=== PATIENT | male | born 1970 | race African-American/Black ===

== ENCOUNTER 2017-01-14 14:29 | Inpatient (IN) | payer SELFPAY ==
[2017-01-14] VITALS (9 sets, daily range): BP systolic 105–140; BP diastolic 63–98
[~2017-01-14] VITALS: Ht 172.7 cm; Wt 81.2 kg
[~2017-01-14 14:29] MED LIST: INSU100I17 SQ; INSU100I27 SQ
[2017-01-14] MEDS ORDERED: IV NORMAL SALINE 1000ML BAG 1,000 ML IV SCH ×2 (14:58→17:46)
[2017-01-14] MEDS ORDERED: 0.9 % SODIUM CHLORIDE 10 ML DISP.SYRIN. IV PRN (15:00)
--- NOTE | 2017-01-14 15:10 | PHYS DOC ---
Past Medical History Past Medical History: Diabetes-Type II Past Surgical History: Other Additional Past Surgical Histo: R KNEE ORTHOPEDIC, L ROTATOR CUFF, R ELBOW ORTHO,R FINGER Alcohol Use: Occasionally Drug Use: None Adult General Chief Complaint Chief Complaint: HYPERGLYCEMIA HPI HPI This is a 46-year-old male past medical history diabetes type 2. He treats that with Humalog 13-16 in the morning, 8 at lunch, 8-10 at night, and Lantus 18 units at bedtime. His complaint today he's been having vomiting off and on and his sugars are running very high for the last 2-3 days. He has been taking his insulin. He has not had any diarrhea. He's not had any chest pain shortness of breath or abdominal pain. He did injure his elbow a couple weeks ago and had some pain there. He did see his doctor and had a negative evaluation for that. He has not been having any fevers. Currently he is not vomiting. He does feel like he may be coming down with the flu. Symptoms are off and on. He cannot think of anything which exacerbates it. Symptoms are nonradiating. And have been going on for 2-3 days. Review of Systems Review of Systems Constitutional: Denies fever or chills Eyes: Denies change in visual acuity, redness, or eye pain HENT: Denies nasal congestion or sore throat Respiratory: Denies cough or shortness of breath Cardiovascular: No additional information not addressed in HPI GI: Denies abdominal pain, bloody stools or diarrhea : Denies dysuria or hematuria Musculoskeletal: Denies back pain or joint pain. Integument: Denies rash or skin lesions Neurologic: Denies headache, focal weakness or sensory changes Endocrine: Denies polyuria or polydipsia Family History Family History non contributory Current Medications Current Medications Current Medications Medications (Trade) Dose Ordered Sig/Lilliana Start Time Stop Time Status Last Admin Dose Admin Acetaminophen/ Hydrocodone Bitart (Lortab 5/325) 1 tab PRN Q4HRS PRN 01/14/17 16:00 Diphenhydramine HCl (Benadryl) 25 mg PRN QHS PRN 01/14/17 16:00 Famotidine (Pepcid) 20 mg QHS 01/14/17 21:00 Insulin Human Regular 150 ml @ 0 mls/hr 1X ONCE 01/14/17 16:00 01/14/17 16:02 DC Insulin Human Regular 150 unit/ Sodium Chloride 151.5 ml @ 0 mls/hr CONT PRN PRN 01/14/17 15:45 Ondansetron HCl (Zofran) 4 mg PRN Q6HRS PRN 01/14/17 16:00 Potassium Chloride 100 ml @ 100 mls/hr PRN Q1HR PRN 01/14/17 15:45 Sodium Chloride 1,000 ml @ 150 mls/hr Q6H40M 01/14/17 16:00 Sodium Chloride (Normal Saline Flush) 3 ml QSHIFT PRN 01/14/17 15:00 Allergies Allergies Allergies Coded Allergies Type Severity Reaction Last Updated Verified No Known Drug Allergies 01/22/14 No No known drug allergies Physical Exam Physical Exam Constitutional: Well developed, well nourished, no acute distress, non-toxic appearance. HENT: Normocephalic, atraumatic, bilateral external ears normal, oropharynx moist, no oral exudates, nose normal. Eyes: PERRLA, EOMI, conjunctiva normal, no discharge. Neck: Normal range of motion, no tenderness, supple, no stridor. Cardiovascular:Heart rate regular rhythm, no murmur Lungs & Thorax: Bilateral breath sounds clear to auscultation Abdomen: Bowel sounds normal, soft, no tenderness, no masses, no pulsatile masses. Skin: Warm, dry, no erythema, no rash. Back: No tenderness, no CVA tenderness. Extremities: No tenderness, no cyanosis, no clubbing, ROM intact, no edema. No redness of warmth to the left elbow. Neurologic: Alert and oriented X 3, normal motor function, normal sensory function, no focal deficits noted. Psychologic: Affect normal, judgement normal, mood normal. Current Patient Data Vital Signs Vital Signs Date Time Temp Pulse Resp B/P (MAP) Pulse Ox O2 Delivery O2 Flow Rate FiO2 01/14/17 14:42 98.0 108 16 135/85 (102) 98 Room Air 98.0 Lab Values Laboratory Tests Test 01/14/17 14:35 01/14/17 14:51 01/14/17 15:20 Glucose (Fingerstick) 595 mg/dL (70-99) *H White Blood Count 9.1 x10^3/uL (4.0-11.0) Red Blood Count 4.66 x10^6/uL (4.30-5.70) Hemoglobin 15.7 g/dL (13.0-17.5) Hematocrit 46.9 % (39.0-53.0) Mean Corpuscular Volume 101 fL (79-100) H Mean Corpuscular Hemoglobin 34 pg (25-35) Mean Corpuscular Hemoglobin Concent 34 g/dL (31-37) Red Cell Distribution Width 12.4 % (11.5-14.5) Platelet Count 378 x10^3/uL (140-400) Neutrophils (%) (Auto) 70 % (31-73) Lymphocytes (%) (Auto) 20 % (24-48) L Monocytes (%) (Auto) 9 % (0-9) Eosinophils (%) (Auto) 1 % (0-3) Basophils (%) (Auto) 0 % (0-3) Neutrophils # (Auto) 6.4 x10^3uL (1.8-7.7) Lymphocytes # (Auto) 1.8 x10^3/uL (1.0-4.8) Monocytes # (Auto) 0.8 x10^3/uL (0.0-1.1) Eosinophils # (Auto) 0.0 x10^3/uL (0.0-0.7) Basophils # (Auto) 0.0 x10^3/uL (0.0-0.2) Sodium Level 130 mmol/L (136-145) L Potassium Level 5.0 mmol/L (3.5-5.1) Chloride Level 93 mmol/L (98-107) L Carbon Dioxide Level 10 mmol/L (21-32) *L Anion Gap 27 (6-14) H Blood Urea Nitrogen 20 mg/dL (8-26) Creatinine 1.5 mg/dL (0.7-1.3) H Estimated GFR (Cockcroft-Gault) 61.5 BUN/Creatinine Ratio 13 (6-20) Glucose Level 560 mg/dL (70-99) *H Calcium Level 8.9 mg/dL (8.5-10.1) Magnesium Level 2.0 mg/dL (1.8-2.4) Total Bilirubin 1.3 mg/dL (0.2-1.0) H Aspartate Amino Transferase (AST) 12 U/L (15-37) L Alanine Aminotransferase (ALT) 19 U/L (16-63) Alkaline Phosphatase 102 U/L (46-116) Total Protein 7.9 g/dL (6.4-8.2) Albumin 4.4 g/dL (3.4-5.0) Albumin/Globulin Ratio 1.3 (1.0-1.7) Lipase 140 U/L (73-393) Urine Collection Type Unknown Urine Color Yellow Urine Clarity Clear Urine pH 5.5 Urine Specific [place] >=1.030 Urine Protein Negative mg/dL (NEG-TRACE) Urine Glucose (UA) >=1000 mg/dL (NEG) Urine Ketones (Stick) >=80 mg/dL (NEG) Urine Blood Trace (NEG) Urine Nitrite Negative (NEG) Urine Bilirubin Negative (NEG) Urine Urobilinogen Dipstick 0.2 mg/dL (0.2 mg/dL) Urine Leukocyte Esterase Negative (NEG) Urine RBC 0 /HPF (0-2) Urine WBC 0 /HPF (0-4) Urine Bacteria 0 /HPF (0-FEW) Laboratory Tests 01/14/17 14:51 Laboratory Tests 01/14/17 14:51 EKG EKG EKG is a sinus tachycardia with a rate of 104 bpm. There is no STEMI. Interpretation Time: 1516 Radiology/Procedures Radiology/Procedures Chest x-ray is without acute abnormality interpreted by me pending radiology over read. Impressions: DKA Course & Med Decision Making Course & Med Decision Making Pertinent Labs and Imaging studies reviewed. (See chart for details) Patient is in DKA. Insulin drip is initiated. IV fluids given. Discussed with Dr. MUSTAFA will admit to the ICU for DKA. Patient remains in stable condition in the emergency department. Dragon Disclaimer Dragon Disclaimer This electronic medical record was generated, in whole or in part, using a voice recognition dictation system. Departure Departure Disposition: 09 ADMITTED INPATIENT Admitting Physician: Savanna Mustafa Condition: CRITICAL Referrals: GINI MONTANA (PCP) CIERRA NGUYEN MD Jan 14, 2017 15:10
[2017-01-14 15:12] LABS: BASO % 0 % (0-3); EOS % 1 % (0-3); HEMATOCRIT 46.9 % (39.0-53.0); HEMOGLOBIN 15.7 g/dL (13.0-17.5); LYMPH # 1.8 x10^3/uL (1.0-4.8); LYMPH % 20 % (24-48); MEAN CORPUSCULAR HEMOGLOBIN 34 pg (25-35); MEAN CORPUSCULAR HGB CONC 34 g/dL (31-37); MEAN CORPUSCULAR VOLUME 101 fL (79-100); MONO % 9 % (0-9); NEUT % 70 % (31-73); PLATELET COUNT 378 x10^3/uL (140-400); RED BLOOD COUNT 4.66 x10^6/uL (4.30-5.70); RED CELL DISTRIBUTION WIDTH 12.4 % (11.5-14.5); WHITE BLOOD COUNT 9.1 x10^3/uL (4.0-11.0)
[2017-01-14 15:28] LABS: BILIRUBIN,URINE NEGATIVE (NEG); GLUCOSE,URINE >=1000 mg/dL (NEG); NITRITE,URINE NEGATIVE (NEG); PH,URINE 5.5; PROTEIN,URINE NEGATIVE (NEG-TRACE); UROBILINOGEN,URINE 0.2 mg/dL (0.2 mg/dL)
[2017-01-14 15:28] LABS: ALBUMIN 4.4 g/dL (3.4-5.0); ALBUMIN/GLOBULIN RATIO 1.3 (1.0-1.7); CALCIUM 8.9 mg/dL (8.5-10.1); CREATININE 1.5 mg/dL (0.7-1.3); GFR 61.5; TOTAL BILIRUBIN 1.3 mg/dL (0.2-1.0); TOTAL PROTEIN 7.9 g/dL (6.4-8.2)
[2017-01-14 15:44] LABS: BACTERIA,URINE 0 /HPF (0-FEW); RBC,URINE 0 /HPF (0-2); WBC,URINE 0 /HPF (0-4)
[2017-01-14] MEDS ORDERED: INSULIN REGULAR VIAL 150 UNIT in 0.9 % SODIUM CHLORIDE 150ML 150 ML IV PRN ×2 (15:45→17:45)
[2017-01-14] MEDS ORDERED: POTASSIUM CHLORIDE 10MEQ 100 ML IV PRN ×6 (15:45→17:45)
[2017-01-14] MEDS ORDERED: diphenhydrAMINE HCL 25 MG CAPSULE PO PRN (16:00)
[2017-01-14] MEDS ORDERED: INSULIN,REGULAR 150 UNIT DRIP 150 ML IV ONE (16:00)
[2017-01-14] MEDS ORDERED: ONDANSETRON PF 4 MG/2 ML VIAL. IV PRN (16:00)
[2017-01-14] MEDS: IV NORMAL SALINE 1000ML BAG 1,000 ML IV SCH ×2 (16:00→22:40)
--- NOTE | 2017-01-14 16:24 | PDOC1 ---
History and Physical Date of Admission Date of Admission DATE: 01/14/17 TIME: 16:19 Identification/Chief Complaint Chief Complaint nausea, emesis Problems: Source Source: Caregiver, Chart review, Patient History of Present Illness History of Present Illness 46 y.o AA male, Dm x 5-7 yrs now on levemir 15 qhs and novolog 16 TID unknown [id number], claims compliance, no respi or urinary sxs admitted for DKA with bicarb 10, gap > 20, BS >500. 5th admission for DKA, PCP unassigned, no OHA. NO neuropathy or nephropathy, no ABG yet, Sinus tachy low 100s, nausea and emesis no fevers, no diarrhea Admit to ICU Past Medical History Endocrine: Diabetes Past Surgical History Past Surgical History: Other (shoulder, knee sx) Family History Family History: Hypertension Social History Smoke: No ALCOHOL: occassional Drugs: None Current Problem List Problem List Problems Medical Problems: (1) DKA (diabetic ketoacidoses) Status: Acute Problems: Current Medications Current Medications Current Medications Sodium Chloride (Normal Saline Flush) 3 ml QSHIFT PRN IV AFTER MEDS AND BLOOD DRAWS; Start 01/14/17 at 15:00 Sodium Chloride 1,000 ml @ 1,000 mls/hr Q1H IV Last administered on t 15:13; Start 01/14/17 at 14:58; Stop 01/14/17 at 15:57; Status DC Insulin Human Regular 150 unit/ Sodium Chloride 151.5 ml @ 0 mls/hr CONT PRN PRN IV PER PROTOCOL; Start 01/14/17 at 15:45 Potassium Chloride 100 ml @ 100 mls/hr PRN Q1HR PRN IV SEE COMMENTS; Start at 15:45 Potassium Chloride 100 ml @ 100 mls/hr PRN Q1HR PRN IV SEE COMMENTS; Start at 15:45 Potassium Chloride 100 ml @ 100 mls/hr PRN Q1HR PRN IV SEE COMMENTS; Start at 15:45 Insulin Human Regular 150 ml @ 0 mls/hr 1X ONCE IV ; Start 01/14/17 at 16:00; Stop 01/14/17 at 16:02; Status DC Famotidine (Pepcid) 20 mg QHS IVP ; Start 01/14/17 at 21:00 Ondansetron HCl (Zofran) 4 mg PRN Q6HRS PRN IV NAUSEA/VOMITING; Start at 16:00 Sodium Chloride 1,000 ml @ 150 mls/hr Q6H40M IV ; Start 01/14/17 at 16:00 Acetaminophen/ Hydrocodone Bitart (Lortab 5/325) 1 tab PRN Q4HRS PRN PO PAIN; Start 01/14/17 at 16:00 Diphenhydramine HCl (Benadryl) 25 mg PRN QHS PRN PO INSOMNIA; Start 01/14/17 at 16:00 Active Scripts Active Levemir Flextouch (Insulin Detemir) 100 Unit/1 Ml Insuln.pen 15 Units SQ QHS 30 Days Novolog Flexpen (Insulin Aspart) 100 Unit/1 Ml Insuln.pen 16 Units SQ TIDBFRMEAL 30 Days Allergies Allergies: Coded Allergies: No Known Drug Allergies (Unverified , 01/22/14) ROS General: YES: Fatigue, Malaise PSYCHOLOGICAL ROS: No: Anxiety, Behavioral Disorder, Concentration difficultie , Decreased libido, Depression, Disorientation, Hallucinations, Hostility, Irritablity, Memory difficulties, Mood Swings, Obsessive thoughts, Physical abuse, Sexual abuse, Sleep disturbances, Suicidal ideation, Other Eyes: No Blurry vision, No Decreased vision, No Double vision, No Dry eyes, No Excessive tearing, No Eye Pain, No Itchy Eyes, No Loss of vision, No Photophobia , No Scotomata, No Uses contacts, No Uses glasses, No Other HEENT: No: Heacaches, Visual Changes, Hearing change, Nasal congestion, Nasal discharge, Oral lesions, Sinus pain, Sore Throat, Epistaxis, Sneezing, Snoring, Tinnitus, Vertigo, Vocal changes, Other ALLERGY AND IMMUNOLOGY: No: Hives, Insect Bite Sensitivity, Itchy/Watery Eyes, Nasal Congestion, Post Nasal Drip, Seasonal Allergies, Other Hematological and Lymphatic: No: Bleeding Problems, Blood Clots, Blood Transfusions, Brusing, Night Sweats, Pallor, Swollen Lymph Nodes, Other ENDOCRINE: YES: Polydipsia/polyuria Breast: No New/Changing Breast Lumps, No Nipple changes, No Nipple discharge, No Other Respiratory: No: Cough, Hemoptysis, Orthopnea, Pleuritic Pain, Shortness of breath, SOB with excertion, Sputum Changes, Stridor, Tachypnea, Wheezing, Other Cardiovascular: No Chest Pain, No Palpitations, No Orthopnea, No Paroxysmal Noc. Dyspnea, No Edema, No Lt Headedness, No Other Gastrointestinal: No Nausea, No Vomiting, No Abdominal Pain, No Diarrhea, No Constipation, No Melena, No Hematochezia, No Other Genitourinary: No Dysuria, No Frequency, No Incontinence, No Hematuria, No Retention, No Discharge, No Urgency, No Pain, No Flank Pain, No Other, No , No , No , No , No , No , No Musculoskeletal: No Gait Disturbance, No Joint Pain, No Joint Stiffness, No Joint Swelling, No Muscle Pain, No Muscular Weakness, No Pain In:, No Swelling In:, No Other Neurological: No Behavorial Changes, No Bowel/Bladder ControlChng, No Confusion , No Dizziness, No Gait Disturbance, No Headaches, No Impaired Coord/balance, No Memory Loss, No Numbness/Tingling, No Seizures, No Speech Problems, No Tremors, No Visual Changes, No Weakness, No Other Skin: No Dry Skin, No Eczema, No Hair Changes, No Lumps, No Mole Changes, No Mottling, No Nail Changes, No Pruritus, No Rash, No Skin Lesion Changes, No Other, No Acne Physical Exam General: Alert, Oriented X3, Cooperative, No acute distress HEENT: PERRLA, EOMI, Other (dry mucous membranes) Lungs: Clear to auscultation Heart: S1S2, RRR, no thrills, no rubs, no gallops, no murmurs, other (sinus tachy) Cardiovascular: S1, S2 Breasts: Normal, Rt breast nml w/o mass, Lt breast nml w/o mass, Nipples normal Abdomen: Normal bowel sounds, Soft, No tenderness, No hepatosplenomegaly, No masses Male Genitals Exam: normal genitalia, normal prostate PELVIC: Nml ext genitalia Extremities: No clubbing, No cyanosis, No edema, Normal pulses, No tenderness/ swelling, Other (toe nails angel big toe and second toe have thickened texture, curling forward) Skin: No rashes, No breakdown, No significant lesion Neuro: Normal gait, Normal speech, Strength at 5/5 X4 ext, Normal tone, Sensation intact, Cranial nerves 3-12 NL, Reflexes 2+ Psych/Mental Status: Mental status NL, Mood NL Vitals Vitals Vital Signs Date Time Temp Pulse Resp B/P (MAP) Pulse Ox O2 Delivery O2 Flow Rate FiO2 01/14/17 14:42 98.0 108 16 135/85 (102) 98 Room Air 98.0 Labs Labs Laboratory Tests Test 01/14/17 14:35 01/14/17 14:51 01/14/17 15:20 Glucose (Fingerstick) 595 mg/dL (70-99) White Blood Count 9.1 x10^3/uL (4.0-11.0) Red Blood Count 4.66 x10^6/uL (4.30-5.70) Hemoglobin 15.7 g/dL (13.0-17.5) Hematocrit 46.9 % (39.0-53.0) Mean Corpuscular Volume 101 fL (79-100) Mean Corpuscular Hemoglobin 34 pg (25-35) Mean Corpuscular Hemoglobin Concent 34 g/dL (31-37) Red Cell Distribution Width 12.4 % (11.5-14.5) Platelet Count 378 x10^3/uL (140-400) Neutrophils (%) (Auto) 70 % (31-73) Lymphocytes (%) (Auto) 20 % (24-48) Monocytes (%) (Auto) 9 % (0-9) Eosinophils (%) (Auto) 1 % (0-3) Basophils (%) (Auto) 0 % (0-3) Neutrophils # (Auto) 6.4 x10^3uL (1.8-7.7) Lymphocytes # (Auto) 1.8 x10^3/uL (1.0-4.8) Monocytes # (Auto) 0.8 x10^3/uL (0.0-1.1) Eosinophils # (Auto) 0.0 x10^3/uL (0.0-0.7) Basophils # (Auto) 0.0 x10^3/uL (0.0-0.2) Sodium Level 130 mmol/L (136-145) Potassium Level 5.0 mmol/L (3.5-5.1) Chloride Level 93 mmol/L (98-107) Carbon Dioxide Level 10 mmol/L (21-32) Anion Gap 27 (6-14) Blood Urea Nitrogen 20 mg/dL (8-26) Creatinine 1.5 mg/dL (0.7-1.3) Estimated GFR (Cockcroft-Gault) 61.5 BUN/Creatinine Ratio 13 (6-20) Glucose Level 560 mg/dL (70-99) Calcium Level 8.9 mg/dL (8.5-10.1) Magnesium Level 2.0 mg/dL (1.8-2.4) Total Bilirubin 1.3 mg/dL (0.2-1.0) Aspartate Amino Transf (AST/SGOT) 12 U/L (15-37) Alanine Aminotransferase (ALT/SGPT) 19 U/L (16-63) Alkaline Phosphatase 102 U/L (46-116) Total Protein 7.9 g/dL (6.4-8.2) Albumin 4.4 g/dL (3.4-5.0) Albumin/Globulin Ratio 1.3 (1.0-1.7) Lipase 140 U/L (73-393) Urine Collection Type Unknown Urine Color Yellow Urine Clarity Clear Urine pH 5.5 Urine Specific [place] >=1.030 Urine Protein Negative mg/dL (NEG-TRACE) Urine Glucose (UA) >=1000 mg/dL (NEG) Urine Ketones (Stick) >=80 mg/dL (NEG) Urine Blood Trace (NEG) Urine Nitrite Negative (NEG) Urine Bilirubin Negative (NEG) Urine Urobilinogen Dipstick 0.2 mg/dL (0.2 mg/dL) Urine Leukocyte Esterase Negative (NEG) Urine RBC 0 /HPF (0-2) Urine WBC 0 /HPF (0-4) Urine Bacteria 0 /HPF (0-FEW) Laboratory Tests Test 01/14/17 14:35 01/14/17 14:51 01/14/17 15:20 Glucose (Fingerstick) 595 mg/dL (70-99) White Blood Count 9.1 x10^3/uL (4.0-11.0) Red Blood Count 4.66 x10^6/uL (4.30-5.70) Hemoglobin 15.7 g/dL (13.0-17.5) Hematocrit 46.9 % (39.0-53.0) Mean Corpuscular Volume 101 fL (79-100) Mean Corpuscular Hemoglobin 34 pg (25-35) Mean Corpuscular Hemoglobin Concent 34 g/dL (31-37) Red Cell Distribution Width 12.4 % (11.5-14.5) Platelet Count 378 x10^3/uL (140-400) Neutrophils (%) (Auto) 70 % (31-73) Lymphocytes (%) (Auto) 20 % (24-48) Monocytes (%) (Auto) 9 % (0-9) Eosinophils (%) (Auto) 1 % (0-3) Basophils (%) (Auto) 0 % (0-3) Neutrophils # (Auto) 6.4 x10^3uL (1.8-7.7) Lymphocytes # (Auto) 1.8 x10^3/uL (1.0-4.8) Monocytes # (Auto) 0.8 x10^3/uL (0.0-1.1) Eosinophils # (Auto) 0.0 x10^3/uL (0.0-0.7) Basophils # (Auto) 0.0 x10^3/uL (0.0-0.2) Sodium Level 130 mmol/L (136-145) Potassium Level 5.0 mmol/L (3.5-5.1) Chloride Level 93 mmol/L (98-107) Carbon Dioxide Level 10 mmol/L (21-32) Anion Gap 27 (6-14) Blood Urea Nitrogen 20 mg/dL (8-26) Creatinine 1.5 mg/dL (0.7-1.3) Estimated GFR (Cockcroft-Gault) 61.5 BUN/Creatinine Ratio 13 (6-20) Glucose Level 560 mg/dL (70-99) Calcium Level 8.9 mg/dL (8.5-10.1) Magnesium Level 2.0 mg/dL (1.8-2.4) Total Bilirubin 1.3 mg/dL (0.2-1.0) Aspartate Amino Transf (AST/SGOT) 12 U/L (15-37) Alanine Aminotransferase (ALT/SGPT) 19 U/L (16-63) Alkaline Phosphatase 102 U/L (46-116) Total Protein 7.9 g/dL (6.4-8.2) Albumin 4.4 g/dL (3.4-5.0) Albumin/Globulin Ratio 1.3 (1.0-1.7) Lipase 140 U/L (73-393) Urine Collection Type Unknown Urine Color Yellow Urine Clarity Clear Urine pH 5.5 Urine Specific [place] >=1.030 Urine Protein Negative mg/dL (NEG-TRACE) Urine Glucose (UA) >=1000 mg/dL (NEG) Urine Ketones (Stick) >=80 mg/dL (NEG) Urine Blood Trace (NEG) Urine Nitrite Negative (NEG) Urine Bilirubin Negative (NEG) Urine Urobilinogen Dipstick 0.2 mg/dL (0.2 mg/dL) Urine Leukocyte Esterase Negative (NEG) Urine RBC 0 /HPF (0-2) Urine WBC 0 /HPF (0-4) Urine Bacteria 0 /HPF (0-FEW) VTE Prophylaxis Ordered VTE Prophylaxis Devices: Yes VTE Pharmacological Prophylaxi: Yes Assessment/Plan Assessment/Plan 1. DKA 2. SIRS POA, non infectious 3. Long toe nails PLAN: Admit ICU DKA protocol Insulin gtt' IVF 150cc./hr, aggressive after IVF boluses at ER BMP q4 till gap closes Check pH with ABG , if < 6.9 will need bicarb D5 IVF once BS < 250 mg/dl Podiatry for toe nail clipping Seen at ER No UTI on UA NICK MUSTAFA MD Jan 14, 2017 16:24
[2017-01-14] MEDS ORDERED: IV DEXTROSE 5 %-0.45 % NACL 1,000 ML IV SCH (16:30)
[2017-01-14 16:32] LABS: CALCIUM 8.5 mg/dL (8.5-10.1); CREATININE 1.5 mg/dL (0.7-1.3); GFR 61.5; POTASSIUM 4.7 mmol/L (3.5-5.1)
[2017-01-14 17:09] LABS: HCO3 ABG 7 mmol/L (21-28); PH ABG 7.28 (7.35-7.45); PO2 ABG 104 mmHg (75-108); SAT O2 ABG 97 % (92-99)
[2017-01-14 17:17] LABS: PCO2 ABG 16 mmHg (35-46)
--- NOTE | 2017-01-14 17:18 | RAD ---
PORTABLE CHEST 1V Clinical Indication: malaise hyperglycemia Comparison: Chest radiograph dated 12/06/2015 Findings: Normal lung volume. No focal consolidation. Normal pulmonary vasculature. No pleural effusion or pneumothorax. The cardiomediastinal silhouette and great vessels are normal. No acute osseous abnormality. IMPRESSION: No acute cardiopulmonary process.
[2017-01-14] MEDS ORDERED: SODIUM BICARBONATE VIAL 50 MEQ in IV 1/2 NORMAL SALINE 1,000 ML IV PRN (17:43)
[2017-01-14] MEDS ORDERED: SODIUM PHOSPHATE 10 MMOL in IV DEXTROSE 5% 250 ML IV PRN (17:45)
[2017-01-14] MEDS ORDERED: SODIUM PHOSPHATE 20 MMOL in IV DEXTROSE 5% 250 ML IV PRN (17:45)
[2017-01-14] MEDS ORDERED: SODIUM PHOSPHATE 40 MMOL in IV NORMAL SALINE 500ML BAG 500 ML IV PRN (17:45)
[2017-01-14] MEDS ORDERED: NORMAL SALINE IV PRN (18:30)
[2017-01-14] MEDS ORDERED: SODIUM PHOSPHATE IV PRN (18:30)
[2017-01-14 19:56] LABS: CALCIUM 8.6 mg/dL (8.5-10.1); CREATININE 1.4 mg/dL (0.7-1.3); GFR 66.6; POTASSIUM 3.8 mmol/L (3.5-5.1)
[2017-01-14] MEDS: IV DEXTROSE 5% - 0.9 % NACL 1,000 ML IV SCH (20:45)
[2017-01-14] MEDS: FAMOTIDINE 20 MG/2 ML VIAL IVP SCH (20:49)
[2017-01-14] MEDS: HYDROcodone/APAP 5/325MG 1 TAB TABLET PO PRN (20:52)
[2017-01-15] VITALS (13 sets, daily range): BP systolic 92–123; BP diastolic 56–80
[2017-01-15 00:51] LABS: CALCIUM 7.4 mg/dL (8.5-10.1); CREATININE 1.1 mg/dL (0.7-1.3)
[2017-01-15] MEDS: IV DEXTROSE 5% - 0.9 % NACL 1,000 ML IV SCH (01:07)
[2017-01-15] MEDS: POTASSIUM CHLORIDE 10MEQ 100 ML IV SCH ×4 (01:08→04:39)
[2017-01-15] MEDS: IV NORMAL SALINE 1000ML BAG 1,000 ML IV SCH ×2 (04:39→16:51)
[2017-01-15] MEDS ORDERED: DEXTROSE 50% 25 GM / 50ML DISP.SYRIN. IV PRN (04:45)
--- NOTE | 2017-01-15 06:14 | EKG ---
[facility] [address] [place] [address] Test Date: 2017-01-14 Test Time: 15:13:24 Pat Name: MELINA MACIAS Department: Room: 106 1 Gender: M [employer]ist: : 1970 Requested By: CIERRA NGUYEN Order Number: [id number] Reading MD: Neil Monique Measurements Intervals [place] Rate: 104 P: 29 IA: 150 QRS: 5 QRSD: 76 T: 30 QT: 308 QTc: 405 Interpretive Statements SINUS TACHYCARDIA NON-SPECIFIC ST/T CHANGES Electronically Signed On 01-17-2017 8:22:39 CDT by Neil Monique
--- NOTE | 2017-01-15 07:48 | PDOC ---
PROGRESS NOTES Chief Complaint Chief Complaint 1. DKA, resolved 2. SIRS POA, non infectious 3. Long toe nails 4. DM uncontrolled History of Present Illness History of Present Illness GAp closed, Was 120 BS with d5 at 200cc early AM NO more nausea, chugging up his liquid diet BS check now was 200s PLAn: NS 100cc/hr Dc dextrose iVF Resume home regimen levemir 15 qhs and novolog 16 TID with high dose SSI Ok to t.o ICU to non monitored bed Dw [employer] Vitals Vitals Vital Signs Date Time Temp Pulse Resp B/P (MAP) Pulse Ox O2 Delivery O2 Flow Rate FiO2 01/15/17 06:00 66 16 97/69 (78) Room Air 01/15/17 04:00 98.0 100 98.0 Physical Exam General: Alert, Oriented X3, Cooperative, No acute distress Lungs: Clear Abdomen: Normal bowel sounds, Soft, No tenderness, No hepatosplenomegaly, No masses Extremities: No clubbing, No cyanosis, No edema, Normal pulses, No tenderness/ swelling, Other (toe nails angel big toe and second toe have thickened texture, curling forward) Skin: No rashes, No breakdown, No significant lesion Labs LABS Laboratory Tests Test 01/14/17 14:35 01/14/17 14:51 01/14/17 15:20 01/14/17 16:13 Glucose (Fingerstick) 595 mg/dL (70-99) White Blood Count 9.1 x10^3/uL (4.0-11.0) Red Blood Count 4.66 x10^6/uL (4.30-5.70) Hemoglobin 15.7 g/dL (13.0-17.5) Hematocrit 46.9 % (39.0-53.0) Mean Corpuscular Volume 101 fL (79-100) Mean Corpuscular Hemoglobin 34 pg (25-35) Mean Corpuscular Hemoglobin Concent 34 g/dL (31-37) Red Cell Distribution Width 12.4 % (11.5-14.5) Platelet Count 378 x10^3/uL (140-400) Neutrophils (%) (Auto) 70 % (31-73) Lymphocytes (%) (Auto) 20 % (24-48) Monocytes (%) (Auto) 9 % (0-9) Eosinophils (%) (Auto) 1 % (0-3) Basophils (%) (Auto) 0 % (0-3) Neutrophils # (Auto) 6.4 x10^3uL (1.8-7.7) Lymphocytes # (Auto) 1.8 x10^3/uL (1.0-4.8) Monocytes # (Auto) 0.8 x10^3/uL (0.0-1.1) Eosinophils # (Auto) 0.0 x10^3/uL (0.0-0.7) Basophils # (Auto) 0.0 x10^3/uL (0.0-0.2) Sodium Level 130 mmol/L (136-145) 132 mmol/L (136-145) Potassium Level 5.0 mmol/L (3.5-5.1) 4.7 mmol/L (3.5-5.1) Chloride Level 93 mmol/L (98-107) 96 mmol/L (98-107) Carbon Dioxide Level 10 mmol/L (21-32) 9 mmol/L (21-32) Anion Gap 27 (6-14) 27 (6-14) Blood Urea Nitrogen 20 mg/dL (8-26) 19 mg/dL (8-26) Creatinine 1.5 mg/dL (0.7-1.3) 1.5 mg/dL (0.7-1.3) Estimated GFR (Cockcroft-Gault) 61.5 61.5 BUN/Creatinine Ratio 13 (6-20) Glucose Level 560 mg/dL (70-99) 479 mg/dL (70-99) Calcium Level 8.9 mg/dL (8.5-10.1) 8.5 mg/dL (8.5-10.1) Magnesium Level 2.0 mg/dL (1.8-2.4) Total Bilirubin 1.3 mg/dL (0.2-1.0) Aspartate Amino Transf (AST/SGOT) 12 U/L (15-37) Alanine Aminotransferase (ALT/SGPT) 19 U/L (16-63) Alkaline Phosphatase 102 U/L (46-116) Total Protein 7.9 g/dL (6.4-8.2) Albumin 4.4 g/dL (3.4-5.0) Albumin/Globulin Ratio 1.3 (1.0-1.7) Lipase 140 U/L (73-393) Urine Collection Type Unknown Urine Color Yellow Urine Clarity Clear Urine pH 5.5 Urine Specific [place] >=1.030 Urine Protein Negative mg/dL (NEG-TRACE) Urine Glucose (UA) >=1000 mg/dL (NEG) Urine Ketones (Stick) >=80 mg/dL (NEG) Urine Blood Trace (NEG) Urine Nitrite Negative (NEG) Urine Bilirubin Negative (NEG) Urine Urobilinogen Dipstick 0.2 mg/dL (0.2 mg/dL) Urine Leukocyte Esterase Negative (NEG) Urine RBC 0 /HPF (0-2) Urine WBC 0 /HPF (0-4) Urine Bacteria 0 /HPF (0-FEW) Test 01/14/17 16:22 01/14/17 17:00 01/14/17 17:06 01/14/17 19:15 Glucose (Fingerstick) 452 mg/dL (70-99) 347 mg/dL (70-99) 162 mg/dL (70-99) O2 Saturation 97 % (92-99) Arterial Blood pH 7.28 (7.35-7.45) Arterial Blood pCO2 at Patient Temp 16 mmHg (35-46) Arterial Blood pO2 at Patient Temp 104 mmHg (75-108) Arterial Blood HCO3 7 mmol/L (21-28) Arterial Blood Base Excess -16 mmol/L (-3-3) Test 01/14/17 19:44 01/14/17 20:53 01/14/17 21:55 01/14/17 22:58 Sodium Level 139 mmol/L (136-145) Potassium Level 3.8 mmol/L (3.5-5.1) Chloride Level 103 mmol/L (98-107) Carbon Dioxide Level 18 mmol/L (21-32) Anion Gap 18 (6-14) Blood Urea Nitrogen 18 mg/dL (8-26) Creatinine 1.4 mg/dL (0.7-1.3) Estimated GFR (Cockcroft-Gault) 66.6 Glucose Level 160 mg/dL (70-99) Calcium Level 8.6 mg/dL (8.5-10.1) Glucose (Fingerstick) 168 mg/dL (70-99) 160 mg/dL (70-99) 163 mg/dL (70-99) Test 01/15/17 00:04 01/15/17 00:15 01/15/17 01:14 01/15/17 02:06 Glucose (Fingerstick) 142 mg/dL (70-99) 266 mg/dL (70-99) 99 mg/dL (70-99) Sodium Level 137 mmol/L (136-145) Potassium Level 3.0 mmol/L (3.5-5.1) Chloride Level 105 mmol/L (98-107) Carbon Dioxide Level 21 mmol/L (21-32) Anion Gap 11 (6-14) Blood Urea Nitrogen 15 mg/dL (8-26) Creatinine 1.1 mg/dL (0.7-1.3) Estimated GFR (Cockcroft-Gault) 88.0 Glucose Level 142 mg/dL (70-99) Calcium Level 7.4 mg/dL (8.5-10.1) Test 01/15/17 03:10 01/15/17 04:16 01/15/17 07:42 Glucose (Fingerstick) 84 mg/dL (70-99) 121 mg/dL (70-99) 239 mg/dL (70-99) Review of Systems Review of Systems no nausea, CP, soa or abd pain, no fevers, leg edema Assessment and Plan Assessmemt and Plan Problems Medical Problems: (1) DKA (diabetic ketoacidoses) Status: Acute Problems: Comment Review of Relevant I have reviewed the following items kaelyn (where applicable) has been applied. Labs Laboratory Tests Test 01/14/17 14:35 01/14/17 14:51 01/14/17 15:20 01/14/17 16:13 Glucose (Fingerstick) 595 mg/dL (70-99) White Blood Count 9.1 x10^3/uL (4.0-11.0) Red Blood Count 4.66 x10^6/uL (4.30-5.70) Hemoglobin 15.7 g/dL (13.0-17.5) Hematocrit 46.9 % (39.0-53.0) Mean Corpuscular Volume 101 fL (79-100) Mean Corpuscular Hemoglobin 34 pg (25-35) Mean Corpuscular Hemoglobin Concent 34 g/dL (31-37) Red Cell Distribution Width 12.4 % (11.5-14.5) Platelet Count 378 x10^3/uL (140-400) Neutrophils (%) (Auto) 70 % (31-73) Lymphocytes (%) (Auto) 20 % (24-48) Monocytes (%) (Auto) 9 % (0-9) Eosinophils (%) (Auto) 1 % (0-3) Basophils (%) (Auto) 0 % (0-3) Neutrophils # (Auto) 6.4 x10^3uL (1.8-7.7) Lymphocytes # (Auto) 1.8 x10^3/uL (1.0-4.8) Monocytes # (Auto) 0.8 x10^3/uL (0.0-1.1) Eosinophils # (Auto) 0.0 x10^3/uL (0.0-0.7) Basophils # (Auto) 0.0 x10^3/uL (0.0-0.2) Sodium Level 130 mmol/L (136-145) 132 mmol/L (136-145) Potassium Level 5.0 mmol/L (3.5-5.1) 4.7 mmol/L (3.5-5.1) Chloride Level 93 mmol/L (98-107) 96 mmol/L (98-107) Carbon Dioxide Level 10 mmol/L (21-32) 9 mmol/L (21-32) Anion Gap 27 (6-14) 27 (6-14) Blood Urea Nitrogen 20 mg/dL (8-26) 19 mg/dL (8-26) Creatinine 1.5 mg/dL (0.7-1.3) 1.5 mg/dL (0.7-1.3) Estimated GFR (Cockcroft-Gault) 61.5 61.5 BUN/Creatinine Ratio 13 (6-20) Glucose Level 560 mg/dL (70-99) 479 mg/dL (70-99) Calcium Level 8.9 mg/dL (8.5-10.1) 8.5 mg/dL (8.5-10.1) Magnesium Level 2.0 mg/dL (1.8-2.4) Total Bilirubin 1.3 mg/dL (0.2-1.0) Aspartate Amino Transf (AST/SGOT) 12 U/L (15-37) Alanine Aminotransferase (ALT/SGPT) 19 U/L (16-63) Alkaline Phosphatase 102 U/L (46-116) Total Protein 7.9 g/dL (6.4-8.2) Albumin 4.4 g/dL (3.4-5.0) Albumin/Globulin Ratio 1.3 (1.0-1.7) Lipase 140 U/L (73-393) Urine Collection Type Unknown Urine Color Yellow Urine Clarity Clear Urine pH 5.5 Urine Specific [place] >=1.030 Urine Protein Negative mg/dL (NEG-TRACE) Urine Glucose (UA) >=1000 mg/dL (NEG) Urine Ketones (Stick) >=80 mg/dL (NEG) Urine Blood Trace (NEG) Urine Nitrite Negative (NEG) Urine Bilirubin Negative (NEG) Urine Urobilinogen Dipstick 0.2 mg/dL (0.2 mg/dL) Urine Leukocyte Esterase Negative (NEG) Urine RBC 0 /HPF (0-2) Urine WBC 0 /HPF (0-4) Urine Bacteria 0 /HPF (0-FEW) Test 01/14/17 16:22 01/14/17 17:00 01/14/17 17:06 01/14/17 19:15 Glucose (Fingerstick) 452 mg/dL (70-99) 347 mg/dL (70-99) 162 mg/dL (70-99) O2 Saturation 97 % (92-99) Arterial Blood pH 7.28 (7.35-7.45) Arterial Blood pCO2 at Patient Temp 16 mmHg (35-46) Arterial Blood pO2 at Patient Temp 104 mmHg (75-108) Arterial Blood HCO3 7 mmol/L (21-28) Arterial Blood Base Excess -16 mmol/L (-3-3) Test 01/14/17 19:44 01/14/17 20:53 01/14/17 21:55 01/14/17 22:58 Sodium Level 139 mmol/L (136-145) Potassium Level 3.8 mmol/L (3.5-5.1) Chloride Level 103 mmol/L (98-107) Carbon Dioxide Level 18 mmol/L (21-32) Anion Gap 18 (6-14) Blood Urea Nitrogen 18 mg/dL (8-26) Creatinine 1.4 mg/dL (0.7-1.3) Estimated GFR (Cockcroft-Gault) 66.6 Glucose Level 160 mg/dL (70-99) Calcium Level 8.6 mg/dL (8.5-10.1) Glucose (Fingerstick) 168 mg/dL (70-99) 160 mg/dL (70-99) 163 mg/dL (70-99) Test 01/15/17 00:04 01/15/17 00:15 01/15/17 01:14 01/15/17 02:06 Glucose (Fingerstick) 142 mg/dL (70-99) 266 mg/dL (70-99) 99 mg/dL (70-99) Sodium Level 137 mmol/L (136-145) Potassium Level 3.0 mmol/L (3.5-5.1) Chloride Level 105 mmol/L (98-107) Carbon Dioxide Level 21 mmol/L (21-32) Anion Gap 11 (6-14) Blood Urea Nitrogen 15 mg/dL (8-26) Creatinine 1.1 mg/dL (0.7-1.3) Estimated GFR (Cockcroft-Gault) 88.0 Glucose Level 142 mg/dL (70-99) Calcium Level 7.4 mg/dL (8.5-10.1) Test 01/15/17 03:10 01/15/17 04:16 01/15/17 07:42 Glucose (Fingerstick) 84 mg/dL (70-99) 121 mg/dL (70-99) 239 mg/dL (70-99) Laboratory Tests Test 01/14/17 14:35 01/14/17 14:51 01/14/17 15:20 01/14/17 16:13 Glucose (Fingerstick) 595 mg/dL (70-99) White Blood Count 9.1 x10^3/uL (4.0-11.0) Red Blood Count 4.66 x10^6/uL (4.30-5.70) Hemoglobin 15.7 g/dL (13.0-17.5) Hematocrit 46.9 % (39.0-53.0) Mean Corpuscular Volume 101 fL (79-100) Mean Corpuscular Hemoglobin 34 pg (25-35) Mean Corpuscular Hemoglobin Concent 34 g/dL (31-37) Red Cell Distribution Width 12.4 % (11.5-14.5) Platelet Count 378 x10^3/uL (140-400) Neutrophils (%) (Auto) 70 % (31-73) Lymphocytes (%) (Auto) 20 % (24-48) Monocytes (%) (Auto) 9 % (0-9) Eosinophils (%) (Auto) 1 % (0-3) Basophils (%) (Auto) 0 % (0-3) Neutrophils # (Auto) 6.4 x10^3uL (1.8-7.7) Lymphocytes # (Auto) 1.8 x10^3/uL (1.0-4.8) Monocytes # (Auto) 0.8 x10^3/uL (0.0-1.1) Eosinophils # (Auto) 0.0 x10^3/uL (0.0-0.7) Basophils # (Auto) 0.0 x10^3/uL (0.0-0.2) Sodium Level 130 mmol/L (136-145) 132 mmol/L (136-145) Potassium Level 5.0 mmol/L (3.5-5.1) 4.7 mmol/L (3.5-5.1) Chloride Level 93 mmol/L (98-107) 96 mmol/L (98-107) Carbon Dioxide Level 10 mmol/L (21-32) 9 mmol/L (21-32) Anion Gap 27 (6-14) 27 (6-14) Blood Urea Nitrogen 20 mg/dL (8-26) 19 mg/dL (8-26) Creatinine 1.5 mg/dL (0.7-1.3) 1.5 mg/dL (0.7-1.3) Estimated GFR (Cockcroft-Gault) 61.5 61.5 BUN/Creatinine Ratio 13 (6-20) Glucose Level 560 mg/dL (70-99) 479 mg/dL (70-99) Calcium Level 8.9 mg/dL (8.5-10.1) 8.5 mg/dL (8.5-10.1) Magnesium Level 2.0 mg/dL (1.8-2.4) Total Bilirubin 1.3 mg/dL (0.2-1.0) Aspartate Amino Transf (AST/SGOT) 12 U/L (15-37) Alanine Aminotransferase (ALT/SGPT) 19 U/L (16-63) Alkaline Phosphatase 102 U/L (46-116) Total Protein 7.9 g/dL (6.4-8.2) Albumin 4.4 g/dL (3.4-5.0) Albumin/Globulin Ratio 1.3 (1.0-1.7) Lipase 140 U/L (73-393) Urine Collection Type Unknown Urine Color Yellow Urine Clarity Clear Urine pH 5.5 Urine Specific [place] >=1.030 Urine Protein Negative mg/dL (NEG-TRACE) Urine Glucose (UA) >=1000 mg/dL (NEG) Urine Ketones (Stick) >=80 mg/dL (NEG) Urine Blood Trace (NEG) Urine Nitrite Negative (NEG) Urine Bilirubin Negative (NEG) Urine Urobilinogen Dipstick 0.2 mg/dL (0.2 mg/dL) Urine Leukocyte Esterase Negative (NEG) Urine RBC 0 /HPF (0-2) Urine WBC 0 /HPF (0-4) Urine Bacteria 0 /HPF (0-FEW) Test 01/14/17 16:22 01/14/17 17:00 01/14/17 17:06 01/14/17 19:15 Glucose (Fingerstick) 452 mg/dL (70-99) 347 mg/dL (70-99) 162 mg/dL (70-99) O2 Saturation 97 % (92-99) Arterial Blood pH 7.28 (7.35-7.45) Arterial Blood pCO2 at Patient Temp 16 mmHg (35-46) Arterial Blood pO2 at Patient Temp 104 mmHg (75-108) Arterial Blood HCO3 7 mmol/L (21-28) Arterial Blood Base Excess -16 mmol/L (-3-3) Test 01/14/17 19:44 01/14/17 20:53 01/14/17 21:55 01/14/17 22:58 Sodium Level 139 mmol/L (136-145) Potassium Level 3.8 mmol/L (3.5-5.1) Chloride Level 103 mmol/L (98-107) Carbon Dioxide Level 18 mmol/L (21-32) Anion Gap 18 (6-14) Blood Urea Nitrogen 18 mg/dL (8-26) Creatinine 1.4 mg/dL (0.7-1.3) Estimated GFR (Cockcroft-Gault) 66.6 Glucose Level 160 mg/dL (70-99) Calcium Level 8.6 mg/dL (8.5-10.1) Glucose (Fingerstick) 168 mg/dL (70-99) 160 mg/dL (70-99) 163 mg/dL (70-99) Test 01/15/17 00:04 01/15/17 00:15 01/15/17 01:14 01/15/17 02:06 Glucose (Fingerstick) 142 mg/dL (70-99) 266 mg/dL (70-99) 99 mg/dL (70-99) Sodium Level 137 mmol/L (136-145) Potassium Level 3.0 mmol/L (3.5-5.1) Chloride Level 105 mmol/L (98-107) Carbon Dioxide Level 21 mmol/L (21-32) Anion Gap 11 (6-14) Blood Urea Nitrogen 15 mg/dL (8-26) Creatinine 1.1 mg/dL (0.7-1.3) Estimated GFR (Cockcroft-Gault) 88.0 Glucose Level 142 mg/dL (70-99) Calcium Level 7.4 mg/dL (8.5-10.1) Test 01/15/17 03:10 01/15/17 04:16 01/15/17 07:42 Glucose (Fingerstick) 84 mg/dL (70-99) 121 mg/dL (70-99) 239 mg/dL (70-99) Medications Current Medications Sodium Chloride (Normal Saline Flush) 3 ml QSHIFT PRN IV AFTER MEDS AND BLOOD DRAWS; Start 01/14/17 at 15:00 Sodium Chloride 1,000 ml @ 1,000 mls/hr Q1H IV Last administered on t 15:13; Start 01/14/17 at 14:58; Stop 01/14/17 at 15:57; Status DC Insulin Human Regular 150 unit/ Sodium Chloride 151.5 ml @ 0 mls/hr CONT PRN PRN IV PER PROTOCOL; Start 01/14/17 at 15:45; Stop 01/15/17 at 07:29; Status DC Potassium Chloride 100 ml @ 100 mls/hr PRN Q1HR PRN IV SEE COMMENTS; Start at 15:45 Potassium Chloride 100 ml @ 100 mls/hr PRN Q1HR PRN IV SEE COMMENTS; Start at 15:45 Potassium Chloride 100 ml @ 100 mls/hr PRN Q1HR PRN IV SEE COMMENTS; Start at 15:45 Insulin Human Regular 150 ml @ 0 mls/hr 1X ONCE IV Last administered on 16:28; Start 01/14/17 at 16:00; Stop 01/15/17 at 07:29; Status DC Famotidine (Pepcid) 20 mg QHS IVP Last administered on 01/14/17 20:49; Start 01/14/17 at 21:00 Ondansetron HCl (Zofran) 4 mg PRN Q6HRS PRN IV NAUSEA/VOMITING; Start at 16:00 Sodium Chloride 1,000 ml @ 100 mls/hr Q10H IV Last administered on 01/15/17 04:39; Start 01/14/17 at 16:00 Acetaminophen/ Hydrocodone Bitart (Lortab 5/325) 1 tab PRN Q4HRS PRN PO PAIN Last administered on 01/14/17 20:52; Start 01/14/17 at 16:00 Diphenhydramine HCl (Benadryl) 25 mg PRN QHS PRN PO INSOMNIA; Start 01/14/17 at 16:00 Dextrose/Sodium Chloride 1,000 ml @ 100 mls/hr Q10H IV ; Start 01/14/17 at 16: 30; Stop 01/14/17 at 20:45; Status DC Sodium Chloride 1,000 ml @ 250 mls/hr Q4H IV Last administered on 01/14/17 17:46; Start 01/14/17 at 17:46; Stop 01/14/17 at 20:45; Status DC Insulin Human Regular 150 unit/ Sodium Chloride 151.5 ml @ 0 mls/hr CONT PRN PRN IV PER PROTOCOL; Start 01/14/17 at 17:45; Status UNV Potassium Chloride 100 ml @ 100 mls/hr PRN Q1HR PRN IV SEE COMMENTS; Start at 17:45 Potassium Chloride 100 ml @ 100 mls/hr PRN Q1HR PRN IV SEE COMMENTS; Start at 17:45 Potassium Chloride 100 ml @ 100 mls/hr PRN Q1HR PRN IV SEE COMMENTS; Start at 17:45 Magnesium Sulfate/ Dextrose 100 ml @ 25 mls/hr PRN DAILY PRN IV SEE COMMENTS; Start 01/15/17 at 09:00 Sodium Bicarbonate 50 meq/Sodium Chloride 1,050 ml @ 500 mls/hr Q2H6M PRN IV SEE COMMENTS; Start 01/14/17 at 17:43; Stop 01/15/17 at 07:29; Status DC Sodium Phosphate 40 mmol/Sodium Chloride 513.3333 ml @ 83.3 mls/hr 1X PRN PRN IV SEE COMMENTS; Start 01/14/17 at 17:45; Stop 01/14/17 at 18:15; Status DC Sodium Phosphate 20 mmol/Dextrose 256.6667 ml @ 62.5 mls/hr 1X PRN PRN IV SEE COMMENTS; Start 01/14/17 at 17:45 Sodium Phosphate 10 mmol/Dextrose 253.3333 ml @ 62.5 mls/hr 1X PRN PRN IV SEE COMMENTS; Start 01/14/17 at 17:45 Sodium Phosphate 20 mmol/Sodium Chloride 256.6667 ml @ 41.65 mls/hr 1X PRN PRN IV SEE COMMENTS; Start 01/14/17 at 18:30 Dextrose/Sodium Chloride 1,000 ml @ 250 mls/hr Q4H IV Last administered on 01:07; Start 01/14/17 at 20:45; Stop 01/15/17 at 04:37; Status DC Potassium Chloride 100 ml @ 100 mls/hr Q1H IV Last administered on 01/15/17 04:39; Start 01/15/17 at 01:30; Stop 01/15/17 at 05:29; Status DC Insulin Aspart (NovoLOG) 0-9 UNITS TIDWMEALS SQ ; Start 01/15/17 at 08:00 Dextrose (Dextrose 50%-Water Syringe) 12.5 gm PRN Q15MIN PRN IV SEE COMMENTS; Start 01/15/17 at 04:45 Insulin Aspart (NovoLOG) 16 units TIDWMEALS SQ ; Start 01/15/17 at 08:00; Stop 01/15/17 at 08:00; Status DC Insulin Aspart (NovoLOG) 5 units TIDWMEALS SQ ; Start 01/15/17 at 08:00 Insulin Detemir (Levemir) 10 units QHS SQ ; Start 01/15/17 at 21:00 Active Scripts Active Levemir Flextouch (Insulin Detemir) 100 Unit/1 Ml Insuln.pen 15 Units SQ QHS 30 Days Novolog Flexpen (Insulin Aspart) 100 Unit/1 Ml Insuln.pen 16 Units SQ TIDBFRMEAL 30 Days Vitals/I & O Vital Sign - Last 24 Hours 01/14/17 01/14/17 01/14/17 01/14/17 14:42 15:15 15:45 16:15 Temp 98.0 98.0 Pulse 108 106 96 96 Resp 16 26 21 24 B/P (MAP) 135/85 (102) 130/82 (98) 124/91 (102) 134/69 (90) Pulse Ox 98 100 97 98 O2 Delivery Room Air Room Air Room Air Room Air 01/14/17 01/14/17 01/14/17 01/14/17 17:00 17:20 17:22 17:45 Temp 98.3 98.3 Pulse 118 97 110 Resp 24 16 20 B/P (MAP) 133/86 (102) 135/98 (110) 121/79 (93) Pulse Ox 99 99 98 O2 Delivery Room Air Room Air Room Air Room Air 01/14/17 01/14/17 01/14/17 01/14/17 18:01 19:00 20:00 20:52 Temp 98.0 98.0 Pulse 93 98 86 Resp 20 14 17 20 B/P (MAP) 140/87 (104) 128/97 (107) 106/74 (85) Pulse Ox 98 100 100 99 O2 Delivery Room Air Room Air Room Air Room Air 01/14/17 01/14/17 01/14/17 01/14/17 21:00 22:00 23:00 23:02 Pulse 86 79 77 Resp 18 19 16 20 B/P (MAP) 105/68 (80) 106/63 (77) 111/64 (80) Pulse Ox 99 99 O2 Delivery Room Air Room Air Room Air Room Air 01/15/17 01/15/17 01/15/17 01/15/17 00:00 01:00 02:00 03:00 Temp 97.7 97.7 Pulse 77 85 81 84 Resp 14 20 15 20 B/P (MAP) 112/60 (77) 98/62 (74) 106/67 (80) 92/56 (68) Pulse Ox 98 O2 Delivery Room Air Room Air Room Air Room Air 01/15/17 01/15/17 01/15/17 04:00 05:00 06:00 Temp 98.0 98.0 Pulse 71 73 66 Resp 13 14 16 B/P (MAP) 94/68 (77) 117/69 (85) 97/69 (78) Pulse Ox 100 O2 Delivery Room Air Room Air Room Air NICK MUSTAFA MD Jan 15, 2017 07:48
[2017-01-15] MEDS ORDERED: INSULIN ASPART 300 UNITS/3 ML INSULN.PEN SQ SCH ×2 (08:00)
[2017-01-15] MEDS: INSULIN ASPART 300 UNITS/3 ML INSULN.PEN SQ SCH ×6 (08:45→17:44)
[2017-01-15] MEDS ORDERED: MAGNESIUM SULFATE 4GM 100 ML IV PRN (09:00)
[2017-01-15] MEDS: HYDROcodone/APAP 5/325MG 1 TAB TABLET PO PRN ×4 (09:14→21:53)
[2017-01-15 10:04] LABS: CALCIUM 7.6 mg/dL (8.5-10.1); CREATININE 1.1 mg/dL (0.7-1.3); POTASSIUM 3.9 mmol/L (3.5-5.1)
[2017-01-15] MEDS ORDERED: FLU VACC QS2017-18 (36MOS+)/PF 0.5 ML SYRINGE. VAX IM ONE (12:15)
[2017-01-15] MEDS: FAMOTIDINE 20 MG/2 ML VIAL IVP SCH (20:19)
[2017-01-15] MEDS ORDERED: INSULIN DETEMIR 300 UNITS/3 ML INSULN.PEN. SQ SCH ×2 (21:00)
[2017-01-16 03:30] VITALS: BP 116/80
[2017-01-16] MEDS: HYDROcodone/APAP 5/325MG 1 TAB TABLET PO PRN ×2 (04:56→13:54)
[2017-01-16] MEDS: IV NORMAL SALINE 1000ML BAG 1,000 ML IV SCH (04:56)
[2017-01-16 06:55] VITALS: BP 113/80
[2017-01-16] MEDS: INSULIN ASPART 300 UNITS/3 ML INSULN.PEN SQ SCH ×4 (08:00→12:19)
[2017-01-16 10:25] VITALS: BP 109/79
[2017-01-16] MEDS ORDERED: KETOROLAC 30 MG/ML INJ. IV PRN (11:00)
--- NOTE | 2017-01-16 13:09 | PDOC ---
PROGRESS NOTES Chief Complaint Chief Complaint DKA, resolved SIRS POA, non infectious Long toe nails DM uncontrolled History of Present Illness History of Present Illness Pt is a pleasant 46 year old male who presented to the ER in DKA. Today he was seen at bed side. He complained of a severe BURKETT. Pt was given toradol. Pt is being followed by podiatry for long toe nails. Labs indicate pt is at baseline. Will continue to monitor. Pt can be discharged home. Vitals Vitals Vital Signs Date Time Temp Pulse Resp B/P (MAP) Pulse Ox O2 Delivery O2 Flow Rate FiO2 01/16/17 10:25 98.0 72 18 109/79 (89) 100 Room Air 98.0 Physical Exam General: Alert, Oriented X3, Cooperative, No acute distress, Other (Head ache) Heart: Regular rate, Normal S1, Normal S2 Lungs: Clear Abdomen: Normal bowel sounds, Soft, No tenderness, No hepatosplenomegaly, No masses Extremities: No clubbing, No cyanosis, No edema, Normal pulses, No tenderness/ swelling, Other (toe nails angel big toe and second toe have thickened texture, curling forward) Skin: No rashes, No breakdown, No significant lesion Labs LABS Laboratory Tests Test 01/15/17 17:39 01/15/17 19:42 01/15/17 21:20 01/16/17 07:25 Glucose (Fingerstick) 149 mg/dL (70-99) 265 mg/dL (70-99) 231 mg/dL (70-99) 172 mg/dL (70-99) Test 01/16/17 11:58 Glucose (Fingerstick) 220 mg/dL (70-99) Review of Systems Review of Systems Pt complains of fatigue and BURKETT Assessment and Plan Assessmemt and Plan Problems Medical Problems: (1) DKA (diabetic ketoacidoses) Status: Acute Assessment: DKA, resolved SIRS POA, non infectious Long toe nails DM uncontrolled Plan: Toradol 30mg IV q 6 for severe BURKETT Continue home meds PT/OT Recheck labs Appreciate subspecialty input Discharge home Problems: Comment Review of Relevant I have reviewed the following items kaelyn (where applicable) has been applied. Labs Laboratory Tests Test 01/14/17 14:35 01/14/17 14:51 01/14/17 15:20 01/14/17 16:13 Glucose (Fingerstick) 595 mg/dL (70-99) White Blood Count 9.1 x10^3/uL (4.0-11.0) Red Blood Count 4.66 x10^6/uL (4.30-5.70) Hemoglobin 15.7 g/dL (13.0-17.5) Hematocrit 46.9 % (39.0-53.0) Mean Corpuscular Volume 101 fL (79-100) Mean Corpuscular Hemoglobin 34 pg (25-35) Mean Corpuscular Hemoglobin Concent 34 g/dL (31-37) Red Cell Distribution Width 12.4 % (11.5-14.5) Platelet Count 378 x10^3/uL (140-400) Neutrophils (%) (Auto) 70 % (31-73) Lymphocytes (%) (Auto) 20 % (24-48) Monocytes (%) (Auto) 9 % (0-9) Eosinophils (%) (Auto) 1 % (0-3) Basophils (%) (Auto) 0 % (0-3) Neutrophils # (Auto) 6.4 x10^3uL (1.8-7.7) Lymphocytes # (Auto) 1.8 x10^3/uL (1.0-4.8) Monocytes # (Auto) 0.8 x10^3/uL (0.0-1.1) Eosinophils # (Auto) 0.0 x10^3/uL (0.0-0.7) Basophils # (Auto) 0.0 x10^3/uL (0.0-0.2) Sodium Level 130 mmol/L (136-145) 132 mmol/L (136-145) Potassium Level 5.0 mmol/L (3.5-5.1) 4.7 mmol/L (3.5-5.1) Chloride Level 93 mmol/L (98-107) 96 mmol/L (98-107) Carbon Dioxide Level 10 mmol/L (21-32) 9 mmol/L (21-32) Anion Gap 27 (6-14) 27 (6-14) Blood Urea Nitrogen 20 mg/dL (8-26) 19 mg/dL (8-26) Creatinine 1.5 mg/dL (0.7-1.3) 1.5 mg/dL (0.7-1.3) Estimated GFR (Cockcroft-Gault) 61.5 61.5 BUN/Creatinine Ratio 13 (6-20) Glucose Level 560 mg/dL (70-99) 479 mg/dL (70-99) Hemoglobin A1c 11.2 % (4.8-5.6) Calcium Level 8.9 mg/dL (8.5-10.1) 8.5 mg/dL (8.5-10.1) Magnesium Level 2.0 mg/dL (1.8-2.4) Total Bilirubin 1.3 mg/dL (0.2-1.0) Aspartate Amino Transf (AST/SGOT) 12 U/L (15-37) Alanine Aminotransferase (ALT/SGPT) 19 U/L (16-63) Alkaline Phosphatase 102 U/L (46-116) Total Protein 7.9 g/dL (6.4-8.2) Albumin 4.4 g/dL (3.4-5.0) Albumin/Globulin Ratio 1.3 (1.0-1.7) Lipase 140 U/L (73-393) Urine Collection Type Unknown Urine Color Yellow Urine Clarity Clear Urine pH 5.5 Urine Specific [place] >=1.030 Urine Protein Negative mg/dL (NEG-TRACE) Urine Glucose (UA) >=1000 mg/dL (NEG) Urine Ketones (Stick) >=80 mg/dL (NEG) Urine Blood Trace (NEG) Urine Nitrite Negative (NEG) Urine Bilirubin Negative (NEG) Urine Urobilinogen Dipstick 0.2 mg/dL (0.2 mg/dL) Urine Leukocyte Esterase Negative (NEG) Urine RBC 0 /HPF (0-2) Urine WBC 0 /HPF (0-4) Urine Bacteria 0 /HPF (0-FEW) Test 01/14/17 16:22 01/14/17 17:00 01/14/17 17:06 01/14/17 18:00 Glucose (Fingerstick) 452 mg/dL (70-99) 347 mg/dL (70-99) O2 Saturation 97 % (92-99) Arterial Blood pH 7.28 (7.35-7.45) Arterial Blood pCO2 at Patient Temp 16 mmHg (35-46) Arterial Blood pO2 at Patient Temp 104 mmHg (75-108) Arterial Blood HCO3 7 mmol/L (21-28) Arterial Blood Base Excess -16 mmol/L (-3-3) Nasal Screen MRSA (PCR) Negative (Negative) Test 01/14/17 19:15 01/14/17 19:44 01/14/17 20:53 01/14/17 21:55 Glucose (Fingerstick) 162 mg/dL (70-99) 168 mg/dL (70-99) 160 mg/dL (70-99) Sodium Level 139 mmol/L (136-145) Potassium Level 3.8 mmol/L (3.5-5.1) Chloride Level 103 mmol/L (98-107) Carbon Dioxide Level 18 mmol/L (21-32) Anion Gap 18 (6-14) Blood Urea Nitrogen 18 mg/dL (8-26) Creatinine 1.4 mg/dL (0.7-1.3) Estimated GFR (Cockcroft-Gault) 66.6 Glucose Level 160 mg/dL (70-99) Calcium Level 8.6 mg/dL (8.5-10.1) Test 01/14/17 22:58 01/15/17 00:04 01/15/17 00:15 01/15/17 01:14 Glucose (Fingerstick) 163 mg/dL (70-99) 142 mg/dL (70-99) 266 mg/dL (70-99) Sodium Level 137 mmol/L (136-145) Potassium Level 3.0 mmol/L (3.5-5.1) Chloride Level 105 mmol/L (98-107) Carbon Dioxide Level 21 mmol/L (21-32) Anion Gap 11 (6-14) Blood Urea Nitrogen 15 mg/dL (8-26) Creatinine 1.1 mg/dL (0.7-1.3) Estimated GFR (Cockcroft-Gault) 88.0 Glucose Level 142 mg/dL (70-99) Calcium Level 7.4 mg/dL (8.5-10.1) Test 01/15/17 02:06 01/15/17 03:10 01/15/17 04:16 01/15/17 07:42 Glucose (Fingerstick) 99 mg/dL (70-99) 84 mg/dL (70-99) 121 mg/dL (70-99) 239 mg/dL (70-99) Test 01/15/17 09:28 01/15/17 12:13 01/15/17 17:39 01/15/17 19:42 Sodium Level 132 mmol/L (136-145) Potassium Level 3.9 mmol/L (3.5-5.1) Chloride Level 101 mmol/L (98-107) Carbon Dioxide Level 17 mmol/L (21-32) Anion Gap 14 (6-14) Blood Urea Nitrogen 12 mg/dL (8-26) Creatinine 1.1 mg/dL (0.7-1.3) Estimated GFR (Cockcroft-Gault) 88.0 Glucose Level 325 mg/dL (70-99) Calcium Level 7.6 mg/dL (8.5-10.1) Glucose (Fingerstick) 147 mg/dL (70-99) 149 mg/dL (70-99) 265 mg/dL (70-99) Test 01/15/17 21:20 01/16/17 07:25 01/16/17 11:58 Glucose (Fingerstick) 231 mg/dL (70-99) 172 mg/dL (70-99) 220 mg/dL (70-99) Laboratory Tests Test 01/15/17 17:39 01/15/17 19:42 01/15/17 21:20 01/16/17 07:25 Glucose (Fingerstick) 149 mg/dL (70-99) 265 mg/dL (70-99) 231 mg/dL (70-99) 172 mg/dL (70-99) Test 01/16/17 11:58 Glucose (Fingerstick) 220 mg/dL (70-99) Medications Current Medications Sodium Chloride (Normal Saline Flush) 3 ml QSHIFT PRN IV AFTER MEDS AND BLOOD DRAWS; Start 01/14/17 at 15:00 Sodium Chloride 1,000 ml @ 1,000 mls/hr Q1H IV Last administered on t 15:13; Start 01/14/17 at 14:58; Stop 01/14/17 at 15:57; Status DC Insulin Human Regular 150 unit/ Sodium Chloride 151.5 ml @ 0 mls/hr CONT PRN PRN IV PER PROTOCOL; Start 01/14/17 at 15:45; Stop 01/15/17 at 07:29; Status DC Potassium Chloride 100 ml @ 100 mls/hr PRN Q1HR PRN IV SEE COMMENTS; Start at 15:45; Stop 01/15/17 at 18:28; Status DC Potassium Chloride 100 ml @ 100 mls/hr PRN Q1HR PRN IV SEE COMMENTS; Start at 15:45; Stop 01/15/17 at 18:28; Status DC Potassium Chloride 100 ml @ 100 mls/hr PRN Q1HR PRN IV SEE COMMENTS; Start at 15:45; Stop 01/15/17 at 18:29; Status DC Insulin Human Regular 150 ml @ 0 mls/hr 1X ONCE IV Last administered on 16:28; Start 01/14/17 at 16:00; Stop 01/15/17 at 07:29; Status DC Famotidine (Pepcid) 20 mg QHS IVP Last administered on 01/15/17 20:19; Start 01/14/17 at 21:00 Ondansetron HCl (Zofran) 4 mg PRN Q6HRS PRN IV NAUSEA/VOMITING Last administered on 01/16/17 08:17; Start 01/14/17 at 16:00 Sodium Chloride 1,000 ml @ 100 mls/hr Q10H IV Last administered on 01/16/17 04:56; Start 01/14/17 at 16:00 Acetaminophen/ Hydrocodone Bitart (Lortab 5/325) 1 tab PRN Q4HRS PRN PO PAIN Last administered on 01/16/17 04:56; Start 01/14/17 at 16:00 Diphenhydramine HCl (Benadryl) 25 mg PRN QHS PRN PO INSOMNIA; Start 01/14/17 at 16:00 Dextrose/Sodium Chloride 1,000 ml @ 100 mls/hr Q10H IV ; Start 01/14/17 at 16: 30; Stop 01/14/17 at 20:45; Status DC Sodium Chloride 1,000 ml @ 250 mls/hr Q4H IV Last administered on 01/14/17 17:46; Start 01/14/17 at 17:46; Stop 01/14/17 at 20:45; Status DC Insulin Human Regular 150 unit/ Sodium Chloride 151.5 ml @ 0 mls/hr CONT PRN PRN IV PER PROTOCOL; Start 01/14/17 at 17:45; Status UNV Potassium Chloride 100 ml @ 100 mls/hr PRN Q1HR PRN IV SEE COMMENTS; Start at 17:45; Stop 01/15/17 at 18:28; Status DC Potassium Chloride 100 ml @ 100 mls/hr PRN Q1HR PRN IV SEE COMMENTS; Start at 17:45; Stop 01/15/17 at 18:28; Status DC Potassium Chloride 100 ml @ 100 mls/hr PRN Q1HR PRN IV SEE COMMENTS; Start at 17:45; Stop 01/15/17 at 18:29; Status DC Magnesium Sulfate/ Dextrose 100 ml @ 25 mls/hr PRN DAILY PRN IV SEE COMMENTS; Start 01/15/17 at 09:00; Stop 01/15/17 at 18:29; Status DC Sodium Bicarbonate 50 meq/Sodium Chloride 1,050 ml @ 500 mls/hr Q2H6M PRN IV SEE COMMENTS; Start 01/14/17 at 17:43; Stop 01/15/17 at 07:29; Status DC Sodium Phosphate 40 mmol/Sodium Chloride 513.3333 ml @ 83.3 mls/hr 1X PRN PRN IV SEE COMMENTS; Start 01/14/17 at 17:45; Stop 01/14/17 at 18:15; Status DC Sodium Phosphate 20 mmol/Dextrose 256.6667 ml @ 62.5 mls/hr 1X PRN PRN IV SEE COMMENTS; Start 01/14/17 at 17:45; Stop 01/15/17 at 18:29; Status DC Sodium Phosphate 10 mmol/Dextrose 253.3333 ml @ 62.5 mls/hr 1X PRN PRN IV SEE COMMENTS; Start 01/14/17 at 17:45; Stop 01/15/17 at 18:29; Status DC Sodium Phosphate 20 mmol/Sodium Chloride 256.6667 ml @ 41.65 mls/hr 1X PRN PRN IV SEE COMMENTS; Start 01/14/17 at 18:30; Stop 01/15/17 at 18:28; Status DC Dextrose/Sodium Chloride 1,000 ml @ 250 mls/hr Q4H IV Last administered on t 01:07; Start 01/14/17 at 20:45; Stop 01/15/17 at 04:37; Status DC Potassium Chloride 100 ml @ 100 mls/hr Q1H IV Last administered on 01/15/17 04:39; Start 01/15/17 at 01:30; Stop 01/15/17 at 05:29; Status DC Insulin Aspart (NovoLOG) 0-9 UNITS TIDWMEALS SQ Last administered on 12:19; Start 01/15/17 at 08:00 Dextrose (Dextrose 50%-Water Syringe) 12.5 gm PRN Q15MIN PRN IV SEE COMMENTS; Start 01/15/17 at 04:45 Insulin Aspart (NovoLOG) 16 units TIDWMEALS SQ ; Start 01/15/17 at 08:00; Stop 01/15/17 at 08:00; Status DC Insulin Aspart (NovoLOG) 5 units TIDWMEALS SQ ; Start 01/15/17 at 08:00; Stop 01/15/17 at 08:00; Status DC Insulin Detemir (Levemir) 10 units QHS SQ ; Start 01/15/17 at 21:00; Stop at 21:00; Status DC Insulin Aspart (NovoLOG) 16 units TIDWMEALS SQ Last administered on 01/15/17 17:44; Start 01/15/17 at 08:00 Insulin Detemir (Levemir) 15 units QHS SQ Last administered on 01/15/17 20:18 ; Start 01/15/17 at 21:00 Influenza Virus Vaccine Quadrival (Fluarix Quad [id number] Syringe) 0.5 ml ONCE ONCE VAX IM Last administered on 01/15/17 16:53; Start 01/15/17 at 12:15; Stop 01/15/17 at 12:18; Status DC Ketorolac Tromethamine (Toradol) 30 mg PRN Q6HRS PRN IV PAIN Last administered on 01/16/17 11:01; Start 01/16/17 at 11:00; Stop 01/21/17 at 10:59 Active Scripts Active Levemir Flextouch (Insulin Detemir) 100 Unit/1 Ml Insuln.pen 15 Units SQ QHS 30 Days Novolog Flexpen (Insulin Aspart) 100 Unit/1 Ml Insuln.pen 16 Units SQ TIDBFRMEAL 30 Days Vitals/I & O Vital Sign - Last 24 Hours 01/15/17 01/15/17 01/15/17 01/15/17 13:15 15:00 17:43 18:30 Temp 98.0 98.0 Pulse 74 Resp 14 16 14 14 B/P (MAP) 98/67 (77) Pulse Ox 100 100 100 100 O2 Delivery Room Air Room Air Room Air 01/15/17 01/15/17 01/15/17 01/15/17 19:00 21:00 21:53 23:30 Temp 98.6 98.3 98.6 98.3 Pulse 93 82 Resp 18 B/P (MAP) 102/75 (84) 123/77 (92) Pulse Ox 96 99 O2 Delivery Room Air Room Air Room Air Room Air 01/16/17 01/16/17 01/16/17 01/16/17 03:30 04:56 05:56 06:55 Temp 98.1 97.5 98.1 97.5 Pulse 78 90 Resp 18 18 B/P (MAP) 116/80 (92) 113/80 (91) Pulse Ox 98 100 O2 Delivery Room Air Room Air Room Air Room Air 01/16/17 01/16/17 08:00 10:25 Temp 98.0 98.0 Pulse 72 Resp 18 B/P (MAP) 109/79 (89) Pulse Ox 100 O2 Delivery Room Air Room Air TAD COVARRUBIAS III DO Jan 16, 2017 13:08
== END 2017-01-16 14:15 | disposition home or self-care (01) | DRG 638 ==
LOC: ER 14:29 → 1 WEST ICU 15:56 → 6 SOUTH 01-15 20:46
PROVIDERS: ADMIT Internal Medicine; ATTEND Internal Medicine
DX: E11.10 Type 2 diabetes mellitus with ketoacidosis without coma (principal); R65.10 Systemic inflammatory response syndrome (SIRS) of non-infectious origin without acute organ dysfunction; Z79.4 Long term (current) use of insulin; Z82.49 Family history of ischemic heart disease and other diseases of the circulatory system
CPT/HCPCS: 36415; 36600; 71010; 80048; 80053; 81001; 82805; 82962; 83036; 83690; 83735; 85025; 87641; 90686; 93005; 96361; 96374; J1815; J1885; J2405; J3480; J7030; J7042; S0028; 99285-25

== ENCOUNTER 2018-02-18 15:54 | Emergency (ER) | payer SELFPAY ==
[~2018-02-18] VITALS: Ht 172.7 cm; Wt 86.2 kg
[2018-02-18] MEDS ORDERED: IV NORMAL SALINE 1000ML BAG 1,000 ML IV ONE (16:30)
[2018-02-18 16:42] LABS: BASO % 1 % (0-3); EOS # 0.1 x10^3/uL (0.0-0.7); EOS % 1 % (0-3); HEMATOCRIT 41.4 % (39.0-53.0); HEMOGLOBIN 14.1 g/dL (13.0-17.5); LYMPH # 1.4 x10^3/uL (1.0-4.8); LYMPH % 19 % (24-48); MEAN CORPUSCULAR HEMOGLOBIN 33 pg (25-35); MEAN CORPUSCULAR HGB CONC 34 g/dL (31-37); MEAN CORPUSCULAR VOLUME 98 fL (79-100); MONO # 0.6 x10^3/uL (0.0-1.1); MONO % 8 % (0-9); NEUT # 5.1 x10^3uL (1.8-7.7); NEUT % 71 % (31-73); PLATELET COUNT 297 x10^3/uL (140-400); RED BLOOD COUNT 4.23 x10^6/uL (4.30-5.70); RED CELL DISTRIBUTION WIDTH 12.2 % (11.5-14.5); WHITE BLOOD COUNT 7.2 x10^3/uL (4.0-11.0)
[2018-02-18] MEDS ORDERED: ACETAMINOPHEN 500 MG TABLET PO ONE (16:45)
[2018-02-18 17:00] VITALS: BP 125/83
[2018-02-18 17:16] LABS: ACETONE NEG (NEG)
[2018-02-18 17:19] LABS: ANION GAP 11 (6-14); BLOOD UREA NITROGEN 15 mg/dL (8-26); BUN/CREATININE RATIO 17 (6-20); CARBON DIOXIDE 28 mmol/L (21-32); CHLORIDE 102 mmol/L (98-107); CREATININE 0.9 mg/dL (0.7-1.3); GFR 110.4; GLUCOSE 150 mg/dL (70-99); POTASSIUM 3.1 mmol/L (3.5-5.1); SODIUM 141 mmol/L (136-145)
[2018-02-18 17:24] LABS: ALBUMIN 3.8 g/dL (3.4-5.0); ALBUMIN/GLOBULIN RATIO 1.1 (1.0-1.7); ALK PHOS 91 U/L (46-116); ALT (SGPT) 21 U/L (16-63); AST (SGOT) 15 U/L (15-37); TOTAL BILIRUBIN 0.6 mg/dL (0.2-1.0); TOTAL PROTEIN 7.3 g/dL (6.4-8.2)
--- NOTE | 2018-02-18 17:39 | PHYS DOC ---
Past Medical History Past Medical History: Diabetes-Type II Past Surgical History: Other Additional Past Surgical Histo: R KNEE ORTHOPEDIC, L ROTATOR CUFF, R ELBOW ORTHO,R FINGER Alcohol Use: Occasionally Drug Use: None Adult General Chief Complaint Chief Complaint: HYPERGLYCEMIA HPI HPI 47-year-old male presents to ER via POV for concerns his blood sugar might be running high. Patient reports his BS was >600 earlier today at work and so he admin'd Humalog 18 units at 1 p.m. He reports he has felt sweaty denying any history, abdominal pain, shortness of air, or N/V/D. He reports yest. his BS was 200-400 and he tends to have high readings. He reports he drink a beer yest. denies smoking hx or illicit drug use. He reports he has had headache today- denies any confusion, dizziness, or lightheadedness. She reports he has felt he was more thirsty today and had urinary frequency. Review of Systems Review of Systems Constitutional: Denies fever or chills [] Eyes: Denies change in visual acuity, redness, or eye pain [] HENT: Denies nasal congestion or sore throat [] Respiratory: Denies cough or shortness of breath [] Cardiovascular: No additional information not addressed in HPI [] GI: Denies abdominal pain, nausea, vomiting, bloody stools or diarrhea [] : Denies dysuria or hematuria [] Musculoskeletal: Denies back pain or joint pain [] Integument: Denies rash or skin lesions [] Neurologic: Denies headache, focal weakness or sensory changes [] Endocrine: Denies polyuria or polydipsia [] All other systems were reviewed and found to be within normal limits, except as documented in this note. Current Medications Current Medications Current Medications Medications (Trade) Dose Ordered Sig/Lilliana Start Time Stop Time Status Last Admin Dose Admin Acetaminophen (Tylenol) 1,000 mg 1X ONCE 02/18/18 16:45 02/18/18 16:47 DC 02/18/18 17:21 1,000 MG Potassium Chloride (Klor-Con) 40 meq 1X ONCE 02/18/18 17:45 02/18/18 17:46 DC 02/18/18 17:41 40 MEQ Sodium Chloride 1,000 ml @ 1,000 mls/hr 1X ONCE 02/18/18 16:30 02/18/18 17:29 DC 12/3/18 16:39 1,000 MLS/HR Allergies Allergies Allergies Coded Allergies Type Severity Reaction Last Updated Verified No Known Drug Allergies 01/22/14 No Physical Exam Physical Exam Constitutional: Well developed, well nourished, no acute distress, non-toxic appearance. [] HENT: Normocephalic, atraumatic, bilateral external ears normal, oropharynx moist, no oral exudates, nose normal. [] Eyes: PERRLA, EOMI, conjunctiva normal, no discharge. [] Neck: Normal range of motion, no tenderness, supple, no stridor. [] Cardiovascular:Heart rate regular rhythm, no murmur [] Lungs & Thorax: Bilateral breath sounds clear to auscultation [] Abdomen: Bowel sounds normal, soft, no tenderness, no masses, no pulsatile masses. [] Skin: Warm, dry, no erythema, no rash. [] Back: No tenderness, no CVA tenderness. [] Extremities: No tenderness, no cyanosis, no clubbing, ROM intact, no edema. [] Neurologic: Alert and oriented X 3, normal motor function, normal sensory function, no focal deficits noted. [] Psychologic: Affect normal, judgement normal, mood normal. [] Current Patient Data Vital Signs Vital Signs Date Time Temp Pulse Resp B/P (MAP) Pulse Ox O2 Delivery O2 Flow Rate FiO2 02/18/18 17:00 72 17 125/83 (97) 95 Room Air 02/18/18 16:11 97.9 97.9 Lab Values Laboratory Tests Test 02/18/18 16:18 02/18/18 16:30 02/18/18 17:40 Glucose (Fingerstick) 141 mg/dL (70-99) H White Blood Count 7.2 x10^3/uL (4.0-11.0) Red Blood Count 4.23 x10^6/uL (4.30-5.70) L Hemoglobin 14.1 g/dL (13.0-17.5) Hematocrit 41.4 % (39.0-53.0) Mean Corpuscular Volume 98 fL (79-100) Mean Corpuscular Hemoglobin 33 pg (25-35) Mean Corpuscular Hemoglobin Concent 34 g/dL (31-37) Red Cell Distribution Width 12.2 % (11.5-14.5) Platelet Count 297 x10^3/uL (140-400) Neutrophils (%) (Auto) 71 % (31-73) Lymphocytes (%) (Auto) 19 % (24-48) L Monocytes (%) (Auto) 8 % (0-9) Eosinophils (%) (Auto) 1 % (0-3) Basophils (%) (Auto) 1 % (0-3) Neutrophils # (Auto) 5.1 x10^3uL (1.8-7.7) Lymphocytes # (Auto) 1.4 x10^3/uL (1.0-4.8) Monocytes # (Auto) 0.6 x10^3/uL (0.0-1.1) Eosinophils # (Auto) 0.1 x10^3/uL (0.0-0.7) Basophils # (Auto) 0.0 x10^3/uL (0.0-0.2) Sodium Level 141 mmol/L (136-145) Potassium Level 3.1 mmol/L (3.5-5.1) L Chloride Level 102 mmol/L (98-107) Carbon Dioxide Level 28 mmol/L (21-32) Anion Gap 11 (6-14) Blood Urea Nitrogen 15 mg/dL (8-26) Creatinine 0.9 mg/dL (0.7-1.3) Estimated GFR (Cockcroft-Gault) 110.4 BUN/Creatinine Ratio 17 (6-20) Glucose Level 150 mg/dL (70-99) H Calcium Level 9.0 mg/dL (8.5-10.1) Total Bilirubin 0.6 mg/dL (0.2-1.0) Aspartate Amino Transferase (AST) 15 U/L (15-37) Alanine Aminotransferase (ALT) 21 U/L (16-63) Alkaline Phosphatase 91 U/L (46-116) Total Protein 7.3 g/dL (6.4-8.2) Albumin 3.8 g/dL (3.4-5.0) Albumin/Globulin Ratio 1.1 (1.0-1.7) Ethyl Alcohol Level < 10 mg/dL (0-10) Acetone Level Neg (NEG) Urine Collection Type Unknown Urine Color Yellow Urine Clarity Clear Urine pH 6.0 Urine Specific [place] >=1.030 Urine Protein Negative mg/dL (NEG-TRACE) Urine Glucose (UA) >=1000 mg/dL (NEG) Urine Ketones (Stick) 15 mg/dL (NEG) Urine Blood Negative (NEG) Urine Nitrite Negative (NEG) Urine Bilirubin Small (NEG) Urine Urobilinogen Dipstick 1.0 mg/dL (0.2 mg/dL) Urine Leukocyte Esterase Negative (NEG) Urine RBC 0 /HPF (0-2) Urine WBC 0 /HPF (0-4) Urine Squamous Epithelial Cells Occ /LPF Urine Bacteria 0 /HPF (0-FEW) Urine Mucus Marked /LPF Laboratory Tests 02/18/18 16:30 Laboratory Tests 02/18/18 16:30 EKG EKG [] Radiology/Procedures Radiology/Procedures [] Course & Med Decision Making Course & Med Decision Making Pertinent Labs reviewed. (See chart for details) 1734: Discussed test results with patient. Patient reports in past couple of days he feels like he has developed a cold and has been taking [id number] cold medications. Patient failed to provide this information during initial exam. Patient on reevaluation does have frontal and maxillary sinus tenderness. Patient is in no visible distress and nontoxic in appearance. Vital signs have remained stable. Dragon Disclaimer Dragon Disclaimer This electronic medical record was generated, in whole or in part, using a voice recognition dictation system. Departure Departure Impression: Primary Impression: Abnormal blood sugar Additional Impression: Sinus congestion Disposition: 01 HOME, SELF-CARE Condition: STABLE Referrals: NO PCP (PCP) Patient Instructions: Blood Sugar Monitoring, Adult, Sinus Headache Additional Instructions: Your blood sugar was 141 while in the Emergency Department. As discussed you should keep a blood sugar diary and take this with you to your doctor's appointment next week. Drink plenty of water. Avoid alcohol. Tylenol and/or Ibuprofen as needed for sinus pressure as directed on container. You can use over the counter Afrin as directed- avoid using for more than 3 days as this may cause symptoms to become worse. Problem Qualifiers PRIYANKA DALLAS APRN Feb 18, 2018 17:39
[2018-02-18] MEDS ORDERED: POTASSIUM CHLORIDE 20 MEQ TABLET.ER. PO ONE (17:45)
[2018-02-18 17:51] LABS: BILIRUBIN,URINE SMALL (NEG); CLARITY,URINE CLEAR; COLOR,URINE YELLOW; NITRITE,URINE NEGATIVE (NEG); PROTEIN,URINE NEGATIVE (NEG-TRACE)
[2018-02-18 18:02] LABS: BACTERIA,URINE 0 /HPF (0-FEW); RBC,URINE 0 /HPF (0-2); SQUAMOUS EPITHELIAL CELL,UR OCC /LPF; WBC,URINE 0 /HPF (0-4)
== END 2018-02-18 17:05 | disposition home or self-care (01) ==
LOC: ER 15:54
DX: E11.65 Type 2 diabetes mellitus with hyperglycemia (principal); R09.81 Nasal congestion
CPT/HCPCS: 36415; 80053; 81001; 82010; 82962; 85025; 96360; 99283; G0480; J7030

== ENCOUNTER 2018-06-03 19:22 | Inpatient (IN) | payer OTHER ==
[~2018-06-03] VITALS: Ht 172.7 cm; Wt 75.7 kg
[2018-06-03 19:57] LABS: BASO # 0.1 x10^3/uL (0.0-0.2); BASO % 1 % (0-3); EOS % 0 % (0-3); HEMATOCRIT 47.8 % (39.0-53.0); HEMOGLOBIN 15.1 g/dL (13.0-17.5); LYMPH # 0.8 x10^3/uL (1.0-4.8); LYMPH % 4 % (24-48); MEAN CORPUSCULAR HEMOGLOBIN 34 pg (25-35); MEAN CORPUSCULAR HGB CONC 32 g/dL (31-37); MEAN CORPUSCULAR VOLUME 107 fL (79-100); MONO # 1.3 x10^3/uL (0.0-1.1); MONO % 6 % (0-9); NEUT # 20.6 x10^3uL (1.8-7.7); NEUT % 90 % (31-73); PLATELET COUNT 471 x10^3/uL (140-400); RED BLOOD COUNT 4.48 x10^6/uL (4.30-5.70); RED CELL DISTRIBUTION WIDTH 13.2 % (11.5-14.5); WHITE BLOOD COUNT 22.8 x10^3/uL (4.0-11.0)
[2018-06-03] MEDS ORDERED: INSULIN REGULAR 100 UNIT/ML 3ML VIAL. IV ONE (20:00)
[2018-06-03] MEDS ORDERED: IV NORMAL SALINE 1000ML BAG 1,000 ML IV ONE ×2 (20:00→21:30)
[2018-06-03] MEDS ORDERED: INSULIN,REGULAR 150 UNIT DRIP 150 ML IV ONE (20:00)
[2018-06-03] MEDS ORDERED: ONDANSETRON PF 4 MG/2 ML VIAL. IV ONE (20:15)
[2018-06-03] MEDS ORDERED: MORPHINE SULFATE 4 MG/ML VIAL. IV ONE ×2 (20:15→20:45)
[2018-06-03 21:04] LABS: % LYMPHS 5 % (24-48)
[2018-06-03 21:05] LABS: % MONOS 6 % (0-10); % SEGS 89 % (35-66)
[2018-06-03 21:06] LABS: PLT ESTIMATE INCREASED (ADEQUATE); SCHISTOCYTES OCC
[2018-06-03 21:25] LABS: ALBUMIN 4.6 g/dL (3.4-5.0); CALCIUM 9.1 mg/dL (8.5-10.1); CREATININE 2.2 mg/dL (0.7-1.3); GFR 39.4; POTASSIUM 5.4 mmol/L (3.5-5.1); TOTAL BILIRUBIN 0.6 mg/dL (0.2-1.0); TOTAL PROTEIN 9.2 g/dL (6.4-8.2)
[2018-06-03] MEDS ORDERED: PIPERACILLIN/TAZOBACTAM 3.375 GM in IV NORMAL SALINE 50ML 50 ML IV ONE (21:30)
[2018-06-03 21:32] LABS: BASE EXCESS ABG -25 mmol/L (-3-3); HCO3 ABG 4 mmol/L (21-28); PO2 ABG 124 mmHg (75-108); SAT O2 ABG 97 % (92-99)
[2018-06-03 21:37] LABS: FIO2 ABG 21; PCO2 ABG < 15 mmHg (35-46)
[2018-06-03] MEDS ORDERED: SODIUM BICARB ADULT 8.4% 50 MEQ/50 ML DISP.SYRIN. IV ONE (22:00)
--- NOTE | 2018-06-03 22:02 | PHYS DOC ---
Past Medical History Past Medical History: Diabetes-Type II, Hypertension, Renal Disease (JOHN FRANKLIN APRN) Past Surgical History: Other Additional Past Surgical Histo: RIGHT KNEE, LEFT SHOULDER (JOHN FRANKLIN APRN) Alcohol Use: Rarely Drug Use: None (JOHN FRANKLIN APRN) Adult General Chief Complaint Chief Complaint: HYPERGLYCEMIA HPI HPI Patient is a 47 year old -[place] male who presents to the emergency department via EMS with complaints of nausea and vomiting all day today. Patient also states he has not been taking his insulin today. He states that in the past he has had diabetic ketoacidosis, reports feeling similar to that. At this time he complains of shortness of breath with rapid shallow respirations, substernal chest pain, and excessive thirst. EMS reported a blood sugar between 620 and 640, pt was given a 500 bolus of NS and 4 mg of Zofran in route. Patient also complains of severe upper abdominal pain currently a 10 out of 10 on the pain scale, he states there are no alleviating factors. (JOHN FRANKLIN APRN) Review of Systems Review of Systems Constitutional: Denies fever or chills [] Eyes: Denies changes HENT: Denies nasal congestion or sore throat [] Respiratory: see HPI Cardiovascular: No additional information not addressed in HPI [] GI: See HPI : Denies dysuria or hematuria [] Musculoskeletal: Denies back pain or joint pain [] Integument: Denies rash or skin lesions [] Neurologic: Denies headache, focal weakness or sensory changes [] Endocrine: reports polydipsia [] Complete systems were reviewed and found to be within normal limits, except as documented in this note. (JOHN FRANKLIN APRN) Current Medications Current Medications Current Medications Medications (Trade) Dose Ordered Sig/Lilliana Start Time Stop Time Status Last Admin Dose Admin Insulin Human Regular (HumuLIN R VIAL) 10 unit 1X ONCE 06/03/18 20:00 06/03/18 20:01 DC 06/03/18 20:08 10 UNIT Morphine Sulfate (Morphine Sulfate) 4 mg 1X ONCE 06/03/18 20:45 06/03/18 20:46 DC 06/03/18 20:39 4 MG Ondansetron HCl (Zofran) 4 mg 1X ONCE 06/03/18 20:15 06/03/18 20:16 DC 06/03/18 20:20 4 MG Sodium Chloride 1,000 ml @ 1,000 mls/hr 1X ONCE 06/03/18 20:00 06/03/18 20:59 DC 06/03/18 20:05 1,000 MLS/HR (YARA EDWARDS MD) Allergies Allergies Allergies Coded Allergies Type Severity Reaction Last Updated Verified No Known Drug Allergies 01/22/14 No (YARA EDWARDS MD) Physical Exam Physical Exam Constitutional: Well developed, moderate distress, ill appearance. [] HENT: Normocephalic, atraumatic, bilateral external ears normal, dry mucous membranes, nose normal, fruity breath noted. [] Eyes: conjunctiva normal, no discharge. [] Neck: Normal range of motion,no stridor. [] Cardiovascular: Heart rate tachycardic rhythm Lungs & Thorax: Bilateral breath sounds clear to auscultation, rapid shallow tachypneic rate, no wheezing [] Abdomen: Bowel sounds normal, soft, no masses, no pulsatile masses; LUQ and RUQ TTP, no guarding. [] Skin: Warm, dry, no erythema, no rash. [] Extremities: No cyanosis, no clubbing, ROM intact, no edema. [] Neurologic: Alert and oriented X 3, no focal deficits noted. [] Psychologic: Affect aggitated, judgement normal, mood normal. [] (JOHN FRANKLIN APRN) Current Patient Data Vital Signs Vital Signs Date Time Temp Pulse Resp B/P (MAP) Pulse Ox O2 Delivery O2 Flow Rate FiO2 06/03/18 20:39 35 96 Room Air 06/03/18 20:30 148 134/73 (93) 06/03/18 19:35 97.8 97.8 (YARA EDWARDS MD) Lab Values Laboratory Tests Test 06/03/18 19:40 06/03/18 20:50 White Blood Count 22.8 x10^3/uL (4.0-11.0) H Red Blood Count 4.48 x10^6/uL (4.30-5.70) Hemoglobin 15.1 g/dL (13.0-17.5) Hematocrit 47.8 % (39.0-53.0) Mean Corpuscular Volume 107 fL (79-100) H Mean Corpuscular Hemoglobin 34 pg (25-35) Mean Corpuscular Hemoglobin Concent 32 g/dL (31-37) Red Cell Distribution Width 13.2 % (11.5-14.5) Platelet Count 471 x10^3/uL (140-400) H Neutrophils (%) (Auto) 90 % (31-73) H Lymphocytes (%) (Auto) 4 % (24-48) L Monocytes (%) (Auto) 6 % (0-9) Eosinophils (%) (Auto) 0 % (0-3) Basophils (%) (Auto) 1 % (0-3) Neutrophils # (Auto) 20.6 x10^3uL (1.8-7.7) H Lymphocytes # (Auto) 0.8 x10^3/uL (1.0-4.8) L Monocytes # (Auto) 1.3 x10^3/uL (0.0-1.1) H Eosinophils # (Auto) 0.0 x10^3/uL (0.0-0.7) Basophils # (Auto) 0.1 x10^3/uL (0.0-0.2) Segmented Neutrophils % 89 % (35-66) H Lymphocytes % 5 % (24-48) L Monocytes % 6 % (0-10) Platelet Estimate Increased (ADEQUATE) Large Platelets Occ Schistocytes Occ Urine Color Yellow Urine Clarity Clear Urine pH 5.0 Urine Specific [place] 1.025 Urine Protein 30 mg/dL (NEG-TRACE) Urine Glucose (UA) >=1000 mg/dL (NEG) Urine Ketones (Stick) >=80 mg/dL (NEG) Urine Blood Small (NEG) Urine Nitrite Negative (NEG) Urine Bilirubin Negative (NEG) Urine Urobilinogen Dipstick 0.2 mg/dL (0.2 mg/dL) Urine Leukocyte Esterase Negative (NEG) Urine RBC Occ /HPF (0-2) Urine WBC Occ /HPF (0-4) Urine Squamous Epithelial Cells Occ /LPF Urine Bacteria 0 /HPF (0-FEW) Urine Mucus Slight /LPF Lactic Acid Level 6.1 mmol/L (0.4-2.0) *H Sodium Level 132 mmol/L (136-145) L Potassium Level 5.4 mmol/L (3.5-5.1) H Chloride Level 92 mmol/L (98-107) L Carbon Dioxide Level 7 mmol/L (21-32) *L Anion Gap 33 (6-14) H Blood Urea Nitrogen 24 mg/dL (8-26) Creatinine 2.2 mg/dL (0.7-1.3) H Estimated GFR (Cockcroft-Gault) 39.4 BUN/Creatinine Ratio 11 (6-20) Glucose Level 696 mg/dL (70-99) *H Calcium Level 9.1 mg/dL (8.5-10.1) Total Bilirubin 0.6 mg/dL (0.2-1.0) Aspartate Amino Transferase (AST) 12 U/L (15-37) L Alanine Aminotransferase (ALT) 25 U/L (16-63) Alkaline Phosphatase 137 U/L (46-116) H Troponin I Quantitative < 0.017 ng/mL (0.000-0.055) Total Protein 9.2 g/dL (6.4-8.2) H Albumin 4.6 g/dL (3.4-5.0) Albumin/Globulin Ratio 1.0 (1.0-1.7) Laboratory Tests 06/03/18 19:40 Laboratory Tests 06/03/18 20:50 Microbiology 06/03/18 Blood Culture - Final, Complete NO GROWTH AFTER 5 DAYS (YARA EDWARDS MD) EKG EKG 2113- ST no STEMI, rate [address] Edwards[] (JOHN FRANKLIN APRN) Radiology/Procedures Radiology/Procedures PROCEDURE: CT ABDOMEN PELVIS WO CONTRAST CT Abdomen and Pelvis without contrast History: Abdominal pain Technique: Noncontrast CT imaging was performed of the abdomen and pelvis. Multiplanar images are reviewed. Exposure: One or more of the following individualized dose reduction techniques were utilized for this examination: 1. Automated exposure control 2. Adjustment of the mA and/or kV according to patient size 3. Use of iterative reconstruction technique. Comparison: None Findings: There is some motion degradation. There is no hydronephrosis or renal calculus. There is distention of urinary bladder. Evaluation of the abdominal visceral organs is limited without intravenous contrast and also due to motion. Focus of hypodensity of the liver near the fissure of the ligamentum teres is in a common location for site of focal fatty infiltration. There is no obvious focal abnormality of the pancreas or spleen. There is no adrenal nodularity. Normal appendix is believed to be visualized. Impression: 1. Urinary bladder is somewhat distended, otherwise no significant acute abnormality identified. [] CXR no acute findings or infiltrate read by Dr. Edwards (JOHN FRANKLIN APRN) Course & Med Decision Making Course & Med Decision Making Pertinent Labs and Imaging studies reviewed. (See chart for details) 2126- Critical lab results received glucose 696, CO2 7 Dx: DKA Pt was given 1L NS, 10 units of regular insulin, an insulin gtt at 5u/hr was started, 4 mg of zofran, and a total of 8 mg of morphine while in the ER. Pt remained tachycardic. CXR was negative for any acute findings, CT abd/pel was also negative. Pt was admitted to the ICU for hospitalist, bridge orders written by Dr. Edwards. 2227- Admit to Dr. Parry for DKA [] (JOHN FRANKLIN APRN) Course & Med Decision Making Staff Physician Addendum: I was working in the ER during the course of this patient's visit. I was available for consultation as needed, but I was not directly involved in the care of this patient. I REVIEWED appropriate workup and orders [facility] (YARA EDWARDS MD) Dragon Disclaimer Dragon Disclaimer This electronic medical record was generated, in whole or in part, using a voice recognition dictation system. (JOHN FRANKLIN APRN) Departure Departure Referrals: NO PCP (PCP) Scripts Pen Needle, Diabetic (Insulin Pen Needle) 1 Each Dis.needle EACH QID for Diabetes, #120 4 times daily with meals and nightly for insulin pens Prov: LILLIANA ALVARADO MD 06/06/18 JOHN FRANKLIN APRN Jun 03, 2018 22:02 YARA EDWARDS MD Jun 09, 2018 06:08
--- NOTE | 2018-06-03 22:33 | RAD ---
CT Abdomen and Pelvis without contrast History: Abdominal pain Technique: Noncontrast CT imaging was performed of the abdomen and pelvis. Multiplanar images are reviewed. Exposure: One or more of the following individualized dose reduction techniques were utilized for this examination: 1. Automated exposure control 2. Adjustment of the mA and/or kV according to patient size 3. Use of iterative reconstruction technique. Comparison: None Findings: There is some motion degradation. There is no hydronephrosis or renal calculus. There is distention of urinary bladder. Evaluation of the abdominal visceral organs is limited without intravenous contrast and also due to motion. Focus of hypodensity of the liver near the fissure of the ligamentum teres is in a common location for site of focal fatty infiltration. There is no obvious focal abnormality of the pancreas or spleen. There is no adrenal nodularity. Normal appendix is believed to be visualized. Impression: 1. Urinary bladder is somewhat distended, otherwise no significant acute abnormality identified. Electronically signed by: Marquis Mcginnis MD (06/03/2018 10:30 PM) [facility]
[2018-06-03 22:45] LABS: BILIRUBIN,URINE NEGATIVE (NEG); CLARITY,URINE CLEAR; COLOR,URINE YELLOW; NITRITE,URINE NEGATIVE (NEG); PROTEIN,URINE 30 mg/dL (NEG-TRACE); UROBILINOGEN,URINE 0.2 mg/dL (0.2 mg/dL)
[2018-06-03 22:51] LABS: BACTERIA,URINE 0 /HPF (0-FEW); RBC,URINE OCC /HPF (0-2); SQUAMOUS EPITHELIAL CELL,UR OCC /LPF; WBC,URINE OCC /HPF (0-4)
[2018-06-03] MEDS ORDERED: IV NORMAL SALINE 1000ML BAG 1,000 ML IV SCH ×2 (23:00→23:51)
[2018-06-03 23:45] VITALS: BP 126/78
[2018-06-04] VITALS (17 sets, daily range): BP systolic 108–127; BP diastolic 69–85
[2018-06-04] MEDS ORDERED: INSULIN REGULAR VIAL 150 UNIT in 0.9 % SODIUM CHLORIDE 150ML 150 ML IV PRN ×2
[2018-06-04] MEDS ORDERED: POTASSIUM CHLORIDE 10MEQ 100 ML IV PRN ×2
[2018-06-04 01:21] LABS: CALCIUM 8.4 mg/dL (8.5-10.1); CREATININE 1.7 mg/dL (0.7-1.3); MAGNESIUM 2.3 mg/dL (1.8-2.4); PHOSPHORUS 2.9 mg/dL (2.6-4.7); POTASSIUM 4.9 mmol/L (3.5-5.1)
--- NOTE | 2018-06-04 01:35 | NUR ---
Patient arrived on unit at 2330 accompanied by ED RN. Patient alert and oriented, able to answer admission questions when asked. Dr. Parry gave the order to initiate DKA protocol. Sepsis screen was positive, Dr. Parry aware. Will continue to monitor.
--- NOTE | 2018-06-04 01:36 | EKG ---
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
[2018-06-04] MEDS: IV DEXTROSE 5% - 0.9 % NACL 1,000 ML IV SCH ×4 (02:13→14:15)
[2018-06-04] MEDS ORDERED: PROCHLORPERAZINE 10 MG/2 ML VIAL. IM PRN (02:30)
[2018-06-04] MEDS: PROCHLORPERAZINE 10 MG/2 ML VIAL. IV PRN ×2 (02:43→18:24)
[2018-06-04] MEDS ORDERED: DICYCLOMINE HCL 10 MG CAPSULE PO ONE (03:00)
[2018-06-04 06:05] LABS: BASO % 0 % (0-3); EOS % 0 % (0-3); HEMATOCRIT 40.8 % (39.0-53.0); HEMOGLOBIN 13.6 g/dL (13.0-17.5); LYMPH # 1.3 x10^3/uL (1.0-4.8); LYMPH % 7 % (24-48); MEAN CORPUSCULAR HEMOGLOBIN 34 pg (25-35); MEAN CORPUSCULAR HGB CONC 33 g/dL (31-37); MONO # 1.4 x10^3/uL (0.0-1.1); MONO % 8 % (0-9); NEUT # 15.7 x10^3uL (1.8-7.7); NEUT % 85 % (31-73); PLATELET COUNT 340 x10^3/uL (140-400); RED BLOOD COUNT 4.06 x10^6/uL (4.30-5.70); RED CELL DISTRIBUTION WIDTH 12.2 % (11.5-14.5); WHITE BLOOD COUNT 18.4 x10^3/uL (4.0-11.0)
[2018-06-04 06:18] LABS: MEAN CORPUSCULAR VOLUME 102 fL (79-100)
[2018-06-04 07:13] LABS: CALCIUM 8.3 mg/dL (8.5-10.1); CREATININE 1.3 mg/dL (0.7-1.3); GFR 72.2; MAGNESIUM 2.3 mg/dL (1.8-2.4); PHOSPHORUS 1.6 mg/dL (2.6-4.7); POTASSIUM 3.8 mmol/L (3.5-5.1)
--- NOTE | 2018-06-04 07:42 | RAD ---
PROCEDURE: CHEST PA LATERAL CLINICAL INDICATION: cough COMPARISON: 01/14/2017 FINDINGS: No pneumothorax identified. Cardiac and mediastinal contours unremarkable. No pulmonary consolidation or acute airspace disease. No acute osseous abnormalities identified. IMPRESSION: No pulmonary consolidation or acute airspace disease. Electronically signed by: Magnus Noel DO (06/04/2018 7:38 AM) [facility]
[2018-06-04] MEDS ORDERED: SODIUM PHOSPHATE 20 MMOL in IV DEXTROSE 5% 250 ML IV PRN (08:00)
[2018-06-04] MEDS: POTASSIUM CHLORIDE 10MEQ 100 ML IV PRN ×2 (08:18→09:12)
--- NOTE | 2018-06-04 09:48 | PDOC1 ---
History and Physical Date of Admission Date of Admission June 04, 2018 Identification/Chief Complaint Chief Complaint I got sick Problems: (1) DKA (diabetic ketoacidoses) Source Source: Chart review, Patient History of Present Illness History of Present Illness Patient is a 47-year-old gentleman with past medical history of type 2 diabetes insulin requiring was in his usual state of health until the day prior to his admission when he started noticing that he was unable to eat or drink due to nausea. The patient cannot force himself to eat but Very sick. He decided to stick to fluids nevertheless his symptoms Worse. The course of the day. The patient was unable to hold anything down and felt that he was getting dehydrated reason why he has altered the ER. The patient denies recent infections no cough no sputum production no chest pain no palpitations no dietary transgressions were voiced by the patient, he denies changes to his insulin regimen he has been on the same for 6 years now. The patient rotates his injection sites periodically. He seems to be quite knowledgeable of his disease does not seem to have any alarming signs the present time. He has had DKA in the past but he relates that this has been the worse. He denies generalized malaise no chills no fever no urinary symptoms at the time my evaluation the patient has closed his And is feeling in no acute distress. He has regained his appetite. I have discussed the findings of lab work and the plan of care in detail, all of his concerns were addressed to the best of my abilities Past Medical History Endocrine: Diabetes Past Surgical History Past Surgical History: Other Family History Family History: Hypertension Social History Smoke: No ALCOHOL: occassional Drugs: None Current Medications Current Medications Current Medications Medications (Trade) Dose Ordered Sig/Lilliana Start Time Stop Time Status Last Admin Dose Admin Dextrose/Sodium Chloride 1,000 ml @ 250 mls/hr Q4H 06/04/18 02:15 06/04/18 08:18 250 MLS/HR Dicyclomine HCl (Bentyl) 10 mg 1X ONCE 06/04/18 03:00 06/04/18 03:01 DC 06/04/18 02:39 10 MG Influenza Virus Vaccine (Afluria Trivalent [id number] Syringe) 0.5 ml ONCE ONCE 06/04/18 09:00 06/04/18 09:01 DC 06/04/18 08:17 0.5 ML Insulin Human Regular (HumuLIN R VIAL) 10 unit 1X ONCE 06/03/18 20:00 06/03/18 20:01 DC 06/03/18 20:08 10 UNIT Insulin Human Regular 150 unit/ Sodium Chloride 151.5 ml @ 0 mls/hr CONT PRN PRN 06/04/18 00:00 Morphine Sulfate (Morphine Sulfate) 4 mg 1X ONCE 06/03/18 20:45 06/03/18 20:46 DC 06/03/18 20:39 4 MG Ondansetron HCl (Zofran) 4 mg 1X ONCE 06/03/18 20:15 06/03/18 20:16 DC 06/03/18 20:20 4 MG Piperacillin Sod/ Tazobactam Sod 3.375 gm/Sodium Chloride 50 ml @ 100 mls/hr 1X ONCE 06/03/18 21:30 06/03/18 21:59 DC 06/03/18 21:21 100 MLS/HR Potassium Chloride/Water 100 ml @ 100 mls/hr PRN Q1HR PRN 06/04/18 00:00 Prochlorperazine Edisylate (Compazine) 10 mg PRN Q6HRS PRN 06/04/18 02:45 06/04/18 02:43 10 MG Sodium Bicarbonate (Sodium Bicarb Adult 8.4% Syr) 50 meq 1X ONCE 06/03/18 22:00 06/03/18 22:01 DC 06/03/18 22:29 50 MEQ Sodium Chloride 1,000 ml @ 250 mls/hr Q4H 06/03/18 23:51 06/04/18 02:11 DC Sodium Phosphate 20 mmol/Dextrose 256.6667 ml @ 62.5 mls/hr 1X PRN PRN 06/04/18 08:00 06/04/18 08:18 DC 06/04/18 08:17 62.5 MLS/HR Allergies Allergies Allergies Coded Allergies Type Severity Reaction Last Updated Verified No Known Drug Allergies 01/22/14 No ROS Review of System CONSTITUTIONAL: No fever or chills EYES: No recent changes SKIN: No rash or itching CARDIOVASCULAR: No chest pain, syncope, palpitations, or edema RESPIRATORY: No SOB or cough GASTROINTESTINAL: No nausea, vomiting or abdominal pain NEUROLOGICAL: No headaches or weakness ENDOCRINE: No cold or heat intolerance GENITOURINARY: No urgency or frequency of urination MUSCULOSKELETAL: No back pain or joint pain LYMPHATICS: No enlarged lymph nodes PSYCHIATRIC: No anxiety or depression Physical Exam Physical Exam GEN.: No apparent distress. Alert and oriented. HEENT: Head is normocephalic, atraumatic NECK: Supple. LUNGS: Clear to auscultation. HEART: RRR, S1, S2 present. Peripheral pulses intact ABDOMEN: Soft, nontender. Positive bowel sounds. EXTREMITIES: Without any cyanosis. NEUROLOGIC: Normal speech, normal tone PSYCHIATRIC: Normal affect, normal mood. SKIN: No ulcerations Vitals Vitals Vital Signs Date Time Temp Pulse Resp B/P (MAP) Pulse Ox O2 Delivery O2 Flow Rate FiO2 06/04/18 09:00 109 15 119/69 (86) 99 Room Air 06/04/18 07:00 98.3 99.0 98.3 Labs Labs Laboratory Tests Test 06/03/18 19:40 06/03/18 20:50 06/03/18 21:28 06/03/18 22:35 White Blood Count 22.8 x10^3/uL (4.0-11.0) Red Blood Count 4.48 x10^6/uL (4.30-5.70) Hemoglobin 15.1 g/dL (13.0-17.5) Hematocrit 47.8 % (39.0-53.0) Mean Corpuscular Volume 107 fL (79-100) Mean Corpuscular Hemoglobin 34 pg (25-35) Mean Corpuscular Hemoglobin Concent 32 g/dL (31-37) Red Cell Distribution Width 13.2 % (11.5-14.5) Platelet Count 471 x10^3/uL (140-400) Neutrophils (%) (Auto) 90 % (31-73) Lymphocytes (%) (Auto) 4 % (24-48) Monocytes (%) (Auto) 6 % (0-9) Eosinophils (%) (Auto) 0 % (0-3) Basophils (%) (Auto) 1 % (0-3) Neutrophils # (Auto) 20.6 x10^3uL (1.8-7.7) Lymphocytes # (Auto) 0.8 x10^3/uL (1.0-4.8) Monocytes # (Auto) 1.3 x10^3/uL (0.0-1.1) Eosinophils # (Auto) 0.0 x10^3/uL (0.0-0.7) Basophils # (Auto) 0.1 x10^3/uL (0.0-0.2) Segmented Neutrophils % 89 % (35-66) Lymphocytes % 5 % (24-48) Monocytes % 6 % (0-10) Platelet Estimate Increased (ADEQUATE) Large Platelets Occ Schistocytes Occ Urine Color Yellow Urine Clarity Clear Urine pH 5.0 Urine Specific [place] 1.025 Urine Protein 30 mg/dL (NEG-TRACE) Urine Glucose (UA) >=1000 mg/dL (NEG) Urine Ketones (Stick) >=80 mg/dL (NEG) Urine Blood Small (NEG) Urine Nitrite Negative (NEG) Urine Bilirubin Negative (NEG) Urine Urobilinogen Dipstick 0.2 mg/dL (0.2 mg/dL) Urine Leukocyte Esterase Negative (NEG) Urine RBC Occ /HPF (0-2) Urine WBC Occ /HPF (0-4) Urine Squamous Epithelial Cells Occ /LPF Urine Bacteria 0 /HPF (0-FEW) Urine Mucus Slight /LPF Lactic Acid Level 6.1 mmol/L (0.4-2.0) Sodium Level 132 mmol/L (136-145) Potassium Level 5.4 mmol/L (3.5-5.1) Chloride Level 92 mmol/L (98-107) Carbon Dioxide Level 7 mmol/L (21-32) Anion Gap 33 (6-14) Blood Urea Nitrogen 24 mg/dL (8-26) Creatinine 2.2 mg/dL (0.7-1.3) Estimated GFR (Cockcroft-Gault) 39.4 BUN/Creatinine Ratio 11 (6-20) Glucose Level 696 mg/dL (70-99) Calcium Level 9.1 mg/dL (8.5-10.1) Total Bilirubin 0.6 mg/dL (0.2-1.0) Aspartate Amino Transf (AST/SGOT) 12 U/L (15-37) Alanine Aminotransferase (ALT/SGPT) 25 U/L (16-63) Alkaline Phosphatase 137 U/L (46-116) Troponin I Quantitative < 0.017 ng/mL (0.000-0.055) Total Protein 9.2 g/dL (6.4-8.2) Albumin 4.6 g/dL (3.4-5.0) Albumin/Globulin Ratio 1.0 (1.0-1.7) O2 Saturation 97 % (92-99) Arterial Blood pH 7.06 (7.35-7.45) Arterial Blood pCO2 at Patient Temp < 15 mmHg (35-46) Arterial Blood pO2 at Patient Temp 124 mmHg (75-108) Arterial Blood HCO3 4 mmol/L (21-28) Arterial Blood Base Excess -25 mmol/L (-3-3) FiO2 21 Glucose (Fingerstick) 438 mg/dL (70-99) Test 06/03/18 23:44 06/04/18 00:55 06/04/18 00:59 06/04/18 02:05 Glucose (Fingerstick) 349 mg/dL (70-99) 261 mg/dL (70-99) 194 mg/dL (70-99) Sodium Level 137 mmol/L (136-145) Potassium Level 4.9 mmol/L (3.5-5.1) Chloride Level 100 mmol/L (98-107) Carbon Dioxide Level 13 mmol/L (21-32) Anion Gap 24 (6-14) Blood Urea Nitrogen 21 mg/dL (8-26) Creatinine 1.7 mg/dL (0.7-1.3) Estimated GFR (Cockcroft-Gault) 53.0 Glucose Level 279 mg/dL (70-99) Lactic Acid Level 2.6 mmol/L (0.4-2.0) Calcium Level 8.4 mg/dL (8.5-10.1) Phosphorus Level 2.9 mg/dL (2.6-4.7) Magnesium Level 2.3 mg/dL (1.8-2.4) Test 06/04/18 03:01 06/04/18 03:57 06/04/18 05:10 06/04/18 05:17 Glucose (Fingerstick) 169 mg/dL (70-99) 179 mg/dL (70-99) 184 mg/dL (70-99) White Blood Count 18.4 x10^3/uL (4.0-11.0) Red Blood Count 4.06 x10^6/uL (4.30-5.70) Hemoglobin 13.6 g/dL (13.0-17.5) Hematocrit 40.8 % (39.0-53.0) Mean Corpuscular Volume 102 fL (79-100) Mean Corpuscular Hemoglobin 34 pg (25-35) Mean Corpuscular Hemoglobin Concent 33 g/dL (31-37) Red Cell Distribution Width 12.2 % (11.5-14.5) Platelet Count 340 x10^3/uL (140-400) Neutrophils (%) (Auto) 85 % (31-73) Lymphocytes (%) (Auto) 7 % (24-48) Monocytes (%) (Auto) 8 % (0-9) Eosinophils (%) (Auto) 0 % (0-3) Basophils (%) (Auto) 0 % (0-3) Neutrophils # (Auto) 15.7 x10^3uL (1.8-7.7) Lymphocytes # (Auto) 1.3 x10^3/uL (1.0-4.8) Monocytes # (Auto) 1.4 x10^3/uL (0.0-1.1) Eosinophils # (Auto) 0.0 x10^3/uL (0.0-0.7) Basophils # (Auto) 0.0 x10^3/uL (0.0-0.2) Sodium Level 139 mmol/L (136-145) Potassium Level 3.8 mmol/L (3.5-5.1) Chloride Level 105 mmol/L (98-107) Carbon Dioxide Level 18 mmol/L (21-32) Anion Gap 16 (6-14) Blood Urea Nitrogen 17 mg/dL (8-26) Creatinine 1.3 mg/dL (0.7-1.3) Estimated GFR (Cockcroft-Gault) 72.2 Glucose Level 204 mg/dL (70-99) Calcium Level 8.3 mg/dL (8.5-10.1) Phosphorus Level 1.6 mg/dL (2.6-4.7) Magnesium Level 2.3 mg/dL (1.8-2.4) Test 06/04/18 06:33 06/04/18 07:38 06/04/18 08:42 Glucose (Fingerstick) 161 mg/dL (70-99) 136 mg/dL (70-99) 128 mg/dL (70-99) Laboratory Tests Test 3/18/19 19:40 06/03/18 20:50 06/03/18 21:28 06/03/18 22:35 White Blood Count 22.8 x10^3/uL (4.0-11.0) Red Blood Count 4.48 x10^6/uL (4.30-5.70) Hemoglobin 15.1 g/dL (13.0-17.5) Hematocrit 47.8 % (39.0-53.0) Mean Corpuscular Volume 107 fL (79-100) Mean Corpuscular Hemoglobin 34 pg (25-35) Mean Corpuscular Hemoglobin Concent 32 g/dL (31-37) Red Cell Distribution Width 13.2 % (11.5-14.5) Platelet Count 471 x10^3/uL (140-400) Neutrophils (%) (Auto) 90 % (31-73) Lymphocytes (%) (Auto) 4 % (24-48) Monocytes (%) (Auto) 6 % (0-9) Eosinophils (%) (Auto) 0 % (0-3) Basophils (%) (Auto) 1 % (0-3) Neutrophils # (Auto) 20.6 x10^3uL (1.8-7.7) Lymphocytes # (Auto) 0.8 x10^3/uL (1.0-4.8) Monocytes # (Auto) 1.3 x10^3/uL (0.0-1.1) Eosinophils # (Auto) 0.0 x10^3/uL (0.0-0.7) Basophils # (Auto) 0.1 x10^3/uL (0.0-0.2) Segmented Neutrophils % 89 % (35-66) Lymphocytes % 5 % (24-48) Monocytes % 6 % (0-10) Platelet Estimate Increased (ADEQUATE) Large Platelets Occ Schistocytes Occ Urine Color Yellow Urine Clarity Clear Urine pH 5.0 Urine Specific [place] 1.025 Urine Protein 30 mg/dL (NEG-TRACE) Urine Glucose (UA) >=1000 mg/dL (NEG) Urine Ketones (Stick) >=80 mg/dL (NEG) Urine Blood Small (NEG) Urine Nitrite Negative (NEG) Urine Bilirubin Negative (NEG) Urine Urobilinogen Dipstick 0.2 mg/dL (0.2 mg/dL) Urine Leukocyte Esterase Negative (NEG) Urine RBC Occ /HPF (0-2) Urine WBC Occ /HPF (0-4) Urine Squamous Epithelial Cells Occ /LPF Urine Bacteria 0 /HPF (0-FEW) Urine Mucus Slight /LPF Lactic Acid Level 6.1 mmol/L (0.4-2.0) Sodium Level 132 mmol/L (136-145) Potassium Level 5.4 mmol/L (3.5-5.1) Chloride Level 92 mmol/L (98-107) Carbon Dioxide Level 7 mmol/L (21-32) Anion Gap 33 (6-14) Blood Urea Nitrogen 24 mg/dL (8-26) Creatinine 2.2 mg/dL (0.7-1.3) Estimated GFR (Cockcroft-Gault) 39.4 BUN/Creatinine Ratio 11 (6-20) Glucose Level 696 mg/dL (70-99) Calcium Level 9.1 mg/dL (8.5-10.1) Total Bilirubin 0.6 mg/dL (0.2-1.0) Aspartate Amino Transf (AST/SGOT) 12 U/L (15-37) Alanine Aminotransferase (ALT/SGPT) 25 U/L (16-63) Alkaline Phosphatase 137 U/L (46-116) Troponin I Quantitative < 0.017 ng/mL (0.000-0.055) Total Protein 9.2 g/dL (6.4-8.2) Albumin 4.6 g/dL (3.4-5.0) Albumin/Globulin Ratio 1.0 (1.0-1.7) O2 Saturation 97 % (92-99) Arterial Blood pH 7.06 (7.35-7.45) Arterial Blood pCO2 at Patient Temp < 15 mmHg (35-46) Arterial Blood pO2 at Patient Temp 124 mmHg (75-108) Arterial Blood HCO3 4 mmol/L (21-28) Arterial Blood Base Excess -25 mmol/L (-3-3) FiO2 21 Glucose (Fingerstick) 438 mg/dL (70-99) Test 06/03/18 23:44 06/04/18 00:55 06/04/18 00:59 06/04/18 02:05 Glucose (Fingerstick) 349 mg/dL (70-99) 261 mg/dL (70-99) 194 mg/dL (70-99) Sodium Level 137 mmol/L (136-145) Potassium Level 4.9 mmol/L (3.5-5.1) Chloride Level 100 mmol/L (98-107) Carbon Dioxide Level 13 mmol/L (21-32) Anion Gap 24 (6-14) Blood Urea Nitrogen 21 mg/dL (8-26) Creatinine 1.7 mg/dL (0.7-1.3) Estimated GFR (Cockcroft-Gault) 53.0 Glucose Level 279 mg/dL (70-99) Lactic Acid Level 2.6 mmol/L (0.4-2.0) Calcium Level 8.4 mg/dL (8.5-10.1) Phosphorus Level 2.9 mg/dL (2.6-4.7) Magnesium Level 2.3 mg/dL (1.8-2.4) Test 06/04/18 03:01 06/04/18 03:57 06/04/18 05:10 06/04/18 05:17 Glucose (Fingerstick) 169 mg/dL (70-99) 179 mg/dL (70-99) 184 mg/dL (70-99) White Blood Count 18.4 x10^3/uL (4.0-11.0) Red Blood Count 4.06 x10^6/uL (4.30-5.70) Hemoglobin 13.6 g/dL (13.0-17.5) Hematocrit 40.8 % (39.0-53.0) Mean Corpuscular Volume 102 fL (79-100) Mean Corpuscular Hemoglobin 34 pg (25-35) Mean Corpuscular Hemoglobin Concent 33 g/dL (31-37) Red Cell Distribution Width 12.2 % (11.5-14.5) Platelet Count 340 x10^3/uL (140-400) Neutrophils (%) (Auto) 85 % (31-73) Lymphocytes (%) (Auto) 7 % (24-48) Monocytes (%) (Auto) 8 % (0-9) Eosinophils (%) (Auto) 0 % (0-3) Basophils (%) (Auto) 0 % (0-3) Neutrophils # (Auto) 15.7 x10^3uL (1.8-7.7) Lymphocytes # (Auto) 1.3 x10^3/uL (1.0-4.8) Monocytes # (Auto) 1.4 x10^3/uL (0.0-1.1) Eosinophils # (Auto) 0.0 x10^3/uL (0.0-0.7) Basophils # (Auto) 0.0 x10^3/uL (0.0-0.2) Sodium Level 139 mmol/L (136-145) Potassium Level 3.8 mmol/L (3.5-5.1) Chloride Level 105 mmol/L (98-107) Carbon Dioxide Level 18 mmol/L (21-32) Anion Gap 16 (6-14) Blood Urea Nitrogen 17 mg/dL (8-26) Creatinine 1.3 mg/dL (0.7-1.3) Estimated GFR (Cockcroft-Gault) 72.2 Glucose Level 204 mg/dL (70-99) Calcium Level 8.3 mg/dL (8.5-10.1) Phosphorus Level 1.6 mg/dL (2.6-4.7) Magnesium Level 2.3 mg/dL (1.8-2.4) Test 06/04/18 06:33 06/04/18 07:38 06/04/18 08:42 Glucose (Fingerstick) 161 mg/dL (70-99) 136 mg/dL (70-99) 128 mg/dL (70-99) VTE Prophylaxis Ordered VTE Prophylaxis Devices: No VTE Pharmacological Prophylaxi: Yes Assessment/Plan Assessment/Plan Acute DKA resolving High gap acidosis secondary to the above Severe dehydration Electrolyte disturbances as a consequence of DKA Intractable nausea and vomiting resolved after DKA was treated Plan Resume home medications Will transition to long-acting insulin subcutaneous anticipation off shutting down the insulin drip Restarted diet Patient may be transitioned to a telemetry floor once he has resume his diet Further recommendations based on the clinical course Problem Qualifiers (1) DKA (diabetic ketoacidoses): Diabetes mellitus type: type 2 Diabetes mellitus complication detail: without coma Qualified Codes: E11.10 - Type 2 diabetes mellitus with ketoacidosis without coma ELIJAH FRITZ MD Jun 04, 2018 09:48
[2018-06-04] MEDS: INSULIN GLARGINE 300 UNITS/3 ML INSULN.PEN. SQ SCH (10:36)
[2018-06-04 10:59] LABS: CREATININE 1.2 mg/dL (0.7-1.3); GFR 79.2; MAGNESIUM 2.2 mg/dL (1.8-2.4); PHOSPHORUS 2.3 mg/dL (2.6-4.7); POTASSIUM 3.5 mmol/L (3.5-5.1)
[2018-06-04] MEDS: INSULIN LISPRO 300 UNITS/3 ML INSULN.PEN. SQ SCH ×2 (12:01→17:00)
[2018-06-04 14:46] LABS: CALCIUM 8.2 mg/dL (8.5-10.1); CREATININE 1.1 mg/dL (0.7-1.3); GFR 87.6; MAGNESIUM 2.3 mg/dL (1.8-2.4); POTASSIUM 3.2 mmol/L (3.5-5.1)
--- NOTE | 2018-06-04 15:03 | NUR ---
Patient transferred from ICU to [facility]. report was called, plan of care discussed. Patient taken via wheelchair.
[2018-06-04] MEDS ORDERED: POTASSIUM CHLORIDE 20 MEQ TABLET.ER. PO ONE ×2 (15:15→18:00)
[2018-06-04] MEDS: IV NORMAL SALINE 1000ML BAG 1,000 ML IV SCH (15:36)
--- NOTE | 2018-06-04 15:43 | NUR ---
Received report from Willard DALTON, patient arrived in the unit at 1500. He's awake, alert oriented x4, no new complaints, call light within reach. We will continue to monitor.
--- NOTE | 2018-06-04 17:54 | NUR ---
Patient's random glucose was 75 at 1500 and a repeat determination was 89. Paged Dr. Parry at 1600, this nurse was instructed to hold insulin for glucose less than 110.
[2018-06-04] MEDS: ACETAMINOPHEN 325 MG TABLET. PO PRN (18:00)
[2018-06-05 03:11] VITALS: BP 105/59
[2018-06-05] MEDS: IV NORMAL SALINE 1000ML BAG 1,000 ML IV SCH ×2 (04:29→19:18)
[2018-06-05 07:00] VITALS: BP 114/79
--- NOTE | 2018-06-05 07:08 | PDOC ---
PROGRESS NOTES Chief Complaint Chief Complaint Acute DKA resolving High gap acidosis secondary to the above Severe dehydration Electrolyte disturbances as a consequence of DKA Intractable nausea and vomiting resolved after DKA was treated Plan Resume home medications Will transition to long-acting insulin subcutaneous and home insulin Restarted diet History of Present Illness History of Present Illness 47-year-old gentleman with past medical history of type 2 diabetes insulin requiring was in his usual state of health until the day prior to his admission when he started noticing that he was unable to eat or drink due to nausea. The patient cannot force himself to eat but Very sick. He decided to stick to fluids nevertheless his symptoms Worse. The course of the day. The patient was unable to hold anything down and felt that he was getting dehydrated reason why he has altered the ER. The patient denies recent infections no cough no sputum production no chest pain no palpitations no dietary transgressions were voiced by the patient, he denies changes to his insulin regimen he has been on the same for 6 years now. Out of ICU today, ate breakfast, had 1 episode of hypoglycemia yesterday and today, mildly symptomatic. Denies CP or SOB or GI symptoms. He does not feel back to normal quite yet. Will adjust his insulin regimen to avoid hypoglycemia Vitals Vitals Vital Signs Date Time Temp Pulse Resp B/P (MAP) Pulse Ox O2 Delivery O2 Flow Rate FiO2 06/05/18 03:11 98.2 90 18 105/59 (74) 97 Room Air 98.2 06/04/18 12:00 99.0 Physical Exam General: Alert, Oriented X3, Cooperative Heart: Regular rate, Normal S1, Normal S2 Lungs: Clear Abdomen: Normal bowel sounds, Soft Extremities: No clubbing, No cyanosis Skin: No rashes, No breakdown Labs LABS Laboratory Tests Test 06/04/18 07:38 06/04/18 08:42 06/04/18 09:48 06/04/18 09:55 Glucose (Fingerstick) 136 mg/dL (70-99) 128 mg/dL (70-99) 108 mg/dL (70-99) Sodium Level 140 mmol/L (136-145) Potassium Level 3.5 mmol/L (3.5-5.1) Chloride Level 109 mmol/L (98-107) Carbon Dioxide Level 20 mmol/L (21-32) Anion Gap 11 (6-14) Blood Urea Nitrogen 15 mg/dL (8-26) Creatinine 1.2 mg/dL (0.7-1.3) Estimated GFR (Cockcroft-Gault) 79.2 Glucose Level 123 mg/dL (70-99) Calcium Level 8.0 mg/dL (8.5-10.1) Phosphorus Level 2.3 mg/dL (2.6-4.7) Magnesium Level 2.2 mg/dL (1.8-2.4) Test 06/04/18 10:53 06/04/18 11:59 06/04/18 13:13 06/04/18 13:50 Glucose (Fingerstick) 183 mg/dL (70-99) 167 mg/dL (70-99) 88 mg/dL (70-99) Sodium Level 140 mmol/L (136-145) Potassium Level 3.2 mmol/L (3.5-5.1) Chloride Level 107 mmol/L (98-107) Carbon Dioxide Level 22 mmol/L (21-32) Anion Gap 11 (6-14) Blood Urea Nitrogen 15 mg/dL (8-26) Creatinine 1.1 mg/dL (0.7-1.3) Estimated GFR (Cockcroft-Gault) 87.6 Glucose Level 63 mg/dL (70-99) Calcium Level 8.2 mg/dL (8.5-10.1) Phosphorus Level 2.0 mg/dL (2.6-4.7) Magnesium Level 2.3 mg/dL (1.8-2.4) Test 06/04/18 14:12 06/04/18 15:30 06/04/18 17:07 06/04/18 21:01 Glucose (Fingerstick) 59 mg/dL (70-99) 76 mg/dL (70-99) 89 mg/dL (70-99) 203 mg/dL (70-99) Comment Review of Relevant I have reviewed the following items kaelyn (where applicable) has been applied. Labs Laboratory Tests Test 06/03/18 19:40 06/03/18 20:50 06/03/18 21:28 06/03/18 22:35 White Blood Count 22.8 x10^3/uL (4.0-11.0) Red Blood Count 4.48 x10^6/uL (4.30-5.70) Hemoglobin 15.1 g/dL (13.0-17.5) Hematocrit 47.8 % (39.0-53.0) Mean Corpuscular Volume 107 fL (79-100) Mean Corpuscular Hemoglobin 34 pg (25-35) Mean Corpuscular Hemoglobin Concent 32 g/dL (31-37) Red Cell Distribution Width 13.2 % (11.5-14.5) Platelet Count 471 x10^3/uL (140-400) Neutrophils (%) (Auto) 90 % (31-73) Lymphocytes (%) (Auto) 4 % (24-48) Monocytes (%) (Auto) 6 % (0-9) Eosinophils (%) (Auto) 0 % (0-3) Basophils (%) (Auto) 1 % (0-3) Neutrophils # (Auto) 20.6 x10^3uL (1.8-7.7) Lymphocytes # (Auto) 0.8 x10^3/uL (1.0-4.8) Monocytes # (Auto) 1.3 x10^3/uL (0.0-1.1) Eosinophils # (Auto) 0.0 x10^3/uL (0.0-0.7) Basophils # (Auto) 0.1 x10^3/uL (0.0-0.2) Segmented Neutrophils % 89 % (35-66) Lymphocytes % 5 % (24-48) Monocytes % 6 % (0-10) Platelet Estimate Increased (ADEQUATE) Large Platelets Occ Schistocytes Occ Urine Color Yellow Urine Clarity Clear Urine pH 5.0 Urine Specific [place] 1.025 Urine Protein 30 mg/dL (NEG-TRACE) Urine Glucose (UA) >=1000 mg/dL (NEG) Urine Ketones (Stick) >=80 mg/dL (NEG) Urine Blood Small (NEG) Urine Nitrite Negative (NEG) Urine Bilirubin Negative (NEG) Urine Urobilinogen Dipstick 0.2 mg/dL (0.2 mg/dL) Urine Leukocyte Esterase Negative (NEG) Urine RBC Occ /HPF (0-2) Urine WBC Occ /HPF (0-4) Urine Squamous Epithelial Cells Occ /LPF Urine Bacteria 0 /HPF (0-FEW) Urine Mucus Slight /LPF Lactic Acid Level 6.1 mmol/L (0.4-2.0) Sodium Level 132 mmol/L (136-145) Potassium Level 5.4 mmol/L (3.5-5.1) Chloride Level 92 mmol/L (98-107) Carbon Dioxide Level 7 mmol/L (21-32) Anion Gap 33 (6-14) Blood Urea Nitrogen 24 mg/dL (8-26) Creatinine 2.2 mg/dL (0.7-1.3) Estimated GFR (Cockcroft-Gault) 39.4 BUN/Creatinine Ratio 11 (6-20) Glucose Level 696 mg/dL (70-99) Calcium Level 9.1 mg/dL (8.5-10.1) Total Bilirubin 0.6 mg/dL (0.2-1.0) Aspartate Amino Transf (AST/SGOT) 12 U/L (15-37) Alanine Aminotransferase (ALT/SGPT) 25 U/L (16-63) Alkaline Phosphatase 137 U/L (46-116) Troponin I Quantitative < 0.017 ng/mL (0.000-0.055) Total Protein 9.2 g/dL (6.4-8.2) Albumin 4.6 g/dL (3.4-5.0) Albumin/Globulin Ratio 1.0 (1.0-1.7) O2 Saturation 97 % (92-99) Arterial Blood pH 7.06 (7.35-7.45) Arterial Blood pCO2 at Patient Temp < 15 mmHg (35-46) Arterial Blood pO2 at Patient Temp 124 mmHg (75-108) Arterial Blood HCO3 4 mmol/L (21-28) Arterial Blood Base Excess -25 mmol/L (-3-3) FiO2 21 Glucose (Fingerstick) 438 mg/dL (70-99) Test 06/03/18 23:30 06/03/18 23:44 06/04/18 00:55 06/04/18 00:59 Nasal Screen MRSA (PCR) Negative (Negative) Glucose (Fingerstick) 349 mg/dL (70-99) 261 mg/dL (70-99) Sodium Level 137 mmol/L (136-145) Potassium Level 4.9 mmol/L (3.5-5.1) Chloride Level 100 mmol/L (98-107) Carbon Dioxide Level 13 mmol/L (21-32) Anion Gap 24 (6-14) Blood Urea Nitrogen 21 mg/dL (8-26) Creatinine 1.7 mg/dL (0.7-1.3) Estimated GFR (Cockcroft-Gault) 53.0 Glucose Level 279 mg/dL (70-99) Lactic Acid Level 2.6 mmol/L (0.4-2.0) Calcium Level 8.4 mg/dL (8.5-10.1) Phosphorus Level 2.9 mg/dL (2.6-4.7) Magnesium Level 2.3 mg/dL (1.8-2.4) Test 06/04/18 02:05 06/04/18 03:01 06/04/18 03:57 06/04/18 05:10 Glucose (Fingerstick) 194 mg/dL (70-99) 169 mg/dL (70-99) 179 mg/dL (70-99) White Blood Count 18.4 x10^3/uL (4.0-11.0) Red Blood Count 4.06 x10^6/uL (4.30-5.70) Hemoglobin 13.6 g/dL (13.0-17.5) Hematocrit 40.8 % (39.0-53.0) Mean Corpuscular Volume 102 fL (79-100) Mean Corpuscular Hemoglobin 34 pg (25-35) Mean Corpuscular Hemoglobin Concent 33 g/dL (31-37) Red Cell Distribution Width 12.2 % (11.5-14.5) Platelet Count 340 x10^3/uL (140-400) Neutrophils (%) (Auto) 85 % (31-73) Lymphocytes (%) (Auto) 7 % (24-48) Monocytes (%) (Auto) 8 % (0-9) Eosinophils (%) (Auto) 0 % (0-3) Basophils (%) (Auto) 0 % (0-3) Neutrophils # (Auto) 15.7 x10^3uL (1.8-7.7) Lymphocytes # (Auto) 1.3 x10^3/uL (1.0-4.8) Monocytes # (Auto) 1.4 x10^3/uL (0.0-1.1) Eosinophils # (Auto) 0.0 x10^3/uL (0.0-0.7) Basophils # (Auto) 0.0 x10^3/uL (0.0-0.2) Sodium Level 139 mmol/L (136-145) Potassium Level 3.8 mmol/L (3.5-5.1) Chloride Level 105 mmol/L (98-107) Carbon Dioxide Level 18 mmol/L (21-32) Anion Gap 16 (6-14) Blood Urea Nitrogen 17 mg/dL (8-26) Creatinine 1.3 mg/dL (0.7-1.3) Estimated GFR (Cockcroft-Gault) 72.2 Glucose Level 204 mg/dL (70-99) Calcium Level 8.3 mg/dL (8.5-10.1) Phosphorus Level 1.6 mg/dL (2.6-4.7) Magnesium Level 2.3 mg/dL (1.8-2.4) Test 06/04/18 05:17 06/04/18 06:33 06/04/18 07:38 06/04/18 08:42 Glucose (Fingerstick) 184 mg/dL (70-99) 161 mg/dL (70-99) 136 mg/dL (70-99) 128 mg/dL (70-99) Test 06/04/18 09:48 06/04/18 09:55 06/04/18 10:53 06/04/18 11:59 Glucose (Fingerstick) 108 mg/dL (70-99) 183 mg/dL (70-99) 167 mg/dL (70-99) Sodium Level 140 mmol/L (136-145) Potassium Level 3.5 mmol/L (3.5-5.1) Chloride Level 109 mmol/L (98-107) Carbon Dioxide Level 20 mmol/L (21-32) Anion Gap 11 (6-14) Blood Urea Nitrogen 15 mg/dL (8-26) Creatinine 1.2 mg/dL (0.7-1.3) Estimated GFR (Cockcroft-Gault) 79.2 Glucose Level 123 mg/dL (70-99) Calcium Level 8.0 mg/dL (8.5-10.1) Phosphorus Level 2.3 mg/dL (2.6-4.7) Magnesium Level 2.2 mg/dL (1.8-2.4) Test 06/04/18 13:13 06/04/18 13:50 06/04/18 14:12 06/04/18 15:30 Glucose (Fingerstick) 88 mg/dL (70-99) 59 mg/dL (70-99) 76 mg/dL (70-99) Sodium Level 140 mmol/L (136-145) Potassium Level 3.2 mmol/L (3.5-5.1) Chloride Level 107 mmol/L (98-107) Carbon Dioxide Level 22 mmol/L (21-32) Anion Gap 11 (6-14) Blood Urea Nitrogen 15 mg/dL (8-26) Creatinine 1.1 mg/dL (0.7-1.3) Estimated GFR (Cockcroft-Gault) 87.6 Glucose Level 63 mg/dL (70-99) Calcium Level 8.2 mg/dL (8.5-10.1) Phosphorus Level 2.0 mg/dL (2.6-4.7) Magnesium Level 2.3 mg/dL (1.8-2.4) Test 06/04/18 17:07 06/04/18 21:01 Glucose (Fingerstick) 89 mg/dL (70-99) 203 mg/dL (70-99) Laboratory Tests Test 06/04/18 07:38 06/04/18 08:42 06/04/18 09:48 06/04/18 09:55 Glucose (Fingerstick) 136 mg/dL (70-99) 128 mg/dL (70-99) 108 mg/dL (70-99) Sodium Level 140 mmol/L (136-145) Potassium Level 3.5 mmol/L (3.5-5.1) Chloride Level 109 mmol/L (98-107) Carbon Dioxide Level 20 mmol/L (21-32) Anion Gap 11 (6-14) Blood Urea Nitrogen 15 mg/dL (8-26) Creatinine 1.2 mg/dL (0.7-1.3) Estimated GFR (Cockcroft-Gault) 79.2 Glucose Level 123 mg/dL (70-99) Calcium Level 8.0 mg/dL (8.5-10.1) Phosphorus Level 2.3 mg/dL (2.6-4.7) Magnesium Level 2.2 mg/dL (1.8-2.4) Test 06/04/18 10:53 06/04/18 11:59 06/04/18 13:13 06/04/18 13:50 Glucose (Fingerstick) 183 mg/dL (70-99) 167 mg/dL (70-99) 88 mg/dL (70-99) Sodium Level 140 mmol/L (136-145) Potassium Level 3.2 mmol/L (3.5-5.1) Chloride Level 107 mmol/L (98-107) Carbon Dioxide Level 22 mmol/L (21-32) Anion Gap 11 (6-14) Blood Urea Nitrogen 15 mg/dL (8-26) Creatinine 1.1 mg/dL (0.7-1.3) Estimated GFR (Cockcroft-Gault) 87.6 Glucose Level 63 mg/dL (70-99) Calcium Level 8.2 mg/dL (8.5-10.1) Phosphorus Level 2.0 mg/dL (2.6-4.7) Magnesium Level 2.3 mg/dL (1.8-2.4) Test 06/04/18 14:12 06/04/18 15:30 06/04/18 17:07 06/04/18 21:01 Glucose (Fingerstick) 59 mg/dL (70-99) 76 mg/dL (70-99) 89 mg/dL (70-99) 203 mg/dL (70-99) Microbiology 06/03/18 Blood Culture - Preliminary, Resulted NO GROWTH AFTER 1 DAY Medications Current Medications Sodium Chloride 1,000 ml @ 1,000 mls/hr 1X ONCE IV Last administered on at 20:05; Start 06/03/18 at 20:00; Stop 06/03/18 at 20:59; Status DC Insulin Human Regular 150 ml @ 0 mls/hr 1X ONCE IV Last administered on at 20:19; Start 06/03/18 at 20:00; Stop 06/03/18 at 20:01; Status DC Insulin Human Regular (HumuLIN R VIAL) 10 unit 1X ONCE IV Last administered on 06/03/18at 20:08; Start 06/03/18 at 20:00; Stop 06/03/18 at 20:01; Status DC Ondansetron HCl (Zofran) 4 mg 1X ONCE IV Last administered on 06/03/18at 20:20 ; Start 06/03/18 at 20:15; Stop 06/03/18 at 20:16; Status DC Morphine Sulfate (Morphine Sulfate) 4 mg 1X ONCE IV Last administered on at 20:20; Start 06/03/18 at 20:15; Stop 06/03/18 at 20:16; Status DC Morphine Sulfate (Morphine Sulfate) 4 mg 1X ONCE IV Last administered on at 20:39; Start 06/03/18 at 20:45; Stop 06/03/18 at 20:46; Status DC Sodium Chloride 1,000 ml @ 1,000 mls/hr 1X ONCE IV Last administered on at 21:25; Start 06/03/18 at 21:30; Stop 06/03/18 at 22:29; Status DC Piperacillin Sod/ Tazobactam Sod 3.375 gm/Sodium Chloride 50 ml @ 100 mls/hr 1X ONCE IV Last administered on 06/03/18at 21:21; Start 06/03/18 at 21:30; Stop 06/03/18 at 21:59; Status DC Sodium Bicarbonate (Sodium Bicarb Adult 8.4% Syr) 50 meq 1X ONCE IV Last administered on 06/03/18at 22:29; Start 06/03/18 at 22:00; Stop 06/03/18 at 22:01 ; Status DC Sodium Chloride 1,000 ml @ 150 mls/hr [id number] IV Last administered on at 22:54; Start 06/03/18 at 23:00; Stop 06/04/18 at 02:11; Status DC Sodium Chloride 1,000 ml @ 250 mls/hr Q4H IV ; Start 06/03/18 at 23:51; Stop at 02:11; Status DC Insulin Human Regular 150 unit/ Sodium Chloride 151.5 ml @ 0 mls/hr CONT PRN PRN IV PER PROTOCOL; Start 06/04/18 at 00:00; Stop 06/04/18 at 14:37; Status DC Potassium Chloride/Water 100 ml @ 100 mls/hr PRN Q1HR PRN IV SEE COMMENTS Last administered on 06/04/18at 12:02; Start 06/04/18 at 00:00; Stop 06/04/18 at 14:37; Status DC Potassium Chloride/Water 100 ml @ 100 mls/hr PRN Q1HR PRN IV SEE COMMENTS Last administered on 06/04/18 09:12; Start 06/04/18 at 00:00; Stop 06/04/18 at 14:37; Status DC Potassium Chloride/Water 100 ml @ 100 mls/hr PRN Q1HR PRN IV SEE COMMENTS; Start 06/04/18 at 00:00; Stop 06/04/18 at 14:37; Status DC Influenza Virus Vaccine (Afluria Trivalent [id number] Syringe) 0.5 ml ONCE ONCE VAX IM Last administered on 06/04/18 08:17; Start 06/04/18 at 09:00; Stop at 09:01; Status DC Dextrose/Sodium Chloride 1,000 ml @ 250 mls/hr Q4H IV Last administered on 08:18; Start 06/04/18 at 02:15; Stop 06/04/18 at 14:43; Status DC Dicyclomine HCl (Bentyl) 10 mg 1X ONCE PO Last administered on 06/04/18at 02:39 ; Start 06/04/18 at 03:00; Stop 06/04/18 at 03:01; Status DC Prochlorperazine Edisylate (Compazine) 10 mg PRN Q6HRS PRN IM NAUSEA/VOMITING 1ST CHOICE; Start 06/04/18 at 02:30; Stop 06/04/18 at 02:40; Status DC Prochlorperazine Edisylate (Compazine) 10 mg PRN Q6HRS PRN IV NAUSEA/VOMITING 1ST CHOICE Last administered on 06/04/18at 18:24; Start 06/04/18 at 02:45 Sodium Phosphate 20 mmol/Dextrose 256.6667 ml @ 62.5 mls/hr 1X PRN PRN IV SEE COMMENTS Last administered on 06/04/18 08:17; Start 06/04/18 at 08:00; Stop at 08:18; Status DC Insulin Glargine (Lantus) 15 units DAILY SQ Last administered on 06/04/18at 10: 36; Start 06/04/18 at 10:30 Insulin Human Lispro (HumaLOG) 16 units TIDWMEALS SQ Last administered on 12:01; Start 06/04/18 at 12:00 Sodium Chloride 1,000 ml @ 75 mls/hr [id number] IV Last administered on at 04:29; Start 06/04/18 at 15:00 Potassium Chloride (Klor-Con) 40 meq 1X ONCE PO Last administered on at 15:37; Start 06/04/18 at 15:15; Stop 06/04/18 at 15:16; Status DC Potassium Chloride (Klor-Con) 40 meq 1X ONCE PO Last administered on at 18:25; Start 06/04/18 at 18:00; Stop 06/04/18 at 18:01; Status DC Acetaminophen (Tylenol) 650 mg PRN Q6HRS PRN PO PAIN Last administered on at 18:00; Start 06/04/18 at 17:45 Active Scripts Active Levemir Flextouch (Insulin Detemir) 100 Unit/1 Ml Insuln.pen 15 Units SQ QHS 30 Days Novolog Flexpen (Insulin Aspart) 100 Unit/1 Ml Insuln.pen 16 Units SQ TIDBFRMEAL 30 Days Vitals/I & O Vital Sign - Last 24 Hours 06/04/18 06/04/18 06/04/18 06/04/18 07:21 08:00 09:00 12:00 Temp 98.3 98.3 Pulse 102 109 95 Resp 15 15 B/P (MAP) 114/71 (85) 119/69 (86) 120/73 (89) Pulse Ox 99 99 99 O2 Delivery Room Air Room Air Room Air Room Air O2 Flow Rate 99.0 06/04/18 06/04/18 06/04/18 06/04/18 15:34 19:48 20:00 23:26 Temp 97.6 98.4 98.2 97.6 98.4 98.2 Pulse 76 94 89 Resp 18 18 B/P (MAP) 127/83 (98) 112/71 (85) 111/79 (90) Pulse Ox 96 97 98 O2 Delivery Room Air Room Air Room Air Room Air 06/05/18 03:11 Temp 98.2 98.2 Pulse 90 Resp 18 B/P (MAP) 105/59 (74) Pulse Ox 97 O2 Delivery Room Air Intake and Output 06/04/18 06/04/18 06/05/18 14:59 22:59 06:59 Intake Total 400 ml 200 ml 820 ml Balance 400 ml 200 ml 820 ml LILLIANA ALVARADO MD Jun 05, 2018 07:08
[2018-06-05] MEDS: INSULIN GLARGINE 300 UNITS/3 ML INSULN.PEN. SQ SCH (08:18)
[2018-06-05] MEDS: INSULIN LISPRO 300 UNITS/3 ML INSULN.PEN. SQ SCH ×2 (08:18→16:30)
--- NOTE | 2018-06-05 09:08 | NUR ---
SW following pt for anticipated dc needs. Chart reviewed. Pt is from home with significant other and on room air. No discharge recommendations/SW needs noted at this time. Will continue to assess dc needs.
[2018-06-05] MEDS ORDERED: INSULIN LISPRO 300 UNITS/3 ML INSULN.PEN. SQ SCH ×2 (09:30→13:00)
[2018-06-05 11:00] VITALS: BP 121/85
[2018-06-05] MEDS: DEXTROSE 50% 25 GM / 50ML DISP.SYRIN. IV PRN ×2 (12:15→16:00)
[2018-06-05] MEDS: ACETAMINOPHEN 325 MG TABLET. PO PRN ×2 (14:35→20:51)
[2018-06-05 14:49] VITALS: BP 116/77
--- NOTE | 2018-06-05 18:31 | NUR ---
Pt has been dealing with hypoglycemia episodes all shift. We have adjusted insulin however his blood sugar continues to be on the low side despite eating. Humalog held this evening. Will continue to monitor blood sugars closely.
[2018-06-05 19:00] VITALS: BP 133/92
[2018-06-05] MEDS ORDERED: HYDROcodone/APAP 5/325MG 1 TAB TABLET PO PRN (23:15)
[2018-06-05 23:16] VITALS: BP 125/91
[2018-06-06 03:00] VITALS: BP 122/86
[2018-06-06] MEDS: IV NORMAL SALINE 1000ML BAG 1,000 ML IV SCH (07:03)
[2018-06-06 07:05] VITALS: BP 124/88
[2018-06-06] MEDS: INSULIN LISPRO 300 UNITS/3 ML INSULN.PEN. SQ SCH ×2 (08:14→12:23)
--- NOTE | 2018-06-06 08:20 | PDOC ---
PROGRESS NOTES Chief Complaint Chief Complaint Acute DKA resolving High gap acidosis secondary to the above Severe dehydration Electrolyte disturbances as a consequence of DKA Intractable nausea and vomiting resolved after DKA was treated Plan Resume home medications Will transition to long-acting insulin subcutaneous and home insulin Restarted diet History of Present Illness History of Present Illness 47-year-old gentleman with past medical history of type 2 diabetes insulin requiring was in his usual state of health until the day prior to his admission when he started noticing that he was unable to eat or drink due to nausea. The patient cannot force himself to eat but Very sick. He decided to stick to fluids nevertheless his symptoms Worse. The course of the day. The patient was unable to hold anything down and felt that he was getting dehydrated reason why he has altered the ER. The patient denies recent infections no cough no sputum production no chest pain no palpitations no dietary transgressions were voiced by the patient, he denies changes to his insulin regimen he has been on the same for 6 years now. 06/05: Out of ICU today, ate breakfast, had 1 episode of hypoglycemia yesterday and today, mildly symptomatic. Denies CP or SOB or GI symptoms. He does not feel back to normal quite yet. Adjusted his insulin regimen to avoid hypoglycemia and he has been better, did have a glucose near 200, but notes he feels much better. To see his PCP this coming Sunday. Vitals Vitals Vital Signs Date Time Temp Pulse Resp B/P (MAP) Pulse Ox O2 Delivery O2 Flow Rate FiO2 06/06/18 07:05 97.9 86 18 124/88 (100) 95 Room Air 97.9 06/05/18 08:00 99.0 Physical Exam General: Alert, Oriented X3, Cooperative Heart: Regular rate, Normal S1, Normal S2 Lungs: Clear Abdomen: Normal bowel sounds, Soft Extremities: No clubbing, No cyanosis Skin: No rashes, No breakdown Labs LABS Laboratory Tests Test 06/05/18 12:11 06/05/18 12:34 06/05/18 15:56 06/05/18 16:44 Glucose (Fingerstick) 47 mg/dL (70-99) 166 mg/dL (70-99) 41 mg/dL (70-99) 134 mg/dL (70-99) Test 06/05/18 18:20 06/05/18 20:54 06/06/18 07:11 Glucose (Fingerstick) 152 mg/dL (70-99) 192 mg/dL (70-99) 293 mg/dL (70-99) Comment Review of Relevant I have reviewed the following items kaelyn (where applicable) has been applied. Labs Laboratory Tests Test 06/04/18 08:42 06/04/18 09:48 06/04/18 09:55 06/04/18 10:53 Glucose (Fingerstick) 128 mg/dL (70-99) 108 mg/dL (70-99) 183 mg/dL (70-99) Sodium Level 140 mmol/L (136-145) Potassium Level 3.5 mmol/L (3.5-5.1) Chloride Level 109 mmol/L (98-107) Carbon Dioxide Level 20 mmol/L (21-32) Anion Gap 11 (6-14) Blood Urea Nitrogen 15 mg/dL (8-26) Creatinine 1.2 mg/dL (0.7-1.3) Estimated GFR (Cockcroft-Gault) 79.2 Glucose Level 123 mg/dL (70-99) Calcium Level 8.0 mg/dL (8.5-10.1) Phosphorus Level 2.3 mg/dL (2.6-4.7) Magnesium Level 2.2 mg/dL (1.8-2.4) Test 06/04/18 11:59 06/04/18 13:13 06/04/18 13:50 06/04/18 14:12 Glucose (Fingerstick) 167 mg/dL (70-99) 88 mg/dL (70-99) 59 mg/dL (70-99) Sodium Level 140 mmol/L (136-145) Potassium Level 3.2 mmol/L (3.5-5.1) Chloride Level 107 mmol/L (98-107) Carbon Dioxide Level 22 mmol/L (21-32) Anion Gap 11 (6-14) Blood Urea Nitrogen 15 mg/dL (8-26) Creatinine 1.1 mg/dL (0.7-1.3) Estimated GFR (Cockcroft-Gault) 87.6 Glucose Level 63 mg/dL (70-99) Calcium Level 8.2 mg/dL (8.5-10.1) Phosphorus Level 2.0 mg/dL (2.6-4.7) Magnesium Level 2.3 mg/dL (1.8-2.4) Test 06/04/18 15:30 06/04/18 17:07 06/04/18 21:01 06/05/18 07:20 Glucose (Fingerstick) 76 mg/dL (70-99) 89 mg/dL (70-99) 203 mg/dL (70-99) 333 mg/dL (70-99) Test 06/05/18 12:11 06/05/18 12:34 06/05/18 15:56 06/05/18 16:44 Glucose (Fingerstick) 47 mg/dL (70-99) 166 mg/dL (70-99) 41 mg/dL (70-99) 134 mg/dL (70-99) Test 06/05/18 18:20 06/05/18 20:54 06/06/18 07:11 Glucose (Fingerstick) 152 mg/dL (70-99) 192 mg/dL (70-99) 293 mg/dL (70-99) Laboratory Tests Test 06/05/18 12:11 06/05/18 12:34 06/05/18 15:56 06/05/18 16:44 Glucose (Fingerstick) 47 mg/dL (70-99) 166 mg/dL (70-99) 41 mg/dL (70-99) 134 mg/dL (70-99) Test 06/05/18 18:20 06/05/18 20:54 06/06/18 07:11 Glucose (Fingerstick) 152 mg/dL (70-99) 192 mg/dL (70-99) 293 mg/dL (70-99) Microbiology 06/03/18 Blood Culture - Preliminary, Resulted NO GROWTH AFTER 2 DAYS Medications Current Medications Sodium Chloride 1,000 ml @ 1,000 mls/hr 1X ONCE IV Last administered on at 20:05; Start 06/03/18 at 20:00; Stop 06/03/18 at 20:59; Status DC Insulin Human Regular 150 ml @ 0 mls/hr 1X ONCE IV Last administered on at 20:19; Start 06/03/18 at 20:00; Stop 06/03/18 at 20:01; Status DC Insulin Human Regular (HumuLIN R VIAL) 10 unit 1X ONCE IV Last administered on 06/03/18 20:08; Start 06/03/18 at 20:00; Stop 06/03/18 at 20:01; Status DC Ondansetron HCl (Zofran) 4 mg 1X ONCE IV Last administered on 06/03/18at 20:20 ; Start 06/03/18 at 20:15; Stop 06/03/18 at 20:16; Status DC Morphine Sulfate (Morphine Sulfate) 4 mg 1X ONCE IV Last administered on at 20:20; Start 06/03/18 at 20:15; Stop 06/03/18 at 20:16; Status DC Morphine Sulfate (Morphine Sulfate) 4 mg 1X ONCE IV Last administered on at 20:39; Start 06/03/18 at 20:45; Stop 06/03/18 at 20:46; Status DC Sodium Chloride 1,000 ml @ 1,000 mls/hr 1X ONCE IV Last administered on at 21:25; Start 06/03/18 at 21:30; Stop 06/03/18 at 22:29; Status DC Piperacillin Sod/ Tazobactam Sod 3.375 gm/Sodium Chloride 50 ml @ 100 mls/hr 1X ONCE IV Last administered on 06/03/18at 21:21; Start 06/03/18 at 21:30; Stop 06/03/18 at 21:59; Status DC Sodium Bicarbonate (Sodium Bicarb Adult 8.4% Syr) 50 meq 1X ONCE IV Last administered on 06/03/18at 22:29; Start 06/03/18 at 22:00; Stop 06/03/18 at 22:01 ; Status DC Sodium Chloride 1,000 ml @ 150 mls/hr Q6H40M IV Last administered on at 22:54; Start 06/03/18 at 23:00; Stop 06/04/18 at 02:11; Status DC Sodium Chloride 1,000 ml @ 250 mls/hr Q4H IV ; Start 06/03/18 at 23:51; Stop at 02:11; Status DC Insulin Human Regular 150 unit/ Sodium Chloride 151.5 ml @ 0 mls/hr CONT PRN PRN IV PER PROTOCOL; Start 06/04/18 at 00:00; Stop 06/04/18 at 14:37; Status DC Potassium Chloride/Water 100 ml @ 100 mls/hr PRN Q1HR PRN IV SEE COMMENTS Last administered on 06/04/18at 12:02; Start 06/04/18 at 00:00; Stop 06/04/18 at 14:37; Status DC Potassium Chloride/Water 100 ml @ 100 mls/hr PRN Q1HR PRN IV SEE COMMENTS Last administered on 06/04/18at 09:12; Start 06/04/18 at 00:00; Stop 06/04/18 at 14:37; Status DC Potassium Chloride/Water 100 ml @ 100 mls/hr PRN Q1HR PRN IV SEE COMMENTS; Start 06/04/18 at 00:00; Stop 06/04/18 at 14:37; Status DC Influenza Virus Vaccine (Afluria Trivalent [id number] Syringe) 0.5 ml ONCE ONCE VAX IM Last administered on 06/04/18at 08:17; Start 06/04/18 at 09:00; Stop at 09:01; Status DC Dextrose/Sodium Chloride 1,000 ml @ 250 mls/hr Q4H IV Last administered on 08:18; Start 06/04/18 at 02:15; Stop 06/04/18 at 14:43; Status DC Dicyclomine HCl (Bentyl) 10 mg 1X ONCE PO Last administered on 06/04/18at 02:39 ; Start 06/04/18 at 03:00; Stop 06/04/18 at 03:01; Status DC Prochlorperazine Edisylate (Compazine) 10 mg PRN Q6HRS PRN IM NAUSEA/VOMITING 1ST CHOICE; Start 06/04/18 at 02:30; Stop 06/04/18 at 02:40; Status DC Prochlorperazine Edisylate (Compazine) 10 mg PRN Q6HRS PRN IV NAUSEA/VOMITING 1ST CHOICE Last administered on 06/04/18at 18:24; Start 06/04/18 at 02:45 Sodium Phosphate 20 mmol/Dextrose 256.6667 ml @ 62.5 mls/hr 1X PRN PRN IV SEE COMMENTS Last administered on 06/04/18at 08:17; Start 06/04/18 at 08:00; Stop at 08:18; Status DC Insulin Glargine (Lantus) 15 units DAILY SQ Last administered on 06/05/18at 08: 18; Start 06/04/18 at 10:30; Stop 06/05/18 at 20:59; Status DC Insulin Human Lispro (HumaLOG) 16 units TIDWMEALS SQ Last administered on 08:18; Start 06/04/18 at 12:00; Stop 06/05/18 at 12:30; Status DC Sodium Chloride 1,000 ml @ 75 mls/hr [id number] IV Last administered on 07:03; Start 06/04/18 at 15:00 Potassium Chloride (Klor-Con) 40 meq 1X ONCE PO Last administered on at 15:37; Start 06/04/18 at 15:15; Stop 06/04/18 at 15:16; Status DC Potassium Chloride (Klor-Con) 40 meq 1X ONCE PO Last administered on at 18:25; Start 06/04/18 at 18:00; Stop 06/04/18 at 18:01; Status DC Acetaminophen (Tylenol) 650 mg PRN Q6HRS PRN PO PAIN Last administered on at 20:51; Start 06/04/18 at 17:45 Insulin Human Lispro (HumaLOG) 0-7 UNITS TIDWMEALS SQ Last administered on 06/05at 10:10; Start 06/05/18 at 09:30; Stop 06/05/18 at 12:29; Status DC Dextrose (Dextrose 50%-Water Syringe) 12.5 gm PRN Q15MIN PRN IV SEE COMMENTS Last administered on 06/05/18 16:00; Start 06/05/18 at 09:30 Insulin Human Lispro (HumaLOG) 12 units TIDWMEALS SQ Last administered on at 14:01; Start 06/05/18 at 13:00; Stop 06/05/18 at 16:20; Status DC Insulin Human Lispro (HumaLOG) 10 units TIDAC SQ Last administered on at 08:14; Start 06/05/18 at 16:30 Insulin Glargine (Lantus) 15 units QHS SQ ; Start 06/06/18 at 21:00 Acetaminophen/ Hydrocodone Bitart (Lortab 5/325) 1 tab PRN Q4HRS PRN PO PAIN Last administered on 06/05/18at 23:39; Start 06/05/18 at 23:15 Active Scripts Active Levemir Flextouch (Insulin Detemir) 100 Unit/1 Ml Insuln.pen 15 Units SQ QHS 30 Days Novolog Flexpen (Insulin Aspart) 100 Unit/1 Ml Insuln.pen 16 Units SQ TIDBFRMEAL 30 Days Vitals/I & O Vital Sign - Last 24 Hours 06/05/18 06/05/18 06/05/18 06/05/18 11:00 14:49 19:00 20:00 Temp 98.5 98.1 98.6 98.5 98.1 98.6 Pulse 99 77 96 Resp 18 18 18 B/P (MAP) 121/85 (97) 116/77 (90) 133/92 (106) Pulse Ox 98 99 O2 Delivery Room Air Room Air Room Air Room Air 06/05/18 06/05/18 06/06/18 06/06/18 23:16 23:39 00:40 03:00 Temp 98.6 98.4 98.6 98.4 Pulse 94 97 Resp 18 18 B/P (MAP) 125/91 (102) 122/86 (98) Pulse Ox 99 99 99 100 O2 Delivery Room Air Room Air Room Air Room Air 06/06/18 07:05 Temp 97.9 97.9 Pulse 86 Resp 18 B/P (MAP) 124/88 (100) Pulse Ox 95 O2 Delivery Room Air Intake and Output 06/05/18 06/05/18 06/06/18 14:59 22:59 06:59 Intake Total 1200 ml Balance 1200 ml LILLIANA ALVARADO MD Jun 06, 2018 08:20
[2018-06-06 11:05] VITALS: BP 130/88
[2018-06-06] MEDS ORDERED: PEN1DIS.48 MC (14:07)
--- NOTE | 2018-06-06 14:15 | PDOC3 ---
Discharge Summary Visit Information Date of Admission: Jun 03, 2018 Date of Discharge: Jun 06, 2018 Admitting Diagnosis: DKA Final Diagnosis DKA Brief Hospital Course Allergies Allergies Coded Allergies Type Severity Reaction Last Updated Verified No Known Drug Allergies 01/22/14 No Vital Signs Vital Signs Date Time Temp Pulse Resp B/P (MAP) Pulse Ox O2 Delivery O2 Flow Rate FiO2 06/06/18 11:05 98.1 87 18 130/88 (102) 99 Room Air 98.1 06/05/18 08:00 99.0 Lab Results Laboratory Tests Test 06/04/18 14:12 06/04/18 15:30 06/04/18 17:07 06/04/18 21:01 Glucose (Fingerstick) 59 mg/dL (70-99) 76 mg/dL (70-99) 89 mg/dL (70-99) 203 mg/dL (70-99) Test 06/05/18 07:20 06/05/18 12:11 06/05/18 12:34 06/05/18 15:56 Glucose (Fingerstick) 333 mg/dL (70-99) 47 mg/dL (70-99) 166 mg/dL (70-99) 41 mg/dL (70-99) Test 06/05/18 16:44 06/05/18 18:20 06/05/18 20:54 06/06/18 07:11 Glucose (Fingerstick) 134 mg/dL (70-99) 152 mg/dL (70-99) 192 mg/dL (70-99) 293 mg/dL (70-99) Test 06/06/18 11:11 Glucose (Fingerstick) 191 mg/dL (70-99) Laboratory Tests Test 06/05/18 15:56 06/05/18 16:44 06/05/18 18:20 06/05/18 20:54 Glucose (Fingerstick) 41 mg/dL (70-99) 134 mg/dL (70-99) 152 mg/dL (70-99) 192 mg/dL (70-99) Test 06/06/18 07:11 06/06/18 11:11 Glucose (Fingerstick) 293 mg/dL (70-99) 191 mg/dL (70-99) Brief Hospital Course 47-year-old gentleman with past medical history of type 2 diabetes insulin requiring was in his usual state of health until the day prior to his admission when he started noticing that he was unable to eat or drink due to nausea. The patient cannot force himself to eat but Very sick. He decided to stick to fluids nevertheless his symptoms Worse. The course of the day. The patient was unable to hold anything down and felt that he was getting dehydrated reason why he has altered the ER. The patient denies recent infections no cough no sputum production no chest pain no palpitations no dietary transgressions were voiced by the patient, he denies changes to his insulin regimen he has been on the same for 6 years now. 06/05: Out of ICU today, ate breakfast, had 1 episode of hypoglycemia yesterday and today, mildly symptomatic. Denies CP or SOB or GI symptoms. He does not feel back to normal quite yet. Adjusted his insulin regimen to avoid hypoglycemia and he has been better, did have a glucose near 200, but notes he feels much better. To see his PCP this coming Sunday. Greater than 30 minutes spent on discharge Acute DKA resolving High gap acidosis secondary to the above Severe dehydration Electrolyte disturbances as a consequence of DKA Intractable nausea and vomiting resolved after DKA was treated Discharge Information Condition at Discharge: Improved Follow Up: Weeks (2) Disposition/Orders: D/C to Home Scheduled Insulin Aspart (Novolog Flexpen) 100 Unit/1 Ml Insuln.pen, 16 UNITS SQ TIDBFRMEAL for 30 Days Prescribed by: ELIAS RAMIREZ MD on 12/08/151155 Last Action: Converted on 06/04/18946 by ELIJAH FRITZ MD Insulin Detemir (Levemir Flextouch) 100 Unit/1 Ml Insuln.pen, 15 UNITS SQ QHS for 30 Days Prescribed by: ELIAS RAMIREZ MD on 12/08/151155 Last Action: HELD on 06/04/18946 by ELIJAH FRITZ MD Durable Medical Equipment Pen Needle, Diabetic (Insulin Pen Needle) 1 Each Dis.needle, EACH [facility] QID for Diabetes, #120, (DME) 4 times daily with meals and nightly for insulin pens Prescribed by: LILLIANA ALVARADO MD on 06/06/18 1407 LILLIANA ALVARADO MD Jun 06, 2018 14:14
--- NOTE | 2018-06-06 15:09 | NUR ---
Discharge Note: MELINA MACIAS [address] [place] [address] Discharge instructions and discharge home medications (insulin needle and pen prescriptions) reviewed with Patient and a copy given. All questions have been answered and understanding verbalized. The following instructions and handouts were given: DKA, diet education provided to family Discontinued lines and drains: 1 x PIV tip intact. Patient discharged to home accompanied by father.
[2018-06-06] MEDS ORDERED: INSULIN GLARGINE 300 UNITS/3 ML INSULN.PEN. SQ SCH (21:00)
== END 2018-06-06 15:16 | disposition home or self-care (01) | DRG 639 ==
LOC: ER 19:22 → 1 WEST ICU 20:51 → 6 SOUTH 06-04 15:06
PROVIDERS: ADMIT Internal Medicine; ATTEND Internal Medicine
DX: E11.10 Type 2 diabetes mellitus with ketoacidosis without coma (principal); E11.649 Type 2 diabetes mellitus with hypoglycemia without coma; E86.0 Dehydration; I10 Essential (primary) hypertension; Z79.4 Long term (current) use of insulin; Z82.49 Family history of ischemic heart disease and other diseases of the circulatory system
CPT/HCPCS: 36415; 36600; 71046; 74176; 80048; 80053; 81001; 82805; 82962; 83605; 83735; 84100; 84484; 85007; 85025; 87040; 87641; 90471; 90756; 93005; J0780; J1815; J2270; J2405; J2543; J3480; J7030; J7042; Q2035

== ENCOUNTER 2018-09-01 14:31 | Inpatient (IN) | payer OTHER ==
[~2018-09-01] VITALS: Ht 175.3 cm; Wt 81.6 kg
[~2018-09-01 14:31] MED LIST changes: +PEN1DIS.48 MC
[2018-09-01] MEDS ORDERED: IV NORMAL SALINE 1000ML BAG 1,000 ML IV SCH (15:00)
[2018-09-01 15:02] LABS: BASO # 0.1 x10^3/uL (0.0-0.2); BASO % 1 % (0-3); EOS # 0.2 x10^3/uL (0.0-0.7); EOS % 2 % (0-3); HEMATOCRIT 46.2 % (39.0-53.0); HEMOGLOBIN 16.1 g/dL (13.0-17.5); LYMPH # 2.2 x10^3/uL (1.0-4.8); LYMPH % 27 % (24-48); MEAN CORPUSCULAR HEMOGLOBIN 34 pg (25-35); MEAN CORPUSCULAR HGB CONC 35 g/dL (31-37); MEAN CORPUSCULAR VOLUME 98 fL (79-100); MONO # 0.9 x10^3/uL (0.0-1.1); MONO % 11 % (0-9); NEUT # 4.8 x10^3uL (1.8-7.7); NEUT % 59 % (31-73); PLATELET COUNT 402 x10^3/uL (140-400); RED BLOOD COUNT 4.72 x10^6/uL (4.30-5.70); RED CELL DISTRIBUTION WIDTH 12.2 % (11.5-14.5); WHITE BLOOD COUNT 8.1 x10^3/uL (4.0-11.0)
[2018-09-01 15:12] LABS: CALCIUM 10.1 mg/dL (8.5-10.1); CREATININE 1.4 mg/dL (0.7-1.3); POTASSIUM 3.4 mmol/L (3.5-5.1)
[2018-09-01] MEDS ORDERED: ONDANSETRON PF 4 MG/2 ML VIAL. IV ONE (15:15)
[2018-09-01] MEDS ORDERED: fentaNYL PF VIAL 100 MCG/2 ML VIAL IV ONE ×2 (15:15→15:30)
[2018-09-01 15:18] LABS: ALBUMIN 4.6 g/dL (3.4-5.0); ALBUMIN/GLOBULIN RATIO 1.2 (1.0-1.7); TOTAL BILIRUBIN 0.8 mg/dL (0.2-1.0); TOTAL PROTEIN 8.6 g/dL (6.4-8.2)
[2018-09-01 15:35] LABS: BASE EXCESS ABG -2 mmol/L (-3-3); HCO3 ABG 20 mmol/L (21-28); PCO2 ABG 29 mmHg (35-46); PO2 ABG 88 mmHg (75-108); SAT O2 ABG 97 % (92-99)
[2018-09-01 15:36] LABS: FIO2 ABG 21
--- NOTE | 2018-09-01 15:57 | RAD ---
CT brain without contrast, CT maxillofacial without contrast, CT cervical spine without contrast. HISTORY: Syncope and fall, tingling and numbness in hands CT brain CT scan of brain was done without contrast. There is no intracranial hemorrhage or subdural hematoma. There is no mass or shift of the midline. Ventricles are normal in size. An acute CVA is not identified. There is ring artifact. Sinuses are clear. A skull fracture is not identified. IMPRESSION: 1. No intracranial hemorrhage or acute finding noted intracranially. End impression CT maxillofacial without contrast Axial CT images were obtained to the facial bones. Sagittal and coronal reconstructed images were reviewed. Mandible is intact. Patient is asymmetrically positioned. Sinuses are clear. A facial fracture is not identified. An orbital fracture is not identified. Nasal bone is intact. Nasal septum is in the midline, there is a bony spur off the septum to the left.. Ostiomeatal complex is clear on each side. IMPRESSION: 1. No facial fracture noted. End impression CT cervical spine Axial CT images were obtained through the cervical spine. Sagittal and coronal reconstructed images were reviewed. An acute C-spine fracture is not identified. There is bulging of the disc at several levels. There is disc space narrowing and spurring at C4-5 and C7-T1. The disc bulging is most prominent at C4-5 IMPRESSION: 1. Degenerative disc disease in the cervical spine. 2. Bulging of the disc at several levels. 3. No acute C-spine fracture. PQRS Compliance Statement: One or more of the following individualized dose reduction techniques were utilized for this examination: 1. Automated exposure control 2. Adjustment of the mA and/or kV according to patient size 3. Use of iterative reconstruction technique Electronically signed by: Jalen Angelo MD (09/01/2018 3:55 PM) [id number]
--- NOTE | 2018-09-01 16:01 | PHYS DOC ---
Past Medical History Past Medical History: Diabetes-Type II, Hypertension, Renal Disease Past Surgical History: Other Additional Past Surgical Histo: RIGHT KNEE, LEFT SHOULDER Alcohol Use: Rarely Drug Use: None Adult General Chief Complaint Chief Complaint: SYNCOPE HPI HPI Patient is a 48 year old male with history of diabetes mellitus who presents with complaining of high blood sugar and syncope. Patient states he didn't feel good for the last couple days and had nausea and vomiting and today had blood sugar of more than 400. Patient states he had 18 units of NovoLog insulin and while he was making for had 1 or possibly 2 episodes of unwitnessed syncope with injury of his chin. Patient complaining of pain in his head and neck and face and rated his pain 10 over 10. Patient also complaining of bilateral hand numbness and pain as a severe pain. Patient has history of frequent DKA but his blood sugar at arrival to ER and was 156. Patient is up-to-date with tetanus immunization. Review of Systems Review of Systems Constitutional: Denies fever or chills [] Eyes: Denies change in visual acuity, redness, or eye pain [] HENT: Denies nasal congestion or sore throat [] Respiratory: Denies cough or shortness of breath [] Cardiovascular: No additional information not addressed in HPI [] GI: Denies abdominal pain, bloody stools or diarrhea , reports nausea and vomiting[] : Denies dysuria or hematuria [] Musculoskeletal: Denies back pain or joint pain [] Integument: Denies rash or skin lesions [] Neurologic: Reports headache and sensory change, denies focal weakness. Endocrine: Denies polyuria or polydipsia [] All other systems were reviewed and found to be within normal limits, except as documented in this note. Current Medications Current Medications Current Medications Medications (Trade) Dose Ordered Sig/Lilliana Start Time Stop Time Status Last Admin Dose Admin Fentanyl Citrate (Fentanyl 2ml Vial) 50 mcg 1X ONCE 09/01/18 15:30 09/01/18 15:31 DC 09/01/18 15:19 50 MCG Ondansetron HCl (Zofran) 4 mg 1X ONCE 09/01/18 15:15 09/01/18 15:16 DC 09/01/18 15:00 4 MG Sodium Chloride 1,000 ml @ 1,000 mls/hr Q1H 09/01/18 15:00 09/01/18 15:59 DC 09/01/18 14:58 1,000 MLS/HR Allergies Allergies Allergies Coded Allergies Type Severity Reaction Last Updated Verified No Known Drug Allergies 01/22/14 No Physical Exam Physical Exam Constitutional: Well developed, well nourished, moderate distress, non-toxic appearance. [] HENT: Normocephalic, right chin contusion and abrasion without active bleeding, bilateral external ears normal, oropharynx dry, no oral exudates, nose normal. [] Eyes: PERRLA, EOMI, conjunctiva normal, no discharge. [] Neck: Immobilized at arrival to ER Cardiovascular: Sinus tachycardia, no murmur [] Lungs & Thorax: Bilateral breath sounds clear to auscultation [] Abdomen: Bowel sounds normal, soft, no tenderness, no masses, no pulsatile masses. [] Skin: Warm, dry, no erythema, no rash. [] Back: No tenderness, no CVA tenderness. [] Extremities: No tenderness, no cyanosis, no clubbing, ROM intact, no edema. [] Neurologic: Alert and oriented X 3, normal motor function, normal sensory function, no focal deficits noted. [] Psychologic: Affect anxious, judgement normal, mood normal. [] Current Patient Data Vital Signs Vital Signs Date Time Temp Pulse Resp B/P (MAP) Pulse Ox O2 Delivery O2 Flow Rate FiO2 09/01/18 14:42 98.2 16 130/88 (102) Room Air 98.2 Lab Values Laboratory Tests Test 09/01/18 14:39 09/01/18 14:42 09/01/18 14:50 09/01/18 15:20 Glucose (Fingerstick) 156 mg/dL (70-99) H 163 mg/dL (70-99) H White Blood Count 8.1 x10^3/uL (4.0-11.0) Red Blood Count 4.72 x10^6/uL (4.30-5.70) Hemoglobin 16.1 g/dL (13.0-17.5) Hematocrit 46.2 % (39.0-53.0) Mean Corpuscular Volume 98 fL (79-100) Mean Corpuscular Hemoglobin 34 pg (25-35) Mean Corpuscular Hemoglobin Concent 35 g/dL (31-37) Red Cell Distribution Width 12.2 % (11.5-14.5) Platelet Count 402 x10^3/uL (140-400) H Neutrophils (%) (Auto) 59 % (31-73) Lymphocytes (%) (Auto) 27 % (24-48) Monocytes (%) (Auto) 11 % (0-9) H Eosinophils (%) (Auto) 2 % (0-3) Basophils (%) (Auto) 1 % (0-3) Neutrophils # (Auto) 4.8 x10^3uL (1.8-7.7) Lymphocytes # (Auto) 2.2 x10^3/uL (1.0-4.8) Monocytes # (Auto) 0.9 x10^3/uL (0.0-1.1) Eosinophils # (Auto) 0.2 x10^3/uL (0.0-0.7) Basophils # (Auto) 0.1 x10^3/uL (0.0-0.2) Sodium Level 139 mmol/L (136-145) Potassium Level 3.4 mmol/L (3.5-5.1) L Chloride Level 100 mmol/L (98-107) Carbon Dioxide Level 23 mmol/L (21-32) Anion Gap 16 (6-14) H Blood Urea Nitrogen 22 mg/dL (8-26) Creatinine 1.4 mg/dL (0.7-1.3) H Estimated GFR (Cockcroft-Gault) 66.0 BUN/Creatinine Ratio 16 (6-20) Glucose Level 162 mg/dL (70-99) H Lactic Acid Level 3.0 mmol/L (0.4-2.0) H Calcium Level 10.1 mg/dL (8.5-10.1) Total Bilirubin 0.8 mg/dL (0.2-1.0) Aspartate Amino Transferase (AST) 13 U/L (15-37) L Alanine Aminotransferase (ALT) 24 U/L (16-63) Alkaline Phosphatase 113 U/L (46-116) Creatine Kinase 197 U/L (39-308) Troponin I Quantitative < 0.017 ng/mL (0.000-0.055) Total Protein 8.6 g/dL (6.4-8.2) H Albumin 4.6 g/dL (3.4-5.0) Albumin/Globulin Ratio 1.2 (1.0-1.7) Lipase 94 U/L (73-393) Acetone Level Neg (NEG) O2 Saturation 97 % (92-99) Arterial Blood pH 7.46 (7.35-7.45) H Arterial Blood pCO2 at Patient Temp 29 mmHg (35-46) L Arterial Blood pO2 at Patient Temp 88 mmHg (75-108) Arterial Blood HCO3 20 mmol/L (21-28) L Arterial Blood Base Excess -2 mmol/L (-3-3) FiO2 21 Laboratory Tests 09/01/18 14:50 Laboratory Tests 09/01/18 14:50 EKG EKG EKG interpreted by me. EKG at sinus tachycardia at rate of 124, no acute ST and T-wave abnormalities, normal WI and QT intervals, no ST and T-wave elevation. Radiology/Procedures Radiology/Procedures [][facility] [address] [place] [address] IMAGING REPORT Signed PATIENT: MELINA MACIAS ACCOUNT: [id number] : 1970 LOCATION: ER AGE: 48 SEX: M EXAM STATUS: REG ER ORD. PHYSICIAN: ERIN CARDOZA MD REASON: Syncope and fall, tingling and numbness on hands PROCEDURE: CT HEAD AND CERVICAL SPINE WO CT brain without contrast, CT maxillofacial without contrast, CT cervical spine without contrast. HISTORY: Syncope and fall, tingling and numbness in hands CT brain CT scan of brain was done without contrast. There is no intracranial hemorrhage or subdural hematoma. There is no mass or shift of the midline. Ventricles are normal in size. An acute CVA is not identified. There is ring artifact. Sinuses are clear. A skull fracture is not identified. IMPRESSION: 1. No intracranial hemorrhage or acute finding noted intracranially. End impression CT maxillofacial without contrast Axial CT images were obtained to the facial bones. Sagittal and coronal reconstructed images were reviewed. Mandible is intact. Patient is asymmetrically positioned. Sinuses are clear. A facial fracture is not identified. An orbital fracture is not identified. Nasal bone is intact. Nasal septum is in the midline, there is a bony spur off the septum to the left.. Ostiomeatal complex is clear on each side. IMPRESSION: 1. No facial fracture noted. End impression CT cervical spine Axial CT images were obtained through the cervical spine. Sagittal and coronal reconstructed images were reviewed. An acute C-spine fracture is not identified. There is bulging of the disc at several levels. There is disc space narrowing and spurring at C4-5 and C7-T1. The disc bulging is most prominent at C4-5 IMPRESSION: 1. Degenerative disc disease in the cervical spine. 2. Bulging of the disc at several levels. 3. No acute C-spine fracture. PQRS Compliance Statement: One or more of the following individualized dose reduction techniques were utilized for this examination: 1. Automated exposure control 2. Adjustment of the mA and/or kV according to patient size 3. Use of iterative reconstruction technique Electronically signed by: Jalen Angelo MD (09/01/2018 3:55 PM) [id number] DICTATED and SIGNED BY: JALEN ANGELO MD DATE: 09/01/18 1555 Course & Med Decision Making Course & Med Decision Making Pertinent Labs and Imaging studies reviewed. (See chart for details) Patient requiring admission for further evaluation and treatment. Discussed with Dr. Kennedy who is in agreement with admission. Discussed findings and plan with patient and family, who acknowledge understanding and agreement. Dragon Disclaimer Dragon Disclaimer This electronic medical record was generated, in whole or in part, using a voice recognition dictation system. Departure Departure Impression: Primary Impression: Sepsis Additional Impressions: Syncope Paresthesia Nausea and vomiting Generalized weakness Renal insufficiency Disposition: ADMITTED INPATIENT (at 1645) Admitting Physician: ARELY (Dr. Kennedy accepted admission at 1640 to) Condition: GUARDED Referrals: UNKNOWN PCP NAME (PCP) Critical Care Time Critical care time was 80 minutes exclusive of procedures. Problem Qualifiers ERIN CARDOZA MD Sep 01, 2018 16:00
[2018-09-01] MEDS ORDERED: IV NORMAL SALINE 1000ML BAG 1,000 ML IV ONE ×2 (16:30→17:15)
[2018-09-01] MEDS: IV NORMAL SALINE 1000ML BAG 1,000 ML IV SCH ×2 (17:10→23:27)
[2018-09-01] MEDS ORDERED: cefTRIAXone IV Push 1 GM VIAL. IVP ONE (17:15)
[2018-09-01] MEDS ORDERED: ONDANSETRON PF 4 MG/2 ML VIAL. IV PRN (17:15)
[2018-09-01] MEDS ORDERED: KETOROLAC 30 MG/ML VIAL. IV ONE (17:15)
[2018-09-01 17:37] LABS: BILIRUBIN,URINE MODERATE (NEG); CLARITY,URINE CLEAR; COLOR,URINE YELLOW; NITRITE,URINE NEGATIVE (NEG); PH,URINE 5.5; PROTEIN,URINE 100 mg/dL (NEG-TRACE)
[2018-09-01 17:46] LABS: BACTERIA,URINE 0 /HPF (0-FEW); RBC,URINE 0 /HPF (0-2); SQUAMOUS EPITHELIAL CELL,UR OCC /LPF; WBC,URINE 0 /HPF (0-4)
[2018-09-01 17:47] LABS: AMORPHOUS SEDIMENT,UR PRESENT /HPF; AMPHETAMINE/METHAMPHETAMINE NEG (NEG); BARBITURATES NEG (NEG); BENZODIAZEPINES NEG (NEG); CANNABINOIDS NEG (NEG); COCAINE NEG (NEG); HYALINE CASTS, URINE MODERATE /HPF; METHADONE NEG (NEG); OPIATES POS (NEG); PHENCYCLIDINE NEG (NEG)
--- NOTE | 2018-09-01 17:56 | PDOC1 ---
History and Physical Date of Admission: Date of Admission DATE: 09/01/18 TIME: 17:52 Chief Complaint: Problems: (1) Dehydration (2) Hyperglycemia (3) Sinus congestion (4) Abnormal blood sugar (5) DKA (diabetic ketoacidoses) (6) Paresthesia (7) Generalized weakness (8) Renal insufficiency (9) Syncope (10) Sepsis (11) Nausea and vomiting Chief Complain: Syncope hyperglycemia History of Present Illness: HPI: This is a relatively healthy middle-aged male who is diabetic and but checks his sugars frequently and has noticed that her sugars been running high Today he had a syncopal episode When he woke his face was a little sore especially around his jaw he thinks he hit his jaw Clinically I don't see any lesions on his jaw may perhaps to little swollen on the right His glucose in the ER was slightly high at 180s we have now down to 100 Discussed the case with ER physician going to admit patient admit patient Past Medical/Surgical History: PMH/PSH: Past Medical History: Diabetes-Type II, Hypertension, Renal Disease Past Surgical History: Other Additional Past Surgical Histo: RIGHT KNEE, LEFT SHOULDER Allergies: Allergies: Coded Allergies: No Known Drug Allergies (Unverified , 01/22/14) Family History: Family History: Diabetes Social History: Social Hisoty: He does not drink smoke or take drugs he has a girlfriend she is present seems to be good support for him Current Medications: Current Medications Current Medications Sodium Chloride 1,000 ml @ 1,000 mls/hr Q1H IV Last administered on 09/01/18at 14:58; Start 09/01/18 at 15:00; Stop 09/01/18 at 15:59; Status DC Ondansetron HCl (Zofran) 4 mg 1X ONCE IV Last administered on 09/01/18at 15:00; Start 09/01/18 at 15:15; Stop 09/01/18 at 15:16; Status DC Fentanyl Citrate (Fentanyl 2ml Vial) 50 mcg 1X ONCE IV Last administered on 09/01/18at 15:02; Start 09/01/18 at 15:15; Stop 09/01/18 at 15:16; Status DC Fentanyl Citrate (Fentanyl 2ml Vial) 50 mcg 1X ONCE IV Last administered on 09/01/18at 15:19; Start 09/01/18 at 15:30; Stop 09/01/18 at 15:31; Status DC Sodium Chloride 1,000 ml @ 1,000 mls/hr 1X ONCE IV Last administered on 09/01/18at 17:33; Start 09/01/18 at 16:30; Stop 09/01/18 at 17:29; Status DC Sodium Chloride 1,000 ml @ 1,000 mls/hr 1X ONCE IV ; Start 09/01/18 at 17:15; Stop 09/01/18 at 18:14 Ceftriaxone Sodium (Rocephin) 1 gm 1X ONCE IVP Last administered on 09/01/18at 17:33; Start 09/01/18 at 17:15; Stop 09/01/18 at 17:16; Status DC Ondansetron HCl (Zofran) 4 mg PRN Q8HRS PRN IV NAUSEA/VOMITING; Start 09/01/18 at 17:15; Stop 09/02/18 at 17:14 Sodium Chloride 1,000 ml @ 150 mls/hr Q6H40M IV ; Start 09/01/18 at 17:10; Stop 09/02/18 at 17:09 Ketorolac Tromethamine (Toradol 30mg Vial) 30 mg 1X ONCE IV Last administered on 09/01/18at 17:33; Start 09/01/18 at 17:15; Stop 09/01/18 at 17:16; Status DC Acetaminophen/ Hydrocodone Bitart (Lortab 5/325) 1 tab PRN Q4HRS PRN PO PAIN; Start 09/01/18 at 18:00; Status UNV Active Scripts Active Insulin Pen Needle (Pen Needle, Diabetic) 1 Each Dis.needle Each MC QID 4 times daily with meals and nightly for insulin pens Levemir Flextouch (Insulin Detemir) 100 Unit/1 Ml Insuln.pen 15 Units SQ QHS 30 Days Novolog Flexpen (Insulin Aspart) 100 Unit/1 Ml Insuln.pen 16 Units SQ TIDBFRMEAL 30 Days ROS: Review of Systems Review of System REVIEW OF SYSTEMS: GENERAL: Denies weakness SKIN: No bruising, hair changes or rashes. EYES: No blurred, double or loss of vision. NOSE AND THROAT: No history of nosebleeds, hoarseness or sore throat. HEART: No history of palpitations, chest pain or shortness of breath on exertion. LUNGS: Denies cough, hemoptysis, wheezing or shortness of breath. GASTROINTESTINAL: Denies changes in appetite, nausea, vomiting, diarrhea or constipation. GENITOURINARY: No history of frequency, urgency, hesitancy or nocturia. NEUROLOGIC: Complains of syncopal episodes PSYCHIATRIC: No history of panic, anxiety or depression. ENDOCRINE: No history of heat or cold intolerance, polyuria or polydipsia. EXTREMITIES: Denies muscle weakness, joint pain, pain on walking or stiffness. Physical Exam: Vital Signs: Vital Signs Date Time Temp Pulse Resp B/P (MAP) Pulse Ox O2 Delivery O2 Flow Rate FiO2 09/01/18 14:42 98.2 16 130/88 (102) Room Air 98.2 Physcial Exam: GEN.: No apparent distress. Alert and oriented. HEENT: Head is normocephalic, atraumatic NECK: Supple, no JVD LUNGS: Clear to auscultation without rhonchi or wheezing HEART: RRR, S1, S2 present. Peripheral pulses intact ABDOMEN: Soft, nontender. Positive bowel sounds no organomegaly EXTREMITIES: Without any cyanosis, clubbing, or edema. Pedal pulses intact NEUROLOGIC: Normal speech, normal tone. A&O x 3 PSYCHIATRIC: Normal affect, normal mood. Stable SKIN: No ulcerations or rashes VASCULAR: Good capillary refill Labs: Labs: Laboratory Tests Test 09/01/18 14:39 09/01/18 14:42 09/01/18 14:50 09/01/18 15:20 Glucose (Fingerstick) 156 mg/dL (70-99) 163 mg/dL (70-99) White Blood Count 8.1 x10^3/uL (4.0-11.0) Red Blood Count 4.72 x10^6/uL (4.30-5.70) Hemoglobin 16.1 g/dL (13.0-17.5) Hematocrit 46.2 % (39.0-53.0) Mean Corpuscular Volume 98 fL (79-100) Mean Corpuscular Hemoglobin 34 pg (25-35) Mean Corpuscular Hemoglobin Concent 35 g/dL (31-37) Red Cell Distribution Width 12.2 % (11.5-14.5) Platelet Count 402 x10^3/uL (140-400) Neutrophils (%) (Auto) 59 % (31-73) Lymphocytes (%) (Auto) 27 % (24-48) Monocytes (%) (Auto) 11 % (0-9) Eosinophils (%) (Auto) 2 % (0-3) Basophils (%) (Auto) 1 % (0-3) Neutrophils # (Auto) 4.8 x10^3uL (1.8-7.7) Lymphocytes # (Auto) 2.2 x10^3/uL (1.0-4.8) Monocytes # (Auto) 0.9 x10^3/uL (0.0-1.1) Eosinophils # (Auto) 0.2 x10^3/uL (0.0-0.7) Basophils # (Auto) 0.1 x10^3/uL (0.0-0.2) Sodium Level 139 mmol/L (136-145) Potassium Level 3.4 mmol/L (3.5-5.1) Chloride Level 100 mmol/L (98-107) Carbon Dioxide Level 23 mmol/L (21-32) Anion Gap 16 (6-14) Blood Urea Nitrogen 22 mg/dL (8-26) Creatinine 1.4 mg/dL (0.7-1.3) Estimated GFR (Cockcroft-Gault) 66.0 BUN/Creatinine Ratio 16 (6-20) Glucose Level 162 mg/dL (70-99) Lactic Acid Level 3.0 mmol/L (0.4-2.0) Calcium Level 10.1 mg/dL (8.5-10.1) Total Bilirubin 0.8 mg/dL (0.2-1.0) Aspartate Amino Transf (AST/SGOT) 13 U/L (15-37) Alanine Aminotransferase (ALT/SGPT) 24 U/L (16-63) Alkaline Phosphatase 113 U/L (46-116) Creatine Kinase 197 U/L (39-308) Troponin I Quantitative < 0.017 ng/mL (0.000-0.055) Total Protein 8.6 g/dL (6.4-8.2) Albumin 4.6 g/dL (3.4-5.0) Albumin/Globulin Ratio 1.2 (1.0-1.7) Lipase 94 U/L (73-393) Acetone Level Neg (NEG) O2 Saturation 97 % (92-99) Arterial Blood pH 7.46 (7.35-7.45) Arterial Blood pCO2 at Patient Temp 29 mmHg (35-46) Arterial Blood pO2 at Patient Temp 88 mmHg (75-108) Arterial Blood HCO3 20 mmol/L (21-28) Arterial Blood Base Excess -2 mmol/L (-3-3) FiO2 21 Test 09/01/18 17:19 09/01/18 17:25 Glucose (Fingerstick) 87 mg/dL (70-99) Urine Collection Type Unknown Urine Color Yellow Urine Clarity Clear Urine pH 5.5 Urine Specific [place] >=1.030 Urine Protein 100 mg/dL (NEG-TRACE) Urine Glucose (UA) >=1000 mg/dL (NEG) Urine Ketones (Stick) 40 mg/dL (NEG) Urine Blood Negative (NEG) Urine Nitrite Negative (NEG) Urine Bilirubin Moderate (NEG) Urine Urobilinogen Dipstick 1.0 mg/dL (0.2 mg/dL) Urine Leukocyte Esterase Negative (NEG) Urine RBC 0 /HPF (0-2) Urine WBC 0 /HPF (0-4) Urine Squamous Epithelial Cells Occ /LPF Urine Amorphous Sediment Present /HPF Urine Bacteria 0 /HPF (0-FEW) Urine Hyaline Casts Moderate /HPF Urine Mucus Marked /LPF Urine Opiates Screen Pos (NEG) Urine Methadone Screen Neg (NEG) Urine Barbiturates Neg (NEG) Urine Phencyclidine Screen Neg (NEG) Urine Amphetamine/Methamphetamine Neg (NEG) Urine Benzodiazepines Screen Neg (NEG) Urine Cocaine Screen Neg (NEG) Urine Cannabinoids Screen Neg (NEG) Urine Ethyl Alcohol Neg (NEG) Laboratory Tests Test 09/01/18 14:39 09/01/18 14:42 09/01/18 14:50 09/01/18 15:20 Glucose (Fingerstick) 156 mg/dL (70-99) 163 mg/dL (70-99) White Blood Count 8.1 x10^3/uL (4.0-11.0) Red Blood Count 4.72 x10^6/uL (4.30-5.70) Hemoglobin 16.1 g/dL (13.0-17.5) Hematocrit 46.2 % (39.0-53.0) Mean Corpuscular Volume 98 fL (79-100) Mean Corpuscular Hemoglobin 34 pg (25-35) Mean Corpuscular Hemoglobin Concent 35 g/dL (31-37) Red Cell Distribution Width 12.2 % (11.5-14.5) Platelet Count 402 x10^3/uL (140-400) Neutrophils (%) (Auto) 59 % (31-73) Lymphocytes (%) (Auto) 27 % (24-48) Monocytes (%) (Auto) 11 % (0-9) Eosinophils (%) (Auto) 2 % (0-3) Basophils (%) (Auto) 1 % (0-3) Neutrophils # (Auto) 4.8 x10^3uL (1.8-7.7) Lymphocytes # (Auto) 2.2 x10^3/uL (1.0-4.8) Monocytes # (Auto) 0.9 x10^3/uL (0.0-1.1) Eosinophils # (Auto) 0.2 x10^3/uL (0.0-0.7) Basophils # (Auto) 0.1 x10^3/uL (0.0-0.2) Sodium Level 139 mmol/L (136-145) Potassium Level 3.4 mmol/L (3.5-5.1) Chloride Level 100 mmol/L (98-107) Carbon Dioxide Level 23 mmol/L (21-32) Anion Gap 16 (6-14) Blood Urea Nitrogen 22 mg/dL (8-26) Creatinine 1.4 mg/dL (0.7-1.3) Estimated GFR (Cockcroft-Gault) 66.0 BUN/Creatinine Ratio 16 (6-20) Glucose Level 162 mg/dL (70-99) Lactic Acid Level 3.0 mmol/L (0.4-2.0) Calcium Level 10.1 mg/dL (8.5-10.1) Total Bilirubin 0.8 mg/dL (0.2-1.0) Aspartate Amino Transf (AST/SGOT) 13 U/L (15-37) Alanine Aminotransferase (ALT/SGPT) 24 U/L (16-63) Alkaline Phosphatase 113 U/L (46-116) Creatine Kinase 197 U/L (39-308) Troponin I Quantitative < 0.017 ng/mL (0.000-0.055) Total Protein 8.6 g/dL (6.4-8.2) Albumin 4.6 g/dL (3.4-5.0) Albumin/Globulin Ratio 1.2 (1.0-1.7) Lipase 94 U/L (73-393) Acetone Level Neg (NEG) O2 Saturation 97 % (92-99) Arterial Blood pH 7.46 (7.35-7.45) Arterial Blood pCO2 at Patient Temp 29 mmHg (35-46) Arterial Blood pO2 at Patient Temp 88 mmHg (75-108) Arterial Blood HCO3 20 mmol/L (21-28) Arterial Blood Base Excess -2 mmol/L (-3-3) FiO2 21 Test 09/01/18 17:19 09/01/18 17:25 Glucose (Fingerstick) 87 mg/dL (70-99) Urine Collection Type Unknown Urine Color Yellow Urine Clarity Clear Urine pH 5.5 Urine Specific [place] >=1.030 Urine Protein 100 mg/dL (NEG-TRACE) Urine Glucose (UA) >=1000 mg/dL (NEG) Urine Ketones (Stick) 40 mg/dL (NEG) Urine Blood Negative (NEG) Urine Nitrite Negative (NEG) Urine Bilirubin Moderate (NEG) Urine Urobilinogen Dipstick 1.0 mg/dL (0.2 mg/dL) Urine Leukocyte Esterase Negative (NEG) Urine RBC 0 /HPF (0-2) Urine WBC 0 /HPF (0-4) Urine Squamous Epithelial Cells Occ /LPF Urine Amorphous Sediment Present /HPF Urine Bacteria 0 /HPF (0-FEW) Urine Hyaline Casts Moderate /HPF Urine Mucus Marked /LPF Urine Opiates Screen Pos (NEG) Urine Methadone Screen Neg (NEG) Urine Barbiturates Neg (NEG) Urine Phencyclidine Screen Neg (NEG) Urine Amphetamine/Methamphetamine Neg (NEG) Urine Benzodiazepines Screen Neg (NEG) Urine Cocaine Screen Neg (NEG) Urine Cannabinoids Screen Neg (NEG) Urine Ethyl Alcohol Neg (NEG) Images: Images Cervical films did not show any obvious fractures Please see official report below CT scan of brain was done without contrast. There is no intracranial hemorrhage or subdural hematoma. There is no mass or shift of the midline. Ventricles are normal in size. An acute CVA is not identified. There is ring artifact. Sinuses are clear. A skull fracture is not identified. IMPRESSION: 1. No intracranial hemorrhage or acute finding noted intracranially. End impression CT maxillofacial without contrast Axial CT images were obtained to the facial bones. Sagittal and coronal reconstructed images were reviewed. Mandible is intact. Patient is asymmetrically positioned. Sinuses are clear. A facial fracture is not identified. An orbital fracture is not identified. Nasal bone is intact. Nasal septum is in the midline, there is a bony spur off the septum to the left.. Ostiomeatal complex is clear on each side. IMPRESSION: 1. No facial fracture noted. End impression CT cervical spine Axial CT images were obtained through the cervical spine. Sagittal and coronal reconstructed images were reviewed. An acute C-spine fracture is not identified. There is bulging of the disc at several levels. There is disc space narrowing and spurring at C4-5 and C7-T1. The disc bulging is most prominent at C4-5 IMPRESSION: 1. Degenerative disc disease in the cervical spine. 2. Bulging of the disc at several levels. 3. No acute C-spine fracture. PQRS Compliance Statement: One or more of the following individualized dose reduction techniques were utilized for this examination: 1. Automated exposure control 2. Adjustment of the mA and/or kV according to patient size 3. Use of iterative reconstruction technique Electronically signed by: Princess Lay MD (09/01/2018 3:55 PM) [id number] DICTATED and SIGNED BY: PRINCESS LAY MD DATE: 09/01/18 1555 Assessment/Plan Assessment/Plan Syncopal episode hyperglycemia close head injury, hypokalemia, chronic renal insufficiency Plan Accu-Cheks 4 times a day Sliding-scale insulin Consult nephrology Cardiac monitoring Home meds When necessary narcotics for his pain DVT prophylaxis Full code TAD COVARRUBIAS III DO Sep 01, 2018 17:55
[2018-09-01] MEDS: HYDROcodone/APAP 5/325MG 1 TAB TABLET PO PRN ×2 (18:02→23:25)
[2018-09-01 19:40] VITALS: BP 122/85
[2018-09-01 23:39] VITALS: BP 132/87
[2018-09-02] MEDS: IV NORMAL SALINE 1000ML BAG 1,000 ML IV SCH ×3 (00:41→13:10)
[2018-09-02] MEDS ORDERED: MORPHINE SULFATE 2 MG/ML VIAL. IV PRN (01:45)
[2018-09-02 03:49] VITALS: BP 121/83
[2018-09-02 07:00] VITALS: BP 128/90
[2018-09-02] MEDS ORDERED: INSULIN LISPRO 300 UNITS/3 ML INSULN.PEN. SQ SCH (08:00)
--- NOTE | 2018-09-02 08:20 | EKG ---
[facility] [address] [place] [address] Test Date: 2018-09-01 Test Time: 14:43:26 Pat Name: MELINA MACIAS Department: Room: Gender: M Chief Psychology: : 1970 Requested By: ERIN CARDOZA Order Number: [id number] Reading MD: Measurements Intervals [place] Rate: 124 P: -103 SD: 100 QRS: 45 QRSD: 74 T: 69 QT: 354 QTc: 513 Interpretive Statements SINUS TACHYCARDIA NON SPECIFIC T ABNORMALITY BORDERLINE ECG No previous ECG available for comparison
[2018-09-02] MEDS: HYDROcodone/APAP 5/325MG 1 TAB TABLET PO PRN ×2 (09:15→16:17)
--- NOTE | 2018-09-02 09:22 | PDOC ---
PROGRESS NOTES History of Present Illness History of Present Illness Assessment/Plan Assessment/Plan Syncopal episode hyperglycemia // uncontrolled diabetes closed head injury, hypokalemia, chronic renal insufficiency Plan Accu-Cheks 4 times a day Sliding-scale insulin Consult nephrology Cardiac monitoring Home meds prn narcotics DVT prophylaxis Full code 36 min pt exam, chart review, > 50% of time spent with exam, chart review, pt c are coordination Vitals Vitals Vital Signs Date Time Temp Pulse Resp B/P (MAP) Pulse Ox O2 Delivery O2 Flow Rate FiO2 09/02/18 07:00 98.3 91 18 128/90 (103) 98 Room Air 98.3 Physical Exam Physical Exam HEENT: Head is normocephalic, atraumatic NECK: Supple, no JVD LUNGS: Clear to auscultation without rhonchi or wheezing HEART: RRR, S1, S2 present. Peripheral pulses intact ABDOMEN: Soft, nontender. Positive bowel sounds no organomegaly EXTREMITIES: Without any cyanosis, clubbing, or edema. Pedal pulses intact NEUROLOGIC: Normal speech, normal tone. A&O x 3 PSYCHIATRIC: Normal affect, normal mood. Stable SKIN: No ulcerations or rashes VASCULAR: Good capillary refill General: Alert, Oriented X3, Cooperative Heart: Regular rate Lungs: Clear Abdomen: Soft Extremities: No cyanosis Labs LABS CT brain without contrast, CT maxillofacial without contrast, CT cervical spine without contrast. HISTORY: Syncope and fall, tingling and numbness in hands CT brain CT scan of brain was done without contrast. There is no intracranial hemorrhage or subdural hematoma. There is no mass or shift of the midline. Ventricles are normal in size. An acute CVA is not identified. There is ring artifact. Sinuses are clear. A skull fracture is not identified. IMPRESSION: 1. No intracranial hemorrhage or acute finding noted intracranially. End impression CT maxillofacial without contrast Axial CT images were obtained to the facial bones. Sagittal and coronal reconstructed images were reviewed. Mandible is intact. Patient is asymmetrically positioned. Sinuses are clear. A facial fracture is not identified. An orbital fracture is not identified. Nasal bone is intact. Nasal septum is in the midline, there is a bony spur off the septum to the left.. Ostiomeatal complex is clear on each side. IMPRESSION: 1. No facial fracture noted. Laboratory Tests Test 09/01/18 14:39 09/01/18 14:42 09/01/18 14:50 09/01/18 15:20 Glucose (Fingerstick) 156 mg/dL (70-99) 163 mg/dL (70-99) White Blood Count 8.1 x10^3/uL (4.0-11.0) Red Blood Count 4.72 x10^6/uL (4.30-5.70) Hemoglobin 16.1 g/dL (13.0-17.5) Hematocrit 46.2 % (39.0-53.0) Mean Corpuscular Volume 98 fL (79-100) Mean Corpuscular Hemoglobin 34 pg (25-35) Mean Corpuscular Hemoglobin Concent 35 g/dL (31-37) Red Cell Distribution Width 12.2 % (11.5-14.5) Platelet Count 402 x10^3/uL (140-400) Neutrophils (%) (Auto) 59 % (31-73) Lymphocytes (%) (Auto) 27 % (24-48) Monocytes (%) (Auto) 11 % (0-9) Eosinophils (%) (Auto) 2 % (0-3) Basophils (%) (Auto) 1 % (0-3) Neutrophils # (Auto) 4.8 x10^3uL (1.8-7.7) Lymphocytes # (Auto) 2.2 x10^3/uL (1.0-4.8) Monocytes # (Auto) 0.9 x10^3/uL (0.0-1.1) Eosinophils # (Auto) 0.2 x10^3/uL (0.0-0.7) Basophils # (Auto) 0.1 x10^3/uL (0.0-0.2) Sodium Level 139 mmol/L (136-145) Potassium Level 3.4 mmol/L (3.5-5.1) Chloride Level 100 mmol/L (98-107) Carbon Dioxide Level 23 mmol/L (21-32) Anion Gap 16 (6-14) Blood Urea Nitrogen 22 mg/dL (8-26) Creatinine 1.4 mg/dL (0.7-1.3) Estimated GFR (Cockcroft-Gault) 66.0 BUN/Creatinine Ratio 16 (6-20) Glucose Level 162 mg/dL (70-99) Lactic Acid Level 3.0 mmol/L (0.4-2.0) Calcium Level 10.1 mg/dL (8.5-10.1) Total Bilirubin 0.8 mg/dL (0.2-1.0) Aspartate Amino Transf (AST/SGOT) 13 U/L (15-37) Alanine Aminotransferase (ALT/SGPT) 24 U/L (16-63) Alkaline Phosphatase 113 U/L (46-116) Creatine Kinase 197 U/L (39-308) Troponin I Quantitative < 0.017 ng/mL (0.000-0.055) Total Protein 8.6 g/dL (6.4-8.2) Albumin 4.6 g/dL (3.4-5.0) Albumin/Globulin Ratio 1.2 (1.0-1.7) Lipase 94 U/L (73-393) Acetone Level Neg (NEG) O2 Saturation 97 % (92-99) Arterial Blood pH 7.46 (7.35-7.45) Arterial Blood pCO2 at Patient Temp 29 mmHg (35-46) Arterial Blood pO2 at Patient Temp 88 mmHg (75-108) Arterial Blood HCO3 20 mmol/L (21-28) Arterial Blood Base Excess -2 mmol/L (-3-3) FiO2 21 Test 09/01/18 17:19 09/01/18 17:25 09/01/18 19:00 09/02/18 07:03 Glucose (Fingerstick) 87 mg/dL (70-99) 426 mg/dL (70-99) Urine Collection Type Unknown Urine Color Yellow Urine Clarity Clear Urine pH 5.5 Urine Specific [place] >=1.030 Urine Protein 100 mg/dL (NEG-TRACE) Urine Glucose (UA) >=1000 mg/dL (NEG) Urine Ketones (Stick) 40 mg/dL (NEG) Urine Blood Negative (NEG) Urine Nitrite Negative (NEG) Urine Bilirubin Moderate (NEG) Urine Urobilinogen Dipstick 1.0 mg/dL (0.2 mg/dL) Urine Leukocyte Esterase Negative (NEG) Urine RBC 0 /HPF (0-2) Urine WBC 0 /HPF (0-4) Urine Squamous Epithelial Cells Occ /LPF Urine Amorphous Sediment Present /HPF Urine Bacteria 0 /HPF (0-FEW) Urine Hyaline Casts Moderate /HPF Urine Mucus Marked /LPF Urine Opiates Screen Pos (NEG) Urine Methadone Screen Neg (NEG) Urine Barbiturates Neg (NEG) Urine Phencyclidine Screen Neg (NEG) Urine Amphetamine/Methamphetamine Neg (NEG) Urine Benzodiazepines Screen Neg (NEG) Urine Cocaine Screen Neg (NEG) Urine Cannabinoids Screen Neg (NEG) Urine Ethyl Alcohol Neg (NEG) Lactic Acid Level 1.2 mmol/L (0.4-2.0) Assessment and Plan Assessmemt and Plan Problems Medical Problems: (1) Generalized weakness Status: Acute (2) Nausea and vomiting Status: Acute (3) Paresthesia Status: Acute (4) Renal insufficiency Status: Acute (5) Sepsis Status: Acute (6) Syncope Status: Acute Comment Review of Relevant I have reviewed the following items kaelyn (where applicable) has been applied. Labs Laboratory Tests Test 09/01/18 14:39 09/01/18 14:42 09/01/18 14:50 09/01/18 15:20 Glucose (Fingerstick) 156 mg/dL (70-99) 163 mg/dL (70-99) White Blood Count 8.1 x10^3/uL (4.0-11.0) Red Blood Count 4.72 x10^6/uL (4.30-5.70) Hemoglobin 16.1 g/dL (13.0-17.5) Hematocrit 46.2 % (39.0-53.0) Mean Corpuscular Volume 98 fL (79-100) Mean Corpuscular Hemoglobin 34 pg (25-35) Mean Corpuscular Hemoglobin Concent 35 g/dL (31-37) Red Cell Distribution Width 12.2 % (11.5-14.5) Platelet Count 402 x10^3/uL (140-400) Neutrophils (%) (Auto) 59 % (31-73) Lymphocytes (%) (Auto) 27 % (24-48) Monocytes (%) (Auto) 11 % (0-9) Eosinophils (%) (Auto) 2 % (0-3) Basophils (%) (Auto) 1 % (0-3) Neutrophils # (Auto) 4.8 x10^3uL (1.8-7.7) Lymphocytes # (Auto) 2.2 x10^3/uL (1.0-4.8) Monocytes # (Auto) 0.9 x10^3/uL (0.0-1.1) Eosinophils # (Auto) 0.2 x10^3/uL (0.0-0.7) Basophils # (Auto) 0.1 x10^3/uL (0.0-0.2) Sodium Level 139 mmol/L (136-145) Potassium Level 3.4 mmol/L (3.5-5.1) Chloride Level 100 mmol/L (98-107) Carbon Dioxide Level 23 mmol/L (21-32) Anion Gap 16 (6-14) Blood Urea Nitrogen 22 mg/dL (8-26) Creatinine 1.4 mg/dL (0.7-1.3) Estimated GFR (Cockcroft-Gault) 66.0 BUN/Creatinine Ratio 16 (6-20) Glucose Level 162 mg/dL (70-99) Lactic Acid Level 3.0 mmol/L (0.4-2.0) Calcium Level 10.1 mg/dL (8.5-10.1) Total Bilirubin 0.8 mg/dL (0.2-1.0) Aspartate Amino Transf (AST/SGOT) 13 U/L (15-37) Alanine Aminotransferase (ALT/SGPT) 24 U/L (16-63) Alkaline Phosphatase 113 U/L (46-116) Creatine Kinase 197 U/L (39-308) Troponin I Quantitative < 0.017 ng/mL (0.000-0.055) Total Protein 8.6 g/dL (6.4-8.2) Albumin 4.6 g/dL (3.4-5.0) Albumin/Globulin Ratio 1.2 (1.0-1.7) Lipase 94 U/L (73-393) Acetone Level Neg (NEG) O2 Saturation 97 % (92-99) Arterial Blood pH 7.46 (7.35-7.45) Arterial Blood pCO2 at Patient Temp 29 mmHg (35-46) Arterial Blood pO2 at Patient Temp 88 mmHg (75-108) Arterial Blood HCO3 20 mmol/L (21-28) Arterial Blood Base Excess -2 mmol/L (-3-3) FiO2 21 Test 09/01/18 17:19 09/01/18 17:25 09/01/18 19:00 09/02/18 07:03 Glucose (Fingerstick) 87 mg/dL (70-99) 426 mg/dL (70-99) Urine Collection Type Unknown Urine Color Yellow Urine Clarity Clear Urine pH 5.5 Urine Specific [place] >=1.030 Urine Protein 100 mg/dL (NEG-TRACE) Urine Glucose (UA) >=1000 mg/dL (NEG) Urine Ketones (Stick) 40 mg/dL (NEG) Urine Blood Negative (NEG) Urine Nitrite Negative (NEG) Urine Bilirubin Moderate (NEG) Urine Urobilinogen Dipstick 1.0 mg/dL (0.2 mg/dL) Urine Leukocyte Esterase Negative (NEG) Urine RBC 0 /HPF (0-2) Urine WBC 0 /HPF (0-4) Urine Squamous Epithelial Cells Occ /LPF Urine Amorphous Sediment Present /HPF Urine Bacteria 0 /HPF (0-FEW) Urine Hyaline Casts Moderate /HPF Urine Mucus Marked /LPF Urine Opiates Screen Pos (NEG) Urine Methadone Screen Neg (NEG) Urine Barbiturates Neg (NEG) Urine Phencyclidine Screen Neg (NEG) Urine Amphetamine/Methamphetamine Neg (NEG) Urine Benzodiazepines Screen Neg (NEG) Urine Cocaine Screen Neg (NEG) Urine Cannabinoids Screen Neg (NEG) Urine Ethyl Alcohol Neg (NEG) Lactic Acid Level 1.2 mmol/L (0.4-2.0) Laboratory Tests Test 09/01/18 14:39 09/01/18 14:42 09/01/18 14:50 09/01/18 15:20 Glucose (Fingerstick) 156 mg/dL (70-99) 163 mg/dL (70-99) White Blood Count 8.1 x10^3/uL (4.0-11.0) Red Blood Count 4.72 x10^6/uL (4.30-5.70) Hemoglobin 16.1 g/dL (13.0-17.5) Hematocrit 46.2 % (39.0-53.0) Mean Corpuscular Volume 98 fL (79-100) Mean Corpuscular Hemoglobin 34 pg (25-35) Mean Corpuscular Hemoglobin Concent 35 g/dL (31-37) Red Cell Distribution Width 12.2 % (11.5-14.5) Platelet Count 402 x10^3/uL (140-400) Neutrophils (%) (Auto) 59 % (31-73) Lymphocytes (%) (Auto) 27 % (24-48) Monocytes (%) (Auto) 11 % (0-9) Eosinophils (%) (Auto) 2 % (0-3) Basophils (%) (Auto) 1 % (0-3) Neutrophils # (Auto) 4.8 x10^3uL (1.8-7.7) Lymphocytes # (Auto) 2.2 x10^3/uL (1.0-4.8) Monocytes # (Auto) 0.9 x10^3/uL (0.0-1.1) Eosinophils # (Auto) 0.2 x10^3/uL (0.0-0.7) Basophils # (Auto) 0.1 x10^3/uL (0.0-0.2) Sodium Level 139 mmol/L (136-145) Potassium Level 3.4 mmol/L (3.5-5.1) Chloride Level 100 mmol/L (98-107) Carbon Dioxide Level 23 mmol/L (21-32) Anion Gap 16 (6-14) Blood Urea Nitrogen 22 mg/dL (8-26) Creatinine 1.4 mg/dL (0.7-1.3) Estimated GFR (Cockcroft-Gault) 66.0 BUN/Creatinine Ratio 16 (6-20) Glucose Level 162 mg/dL (70-99) Lactic Acid Level 3.0 mmol/L (0.4-2.0) Calcium Level 10.1 mg/dL (8.5-10.1) Total Bilirubin 0.8 mg/dL (0.2-1.0) Aspartate Amino Transf (AST/SGOT) 13 U/L (15-37) Alanine Aminotransferase (ALT/SGPT) 24 U/L (16-63) Alkaline Phosphatase 113 U/L (46-116) Creatine Kinase 197 U/L (39-308) Troponin I Quantitative < 0.017 ng/mL (0.000-0.055) Total Protein 8.6 g/dL (6.4-8.2) Albumin 4.6 g/dL (3.4-5.0) Albumin/Globulin Ratio 1.2 (1.0-1.7) Lipase 94 U/L (73-393) Acetone Level Neg (NEG) O2 Saturation 97 % (92-99) Arterial Blood pH 7.46 (7.35-7.45) Arterial Blood pCO2 at Patient Temp 29 mmHg (35-46) Arterial Blood pO2 at Patient Temp 88 mmHg (75-108) Arterial Blood HCO3 20 mmol/L (21-28) Arterial Blood Base Excess -2 mmol/L (-3-3) FiO2 21 Test 09/01/18 17:19 09/01/18 17:25 09/01/18 19:00 09/02/18 07:03 Glucose (Fingerstick) 87 mg/dL (70-99) 426 mg/dL (70-99) Urine Collection Type Unknown Urine Color Yellow Urine Clarity Clear Urine pH 5.5 Urine Specific [place] >=1.030 Urine Protein 100 mg/dL (NEG-TRACE) Urine Glucose (UA) >=1000 mg/dL (NEG) Urine Ketones (Stick) 40 mg/dL (NEG) Urine Blood Negative (NEG) Urine Nitrite Negative (NEG) Urine Bilirubin Moderate (NEG) Urine Urobilinogen Dipstick 1.0 mg/dL (0.2 mg/dL) Urine Leukocyte Esterase Negative (NEG) Urine RBC 0 /HPF (0-2) Urine WBC 0 /HPF (0-4) Urine Squamous Epithelial Cells Occ /LPF Urine Amorphous Sediment Present /HPF Urine Bacteria 0 /HPF (0-FEW) Urine Hyaline Casts Moderate /HPF Urine Mucus Marked /LPF Urine Opiates Screen Pos (NEG) Urine Methadone Screen Neg (NEG) Urine Barbiturates Neg (NEG) Urine Phencyclidine Screen Neg (NEG) Urine Amphetamine/Methamphetamine Neg (NEG) Urine Benzodiazepines Screen Neg (NEG) Urine Cocaine Screen Neg (NEG) Urine Cannabinoids Screen Neg (NEG) Urine Ethyl Alcohol Neg (NEG) Lactic Acid Level 1.2 mmol/L (0.4-2.0) Medications Current Medications Sodium Chloride 1,000 ml @ 1,000 mls/hr Q1H IV Last administered on 09/01/18at 14:58; Start 09/01/18 at 15:00; Stop 09/01/18 at 15:59; Status DC Ondansetron HCl (Zofran) 4 mg 1X ONCE IV Last administered on 09/01/18at 15:00; Start 09/01/18 at 15:15; Stop 09/01/18 at 15:16; Status DC Fentanyl Citrate (Fentanyl 2ml Vial) 50 mcg 1X ONCE IV Last administered on 09/01/18at 15:02; Start 09/01/18 at 15:15; Stop 09/01/18 at 15:16; Status DC Fentanyl Citrate (Fentanyl 2ml Vial) 50 mcg 1X ONCE IV Last administered on 09/01/18at 15:19; Start 09/01/18 at 15:30; Stop 09/01/18 at 15:31; Status DC Sodium Chloride 1,000 ml @ 1,000 mls/hr 1X ONCE IV Last administered on 09/01/18at 17:33; Start 09/01/18 at 16:30; Stop 09/01/18 at 17:29; Status DC Sodium Chloride 1,000 ml @ 1,000 mls/hr 1X ONCE IV Last administered on 09/01/18at 23:31; Start 09/01/18 at 17:15; Stop 09/01/18 at 18:14; Status DC Ceftriaxone Sodium (Rocephin) 1 gm 1X ONCE IVP Last administered on 09/01/18at 17:33; Start 09/01/18 at 17:15; Stop 09/01/18 at 17:16; Status DC Ondansetron HCl (Zofran) 4 mg PRN Q8HRS PRN IV NAUSEA/VOMITING; Start 09/01/18 at 17:15; Stop 09/02/18 at 17:14 Sodium Chloride 1,000 ml @ 150 mls/hr Q6H40M IV Last administered on 09/02/18at 07:00; Start 09/01/18 at 17:10; Stop 09/02/18 at 17:09 Ketorolac Tromethamine (Toradol 30mg Vial) 30 mg 1X ONCE IV Last administered on 09/01/18at 17:33; Start 09/01/18 at 17:15; Stop 09/01/18 at 17:16; Status DC Acetaminophen/ Hydrocodone Bitart (Lortab 5/325) 1 tab PRN Q4HRS PRN PO PAIN Last administered on 09/01/18at 23:25; Start 09/01/18 at 18:00 Morphine Sulfate (Morphine Sulfate) 2 mg PRN Q2HR PRN IV PAIN Last administered on 09/02/18at 06:57; Start 09/02/18 at 01:45 Insulin Human Lispro (HumaLOG) 16 units TIDWMEALS SQ ; Start 09/02/18 at 08:00 Insulin Glargine (Lantus) 15 units QHS SQ ; Start 09/02/18 at 21:00 Active Scripts Active Insulin Pen Needle (Pen Needle, Diabetic) 1 Each Dis.needle Each MC QID 4 times daily with meals and nightly for insulin pens Levemir Flextouch (Insulin Detemir) 100 Unit/1 Ml Insuln.pen 15 Units SQ QHS 30 Days Novolog Flexpen (Insulin Aspart) 100 Unit/1 Ml Insuln.pen 16 Units SQ TIDBFRMEAL 30 Days Vitals/I & O Vital Sign - Last 24 Hours 09/01/18 09/01/18 09/01/18 09/01/18 14:42 15:00 16:00 17:00 Temp 98.2 98.2 Pulse 98 90 88 Resp 16 20 20 18 B/P (MAP) 130/88 (102) 144/80 (101) 138/77 (97) 151/78 (102) Pulse Ox 98 98 98 O2 Delivery Room Air Room Air Room Air Room Air 09/01/18 09/01/18 09/01/18 09/02/18 18:00 19:40 23:39 03:49 Temp 98.7 99.6 98.2 98.7 99.6 98.2 Pulse 89 102 96 90 Resp 18 20 20 18 B/P (MAP) 141/80 (100) 122/85 (97) 132/87 (102) 121/83 (96) Pulse Ox 98 97 97 96 O2 Delivery Room Air Room Air Room Air Room Air 09/02/18 09/02/18 06:57 07:00 Temp 98.3 98.3 Pulse 91 Resp 18 B/P (MAP) 128/90 (103) Pulse Ox 98 O2 Delivery Room Air Room Air Intake and Output 09/01/18 09/01/18 09/02/18 15:00 23:00 07:00 Intake Total 550 ml 600 ml Output Total 1252 ml Balance 550 ml -652 ml CRISTIANA WASHINGTON MD Sep 02, 2018 09:21
[2018-09-02 11:00] VITALS: BP 123/80
[2018-09-02] MEDS ORDERED: INSU100I17 SQ (12:16)
[2018-09-02] MEDS ORDERED: INSULIN LISPRO 300 UNITS/3 ML INSULN.PEN. SQ ONE (12:30)
--- NOTE | 2018-09-02 12:42 | PDOC2 ---
CONSULT Date of Consult Date of Consult DATE: 09/02/18 TIME: 12:26 Reason for Consult Reason for Consult: CKD Identification/Chief Complaint Chief Complaint Tingling in hands since fall and generalized body ache Source Source: Chart review, Patient History of Present Illness Reason for Visit: Patient is a 48 year old AA male with history of diabetes mellitus who presents with complaining of high blood sugar and syncope. Patient states he didn't feel good for the last couple days and had nausea and vomiting and today had blood sugar of more than 400. Patient states he had 18 units of NovoLog insulin and while he was making for had 1 or possibly 2 episodes of unwitnessed syncope with injury of his chin. Patient complaining of pain in his head and neck and face and rated his pain 10 over 10. Patient also complaining of bilateral hand numbness and pain as a severe pain. Patient has history of frequent DKA but his blood sugar at arrival to ER and was 156. Pt reports he saw a [facility] 2-3 years back as OP but didin't keep follow up appt due to lack of insurance. He sees his PCP once a month and is aware that his Kidneys are not normal Takes aleve once a week for headache. No Other health supplements . Denies any Urinary complaints Past Medical History Endocrine: Diabetes Past Surgical History Past Surgical History: Other Family History Family History: Hypertension Social History ALCOHOL: occassional Drugs: None Current Problem List Problem List Problems Medical Problems: (1) Generalized weakness Status: Acute (2) Nausea and vomiting Status: Acute (3) Paresthesia Status: Acute (4) Renal insufficiency Status: Acute (5) Sepsis Status: Acute (6) Syncope Status: Acute Current Medications Current Medications Current Medications Sodium Chloride 1,000 ml @ 1,000 mls/hr Q1H IV Last administered on 09/01/18at 14:58; Start 09/01/18 at 15:00; Stop 09/01/18 at 15:59; Status DC Ondansetron HCl (Zofran) 4 mg 1X ONCE IV Last administered on 09/01/18at 15:00; Start 09/01/18 at 15:15; Stop 09/01/18 at 15:16; Status DC Fentanyl Citrate (Fentanyl 2ml Vial) 50 mcg 1X ONCE IV Last administered on 09/01/18at 15:02; Start 09/01/18 at 15:15; Stop 09/01/18 at 15:16; Status DC Fentanyl Citrate (Fentanyl 2ml Vial) 50 mcg 1X ONCE IV Last administered on 09/01/18at 15:19; Start 09/01/18 at 15:30; Stop 09/01/18 at 15:31; Status DC Sodium Chloride 1,000 ml @ 1,000 mls/hr 1X ONCE IV Last administered on 09/01/18at 17:33; Start 09/01/18 at 16:30; Stop 09/01/18 at 17:29; Status DC Sodium Chloride 1,000 ml @ 1,000 mls/hr 1X ONCE IV Last administered on 09/01/18at 23:31; Start 09/01/18 at 17:15; Stop 09/01/18 at 18:14; Status DC Ceftriaxone Sodium (Rocephin) 1 gm 1X ONCE IVP Last administered on 09/01/18at 17:33; Start 09/01/18 at 17:15; Stop 09/01/18 at 17:16; Status DC Ondansetron HCl (Zofran) 4 mg PRN Q8HRS PRN IV NAUSEA/VOMITING; Start 09/01/18 at 17:15; Stop 09/02/18 at 17:14 Sodium Chloride 1,000 ml @ 150 mls/hr Q6H40M IV Last administered on 09/02/18at 07:00; Start 09/01/18 at 17:10; Stop 09/02/18 at 17:09 Ketorolac Tromethamine (Toradol 30mg Vial) 30 mg 1X ONCE IV Last administered on 09/01/18at 17:33; Start 09/01/18 at 17:15; Stop 09/01/18 at 17:16; Status DC Acetaminophen/ Hydrocodone Bitart (Lortab 5/325) 1 tab PRN Q4HRS PRN PO PAIN Last administered on 09/02/18at 09:15; Start 09/01/18 at 18:00 Morphine Sulfate (Morphine Sulfate) 2 mg PRN Q2HR PRN IV PAIN Last administered on 09/02/18at 06:57; Start 09/02/18 at 01:45 Insulin Human Lispro (HumaLOG) 16 units TIDWMEALS SQ Last administered on 09/02/18at 09:21; Start 09/02/18 at 08:00; Stop 09/02/18 at 12:17; Status DC Insulin Glargine (Lantus) 15 units QHS SQ ; Start 09/02/18 at 21:00 Insulin Human Lispro (HumaLOG) 18 units TIDWMEALS SQ ; Start 09/02/18 at 17:00 Active Scripts Active Insulin Pen Needle (Pen Needle, Diabetic) 1 Each Dis.needle Each MC QID 4 times daily with meals and nightly for insulin pens Levemir Flextouch (Insulin Detemir) 100 Unit/1 Ml Insuln.pen 15 Units SQ QHS 30 Days Reported Novolog Flexpen (Insulin Aspart) 100 Unit/1 Ml Insuln.pen 18 Unit SQ TIDWMEALS Allergies Allergies: Coded Allergies: No Known Drug Allergies (Unverified , 01/22/14) ROS Review of System As per HPI Physical Exam Physical Exam GEN.: No apparent distress. Alert and oriented. HEENT: Head is normocephalic, atraumatic NECK: Supple, no JVD LUNGS: Clear to auscultation without rhonchi or wheezing HEART: RRR, S1, S2 present. ABDOMEN: Soft, nontender. EXTREMITIES: No edema. NEUROLOGIC: Grossly normal PSYCHIATRIC: Normal affect, normal mood. Stable SKIN: No rash No Jones Vital Signs Vital Signs Date Time Temp Pulse Resp B/P (MAP) Pulse Ox O2 Delivery O2 Flow Rate FiO2 09/02/18 11:00 98.2 94 18 123/80 (94) 97 Room Air 98.2 Assessment & Plan CKD stage 3 - Baseline 1.4 to 1.5 since 2013- intermittent fluctuating per [facility] records [place] in may 2018- sec to DKA , CT scan No Hydronephrosis UA unremarkable E-Lytes and acid base stable, Monitor DM- Hyperglycemia Dehydration- Mild sec to Hyperglycemia Generalized weakness and body ache- per Primary Labs Labs Laboratory Tests Test 09/01/18 14:39 09/01/18 14:42 09/01/18 14:50 09/01/18 15:20 Glucose (Fingerstick) 156 mg/dL (70-99) 163 mg/dL (70-99) White Blood Count 8.1 x10^3/uL (4.0-11.0) Red Blood Count 4.72 x10^6/uL (4.30-5.70) Hemoglobin 16.1 g/dL (13.0-17.5) Hematocrit 46.2 % (39.0-53.0) Mean Corpuscular Volume 98 fL (79-100) Mean Corpuscular Hemoglobin 34 pg (25-35) Mean Corpuscular Hemoglobin Concent 35 g/dL (31-37) Red Cell Distribution Width 12.2 % (11.5-14.5) Platelet Count 402 x10^3/uL (140-400) Neutrophils (%) (Auto) 59 % (31-73) Lymphocytes (%) (Auto) 27 % (24-48) Monocytes (%) (Auto) 11 % (0-9) Eosinophils (%) (Auto) 2 % (0-3) Basophils (%) (Auto) 1 % (0-3) Neutrophils # (Auto) 4.8 x10^3uL (1.8-7.7) Lymphocytes # (Auto) 2.2 x10^3/uL (1.0-4.8) Monocytes # (Auto) 0.9 x10^3/uL (0.0-1.1) Eosinophils # (Auto) 0.2 x10^3/uL (0.0-0.7) Basophils # (Auto) 0.1 x10^3/uL (0.0-0.2) Sodium Level 139 mmol/L (136-145) Potassium Level 3.4 mmol/L (3.5-5.1) Chloride Level 100 mmol/L (98-107) Carbon Dioxide Level 23 mmol/L (21-32) Anion Gap 16 (6-14) Blood Urea Nitrogen 22 mg/dL (8-26) Creatinine 1.4 mg/dL (0.7-1.3) Estimated GFR (Cockcroft-Gault) 66.0 BUN/Creatinine Ratio 16 (6-20) Glucose Level 162 mg/dL (70-99) Lactic Acid Level 3.0 mmol/L (0.4-2.0) Calcium Level 10.1 mg/dL (8.5-10.1) Total Bilirubin 0.8 mg/dL (0.2-1.0) Aspartate Amino Transf (AST/SGOT) 13 U/L (15-37) Alanine Aminotransferase (ALT/SGPT) 24 U/L (16-63) Alkaline Phosphatase 113 U/L (46-116) Creatine Kinase 197 U/L (39-308) Troponin I Quantitative < 0.017 ng/mL (0.000-0.055) Total Protein 8.6 g/dL (6.4-8.2) Albumin 4.6 g/dL (3.4-5.0) Albumin/Globulin Ratio 1.2 (1.0-1.7) Lipase 94 U/L (73-393) Acetone Level Neg (NEG) O2 Saturation 97 % (92-99) Arterial Blood pH 7.46 (7.35-7.45) Arterial Blood pCO2 at Patient Temp 29 mmHg (35-46) Arterial Blood pO2 at Patient Temp 88 mmHg (75-108) Arterial Blood HCO3 20 mmol/L (21-28) Arterial Blood Base Excess -2 mmol/L (-3-3) FiO2 21 Test 09/01/18 17:19 09/01/18 17:25 09/01/18 19:00 09/02/18 07:03 Glucose (Fingerstick) 87 mg/dL (70-99) 426 mg/dL (70-99) Urine Collection Type Unknown Urine Color Yellow Urine Clarity Clear Urine pH 5.5 Urine Specific Henrietta >=1.030 Urine Protein 100 mg/dL (NEG-TRACE) Urine Glucose (UA) >=1000 mg/dL (NEG) Urine Ketones (Stick) 40 mg/dL (NEG) Urine Blood Negative (NEG) Urine Nitrite Negative (NEG) Urine Bilirubin Moderate (NEG) Urine Urobilinogen Dipstick 1.0 mg/dL (0.2 mg/dL) Urine Leukocyte Esterase Negative (NEG) Urine RBC 0 /HPF (0-2) Urine WBC 0 /HPF (0-4) Urine Squamous Epithelial Cells Occ /LPF Urine Amorphous Sediment Present /HPF Urine Bacteria 0 /HPF (0-FEW) Urine Hyaline Casts Moderate /HPF Urine Mucus Marked /LPF Urine Opiates Screen Pos (NEG) Urine Methadone Screen Neg (NEG) Urine Barbiturates Neg (NEG) Urine Phencyclidine Screen Neg (NEG) Urine Amphetamine/Methamphetamine Neg (NEG) Urine Benzodiazepines Screen Neg (NEG) Urine Cocaine Screen Neg (NEG) Urine Cannabinoids Screen Neg (NEG) Urine Ethyl Alcohol Neg (NEG) Lactic Acid Level 1.2 mmol/L (0.4-2.0) Test 09/02/18 11:29 Glucose (Fingerstick) 316 mg/dL (70-99) Laboratory Tests Test 09/01/18 14:39 09/01/18 14:42 09/01/18 14:50 09/01/18 15:20 Glucose (Fingerstick) 156 mg/dL (70-99) 163 mg/dL (70-99) White Blood Count 8.1 x10^3/uL (4.0-11.0) Red Blood Count 4.72 x10^6/uL (4.30-5.70) Hemoglobin 16.1 g/dL (13.0-17.5) Hematocrit 46.2 % (39.0-53.0) Mean Corpuscular Volume 98 fL (79-100) Mean Corpuscular Hemoglobin 34 pg (25-35) Mean Corpuscular Hemoglobin Concent 35 g/dL (31-37) Red Cell Distribution Width 12.2 % (11.5-14.5) Platelet Count 402 x10^3/uL (140-400) Neutrophils (%) (Auto) 59 % (31-73) Lymphocytes (%) (Auto) 27 % (24-48) Monocytes (%) (Auto) 11 % (0-9) Eosinophils (%) (Auto) 2 % (0-3) Basophils (%) (Auto) 1 % (0-3) Neutrophils # (Auto) 4.8 x10^3uL (1.8-7.7) Lymphocytes # (Auto) 2.2 x10^3/uL (1.0-4.8) Monocytes # (Auto) 0.9 x10^3/uL (0.0-1.1) Eosinophils # (Auto) 0.2 x10^3/uL (0.0-0.7) Basophils # (Auto) 0.1 x10^3/uL (0.0-0.2) Sodium Level 139 mmol/L (136-145) Potassium Level 3.4 mmol/L (3.5-5.1) Chloride Level 100 mmol/L (98-107) Carbon Dioxide Level 23 mmol/L (21-32) Anion Gap 16 (6-14) Blood Urea Nitrogen 22 mg/dL (8-26) Creatinine 1.4 mg/dL (0.7-1.3) Estimated GFR (Cockcroft-Gault) 66.0 BUN/Creatinine Ratio 16 (6-20) Glucose Level 162 mg/dL (70-99) Lactic Acid Level 3.0 mmol/L (0.4-2.0) Calcium Level 10.1 mg/dL (8.5-10.1) Total Bilirubin 0.8 mg/dL (0.2-1.0) Aspartate Amino Transf (AST/SGOT) 13 U/L (15-37) Alanine Aminotransferase (ALT/SGPT) 24 U/L (16-63) Alkaline Phosphatase 113 U/L (46-116) Creatine Kinase 197 U/L (39-308) Troponin I Quantitative < 0.017 ng/mL (0.000-0.055) Total Protein 8.6 g/dL (6.4-8.2) Albumin 4.6 g/dL (3.4-5.0) Albumin/Globulin Ratio 1.2 (1.0-1.7) Lipase 94 U/L (73-393) Acetone Level Neg (NEG) O2 Saturation 97 % (92-99) Arterial Blood pH 7.46 (7.35-7.45) Arterial Blood pCO2 at Patient Temp 29 mmHg (35-46) Arterial Blood pO2 at Patient Temp 88 mmHg (75-108) Arterial Blood HCO3 20 mmol/L (21-28) Arterial Blood Base Excess -2 mmol/L (-3-3) FiO2 21 Test 09/01/18 17:19 09/01/18 17:25 09/01/18 19:00 09/02/18 07:03 Glucose (Fingerstick) 87 mg/dL (70-99) 426 mg/dL (70-99) Urine Collection Type Unknown Urine Color Yellow Urine Clarity Clear Urine pH 5.5 Urine Specific Henrietta >=1.030 Urine Protein 100 mg/dL (NEG-TRACE) Urine Glucose (UA) >=1000 mg/dL (NEG) Urine Ketones (Stick) 40 mg/dL (NEG) Urine Blood Negative (NEG) Urine Nitrite Negative (NEG) Urine Bilirubin Moderate (NEG) Urine Urobilinogen Dipstick 1.0 mg/dL (0.2 mg/dL) Urine Leukocyte Esterase Negative (NEG) Urine RBC 0 /HPF (0-2) Urine WBC 0 /HPF (0-4) Urine Squamous Epithelial Cells Occ /LPF Urine Amorphous Sediment Present /HPF Urine Bacteria 0 /HPF (0-FEW) Urine Hyaline Casts Moderate /HPF Urine Mucus Marked /LPF Urine Opiates Screen Pos (NEG) Urine Methadone Screen Neg (NEG) Urine Barbiturates Neg (NEG) Urine Phencyclidine Screen Neg (NEG) Urine Amphetamine/Methamphetamine Neg (NEG) Urine Benzodiazepines Screen Neg (NEG) Urine Cocaine Screen Neg (NEG) Urine Cannabinoids Screen Neg (NEG) Urine Ethyl Alcohol Neg (NEG) Lactic Acid Level 1.2 mmol/L (0.4-2.0) Test 09/02/18 11:29 Glucose (Fingerstick) 316 mg/dL (70-99) Review All relevant outside records, renal labs, imaging studies, telemetry/EKG's were reviewed. BARBARA MONTANEZ MD Sep 02, 2018 12:42
[2018-09-02 15:00] VITALS: BP 133/98
[2018-09-02] MEDS: INSULIN LISPRO 300 UNITS/3 ML INSULN.PEN. SQ SCH (17:22)
[2018-09-02 19:20] VITALS: BP 120/85
[2018-09-02] MEDS ORDERED: ONDANSETRON PF 4 MG/2 ML VIAL. IV PRN (21:00)
[2018-09-02] MEDS ORDERED: INSULIN GLARGINE 300 UNITS/3 ML INSULN.PEN. SQ SCH (21:00)
[2018-09-02] MEDS: ACETAMINOPHEN 500 MG TABLET PO PRN (21:12)
[2018-09-02 23:10] VITALS: BP 135/87
[2018-09-03 03:31] VITALS: BP 122/89
[2018-09-03 07:00] VITALS: BP 135/92
[2018-09-03 07:43] LABS: CALCIUM 8.6 mg/dL (8.5-10.1); CREATININE 0.8 mg/dL (0.7-1.3); GFR 125.9; POTASSIUM 3.5 mmol/L (3.5-5.1)
[2018-09-03] MEDS: ACETAMINOPHEN 500 MG TABLET PO PRN (08:53)
--- NOTE | 2018-09-03 08:57 | PDOC ---
PROGRESS NOTES History of Present Illness History of Present Illness discharge dx Assessment/Plan Syncopal episode hyperglycemia // uncontrolled diabetes closed head injury, hypokalemia, chronic renal insufficiency acute Dehydration- Mild sec to Hyperglycemia Plan Accu-Cheks 4 times a day Sliding-scale insulin Consult nephrology Cardiac monitoring Home meds prn narcotics DVT prophylaxis Full code 32 min pt exam, chart review d/c planning, > 50% of time spent with exam, chart review, pt care coordination Vitals Vitals Vital Signs Date Time Temp Pulse Resp B/P (MAP) Pulse Ox O2 Delivery O2 Flow Rate FiO2 09/03/18 07:00 98.3 83 21 135/92 (106) 99 Room Air 98.3 Physical Exam Physical Exam HEENT: Head is normocephalic, atraumatic NECK: Supple, no JVD LUNGS: Clear to auscultation without rhonchi or wheezing HEART: RRR, S1, S2 present. Peripheral pulses intact ABDOMEN: Soft, nontender. Positive bowel sounds no organomegaly EXTREMITIES: Without any cyanosis, clubbing, or edema. Pedal pulses intact NEUROLOGIC: Normal speech, normal tone. A&O x 3 PSYCHIATRIC: Normal affect, normal mood. Stable SKIN: No ulcerations or rashes VASCULAR: Good capillary refill General: Alert, Oriented X3, Cooperative, No acute distress Heart: Regular rate, Normal S1, Normal S2 Lungs: Clear Abdomen: Normal bowel sounds, Soft Extremities: No clubbing, No cyanosis, No edema Skin: No significant lesion Labs LABS Laboratory Tests Test 09/02/18 11:29 09/02/18 16:48 09/02/18 21:06 09/03/18 06:45 Glucose (Fingerstick) 316 mg/dL (70-99) 114 mg/dL (70-99) 145 mg/dL (70-99) Sodium Level 138 mmol/L (136-145) Potassium Level 3.5 mmol/L (3.5-5.1) Chloride Level 104 mmol/L (98-107) Carbon Dioxide Level 21 mmol/L (21-32) Anion Gap 13 (6-14) Blood Urea Nitrogen 10 mg/dL (8-26) Creatinine 0.8 mg/dL (0.7-1.3) Estimated GFR (Cockcroft-Gault) 125.9 Glucose Level 211 mg/dL (70-99) Calcium Level 8.6 mg/dL (8.5-10.1) Test 09/03/18 07:19 Glucose (Fingerstick) 262 mg/dL (70-99) Assessment and Plan Assessmemt and Plan Problems Medical Problems: (1) Generalized weakness Status: Acute (2) Nausea and vomiting Status: Acute (3) Paresthesia Status: Acute (4) Renal insufficiency Status: Acute (5) Sepsis Status: Acute (6) Syncope Status: Acute Comment Review of Relevant I have reviewed the following items kaelyn (where applicable) has been applied. Labs Laboratory Tests Test 09/01/18 14:39 09/01/18 14:42 09/01/18 14:50 09/01/18 15:20 Glucose (Fingerstick) 156 mg/dL (70-99) 163 mg/dL (70-99) White Blood Count 8.1 x10^3/uL (4.0-11.0) Red Blood Count 4.72 x10^6/uL (4.30-5.70) Hemoglobin 16.1 g/dL (13.0-17.5) Hematocrit 46.2 % (39.0-53.0) Mean Corpuscular Volume 98 fL (79-100) Mean Corpuscular Hemoglobin 34 pg (25-35) Mean Corpuscular Hemoglobin Concent 35 g/dL (31-37) Red Cell Distribution Width 12.2 % (11.5-14.5) Platelet Count 402 x10^3/uL (140-400) Neutrophils (%) (Auto) 59 % (31-73) Lymphocytes (%) (Auto) 27 % (24-48) Monocytes (%) (Auto) 11 % (0-9) Eosinophils (%) (Auto) 2 % (0-3) Basophils (%) (Auto) 1 % (0-3) Neutrophils # (Auto) 4.8 x10^3uL (1.8-7.7) Lymphocytes # (Auto) 2.2 x10^3/uL (1.0-4.8) Monocytes # (Auto) 0.9 x10^3/uL (0.0-1.1) Eosinophils # (Auto) 0.2 x10^3/uL (0.0-0.7) Basophils # (Auto) 0.1 x10^3/uL (0.0-0.2) Sodium Level 139 mmol/L (136-145) Potassium Level 3.4 mmol/L (3.5-5.1) Chloride Level 100 mmol/L (98-107) Carbon Dioxide Level 23 mmol/L (21-32) Anion Gap 16 (6-14) Blood Urea Nitrogen 22 mg/dL (8-26) Creatinine 1.4 mg/dL (0.7-1.3) Estimated GFR (Cockcroft-Gault) 66.0 BUN/Creatinine Ratio 16 (6-20) Glucose Level 162 mg/dL (70-99) Lactic Acid Level 3.0 mmol/L (0.4-2.0) Calcium Level 10.1 mg/dL (8.5-10.1) Total Bilirubin 0.8 mg/dL (0.2-1.0) Aspartate Amino Transf (AST/SGOT) 13 U/L (15-37) Alanine Aminotransferase (ALT/SGPT) 24 U/L (16-63) Alkaline Phosphatase 113 U/L (46-116) Creatine Kinase 197 U/L (39-308) Troponin I Quantitative < 0.017 ng/mL (0.000-0.055) Total Protein 8.6 g/dL (6.4-8.2) Albumin 4.6 g/dL (3.4-5.0) Albumin/Globulin Ratio 1.2 (1.0-1.7) Lipase 94 U/L (73-393) Acetone Level Neg (NEG) O2 Saturation 97 % (92-99) Arterial Blood pH 7.46 (7.35-7.45) Arterial Blood pCO2 at Patient Temp 29 mmHg (35-46) Arterial Blood pO2 at Patient Temp 88 mmHg (75-108) Arterial Blood HCO3 20 mmol/L (21-28) Arterial Blood Base Excess -2 mmol/L (-3-3) FiO2 21 Test 09/01/18 17:19 09/01/18 17:25 09/01/18 19:00 09/02/18 07:03 Glucose (Fingerstick) 87 mg/dL (70-99) 426 mg/dL (70-99) Urine Collection Type Unknown Urine Color Yellow Urine Clarity Clear Urine pH 5.5 Urine Specific Boyd >=1.030 Urine Protein 100 mg/dL (NEG-TRACE) Urine Glucose (UA) >=1000 mg/dL (NEG) Urine Ketones (Stick) 40 mg/dL (NEG) Urine Blood Negative (NEG) Urine Nitrite Negative (NEG) Urine Bilirubin Moderate (NEG) Urine Urobilinogen Dipstick 1.0 mg/dL (0.2 mg/dL) Urine Leukocyte Esterase Negative (NEG) Urine RBC 0 /HPF (0-2) Urine WBC 0 /HPF (0-4) Urine Squamous Epithelial Cells Occ /LPF Urine Amorphous Sediment Present /HPF Urine Bacteria 0 /HPF (0-FEW) Urine Hyaline Casts Moderate /HPF Urine Mucus Marked /LPF Urine Opiates Screen Pos (NEG) Urine Methadone Screen Neg (NEG) Urine Barbiturates Neg (NEG) Urine Phencyclidine Screen Neg (NEG) Urine Amphetamine/Methamphetamine Neg (NEG) Urine Benzodiazepines Screen Neg (NEG) Urine Cocaine Screen Neg (NEG) Urine Cannabinoids Screen Neg (NEG) Urine Ethyl Alcohol Neg (NEG) Lactic Acid Level 1.2 mmol/L (0.4-2.0) Test 09/02/18 11:29 09/02/18 16:48 09/02/18 21:06 09/03/18 06:45 Glucose (Fingerstick) 316 mg/dL (70-99) 114 mg/dL (70-99) 145 mg/dL (70-99) Sodium Level 138 mmol/L (136-145) Potassium Level 3.5 mmol/L (3.5-5.1) Chloride Level 104 mmol/L (98-107) Carbon Dioxide Level 21 mmol/L (21-32) Anion Gap 13 (6-14) Blood Urea Nitrogen 10 mg/dL (8-26) Creatinine 0.8 mg/dL (0.7-1.3) Estimated GFR (Cockcroft-Gault) 125.9 Glucose Level 211 mg/dL (70-99) Calcium Level 8.6 mg/dL (8.5-10.1) Test 09/03/18 07:19 Glucose (Fingerstick) 262 mg/dL (70-99) Laboratory Tests Test 09/02/18 11:29 09/02/18 16:48 09/02/18 21:06 09/03/18 06:45 Glucose (Fingerstick) 316 mg/dL (70-99) 114 mg/dL (70-99) 145 mg/dL (70-99) Sodium Level 138 mmol/L (136-145) Potassium Level 3.5 mmol/L (3.5-5.1) Chloride Level 104 mmol/L (98-107) Carbon Dioxide Level 21 mmol/L (21-32) Anion Gap 13 (6-14) Blood Urea Nitrogen 10 mg/dL (8-26) Creatinine 0.8 mg/dL (0.7-1.3) Estimated GFR (Cockcroft-Gault) 125.9 Glucose Level 211 mg/dL (70-99) Calcium Level 8.6 mg/dL (8.5-10.1) Test 09/03/18 07:19 Glucose (Fingerstick) 262 mg/dL (70-99) Microbiology 09/01/18 Blood Culture - Preliminary, Resulted NO GROWTH AFTER 1 DAY Medications Current Medications Sodium Chloride 1,000 ml @ 1,000 mls/hr Q1H IV Last administered on 09/01/18at 14:58; Start 09/01/18 at 15:00; Stop 09/01/18 at 15:59; Status DC Ondansetron HCl (Zofran) 4 mg 1X ONCE IV Last administered on 09/01/18at 15:00; Start 09/01/18 at 15:15; Stop 09/01/18 at 15:16; Status DC Fentanyl Citrate (Fentanyl 2ml Vial) 50 mcg 1X ONCE IV Last administered on at 15:02; Start 09/01/18 at 15:15; Stop 09/01/18 at 15:16; Status DC Fentanyl Citrate (Fentanyl 2ml Vial) 50 mcg 1X ONCE IV Last administered on 09/01/18at 15:19; Start 09/01/18 at 15:30; Stop 09/01/18 at 15:31; Status DC Sodium Chloride 1,000 ml @ 1,000 mls/hr 1X ONCE IV Last administered on 09/01/18at 17:33; Start 09/01/18 at 16:30; Stop 09/01/18 at 17:29; Status DC Sodium Chloride 1,000 ml @ 1,000 mls/hr 1X ONCE IV Last administered on 09/01/18at 23:31; Start 09/01/18 at 17:15; Stop 09/01/18 at 18:14; Status DC Ceftriaxone Sodium (Rocephin) 1 gm 1X ONCE IVP Last administered on 09/01/18at 17:33; Start 09/01/18 at 17:15; Stop 09/01/18 at 17:16; Status DC Ondansetron HCl (Zofran) 4 mg PRN Q8HRS PRN IV NAUSEA/VOMITING; Start 09/01/18 at 17:15; Stop 09/02/18 at 17:14; Status DC Sodium Chloride 1,000 ml @ 150 mls/hr Q6H40M IV Last administered on 09/02/18at 13:10; Start 09/01/18 at 17:10; Stop 09/02/18 at 17:09; Status DC Ketorolac Tromethamine (Toradol 30mg Vial) 30 mg 1X ONCE IV Last administered on 09/01/18at 17:33; Start 09/01/18 at 17:15; Stop 09/01/18 at 17:16; Status DC Acetaminophen/ Hydrocodone Bitart (Lortab 5/325) 1 tab PRN Q4HRS PRN PO PAIN Last administered on 09/02/18at 16:17; Start 09/01/18 at 18:00 Morphine Sulfate (Morphine Sulfate) 2 mg PRN Q2HR PRN IV PAIN Last administered on 09/02/18at 06:57; Start 09/02/18 at 01:45 Insulin Human Lispro (HumaLOG) 16 units TIDWMEALS SQ Last administered on 09/02/18at 09:21; Start 09/02/18 at 08:00; Stop 09/02/18 at 12:17; Status DC Insulin Glargine (Lantus) 15 units QHS SQ Last administered on 09/02/18at 21:19; Start 09/02/18 at 21:00 Insulin Human Lispro (HumaLOG) 18 units TIDWMEALS SQ Last administered on 09/02/18at 17:22; Start 09/02/18 at 17:00 Insulin Human Lispro (HumaLOG) 18 units 1X ONCE SQ Last administered on 09/02/18at 12:30; Start 09/02/18 at 12:30; Stop 09/02/18 at 12:36; Status DC Acetaminophen (Tylenol) 500 mg PRN Q6HRS PRN PO MILD PAIN / TEMP Last administered on 09/02/18at 21:12; Start 09/02/18 at 21:00 Ondansetron HCl (Zofran) 4 mg PRN Q6HRS PRN IV NAUSEA/VOMITING Last administered on 09/02/18at 21:12; Start 09/02/18 at 21:00 Active Scripts Active Insulin Pen Needle (Pen Needle, Diabetic) 1 Each Dis.needle Each MC QID 4 times daily with meals and nightly for insulin pens Levemir Flextouch (Insulin Detemir) 100 Unit/1 Ml Insuln.pen 15 Units SQ QHS 30 Days Reported Novolog Flexpen (Insulin Aspart) 100 Unit/1 Ml Insuln.pen 18 Unit SQ TIDWMEALS Vitals/I & O Vital Sign - Last 24 Hours 09/02/18 09/02/18 09/02/18 09/02/18 11:00 15:00 16:17 19:20 Temp 98.2 98.6 97.8 98.2 98.6 97.8 Pulse 94 90 98 Resp 18 18 20 B/P (MAP) 123/80 (94) 133/98 (110) 120/85 (97) Pulse Ox 97 97 97 O2 Delivery Room Air Room Air Room Air Room Air 09/02/18 09/02/18 09/03/18 09/03/18 20:15 23:10 03:31 07:00 Temp 97.9 98.0 98.3 97.9 98.0 98.3 Pulse 87 103 83 Resp 20 20 21 B/P (MAP) 135/87 (103) 122/89 (100) 135/92 (106) Pulse Ox 98 98 99 O2 Delivery Room Air Room Air Room Air Room Air Intake and Output 09/02/18 09/02/18 09/03/18 14:59 22:59 06:59 Intake Total 600 ml Output Total 900 ml 750 ml Balance -300 ml -750 ml CRISTIANA WASHINGTON MD Sep 03, 2018 08:57
[2018-09-03] MEDS: INSULIN LISPRO 300 UNITS/3 ML INSULN.PEN. SQ SCH ×2 (08:59→12:30)
[2018-09-03 11:00] VITALS: BP 129/95
--- NOTE | 2018-09-03 11:18 | PDOC ---
SUBJECTIVE ROS States feeling much better, only Mild headache this morning OBJECTIVE Vital Signs Vital Signs Date Time Temp Pulse Resp B/P (MAP) Pulse Ox O2 Delivery O2 Flow Rate FiO2 09/03/18 08:00 Room Air 09/03/18 07:00 98.3 83 21 135/92 (106) 99 98.3 I & 0 Intake and Output 09/03/18 07:00 Intake Total 600 ml Output Total 1650 ml Balance -1050 ml Intake Oral 600 ml Output Urine Total 1650 ml # Voids 4 PHYSICAL EXAM Physical Exam GEN.: No apparent distress. Alert and oriented. HEENT: Head is normocephalic, atraumatic NECK: Supple, no JVD LUNGS: Clear to auscultation without rhonchi or wheezing HEART: RRR, S1, S2 present. ABDOMEN: Soft, nontender. EXTREMITIES: No edema. NEUROLOGIC: Grossly normal PSYCHIATRIC: Normal affect, normal mood. Stable SKIN: No rash No Jones DIAGNOSIS/ASSESSMENT Assessment & Plan [facility] - Pre-renal Reanl function Improved, Normal Baseline unknown except records in [facility] UA unremarkable E-Lytes and acid base stable, Monitor CKD stage 3 - Baseline 1.4 to 1.5 since 2013- intermittent fluctuating per [facility] records [facility] in may 2018- sec to DKA , CT scan No Hydronephrosis DM- Hyperglycemia Dehydration- Mild sec to Hyperglycemia Generalized weakness and body ache- per Primary COMMENT/RELEVANT DATA Meds Current Medications Medications (Trade) Dose Ordered Sig/Lilliana Start Time Stop Time Status Last Admin Dose Admin Acetaminophen (Tylenol) 500 mg PRN Q6HRS PRN 09/02/18 21:00 09/03/18 08:53 500 MG Acetaminophen/ Hydrocodone Bitart (Lortab 5/325) 1 tab PRN Q4HRS PRN 09/01/18 18:00 09/02/18 16:17 1 TAB Ceftriaxone Sodium (Rocephin) 1 gm 1X ONCE 09/01/18 17:15 09/01/18 17:16 DC 09/01/18 17:33 1 GM Fentanyl Citrate (Fentanyl 2ml Vial) 50 mcg 1X ONCE 09/01/18 15:30 09/01/18 15:31 DC 09/01/18 15:19 50 MCG Insulin Glargine (Lantus) 15 units QHS 09/02/18 21:00 6/17/19 21:19 15 UNITS Insulin Human Lispro (HumaLOG) 18 units 1X ONCE 09/02/18 12:30 09/02/18 12:36 DC 09/02/18 12:30 18 UNITS Ketorolac Tromethamine (Toradol 30mg Vial) 30 mg 1X ONCE 09/01/18 17:15 09/01/18 17:16 DC 09/01/18 17:33 30 MG Morphine Sulfate (Morphine Sulfate) 2 mg PRN Q2HR PRN 09/02/18 01:45 09/02/18 06:57 2 MG Ondansetron HCl (Zofran) 4 mg PRN Q6HRS PRN 09/02/18 21:00 09/02/18 21:12 4 MG Sodium Chloride 1,000 ml @ 150 mls/hr Q6H40M 09/01/18 17:10 09/02/18 17:09 DC 09/02/18 13:10 150 MLS/HR Lab Laboratory Tests Test 09/02/18 11:29 09/02/18 16:48 09/02/18 21:06 09/03/18 06:45 Glucose (Fingerstick) 316 mg/dL (70-99) 114 mg/dL (70-99) 145 mg/dL (70-99) Sodium Level 138 mmol/L (136-145) Potassium Level 3.5 mmol/L (3.5-5.1) Chloride Level 104 mmol/L (98-107) Carbon Dioxide Level 21 mmol/L (21-32) Anion Gap 13 (6-14) Blood Urea Nitrogen 10 mg/dL (8-26) Creatinine 0.8 mg/dL (0.7-1.3) Estimated GFR (Cockcroft-Gault) 125.9 Glucose Level 211 mg/dL (70-99) Calcium Level 8.6 mg/dL (8.5-10.1) Test 09/03/18 07:19 09/03/18 10:28 Glucose (Fingerstick) 262 mg/dL (70-99) 274 mg/dL (70-99) Results All relevant outside records, renal labs, imaging studies, telemetry/EKG's were reviewed. BARBARA MONTANEZ MD Sep 03, 2018 11:18
[2018-09-03] MEDS: HYDROcodone/APAP 5/325MG 1 TAB TABLET PO PRN (12:31)
--- NOTE | 2018-09-03 14:01 | PDOC3 ---
Discharge Summary Date of Admission: Sep 01, 2018 Date of Discharge: Sep 03, 2018 Follow-Up: 3-5 days Admitting Diagnosis comment: discharge dx Assessment/Plan Syncopal episode hyperglycemia // uncontrolled diabetes closed head injury, hypokalemia, chronic renal insufficiency acute Dehydration- Mild sec to Hyperglycemia resolved Plan Accu-Cheks 4 times a day Sliding-scale insulin Consult nephrology Cardiac monitoring Home meds prn narcotics DVT prophylaxis Full code avoid extreme heat, works in a [employer] 32 min pt exam, chart review d/c planning, > 50% of time spent with exam, chart review, pt care coordination Vitals Vitals Vital Signs Date Time Temp Pulse Resp B/P (MAP) Pulse Ox O2 Delivery O2 Flow Rate FiO2 09/03/18 07:00 98.3 83 21 135/92 (106) 99 Room Air 98.3 Physical Exam Physical Exam HEENT: Head is normocephalic, atraumatic NECK: Supple, no JVD LUNGS: Clear to auscultation without rhonchi or wheezing HEART: RRR, S1, S2 present. Peripheral pulses intact ABDOMEN: Soft, nontender. Positive bowel sounds no organomegaly EXTREMITIES: Without any cyanosis, clubbing, or edema. Pedal pulses intact NEUROLOGIC: Normal speech, normal tone. A&O x 3 PSYCHIATRIC: Normal affect, normal mood. Stable SKIN: No ulcerations or rashes VASCULAR: Good capillary refill General: Alert, Oriented X3, Cooperative, No acute distress Heart: Regular rate, Normal S1, Normal S2 Lungs: Clear Abdomen: Normal bowel sounds, Soft Extremities: No clubbing, No cyanosis, No edema Skin: No significant lesion FINAL DIAGNOSIS Problems Medical Problems: (1) Generalized weakness Status: Acute (2) Nausea and vomiting Status: Acute (3) Paresthesia Status: Acute (4) Renal insufficiency Status: Acute (5) Sepsis Status: Acute (6) Syncope Status: Acute Brief Hospital Course Mr. Hawkins is a 48 old [sex] who presented with [ syncope due to acute dehydration/ uncontrolled diabetes] CONDITION AT DISCHARGE: Improved Discharge Medications Current Medications Sodium Chloride 1,000 ml @ 1,000 mls/hr Q1H IV Last administered on 09/01/18at 14:58; Start 09/01/18 at 15:00; Stop 09/01/18 at 15:59; Status DC Ondansetron HCl (Zofran) 4 mg 1X ONCE IV Last administered on 09/01/18at 15:00; Start 09/01/18 at 15:15; Stop 09/01/18 at 15:16; Status DC Fentanyl Citrate (Fentanyl 2ml Vial) 50 mcg 1X ONCE IV Last administered on 09/01/18at 15:02; Start 09/01/18 at 15:15; Stop 09/01/18 at 15:16; Status DC Fentanyl Citrate (Fentanyl 2ml Vial) 50 mcg 1X ONCE IV Last administered on 09/01/18at 15:19; Start 09/01/18 at 15:30; Stop 09/01/18 at 15:31; Status DC Sodium Chloride 1,000 ml @ 1,000 mls/hr 1X ONCE IV Last administered on 09/01/18at 17:33; Start 09/01/18 at 16:30; Stop 09/01/18 at 17:29; Status DC Sodium Chloride 1,000 ml @ 1,000 mls/hr 1X ONCE IV Last administered on 09/01/18at 23:31; Start 09/01/18 at 17:15; Stop 09/01/18 at 18:14; Status DC Ceftriaxone Sodium (Rocephin) 1 gm 1X ONCE IVP Last administered on 09/01/18at 17:33; Start 09/01/18 at 17:15; Stop 09/01/18 at 17:16; Status DC Ondansetron HCl (Zofran) 4 mg PRN Q8HRS PRN IV NAUSEA/VOMITING; Start 09/01/18 at 17:15; Stop 09/02/18 at 17:14; Status DC Sodium Chloride 1,000 ml @ 150 mls/hr Q6H40M IV Last administered on 09/02/18at 13:10; Start 09/01/18 at 17:10; Stop 09/02/18 at 17:09; Status DC Ketorolac Tromethamine (Toradol 30mg Vial) 30 mg 1X ONCE IV Last administered on 09/01/18at 17:33; Start 09/01/18 at 17:15; Stop 09/01/18 at 17:16; Status DC Acetaminophen/ Hydrocodone Bitart (Lortab 5/325) 1 tab PRN Q4HRS PRN PO PAIN Last administered on 09/03/18 12:31; Start 09/01/18 at 18:00 Morphine Sulfate (Morphine Sulfate) 2 mg PRN Q2HR PRN IV PAIN Last administered on 09/02/18at 06:57; Start 09/02/18 at 01:45 Insulin Human Lispro (HumaLOG) 16 units TIDWMEALS SQ Last administered on 09/02/18 09:21; Start 09/02/18 at 08:00; Stop 09/02/18 at 12:17; Status DC Insulin Glargine (Lantus) 15 units QHS SQ Last administered on 09/02/18 21:19; Start 09/02/18 at 21:00 Insulin Human Lispro (HumaLOG) 18 units TIDWMEALS SQ Last administered on 09/03/18 12:30; Start 09/02/18 at 17:00 Insulin Human Lispro (HumaLOG) 18 units 1X ONCE SQ Last administered on 09/02/18 12:30; Start 09/02/18 at 12:30; Stop 09/02/18 at 12:36; Status DC Acetaminophen (Tylenol) 500 mg PRN Q6HRS PRN PO MILD PAIN / TEMP Last administered on 09/03/18 08:53; Start 09/02/18 at 21:00 Ondansetron HCl (Zofran) 4 mg PRN Q6HRS PRN IV NAUSEA/VOMITING Last administered on 09/02/18 21:12; Start 09/02/18 at 21:00 Active Scripts Active Insulin Pen Needle (Pen Needle, Diabetic) 1 Each Dis.needle Each QID 4 times daily with meals and nightly for insulin pens Levemir Flextouch (Insulin Detemir) 100 Unit/1 Ml Insuln.pen 15 Units SQ QHS 30 Days Reported Novolog Flexpen (Insulin Aspart) 100 Unit/1 Ml Insuln.pen 18 Unit SQ TIDWMEALS Vital Signs Vital Signs Date Time Temp Pulse Resp B/P (MAP) Pulse Ox O2 Delivery O2 Flow Rate FiO2 09/03/18 12:31 Room Air 09/03/18 11:00 98.4 99 18 129/95 (106) 99 98.4 Labs Laboratory Tests Test 09/01/18 14:39 09/01/18 14:42 09/01/18 14:50 09/01/18 15:20 Glucose (Fingerstick) 156 mg/dL (70-99) 163 mg/dL (70-99) White Blood Count 8.1 x10^3/uL (4.0-11.0) Red Blood Count 4.72 x10^6/uL (4.30-5.70) Hemoglobin 16.1 g/dL (13.0-17.5) Hematocrit 46.2 % (39.0-53.0) Mean Corpuscular Volume 98 fL (79-100) Mean Corpuscular Hemoglobin 34 pg (25-35) Mean Corpuscular Hemoglobin Concent 35 g/dL (31-37) Red Cell Distribution Width 12.2 % (11.5-14.5) Platelet Count 402 x10^3/uL (140-400) Neutrophils (%) (Auto) 59 % (31-73) Lymphocytes (%) (Auto) 27 % (24-48) Monocytes (%) (Auto) 11 % (0-9) Eosinophils (%) (Auto) 2 % (0-3) Basophils (%) (Auto) 1 % (0-3) Neutrophils # (Auto) 4.8 x10^3uL (1.8-7.7) Lymphocytes # (Auto) 2.2 x10^3/uL (1.0-4.8) Monocytes # (Auto) 0.9 x10^3/uL (0.0-1.1) Eosinophils # (Auto) 0.2 x10^3/uL (0.0-0.7) Basophils # (Auto) 0.1 x10^3/uL (0.0-0.2) Sodium Level 139 mmol/L (136-145) Potassium Level 3.4 mmol/L (3.5-5.1) Chloride Level 100 mmol/L (98-107) Carbon Dioxide Level 23 mmol/L (21-32) Anion Gap 16 (6-14) Blood Urea Nitrogen 22 mg/dL (8-26) Creatinine 1.4 mg/dL (0.7-1.3) Estimated GFR (Cockcroft-Gault) 66.0 BUN/Creatinine Ratio 16 (6-20) Glucose Level 162 mg/dL (70-99) Lactic Acid Level 3.0 mmol/L (0.4-2.0) Calcium Level 10.1 mg/dL (8.5-10.1) Total Bilirubin 0.8 mg/dL (0.2-1.0) Aspartate Amino Transf (AST/SGOT) 13 U/L (15-37) Alanine Aminotransferase (ALT/SGPT) 24 U/L (16-63) Alkaline Phosphatase 113 U/L (46-116) Creatine Kinase 197 U/L (39-308) Troponin I Quantitative < 0.017 ng/mL (0.000-0.055) Total Protein 8.6 g/dL (6.4-8.2) Albumin 4.6 g/dL (3.4-5.0) Albumin/Globulin Ratio 1.2 (1.0-1.7) Lipase 94 U/L (73-393) Acetone Level Neg (NEG) O2 Saturation 97 % (92-99) Arterial Blood pH 7.46 (7.35-7.45) Arterial Blood pCO2 at Patient Temp 29 mmHg (35-46) Arterial Blood pO2 at Patient Temp 88 mmHg (75-108) Arterial Blood HCO3 20 mmol/L (21-28) Arterial Blood Base Excess -2 mmol/L (-3-3) FiO2 21 Test 09/01/18 17:19 09/01/18 17:25 09/01/18 19:00 09/02/18 07:03 Glucose (Fingerstick) 87 mg/dL (70-99) 426 mg/dL (70-99) Urine Collection Type Unknown Urine Color Yellow Urine Clarity Clear Urine pH 5.5 Urine Specific [place] >=1.030 Urine Protein 100 mg/dL (NEG-TRACE) Urine Glucose (UA) >=1000 mg/dL (NEG) Urine Ketones (Stick) 40 mg/dL (NEG) Urine Blood Negative (NEG) Urine Nitrite Negative (NEG) Urine Bilirubin Moderate (NEG) Urine Urobilinogen Dipstick 1.0 mg/dL (0.2 mg/dL) Urine Leukocyte Esterase Negative (NEG) Urine RBC 0 /HPF (0-2) Urine WBC 0 /HPF (0-4) Urine Squamous Epithelial Cells Occ /LPF Urine Amorphous Sediment Present /HPF Urine Bacteria 0 /HPF (0-FEW) Urine Hyaline Casts Moderate /HPF Urine Mucus Marked /LPF Urine Opiates Screen Pos (NEG) Urine Methadone Screen Neg (NEG) Urine Barbiturates Neg (NEG) Urine Phencyclidine Screen Neg (NEG) Urine Amphetamine/Methamphetamine Neg (NEG) Urine Benzodiazepines Screen Neg (NEG) Urine Cocaine Screen Neg (NEG) Urine Cannabinoids Screen Neg (NEG) Urine Ethyl Alcohol Neg (NEG) Lactic Acid Level 1.2 mmol/L (0.4-2.0) Test 09/02/18 11:29 09/02/18 16:48 09/02/18 21:06 09/03/18 06:45 Glucose (Fingerstick) 316 mg/dL (70-99) 114 mg/dL (70-99) 145 mg/dL (70-99) Sodium Level 138 mmol/L (136-145) Potassium Level 3.5 mmol/L (3.5-5.1) Chloride Level 104 mmol/L (98-107) Carbon Dioxide Level 21 mmol/L (21-32) Anion Gap 13 (6-14) Blood Urea Nitrogen 10 mg/dL (8-26) Creatinine 0.8 mg/dL (0.7-1.3) Estimated GFR (Cockcroft-Gault) 125.9 Glucose Level 211 mg/dL (70-99) Calcium Level 8.6 mg/dL (8.5-10.1) Test 09/03/18 07:19 09/03/18 10:28 Glucose (Fingerstick) 262 mg/dL (70-99) 274 mg/dL (70-99) Laboratory Tests Test 09/02/18 16:48 09/02/18 21:06 09/03/18 06:45 09/03/18 07:19 Glucose (Fingerstick) 114 mg/dL (70-99) 145 mg/dL (70-99) 262 mg/dL (70-99) Sodium Level 138 mmol/L (136-145) Potassium Level 3.5 mmol/L (3.5-5.1) Chloride Level 104 mmol/L (98-107) Carbon Dioxide Level 21 mmol/L (21-32) Anion Gap 13 (6-14) Blood Urea Nitrogen 10 mg/dL (8-26) Creatinine 0.8 mg/dL (0.7-1.3) Estimated GFR (Cockcroft-Gault) 125.9 Glucose Level 211 mg/dL (70-99) Calcium Level 8.6 mg/dL (8.5-10.1) Test 09/03/18 10:28 Glucose (Fingerstick) 274 mg/dL (70-99) Allergies Allergies Coded Allergies Type Severity Reaction Last Updated Verified No Known Drug Allergies 01/22/14 No Disposition/Orders: D/C to Home Patient Instructions d/c planning 33 min CRISTIANA WASHINGTON MD Sep 03, 2018 14:01
[2018-09-03] MEDS ORDERED: ACET500T68 PO (14:02)
--- NOTE | 2018-09-03 14:03 | DISCH ---
DISCHARGE INSTRUCTIONS Condition on Discharge Condition on Discharge: Stable Activity After Discharge Activity Instructions for Disc: Activity as tolerated Lifting Instructions after Dis: No heavy lifting, No pulling or pushing Exercise Instruction after Dis: Progress as tolerated Driving Instructions after Dis: Do not drive today Weight Bearing Status after Di: As tolerated Diet after Discharge Diet after Discharge: Diabetic No Calorie Level Swallowing Supervision: None needed Checks after Discharge Checks after discharge: Check blood sugar, ac/hs Contacting the DR. after DC Call your doctor for: If your condition worsens Treatment/Equipment after DC Adaptive Equipment Issued: None Warfarin Follow-Up Warfarin Follow UP: avoid extreme heat CRISTIANA WASHINGTON MD Sep 03, 2018 14:03
[2018-09-03 15:00] VITALS: BP 126/99
--- NOTE | 2018-09-03 17:09 | NUR ---
Discharge Note: MELINA MACIAS W[facility] Discharge instructions and discharge home medications reviewed with Patient and a copy given. All questions have been answered and understanding verbalized. The following instructions and handouts were given: patient visit report, medication information, and disease process education Discontinued lines and drains: peripheral IV, tip intact. Patient discharged to home with self care via private vehicle. Patient left unit awake, in stable condition, with all personal belongings.
== END 2018-09-03 16:30 | disposition home or self-care (01) | DRG 639 ==
LOC: ER 14:31 → 6 SOUTH 16:25
PROVIDERS: ADMIT Internal Medicine; ATTEND Internal Medicine
DX: E11.10 Type 2 diabetes mellitus with ketoacidosis without coma (principal); E11.22 Type 2 diabetes mellitus with diabetic chronic kidney disease; E87.6 Hypokalemia; E86.0 Dehydration; W18.39XA Other fall on same level, initial encounter; I12.9 Hypertensive chronic kidney disease with stage 1 through stage 4 chronic kidney disease, or unspecified chronic kidney disease; N18.9 Chronic kidney disease, unspecified; S09.90XA Unspecified injury of head, initial encounter; Y93.89 Activity, other specified; Y92.89 Other specified places as the place of occurrence of the external cause; Y99.8 Other external cause status; Z82.49 Family history of ischemic heart disease and other diseases of the circulatory system; Z83.3 Family history of diabetes mellitus
CPT/HCPCS: 36415; 36600; 70450; 70486; 72125; 80048; 80053; 80307; 81001; 82010; 82550; 82805; 82962; 83605; 83690; 84484; 85025; 87040; 93005; 96374; 96375; 99292; J0696; J1815; J1885; J2270; J2405; J3010; J7030; 99291-25

== ENCOUNTER 2019-02-10 08:37 | Inpatient (IN) | payer OTHER ==
[~2019-02-10] VITALS: Ht 172.7 cm; Wt 80.7 kg
[2019-02-10] VITALS (15 sets, daily range): BP systolic 100–139; BP diastolic 61–87
[~2019-02-10 08:37] MED LIST changes: +ACET500T68 PO
[2019-02-10] MEDS ORDERED: INSULIN REGULAR 100 UNIT/ML 3ML VIAL. IV ONE (09:00)
[2019-02-10] MEDS ORDERED: IV NORMAL SALINE 1000ML BAG 1,000 ML IV SCH ×2 (09:00→10:48)
[2019-02-10] MEDS ORDERED: INSULIN,REGULAR 150 UNIT DRIP 150 ML IV ONE (09:00)
[2019-02-10] MEDS ORDERED: IV NORMAL SALINE 1000ML BAG 1,000 ML IV ONE (09:00)
--- NOTE | 2019-02-10 09:07 | PHYS DOC ---
Past Medical History Past Medical History: Diabetes-Type II, Hypertension, Renal Disease Past Surgical History: Other Additional Past Surgical Histo: RIGHT KNEE, LEFT SHOULDER Alcohol Use: Rarely Drug Use: None Adult General Chief Complaint Chief Complaint: HYPERGLYCEMIA HPI HPI Patient is a 48-year-old male, with a history of insulin-dependent diabetes, who presents to the emergency department for evaluation. He states that he has been having cold symptoms for the past few days, and this morning developed some vomiting and shortness of breath. His blood sugar, despite him taking his insulin as prescribed, has been over 400 at home. He also reports some generalized abdominal pain. He has not had any diarrhea, or bloody emesis. He denies any chest pain. She has not had any dizziness or lightheadedness. There are no alleviating or exacerbating factors to the patient's symptoms. Review of Systems Review of Systems Constitutional: Denies fever or chills [] Eyes: Denies change in visual acuity, redness, or eye pain [] HENT: Denies nasal congestion or sore throat [] Respiratory: Reports nonproductive cough and shortness of breath today[] Cardiovascular: The patient denies any chest pain, palpitations, or orthopnea [] GI: Denies bloody emesis, bloody stools or diarrhea [] : Denies dysuria or hematuria [] Musculoskeletal: Denies back pain or joint pain [] Integument: Denies rash or skin lesions [] Neurologic: Denies headache, focal weakness or sensory changes [] Endocrine: Denies polyuria or polydipsia [] All other systems were reviewed and found to be within normal limits, except as documented in this note. Current Medications Current Medications Current Medications Medications (Trade) Dose Ordered Sig/Lilliana Start Time Stop Time Status Last Admin Dose Admin Info (CONTRAST GIVEN -- Rx MONITORING) 1 each PRN DAILY PRN 02/10/19 10:00 02/12/19 09:59 Insulin Human Regular (HumuLIN R VIAL) 10 unit 1X ONCE 02/10/19 09:00 02/10/19 09:06 DC 02/10/19 09:40 10 UNIT Insulin Human Regular 150 unit/ Sodium Chloride 151.5 ml @ 0 mls/hr CONT PRN 02/10/19 10:15 Iohexol (Omnipaque 300 Mg/ml) 60 ml 1X ONCE 02/10/19 10:00 02/10/19 10:01 DC 02/10/19 10:00 60 ML Sodium Chloride 1,000 ml @ 1,000 mls/hr Q1H 02/10/19 09:00 02/10/19 09:59 DC 02/10/19 10:10 1,000 MLS/HR Allergies Allergies Allergies Coded Allergies Type Severity Reaction Last Updated Verified No Known Drug Allergies 01/22/14 No Physical Exam Physical Exam PHYSICAL EXAM: CONSTITUTIONAL: Well developed, well nourished HEAD: normocephalic, atraumatic EENT: PERRL, EOMI. Conjunctivae normal color, sclerae non-icteric; moist mucous membranes. NECK: Supple, non-tender; no meningismus. LUNGS: Lungs CTA, breathing is mildly tachypneic, normal air movement. HEART: Regular rate and rhythm, no murmur CHEST: No deformity; non-tender ABDOMEN: The abdomen is soft, there is tenderness to palpation of the right side of the abdomen diffusely, somewhat more prominent in the right mid and upper abdomen, although the right lower quadrant is tender as well, without rebound or guarding. The remainder of the abdomen is soft and non-tender, no masses or bruits. EXTREM: Normal ROM; no deformity, no calf tenderness. Normal pulses palpable in all extremities. There is no pedal edema. SKIN: No rash; no diaphoresis NEURO: Alert; normal speech and cognition; CN's grossly intact; strength grossly intact without focal deficit. BACK: No CVA TTP. Current Patient Data Vital Signs Vital Signs Date Time Temp Pulse Resp B/P (MAP) Pulse Ox O2 Delivery O2 Flow Rate FiO2 02/10/19 08:51 98.0 89 16 153/81 (105) 97 Room Air 98.0 Lab Values Laboratory Tests Test 02/10/19 09:00 02/10/19 09:05 02/10/19 10:31 Glucose (Fingerstick) 488 mg/dL (70-99) H White Blood Count 9.3 x10^3/uL (4.0-11.0) Red Blood Count 4.77 x10^6/uL (4.30-5.70) Hemoglobin 15.8 g/dL (13.0-17.5) Hematocrit 48.2 % (39.0-53.0) Mean Corpuscular Volume 101 fL (79-100) H Mean Corpuscular Hemoglobin 33 pg (25-35) Mean Corpuscular Hemoglobin Concent 33 g/dL (31-37) Red Cell Distribution Width 12.4 % (11.5-14.5) Platelet Count 399 x10^3/uL (140-400) Neutrophils (%) (Auto) 83 % (31-73) H Lymphocytes (%) (Auto) 11 % (24-48) L Monocytes (%) (Auto) 5 % (0-9) Eosinophils (%) (Auto) 1 % (0-3) Basophils (%) (Auto) 1 % (0-3) Neutrophils # (Auto) 7.7 x10^3/uL (1.8-7.7) Lymphocytes # (Auto) 1.1 x10^3/uL (1.0-4.8) Monocytes # (Auto) 0.5 x10^3/uL (0.0-1.1) Eosinophils # (Auto) 0.0 x10^3/uL (0.0-0.7) Basophils # (Auto) 0.0 x10^3/uL (0.0-0.2) Sodium Level 129 mmol/L (136-145) L Potassium Level 4.9 mmol/L (3.5-5.1) Chloride Level 92 mmol/L (98-107) L Carbon Dioxide Level 10 mmol/L (21-32) *L Anion Gap 27 (6-14) H Blood Urea Nitrogen 23 mg/dL (8-26) Creatinine 1.7 mg/dL (0.7-1.3) H Estimated GFR (Cockcroft-Gault) 52.8 BUN/Creatinine Ratio 14 (6-20) Glucose Level 489 mg/dL (70-99) H Calcium Level 9.1 mg/dL (8.5-10.1) Total Bilirubin 0.8 mg/dL (0.2-1.0) Aspartate Amino Transferase (AST) 11 U/L (15-37) L Alanine Aminotransferase (ALT) 18 U/L (16-63) Alkaline Phosphatase 119 U/L (46-116) H Troponin I Quantitative < 0.017 ng/mL (0.000-0.055) Total Protein 8.8 g/dL (6.4-8.2) H Albumin 4.5 g/dL (3.4-5.0) Albumin/Globulin Ratio 1.0 (1.0-1.7) Lipase 114 U/L (73-393) Acetone Level Sm pos (NEG) O2 Saturation 97 % (92-99) Arterial Blood pH 7.19 (7.35-7.45) *L Arterial Blood pCO2 at Patient Temp 17 mmHg (35-46) *L Arterial Blood pO2 at Patient Temp 128 mmHg (75-108) H Arterial Blood HCO3 6 mmol/L (21-28) L Arterial Blood Base Excess -20 mmol/L (-3-3) L FiO2 21 Laboratory Tests 02/10/19 09:05 Laboratory Tests 02/10/19 09:05 EKG EKG [] Normal sinus rhythm at a rate of 94 beats for minute, normal axis, normal intervals, there are no acute ischemic ST/T changes. Radiology/Procedures Radiology/Procedures PROCEDURE: CT ABD PELV W/ IV CONTRST ONLY PQRS Compliance statement: One or more of the following individualized dose reduction techniques were utilized for this examination: 1. Automated exposure control. 2. Adjustment of the mA and/or kV according to patient size. 3. Use of iterative reconstruction technique. Indication: Abdominal pain and nausea and vomiting. TECHNIQUE: CT abdomen and pelvis with IV contrast with multiplanar reformats. COMPARISON: None FINDINGS: Heart is normal in size. No pericardial or pleural effusion. Clear lung bases. Liver, spleen, gallbladder, pancreas, adrenals and kidneys are within normal limits. No enlarged retroperitoneal or pelvic adenopathy. The prostate and seminal vesicles show no large mass. No free pelvic fluid or ascites. No bowel obstruction. Normal appendix. Urinary bladder demonstrates no radiopaque stone and is distended. No pneumoperitoneum. No suspicious bony lesion. IMPRESSION: No acute findings.[] PROCEDURE: PORTABLE CHEST 1V EXAM: AP View of the chest DATE: 02/10/2019 9:00 AM INDICATION: Cough COMPARISON: 06/03/2018, 01/14/2017 FINDINGS: The heart is not enlarged. Mediastinal and hilar contours are normal. No focal parenchymal airspace opacity. No pleural effusion or pneumothorax. Old right clavicle fracture. IMPRESSION: 1. No radiographic evidence for acute cardiopulmonary process. Course & Med Decision Making Course & Med Decision Making Pertinent Labs and Imaging studies reviewed. (See chart for details) [] 10:20 AM: The patient's condition remains stable. I paged the hospitalist, who will admit the patient to the hospital for further evaluation and treatment. CRITICAL CARE TIME: 45 Minutes, excluding any procedures and care of other patients. Dragon Disclaimer Dragon Disclaimer This electronic medical record was generated, in whole or in part, using a voice recognition dictation system. Departure Departure Impression: Primary Impression: DKA (diabetic ketoacidoses) Disposition: ADMITTED INPATIENT Admitting Physician: ARELY Condition: STABLE Referrals: UNKNOWN PCP NAME (PCP) CHERRI WEIR MD Feb 10, 2019 09:07
[2019-02-10 09:16] LABS: BASO % 1 % (0-3); EOS % 1 % (0-3); HEMATOCRIT 48.2 % (39.0-53.0); HEMOGLOBIN 15.8 g/dL (13.0-17.5); LYMPH # 1.1 x10^3/uL (1.0-4.8); LYMPH % 11 % (24-48); MEAN CORPUSCULAR HEMOGLOBIN 33 pg (25-35); MEAN CORPUSCULAR HGB CONC 33 g/dL (31-37); MEAN CORPUSCULAR VOLUME 101 fL (79-100); MONO # 0.5 x10^3/uL (0.0-1.1); MONO % 5 % (0-9); NEUT # 7.7 x10^3/uL (1.8-7.7); NEUT % 83 % (31-73); PLATELET COUNT 399 x10^3/uL (140-400); RED BLOOD COUNT 4.77 x10^6/uL (4.30-5.70); RED CELL DISTRIBUTION WIDTH 12.4 % (11.5-14.5); WHITE BLOOD COUNT 9.3 x10^3/uL (4.0-11.0)
--- NOTE | 2019-02-10 09:23 | RAD ---
EXAM: AP View of the chest DATE: 02/10/2019 9:00 AM INDICATION: Cough COMPARISON: 06/03/2018, 01/14/2017 FINDINGS: The heart is not enlarged. Mediastinal and hilar contours are normal. No focal parenchymal airspace opacity. No pleural effusion or pneumothorax. Old right clavicle fracture. IMPRESSION: 1. No radiographic evidence for acute cardiopulmonary process. Electronically signed by: Kevin Neil MD (02/10/2019 9:20 AM) [id number]
[2019-02-10 09:29] LABS: ALBUMIN 4.5 g/dL (3.4-5.0); CALCIUM 9.1 mg/dL (8.5-10.1); CREATININE 1.7 mg/dL (0.7-1.3); GFR 52.8; POTASSIUM 4.9 mmol/L (3.5-5.1); TOTAL BILIRUBIN 0.8 mg/dL (0.2-1.0); TOTAL PROTEIN 8.8 g/dL (6.4-8.2)
[2019-02-10] MEDS ORDERED: CONTRAST GIVEN. MC PRN (10:00)
[2019-02-10] MEDS ORDERED: INSULIN REGULAR VIAL 150 UNIT in 0.9 % SODIUM CHLORIDE 150ML 150 ML IV PRN ×2 (10:00→10:15)
[2019-02-10] MEDS ORDERED: IOHEXOL 300 MG/ML 100ML VIAL. IV ONE (10:00)
--- NOTE | 2019-02-10 10:15 | RAD ---
PQRS Compliance statement: One or more of the following individualized dose reduction techniques were utilized for this examination: 1. Automated exposure control. 2. Adjustment of the mA and/or kV according to patient size. 3. Use of iterative reconstruction technique. Indication: Abdominal pain and nausea and vomiting. TECHNIQUE: CT abdomen and pelvis with IV contrast with multiplanar reformats. COMPARISON: None FINDINGS: Heart is normal in size. No pericardial or pleural effusion. Clear lung bases. Liver, spleen, gallbladder, pancreas, adrenals and kidneys are within normal limits. No enlarged retroperitoneal or pelvic adenopathy. The prostate and seminal vesicles show no large mass. No free pelvic fluid or ascites. No bowel obstruction. Normal appendix. Urinary bladder demonstrates no radiopaque stone and is distended. No pneumoperitoneum. No suspicious bony lesion. IMPRESSION: No acute findings. Electronically signed by: Magnus Noel DO (02/10/2019 10:12 AM) [id number]
--- NOTE | 2019-02-10 10:17 | EKG ---
[facility] [address] [place] [address] Test Date: 2019-02-10 Test Time: 09:38:55 Pat Name: MELINA MACIAS Department: Room: Gender: M Extension Agent: : [id number] Requested By: CHERRI WEIR Order Number: [id number] Reading MD: Sergio Obrien Measurements Intervals [place] Rate: 94 P: 55 FL: 150 QRS: 37 QRSD: 78 T: 82 QT: 332 QTc: 420 Interpretive Statements SINUS RHYTHM Electronically Signed On 02-10-2019 13:51:30 SECOND BALLER by Sergio Obrien
[2019-02-10 10:32] LABS: BASE EXCESS ABG -20 mmol/L (-3-3); HCO3 ABG 6 mmol/L (21-28); PO2 ABG 128 mmHg (75-108); SAT O2 ABG 97 % (92-99)
[2019-02-10 10:34] LABS: FIO2 ABG 21; PCO2 ABG 17 mmHg (35-46)
[2019-02-10 11:04] LABS: BILIRUBIN,URINE NEGATIVE (NEG); CLARITY,URINE CLEAR; COLOR,URINE YELLOW; NITRITE,URINE NEGATIVE (NEG); PROTEIN,URINE 30 mg/dL (NEG-TRACE); UROBILINOGEN,URINE 0.2 mg/dL (0.2 mg/dL)
[2019-02-10 11:12] LABS: BACTERIA,URINE 0 /HPF (0-FEW); HYALINE CASTS, URINE FEW /HPF; RBC,URINE OCC /HPF (0-2); SQUAMOUS EPITHELIAL CELL,UR OCC /LPF; WBC,URINE OCC /HPF (0-4)
[2019-02-10] MEDS ORDERED: IV DEXTROSE 5% - 0.9 % NACL 1,000 ML IV ONE ×2 (11:15→16:15)
[2019-02-10] MEDS ORDERED: INSU100I13 SQ (12:20)
[2019-02-10] MEDS ORDERED: INSULIN LISPRO 300 UNITS/3 ML VIAL. SQ ONE (12:45)
[2019-02-10] MEDS: INSULIN LISPRO 300 UNITS/3 ML VIAL. SQ SCH ×2 (13:00→17:00)
--- NOTE | 2019-02-10 13:17 | NUR ---
Patient arrived on unit at 1200 from ED. Report received from Shelly DALTON. Patient oriented to ICU routines, POC, remote. Patient's clothing and wallet in green belonging bag on nightstand. Cell phone with patient. Orders received from Dr. Kennedy via phone to stop Insulin gtt, give 10 U SQ insulin x1. D5 is currently running at 200 ml/hr. Awaiting labs. Will stop Insulin gtt one hour post Insulin SQ given (1345). Patient is a/o x4, pleasant. Will continue to monitor labs, VS. See assessments.
--- NOTE | 2019-02-10 13:43 | HP ---
ADMIT DATE: 02/10/2019 CHIEF COMPLAINT: Hyperglycemia. HISTORY OF PRESENT ILLNESS: The patient is a pleasant 51-year-old -[place] male who is an insulin-dependent diabetic who presented to the ER for an evaluation of his hyperglycemia. He has been short of breath. He has been weak. He states his symptoms have been coming on for several days, rated at 7/10. Glucoses were over 400 at home. Food was making it worse, describes his symptoms as irritating. While in the ER, he was noted to be in DKA with an anion gap metabolic acidosis. His gap is 27. I discussed the case with the ER physician. We are going to admit the patient and put him on insulin drip and fluids. He is being examined in the ER. PAST MEDICAL HISTORY: Noncompliance, diabetes, hypertension, chronic renal insufficiency, right knee surgery, left shoulder surgery. ALLERGIES: None. FAMILY HISTORY: Diabetes and hypertension. SOCIAL HISTORY: He does not drink, smoke or take drugs. MEDICATIONS: Reviewed, please refer to the [facility]. He is on 4 home medications including Tylenol and insulin including NovoLog and SoloSTAR. REVIEW OF SYSTEMS: GENERAL: He complains of weakness. SKIN: No bruising, hair changes or rashes. EYES: No blurred, double or loss of vision. NOSE AND THROAT: No history of nosebleeds, hoarseness or sore throat. HEART: No history of palpitations, chest pain or shortness of breath on exertion. LUNGS: Denies cough, hemoptysis, wheezing or shortness of breath. GASTROINTESTINAL: Denies changes in appetite, nausea, vomiting, diarrhea or constipation. GENITOURINARY: No history of frequency, urgency, hesitancy or nocturia. NEUROLOGIC: Denies history of numbness, tingling, tremor or weakness. PSYCHIATRIC: No history of panic, anxiety or depression. ENDOCRINE: He complains of hyperglycemia. EXTREMITIES: Denies muscle weakness, joint pain, pain on walking or stiffness. PHYSICAL EXAMINATION: VITALS: Within normal limits and are stable. GENERAL: No apparent distress. Alert and oriented. HEENT: Normal cephalic atraumatic, external auditory canals are patent EYES: Extraocular muscles are intact, pupils are equally round and reactive to light and accommodation MUSCULOSKELETAL: Well developed, well nourished, good range of motion ENDOCRINE: No thyromegaly was palpated LYMPHATICS: No cervical chain or axillary nodes were noted HEMATOPOIETIC: No bruising NECK: Supple, no JVD, no thyromegaly was noted. LUNGS: Clear to auscultation in all lung abdi without rhonchi or wheezing. HEART: RRR, S1, S2 present. Peripheral pulses intact, no obvious murmurs were noted. ABDOMEN: Soft, nontender. Positive bowel sounds no organomegaly, normal bowel sounds. EXTREMITIES: Without any cyanosis, clubbing, or edema. Pedal pulses intact, Homans sign is negative. NEUROLOGIC: Normal speech, normal tone. A & O x3, moves all extremities, no obvious focal deficits. PSYCHIATRIC: Normal affect, normal mood. Stable. SKIN: No ulcerations or rashes, good skin turgor, no jaundice. VASCULAR: Good capillary refill, neurovascular bundle appears to be intact. CO2 is low at 10. Anion gap is high at 27. Glucose is 488. ASSESSMENT AND PLAN: Diabetic ketoacidosis. The patient has been admitted to the ICU on an insulin drip, IV fluids. DKA protocol. DVT prophylaxis. Full code. Home meds. P.r.n. Zofran. Dietary consult. Pulse oximetry. Check an EKG. Cardiac monitoring. Check a blood gas. LONG-TERM PROGNOSIS: Guarded. TAD COVARRUBIAS DO DR: AMISH/parminder JOB#: [id number] / [id number]
[2019-02-10 13:50] LABS: HEMATOCRIT 46.3 % (39.0-53.0); HEMOGLOBIN 14.6 g/dL (13.0-17.5); RED BLOOD COUNT 4.42 x10^6/uL (4.30-5.70); RED CELL DISTRIBUTION WIDTH 12.4 % (11.5-14.5); WHITE BLOOD COUNT 7.7 x10^3/uL (4.0-11.0)
--- NOTE | 2019-02-10 14:19 | NUR ---
SS following for discharge planning. SS reviewed pt chart. Pt is from home and is currently on room air. SS will continue to follow for discharge planning.
[2019-02-10 14:21] LABS: ALBUMIN/GLOBULIN RATIO 1.2 (1.0-1.7); CALCIUM 8.6 mg/dL (8.5-10.1); CREATININE 1.3 mg/dL (0.7-1.3); GFR 71.9; MAGNESIUM 2.1 mg/dL (1.8-2.4); POTASSIUM 4.6 mmol/L (3.5-5.1); TOTAL BILIRUBIN 0.8 mg/dL (0.2-1.0); TOTAL PROTEIN 7.3 g/dL (6.4-8.2)
--- NOTE | 2019-02-10 15:52 | EKG ---
[facility] [address] [place] [address] Test Date: 2019-02-10 Test Time: 09:35:57 Pat Name: MELINA MACIAS Department: Room: 108 1 Gender: M [employer] Grade Teacher: : 1970 Requested By: TAD COVARRUBIAS Order Number: [id number] Reading MD: Neil Monique MD Measurements Intervals [place] Rate: 97 P: 42 [place]: 148 QRS: 26 QRSD: 74 T: 77 QT: 320 QTc: 410 Interpretive Statements SINUS RHYTHM Electronically Signed On 02-11-2019 14:59:25 [employer] by Neil Monique MD
[2019-02-10] MEDS: ACETAMINOPHEN 500 MG TABLET PO PRN (17:28)
[2019-02-10 17:58] LABS: ALBUMIN 3.5 g/dL (3.4-5.0); CALCIUM 8.1 mg/dL (8.5-10.1); CREATININE 1.2 mg/dL (0.7-1.3); GFR 78.9; MAGNESIUM 1.9 mg/dL (1.8-2.4); TOTAL BILIRUBIN 0.9 mg/dL (0.2-1.0)
[2019-02-10] MEDS ORDERED: INSULIN GLARGINE SYRINGE. SQ SCH (21:00)
[2019-02-11] VITALS (12 sets, daily range): BP systolic 98–119; BP diastolic 71–86
[2019-02-11] MEDS: ACETAMINOPHEN 500 MG TABLET PO PRN ×2 (03:35→09:09)
[2019-02-11 05:49] LABS: BASO % 0 % (0-3); EOS # 0.1 x10^3/uL (0.0-0.7); EOS % 2 % (0-3); HEMATOCRIT 39.5 % (39.0-53.0); HEMOGLOBIN 13.1 g/dL (13.0-17.5); LYMPH # 1.4 x10^3/uL (1.0-4.8); LYMPH % 23 % (24-48); MEAN CORPUSCULAR HEMOGLOBIN 33 pg (25-35); MEAN CORPUSCULAR HGB CONC 33 g/dL (31-37); MEAN CORPUSCULAR VOLUME 99 fL (79-100); MONO # 0.6 x10^3/uL (0.0-1.1); MONO % 11 % (0-9); NEUT # 3.8 x10^3/uL (1.8-7.7); NEUT % 64 % (31-73); PLATELET COUNT 313 x10^3/uL (140-400); RED CELL DISTRIBUTION WIDTH 12.1 % (11.5-14.5)
[2019-02-11 06:11] LABS: CALCIUM 8.1 mg/dL (8.5-10.1); GFR 97.3; POTASSIUM 3.6 mmol/L (3.5-5.1)
[2019-02-11] MEDS: INSULIN LISPRO 300 UNITS/3 ML VIAL. SQ SCH (08:38)
--- NOTE | 2019-02-11 09:21 | PDOC ---
PROGRESS NOTES Chief Complaint Chief Complaint A/P: Acute DKA resolving High gap acidosis secondary to the above Severe dehydration Electrolyte disturbances as a consequence of DKA Intractable nausea and vomiting resolved after DKA was treated Headache History of Present Illness History of Present Illness Mr Hawkins is a 51-year-old male w/ PMHx DM1 insulin-dependent who presented to the ER for an evaluation of his hyperglycemia with shortness of breath, nausea, vomiting, and abdominal pain Glucoses were over 400 at home. Food was making it worse, describes his symptoms as irritating. While in the ER, he was noted to be in DKA with an anion gap metabolic acidosis. His gap was 27. Admitted to ICU on insulin drip and fluids. He is c/o headache this morning a bit of nausea. Gap closed. He is somewhat anxious to leave the hospital. Denies SOB or CP today. Vitals Vitals Vital Signs Date Time Temp Pulse Resp B/P (MAP) Pulse Ox O2 Delivery O2 Flow Rate FiO2 02/11/19 09:00 89 16 116/80 (92) 90 Room Air 02/11/19 08:00 98.0 98.0 Physical Exam General: Alert, Oriented X3, Cooperative Heart: Regular rate, Normal S1, Normal S2 Lungs: Clear Abdomen: Normal bowel sounds, Soft Extremities: No clubbing, No cyanosis Skin: No rashes, No breakdown Labs LABS Laboratory Tests Test 02/10/19 10:31 02/10/19 10:50 02/10/19 11:00 02/10/19 12:05 O2 Saturation 97 % (92-99) Arterial Blood pH 7.19 (7.35-7.45) Arterial Blood pCO2 at Patient Temp 17 mmHg (35-46) Arterial Blood pO2 at Patient Temp 128 mmHg (75-108) Arterial Blood HCO3 6 mmol/L (21-28) Arterial Blood Base Excess -20 mmol/L (-3-3) FiO2 21 Urine Collection Type Unknown Urine Color Yellow Urine Clarity Clear Urine pH 5.0 Urine Specific [place] >=1.030 Urine Protein 30 mg/dL (NEG-TRACE) Urine Glucose (UA) >=1000 mg/dL (NEG) Urine Ketones (Stick) >=80 mg/dL (NEG) Urine Blood Trace (NEG) Urine Nitrite Negative (NEG) Urine Bilirubin Negative (NEG) Urine Urobilinogen Dipstick 0.2 mg/dL (0.2 mg/dL) Urine Leukocyte Esterase Negative (NEG) Urine RBC Occ /HPF (0-2) Urine WBC Occ /HPF (0-4) Urine Squamous Epithelial Cells Occ /LPF Urine Bacteria 0 /HPF (0-FEW) Urine Hyaline Casts Few /HPF Urine Mucus Slight /LPF Glucose (Fingerstick) 265 mg/dL (70-99) 216 mg/dL (70-99) Lactic Acid Level 1.8 mmol/L (0.4-2.0) Test 02/10/19 13:09 02/10/19 13:40 02/10/19 14:02 02/10/19 15:23 Glucose (Fingerstick) 233 mg/dL (70-99) 157 mg/dL (70-99) 143 mg/dL (70-99) White Blood Count 7.7 x10^3/uL (4.0-11.0) Red Blood Count 4.42 x10^6/uL (4.30-5.70) Hemoglobin 14.6 g/dL (13.0-17.5) Hematocrit 46.3 % (39.0-53.0) Mean Corpuscular Volume 105 fL (79-100) Mean Corpuscular Hemoglobin 33 pg (25-35) Mean Corpuscular Hemoglobin Concent 32 g/dL (31-37) Red Cell Distribution Width 12.4 % (11.5-14.5) Platelet Count 298 x10^3/uL (140-400) Sodium Level 136 mmol/L (136-145) Potassium Level 4.6 mmol/L (3.5-5.1) Chloride Level 102 mmol/L (98-107) Carbon Dioxide Level 8 mmol/L (21-32) Anion Gap 26 (6-14) Blood Urea Nitrogen 18 mg/dL (8-26) Creatinine 1.3 mg/dL (0.7-1.3) Estimated GFR (Cockcroft-Gault) 71.9 BUN/Creatinine Ratio 14 (6-20) Glucose Level 233 mg/dL (70-99) Calcium Level 8.6 mg/dL (8.5-10.1) Magnesium Level 2.1 mg/dL (1.8-2.4) Total Bilirubin 0.8 mg/dL (0.2-1.0) Aspartate Amino Transf (AST/SGOT) 12 U/L (15-37) Alanine Aminotransferase (ALT/SGPT) 17 U/L (16-63) Alkaline Phosphatase 98 U/L (46-116) Total Protein 7.3 g/dL (6.4-8.2) Albumin 4.0 g/dL (3.4-5.0) Albumin/Globulin Ratio 1.2 (1.0-1.7) Test 02/10/19 16:21 02/10/19 17:19 02/10/19 17:40 02/10/19 18:26 Glucose (Fingerstick) 109 mg/dL (70-99) 92 mg/dL (70-99) 127 mg/dL (70-99) Sodium Level 137 mmol/L (136-145) Potassium Level 4.0 mmol/L (3.5-5.1) Chloride Level 107 mmol/L (98-107) Carbon Dioxide Level 17 mmol/L (21-32) Anion Gap 13 (6-14) Blood Urea Nitrogen 15 mg/dL (8-26) Creatinine 1.2 mg/dL (0.7-1.3) Estimated GFR (Cockcroft-Gault) 78.9 BUN/Creatinine Ratio 13 (6-20) Glucose Level 113 mg/dL (70-99) Calcium Level 8.1 mg/dL (8.5-10.1) Magnesium Level 1.9 mg/dL (1.8-2.4) Total Bilirubin 0.9 mg/dL (0.2-1.0) Aspartate Amino Transf (AST/SGOT) 10 U/L (15-37) Alanine Aminotransferase (ALT/SGPT) 14 U/L (16-63) Alkaline Phosphatase 83 U/L (46-116) Total Protein 7.0 g/dL (6.4-8.2) Albumin 3.5 g/dL (3.4-5.0) Albumin/Globulin Ratio 1.0 (1.0-1.7) Test 02/10/19 19:39 02/10/19 20:55 02/11/19 04:55 02/11/19 08:33 Glucose (Fingerstick) 135 mg/dL (70-99) 167 mg/dL (70-99) 195 mg/dL (70-99) White Blood Count 6.0 x10^3/uL (4.0-11.0) Red Blood Count 4.00 x10^6/uL (4.30-5.70) Hemoglobin 13.1 g/dL (13.0-17.5) Hematocrit 39.5 % (39.0-53.0) Mean Corpuscular Volume 99 fL (79-100) Mean Corpuscular Hemoglobin 33 pg (25-35) Mean Corpuscular Hemoglobin Concent 33 g/dL (31-37) Red Cell Distribution Width 12.1 % (11.5-14.5) Platelet Count 313 x10^3/uL (140-400) Neutrophils (%) (Auto) 64 % (31-73) Lymphocytes (%) (Auto) 23 % (24-48) Monocytes (%) (Auto) 11 % (0-9) Eosinophils (%) (Auto) 2 % (0-3) Basophils (%) (Auto) 0 % (0-3) Neutrophils # (Auto) 3.8 x10^3/uL (1.8-7.7) Lymphocytes # (Auto) 1.4 x10^3/uL (1.0-4.8) Monocytes # (Auto) 0.6 x10^3/uL (0.0-1.1) Eosinophils # (Auto) 0.1 x10^3/uL (0.0-0.7) Basophils # (Auto) 0.0 x10^3/uL (0.0-0.2) Sodium Level 136 mmol/L (136-145) Potassium Level 3.6 mmol/L (3.5-5.1) Chloride Level 104 mmol/L (98-107) Carbon Dioxide Level 18 mmol/L (21-32) Anion Gap 14 (6-14) Blood Urea Nitrogen 11 mg/dL (8-26) Creatinine 1.0 mg/dL (0.7-1.3) Estimated GFR (Cockcroft-Gault) 97.3 Glucose Level 226 mg/dL (70-99) Calcium Level 8.1 mg/dL (8.5-10.1) Comment Review of Relevant I have reviewed the following items kaelyn (where applicable) has been applied. Labs Laboratory Tests Test 02/10/19 09:00 02/10/19 09:05 02/10/19 10:31 11/25/19 10:50 Glucose (Fingerstick) 488 mg/dL (70-99) 265 mg/dL (70-99) White Blood Count 9.3 x10^3/uL (4.0-11.0) Red Blood Count 4.77 x10^6/uL (4.30-5.70) Hemoglobin 15.8 g/dL (13.0-17.5) Hematocrit 48.2 % (39.0-53.0) Mean Corpuscular Volume 101 fL (79-100) Mean Corpuscular Hemoglobin 33 pg (25-35) Mean Corpuscular Hemoglobin Concent 33 g/dL (31-37) Red Cell Distribution Width 12.4 % (11.5-14.5) Platelet Count 399 x10^3/uL (140-400) Neutrophils (%) (Auto) 83 % (31-73) Lymphocytes (%) (Auto) 11 % (24-48) Monocytes (%) (Auto) 5 % (0-9) Eosinophils (%) (Auto) 1 % (0-3) Basophils (%) (Auto) 1 % (0-3) Neutrophils # (Auto) 7.7 x10^3/uL (1.8-7.7) Lymphocytes # (Auto) 1.1 x10^3/uL (1.0-4.8) Monocytes # (Auto) 0.5 x10^3/uL (0.0-1.1) Eosinophils # (Auto) 0.0 x10^3/uL (0.0-0.7) Basophils # (Auto) 0.0 x10^3/uL (0.0-0.2) Sodium Level 129 mmol/L (136-145) Potassium Level 4.9 mmol/L (3.5-5.1) Chloride Level 92 mmol/L (98-107) Carbon Dioxide Level 10 mmol/L (21-32) Anion Gap 27 (6-14) Blood Urea Nitrogen 23 mg/dL (8-26) Creatinine 1.7 mg/dL (0.7-1.3) Estimated GFR (Cockcroft-Gault) 52.8 BUN/Creatinine Ratio 14 (6-20) Glucose Level 489 mg/dL (70-99) Calcium Level 9.1 mg/dL (8.5-10.1) Total Bilirubin 0.8 mg/dL (0.2-1.0) Aspartate Amino Transf (AST/SGOT) 11 U/L (15-37) Alanine Aminotransferase (ALT/SGPT) 18 U/L (16-63) Alkaline Phosphatase 119 U/L (46-116) Troponin I Quantitative < 0.017 ng/mL (0.000-0.055) Total Protein 8.8 g/dL (6.4-8.2) Albumin 4.5 g/dL (3.4-5.0) Albumin/Globulin Ratio 1.0 (1.0-1.7) Lipase 114 U/L (73-393) Acetone Level Sm pos (NEG) O2 Saturation 97 % (92-99) Arterial Blood pH 7.19 (7.35-7.45) Arterial Blood pCO2 at Patient Temp 17 mmHg (35-46) Arterial Blood pO2 at Patient Temp 128 mmHg (75-108) Arterial Blood HCO3 6 mmol/L (21-28) Arterial Blood Base Excess -20 mmol/L (-3-3) FiO2 21 Urine Collection Type Unknown Urine Color Yellow Urine Clarity Clear Urine pH 5.0 Urine Specific [place] >=1.030 Urine Protein 30 mg/dL (NEG-TRACE) Urine Glucose (UA) >=1000 mg/dL (NEG) Urine Ketones (Stick) >=80 mg/dL (NEG) Urine Blood Trace (NEG) Urine Nitrite Negative (NEG) Urine Bilirubin Negative (NEG) Urine Urobilinogen Dipstick 0.2 mg/dL (0.2 mg/dL) Urine Leukocyte Esterase Negative (NEG) Urine RBC Occ /HPF (0-2) Urine WBC Occ /HPF (0-4) Urine Squamous Epithelial Cells Occ /LPF Urine Bacteria 0 /HPF (0-FEW) Urine Hyaline Casts Few /HPF Urine Mucus Slight /LPF Test 02/10/19 11:00 02/10/19 12:05 02/10/19 13:09 02/10/19 13:40 Lactic Acid Level 1.8 mmol/L (0.4-2.0) Glucose (Fingerstick) 216 mg/dL (70-99) 233 mg/dL (70-99) White Blood Count 7.7 x10^3/uL (4.0-11.0) Red Blood Count 4.42 x10^6/uL (4.30-5.70) Hemoglobin 14.6 g/dL (13.0-17.5) Hematocrit 46.3 % (39.0-53.0) Mean Corpuscular Volume 105 fL (79-100) Mean Corpuscular Hemoglobin 33 pg (25-35) Mean Corpuscular Hemoglobin Concent 32 g/dL (31-37) Red Cell Distribution Width 12.4 % (11.5-14.5) Platelet Count 298 x10^3/uL (140-400) Sodium Level 136 mmol/L (136-145) Potassium Level 4.6 mmol/L (3.5-5.1) Chloride Level 102 mmol/L (98-107) Carbon Dioxide Level 8 mmol/L (21-32) Anion Gap 26 (6-14) Blood Urea Nitrogen 18 mg/dL (8-26) Creatinine 1.3 mg/dL (0.7-1.3) Estimated GFR (Cockcroft-Gault) 71.9 BUN/Creatinine Ratio 14 (6-20) Glucose Level 233 mg/dL (70-99) Calcium Level 8.6 mg/dL (8.5-10.1) Magnesium Level 2.1 mg/dL (1.8-2.4) Total Bilirubin 0.8 mg/dL (0.2-1.0) Aspartate Amino Transf (AST/SGOT) 12 U/L (15-37) Alanine Aminotransferase (ALT/SGPT) 17 U/L (16-63) Alkaline Phosphatase 98 U/L (46-116) Total Protein 7.3 g/dL (6.4-8.2) Albumin 4.0 g/dL (3.4-5.0) Albumin/Globulin Ratio 1.2 (1.0-1.7) Test 02/10/19 14:02 02/10/19 15:23 02/10/19 16:21 02/10/19 17:19 Glucose (Fingerstick) 157 mg/dL (70-99) 143 mg/dL (70-99) 109 mg/dL (70-99) 92 mg/dL (70-99) Test 02/10/19 17:40 02/10/19 18:26 02/10/19 19:39 02/10/19 20:55 Sodium Level 137 mmol/L (136-145) Potassium Level 4.0 mmol/L (3.5-5.1) Chloride Level 107 mmol/L (98-107) Carbon Dioxide Level 17 mmol/L (21-32) Anion Gap 13 (6-14) Blood Urea Nitrogen 15 mg/dL (8-26) Creatinine 1.2 mg/dL (0.7-1.3) Estimated GFR (Cockcroft-Gault) 78.9 BUN/Creatinine Ratio 13 (6-20) Glucose Level 113 mg/dL (70-99) Calcium Level 8.1 mg/dL (8.5-10.1) Magnesium Level 1.9 mg/dL (1.8-2.4) Total Bilirubin 0.9 mg/dL (0.2-1.0) Aspartate Amino Transf (AST/SGOT) 10 U/L (15-37) Alanine Aminotransferase (ALT/SGPT) 14 U/L (16-63) Alkaline Phosphatase 83 U/L (46-116) Total Protein 7.0 g/dL (6.4-8.2) Albumin 3.5 g/dL (3.4-5.0) Albumin/Globulin Ratio 1.0 (1.0-1.7) Glucose (Fingerstick) 127 mg/dL (70-99) 135 mg/dL (70-99) 167 mg/dL (70-99) Test 02/11/19 04:55 02/11/19 08:33 White Blood Count 6.0 x10^3/uL (4.0-11.0) Red Blood Count 4.00 x10^6/uL (4.30-5.70) Hemoglobin 13.1 g/dL (13.0-17.5) Hematocrit 39.5 % (39.0-53.0) Mean Corpuscular Volume 99 fL (79-100) Mean Corpuscular Hemoglobin 33 pg (25-35) Mean Corpuscular Hemoglobin Concent 33 g/dL (31-37) Red Cell Distribution Width 12.1 % (11.5-14.5) Platelet Count 313 x10^3/uL (140-400) Neutrophils (%) (Auto) 64 % (31-73) Lymphocytes (%) (Auto) 23 % (24-48) Monocytes (%) (Auto) 11 % (0-9) Eosinophils (%) (Auto) 2 % (0-3) Basophils (%) (Auto) 0 % (0-3) Neutrophils # (Auto) 3.8 x10^3/uL (1.8-7.7) Lymphocytes # (Auto) 1.4 x10^3/uL (1.0-4.8) Monocytes # (Auto) 0.6 x10^3/uL (0.0-1.1) Eosinophils # (Auto) 0.1 x10^3/uL (0.0-0.7) Basophils # (Auto) 0.0 x10^3/uL (0.0-0.2) Sodium Level 136 mmol/L (136-145) Potassium Level 3.6 mmol/L (3.5-5.1) Chloride Level 104 mmol/L (98-107) Carbon Dioxide Level 18 mmol/L (21-32) Anion Gap 14 (6-14) Blood Urea Nitrogen 11 mg/dL (8-26) Creatinine 1.0 mg/dL (0.7-1.3) Estimated GFR (Cockcroft-Gault) 97.3 Glucose Level 226 mg/dL (70-99) Calcium Level 8.1 mg/dL (8.5-10.1) Glucose (Fingerstick) 195 mg/dL (70-99) Laboratory Tests Test 02/10/19 10:31 02/10/19 10:50 02/10/19 11:00 02/10/19 12:05 O2 Saturation 97 % (92-99) Arterial Blood pH 7.19 (7.35-7.45) Arterial Blood pCO2 at Patient Temp 17 mmHg (35-46) Arterial Blood pO2 at Patient Temp 128 mmHg (75-108) Arterial Blood HCO3 6 mmol/L (21-28) Arterial Blood Base Excess -20 mmol/L (-3-3) FiO2 21 Urine Collection Type Unknown Urine Color Yellow Urine Clarity Clear Urine pH 5.0 Urine Specific [place] >=1.030 Urine Protein 30 mg/dL (NEG-TRACE) Urine Glucose (UA) >=1000 mg/dL (NEG) Urine Ketones (Stick) >=80 mg/dL (NEG) Urine Blood Trace (NEG) Urine Nitrite Negative (NEG) Urine Bilirubin Negative (NEG) Urine Urobilinogen Dipstick 0.2 mg/dL (0.2 mg/dL) Urine Leukocyte Esterase Negative (NEG) Urine RBC Occ /HPF (0-2) Urine WBC Occ /HPF (0-4) Urine Squamous Epithelial Cells Occ /LPF Urine Bacteria 0 /HPF (0-FEW) Urine Hyaline Casts Few /HPF Urine Mucus Slight /LPF Glucose (Fingerstick) 265 mg/dL (70-99) 216 mg/dL (70-99) Lactic Acid Level 1.8 mmol/L (0.4-2.0) Test 02/10/19 13:09 02/10/19 13:40 02/10/19 14:02 02/10/19 15:23 Glucose (Fingerstick) 233 mg/dL (70-99) 157 mg/dL (70-99) 143 mg/dL (70-99) White Blood Count 7.7 x10^3/uL (4.0-11.0) Red Blood Count 4.42 x10^6/uL (4.30-5.70) Hemoglobin 14.6 g/dL (13.0-17.5) Hematocrit 46.3 % (39.0-53.0) Mean Corpuscular Volume 105 fL (79-100) Mean Corpuscular Hemoglobin 33 pg (25-35) Mean Corpuscular Hemoglobin Concent 32 g/dL (31-37) Red Cell Distribution Width 12.4 % (11.5-14.5) Platelet Count 298 x10^3/uL (140-400) Sodium Level 136 mmol/L (136-145) Potassium Level 4.6 mmol/L (3.5-5.1) Chloride Level 102 mmol/L (98-107) Carbon Dioxide Level 8 mmol/L (21-32) Anion Gap 26 (6-14) Blood Urea Nitrogen 18 mg/dL (8-26) Creatinine 1.3 mg/dL (0.7-1.3) Estimated GFR (Cockcroft-Gault) 71.9 BUN/Creatinine Ratio 14 (6-20) Glucose Level 233 mg/dL (70-99) Calcium Level 8.6 mg/dL (8.5-10.1) Magnesium Level 2.1 mg/dL (1.8-2.4) Total Bilirubin 0.8 mg/dL (0.2-1.0) Aspartate Amino Transf (AST/SGOT) 12 U/L (15-37) Alanine Aminotransferase (ALT/SGPT) 17 U/L (16-63) Alkaline Phosphatase 98 U/L (46-116) Total Protein 7.3 g/dL (6.4-8.2) Albumin 4.0 g/dL (3.4-5.0) Albumin/Globulin Ratio 1.2 (1.0-1.7) Test 02/10/19 16:21 02/10/19 17:19 02/10/19 17:40 02/10/19 18:26 Glucose (Fingerstick) 109 mg/dL (70-99) 92 mg/dL (70-99) 127 mg/dL (70-99) Sodium Level 137 mmol/L (136-145) Potassium Level 4.0 mmol/L (3.5-5.1) Chloride Level 107 mmol/L (98-107) Carbon Dioxide Level 17 mmol/L (21-32) Anion Gap 13 (6-14) Blood Urea Nitrogen 15 mg/dL (8-26) Creatinine 1.2 mg/dL (0.7-1.3) Estimated GFR (Cockcroft-Gault) 78.9 BUN/Creatinine Ratio 13 (6-20) Glucose Level 113 mg/dL (70-99) Calcium Level 8.1 mg/dL (8.5-10.1) Magnesium Level 1.9 mg/dL (1.8-2.4) Total Bilirubin 0.9 mg/dL (0.2-1.0) Aspartate Amino Transf (AST/SGOT) 10 U/L (15-37) Alanine Aminotransferase (ALT/SGPT) 14 U/L (16-63) Alkaline Phosphatase 83 U/L (46-116) Total Protein 7.0 g/dL (6.4-8.2) Albumin 3.5 g/dL (3.4-5.0) Albumin/Globulin Ratio 1.0 (1.0-1.7) Test 02/10/19 19:39 02/10/19 20:55 02/11/19 04:55 02/11/19 08:33 Glucose (Fingerstick) 135 mg/dL (70-99) 167 mg/dL (70-99) 195 mg/dL (70-99) White Blood Count 6.0 x10^3/uL (4.0-11.0) Red Blood Count 4.00 x10^6/uL (4.30-5.70) Hemoglobin 13.1 g/dL (13.0-17.5) Hematocrit 39.5 % (39.0-53.0) Mean Corpuscular Volume 99 fL (79-100) Mean Corpuscular Hemoglobin 33 pg (25-35) Mean Corpuscular Hemoglobin Concent 33 g/dL (31-37) Red Cell Distribution Width 12.1 % (11.5-14.5) Platelet Count 313 x10^3/uL (140-400) Neutrophils (%) (Auto) 64 % (31-73) Lymphocytes (%) (Auto) 23 % (24-48) Monocytes (%) (Auto) 11 % (0-9) Eosinophils (%) (Auto) 2 % (0-3) Basophils (%) (Auto) 0 % (0-3) Neutrophils # (Auto) 3.8 x10^3/uL (1.8-7.7) Lymphocytes # (Auto) 1.4 x10^3/uL (1.0-4.8) Monocytes # (Auto) 0.6 x10^3/uL (0.0-1.1) Eosinophils # (Auto) 0.1 x10^3/uL (0.0-0.7) Basophils # (Auto) 0.0 x10^3/uL (0.0-0.2) Sodium Level 136 mmol/L (136-145) Potassium Level 3.6 mmol/L (3.5-5.1) Chloride Level 104 mmol/L (98-107) Carbon Dioxide Level 18 mmol/L (21-32) Anion Gap 14 (6-14) Blood Urea Nitrogen 11 mg/dL (8-26) Creatinine 1.0 mg/dL (0.7-1.3) Estimated GFR (Cockcroft-Gault) 97.3 Glucose Level 226 mg/dL (70-99) Calcium Level 8.1 mg/dL (8.5-10.1) Medications Current Medications Insulin Human Regular 150 ml @ 0 mls/hr 1X ONCE IV ; Start 02/10/19 at 09:00; Stop 02/10/19 at 09:01; Status Cancel Insulin Human Regular (HumuLIN R VIAL) 10 unit 1X ONCE IV Last administered on 02/10/19at 09:40; Start 02/10/19 at 09:00; Stop 02/10/19 at 09:06; Status DC Sodium Chloride 1,000 ml @ 1,000 mls/hr 1X ONCE IV Last administered on 02/10/19at 09:30; Start 02/10/19 at 09:00; Stop 02/10/19 at 09:59; Status DC Sodium Chloride 1,000 ml @ 1,000 mls/hr Q1H IV Last administered on 02/10/19at 10:10; Start 02/10/19 at 09:00; Stop 02/10/19 at 09:59; Status DC Iohexol (Omnipaque 300 Mg/ml) 60 ml 1X ONCE IV Last administered on 02/10/19at 10:00; Start 02/10/19 at 10:00; Stop 02/10/19 at 10:01; Status DC Info (CONTRAST GIVEN -- Rx MONITORING) 1 each PRN DAILY PRN MC SEE COMMENTS; Start 02/10/19 at 10:00; Stop 02/12/19 at 09:59 Insulin Human Regular 150 unit/ Sodium Chloride 151.5 ml @ 8.383 mls/ hr CONT PRN IV SEE I/O RECORD Last administered on 02/10/19at 10:18; Start 02/10/19 at 10:00; Stop 02/10/19 at 12:00; Status DC Insulin Human Regular 150 unit/ Sodium Chloride 151.5 ml @ 0 mls/hr CONT PRN IV SEE I/O RECORD; Start 02/10/19 at 10:15; Stop 02/10/19 at 12:23; Status DC Sodium Chloride 1,000 ml @ 200 mls/hr Q5H IV ; Start 02/10/19 at 10:48; Stop 02/10/19 at 11:10; Status DC Dextrose/Sodium Chloride 1,000 ml @ 200 mls/hr 1X ONCE IV Last administered on 02/10/19at 11:17; Start 02/10/19 at 11:15; Stop 02/10/19 at 16:14; Status DC Acetaminophen (Tylenol) 500 mg PRN Q6HRS PRN PO MILD PAIN / TEMP Last administered on 02/11/19at 09:09; Start 02/10/19 at 12:30 Insulin Human Lispro (HumaLOG) 18 units TIDWMEALS SQ Last administered on 02/11/19at 08:38; Start 02/10/19 at 13:00 Insulin Glargine (Lantus Syringe) 28 unit QHS SQ Last administered on 02/10/19at 20:56; Start 02/10/19 at 21:00 Insulin Human Lispro (HumaLOG) 10 units 1X ONCE SQ Last administered on at 13:08; Start 02/10/19 at 12:45; Stop 02/10/19 at 12:46; Status DC Dextrose/Sodium Chloride 1,000 ml @ 200 mls/hr Q5H ONCE IV Last administered on 02/10/19at 16:20; Start 02/10/19 at 16:15; Stop 02/10/19 at 21:14; Status DC Active Scripts Active Acetaminophen 500 Mg Tablet 500 Mg PO PRN Q6HRS PRN 14 Days Insulin Pen Needle (Pen Needle, Diabetic) 1 Each Dis.needle Each MC QID 4 times daily with meals and nightly for insulin pens Reported Lantus Solostar (Insulin Glargine,Hum.rec.anlog) 100 Unit/1 Ml Insuln.pen 28 Unit SQ QHS Novolog Flexpen (Insulin Aspart) 100 Unit/1 Ml Insuln.pen 18 Unit SQ TIDWMEALS Vitals/I & O Vital Sign - Last 24 Hours 02/10/19 02/10/19 02/10/19 02/10/19 09:30 10:00 10:30 11:00 Pulse 102 109 100 98 Resp B/P (MAP) 126/78 (94) 118/75 (89) 120/78 (92) 115/76 (89) Pulse Ox 98 98 100 O2 Delivery Room Air Room Air Room Air Room Air 02/10/19 02/10/19 02/10/19 02/10/19 11:30 12:00 12:15 12:30 Temp 98.5 98.5 Pulse 96 99 92 96 Resp B/P (MAP) 117/72 (87) 100/87 (91) 118/79 (92) 120/75 (90) Pulse Ox 98 99 98 99 O2 Delivery Room Air Room Air Room Air Room Air 11/25/19 11/25/19 11/25/19 11/25/19 12:34 12:45 13:00 14:00 Pulse 102 100 96 Resp 20 21 23 B/P (MAP) 139/82 (101) 119/80 (93) 116/72 (87) Pulse Ox 98 99 99 O2 Delivery Room Air Room Air Room Air Room Air 02/10/19 02/10/19 02/10/19 02/10/19 15:00 16:00 16:01 17:00 Pulse 97 96 98 Resp 18 17 15 B/P (MAP) 113/72 (86) 108/61 (77) 122/71 (88) Pulse Ox 98 98 97 O2 Delivery Room Air Room Air Room Air Room Air 02/10/19 02/10/19 02/10/19 02/10/19 18:00 19:00 20:00 20:00 Temp 97.6 97.6 Pulse 98 94 93 Resp 18 16 18 B/P (MAP) 112/65 (81) 111/69 (83) 102/65 (77) Pulse Ox 97 97 97 O2 Delivery Room Air Room Air Room Air Room Air 02/10/19 02/10/19 02/10/19 02/11/19 21:00 22:00 23:00 00:00 Pulse 92 92 91 Resp 16 15 16 B/P (MAP) 100/70 (80) 101/67 (78) 109/71 (84) Pulse Ox 97 97 97 O2 Delivery Room Air Room Air Room Air Room Air 02/11/19 02/11/19 02/11/19 02/11/19 00:00 01:00 02:00 03:00 Temp 97.6 97.6 Pulse 90 85 90 87 Resp 15 14 16 15 B/P (MAP) 106/72 (83) 110/72 (85) 107/71 (83) 107/73 (84) Pulse Ox 98 98 97 98 O2 Delivery Room Air Room Air Room Air Room Air 02/11/19 02/11/19 02/11/19 02/11/19 04:00 04:00 05:00 06:00 Temp 97.7 97.7 Pulse 87 79 85 Resp 16 16 15 B/P (MAP) 115/80 (92) 113/85 (94) 119/80 (93) Pulse Ox 98 98 98 O2 Delivery Room Air Room Air Room Air Room Air 02/11/19 02/11/19 02/11/19 02/11/19 07:00 08:00 08:00 09:00 Temp 98.0 98.0 Pulse 87 84 89 Resp 16 16 16 B/P (MAP) 118/86 (97) 118/71 (87) 116/80 (92) Pulse Ox 98 98 90 O2 Delivery Room Air Room Air Room Air Room Air Intake and Output 02/10/19 02/10/19 02/11/19 15:00 23:00 07:00 Intake Total 2150 ml 1528 ml 2507 ml Output Total 800 ml 0 ml 800 ml Balance 1350 ml 1528 ml 1707 ml LILLIANA ALVARADO MD Feb 11, 2019 09:21
[2019-02-11] MEDS ORDERED: PROCHLORPERAZINE 10 MG/2 ML VIAL. IV ONE (10:00)
[2019-02-11] MEDS ORDERED: INSU100I13 SQ (10:18)
[2019-02-11] MEDS ORDERED: INSU100I17 SQ (10:18)
--- NOTE | 2019-02-11 10:28 | PDOC3 ---
Discharge Summary Visit Information Date of Admission: Feb 10, 2019 Date of Discharge: Feb 11, 2019 Admitting Diagnosis: DKA Final Diagnosis DKA Brief Hospital Course Allergies Allergies Coded Allergies Type Severity Reaction Last Updated Verified No Known Drug Allergies 01/22/14 No Vital Signs Vital Signs Date Time Temp Pulse Resp B/P (MAP) Pulse Ox O2 Delivery O2 Flow Rate FiO2 02/11/19 10:00 91 16 98/73 (81) 96 Room Air 02/11/19 08:00 98.0 98.0 Lab Results Laboratory Tests Test 02/10/19 09:00 02/10/19 09:05 02/10/19 10:31 02/10/19 10:50 Glucose (Fingerstick) 488 mg/dL (70-99) 265 mg/dL (70-99) White Blood Count 9.3 x10^3/uL (4.0-11.0) Red Blood Count 4.77 x10^6/uL (4.30-5.70) Hemoglobin 15.8 g/dL (13.0-17.5) Hematocrit 48.2 % (39.0-53.0) Mean Corpuscular Volume 101 fL (79-100) Mean Corpuscular Hemoglobin 33 pg (25-35) Mean Corpuscular Hemoglobin Concent 33 g/dL (31-37) Red Cell Distribution Width 12.4 % (11.5-14.5) Platelet Count 399 x10^3/uL (140-400) Neutrophils (%) (Auto) 83 % (31-73) Lymphocytes (%) (Auto) 11 % (24-48) Monocytes (%) (Auto) 5 % (0-9) Eosinophils (%) (Auto) 1 % (0-3) Basophils (%) (Auto) 1 % (0-3) Neutrophils # (Auto) 7.7 x10^3/uL (1.8-7.7) Lymphocytes # (Auto) 1.1 x10^3/uL (1.0-4.8) Monocytes # (Auto) 0.5 x10^3/uL (0.0-1.1) Eosinophils # (Auto) 0.0 x10^3/uL (0.0-0.7) Basophils # (Auto) 0.0 x10^3/uL (0.0-0.2) Sodium Level 129 mmol/L (136-145) Potassium Level 4.9 mmol/L (3.5-5.1) Chloride Level 92 mmol/L (98-107) Carbon Dioxide Level 10 mmol/L (21-32) Anion Gap 27 (6-14) Blood Urea Nitrogen 23 mg/dL (8-26) Creatinine 1.7 mg/dL (0.7-1.3) Estimated GFR (Cockcroft-Gault) 52.8 BUN/Creatinine Ratio 14 (6-20) Glucose Level 489 mg/dL (70-99) Calcium Level 9.1 mg/dL (8.5-10.1) Total Bilirubin 0.8 mg/dL (0.2-1.0) Aspartate Amino Transf (AST/SGOT) 11 U/L (15-37) Alanine Aminotransferase (ALT/SGPT) 18 U/L (16-63) Alkaline Phosphatase 119 U/L (46-116) Troponin I Quantitative < 0.017 ng/mL (0.000-0.055) Total Protein 8.8 g/dL (6.4-8.2) Albumin 4.5 g/dL (3.4-5.0) Albumin/Globulin Ratio 1.0 (1.0-1.7) Lipase 114 U/L (73-393) Acetone Level Sm pos (NEG) O2 Saturation 97 % (92-99) Arterial Blood pH 7.19 (7.35-7.45) Arterial Blood pCO2 at Patient Temp 17 mmHg (35-46) Arterial Blood pO2 at Patient Temp 128 mmHg (75-108) Arterial Blood HCO3 6 mmol/L (21-28) Arterial Blood Base Excess -20 mmol/L (-3-3) FiO2 21 Urine Collection Type Unknown Urine Color Yellow Urine Clarity Clear Urine pH 5.0 Urine Specific [place] >=1.030 Urine Protein 30 mg/dL (NEG-TRACE) Urine Glucose (UA) >=1000 mg/dL (NEG) Urine Ketones (Stick) >=80 mg/dL (NEG) Urine Blood Trace (NEG) Urine Nitrite Negative (NEG) Urine Bilirubin Negative (NEG) Urine Urobilinogen Dipstick 0.2 mg/dL (0.2 mg/dL) Urine Leukocyte Esterase Negative (NEG) Urine RBC Occ /HPF (0-2) Urine WBC Occ /HPF (0-4) Urine Squamous Epithelial Cells Occ /LPF Urine Bacteria 0 /HPF (0-FEW) Urine Hyaline Casts Few /HPF Urine Mucus Slight /LPF Test 02/10/19 11:00 02/10/19 12:05 02/10/19 13:09 02/10/19 13:40 Lactic Acid Level 1.8 mmol/L (0.4-2.0) Glucose (Fingerstick) 216 mg/dL (70-99) 233 mg/dL (70-99) White Blood Count 7.7 x10^3/uL (4.0-11.0) Red Blood Count 4.42 x10^6/uL (4.30-5.70) Hemoglobin 14.6 g/dL (13.0-17.5) Hematocrit 46.3 % (39.0-53.0) Mean Corpuscular Volume 105 fL (79-100) Mean Corpuscular Hemoglobin 33 pg (25-35) Mean Corpuscular Hemoglobin Concent 32 g/dL (31-37) Red Cell Distribution Width 12.4 % (11.5-14.5) Platelet Count 298 x10^3/uL (140-400) Sodium Level 136 mmol/L (136-145) Potassium Level 4.6 mmol/L (3.5-5.1) Chloride Level 102 mmol/L (98-107) Carbon Dioxide Level 8 mmol/L (21-32) Anion Gap 26 (6-14) Blood Urea Nitrogen 18 mg/dL (8-26) Creatinine 1.3 mg/dL (0.7-1.3) Estimated GFR (Cockcroft-Gault) 71.9 BUN/Creatinine Ratio 14 (6-20) Glucose Level 233 mg/dL (70-99) Calcium Level 8.6 mg/dL (8.5-10.1) Magnesium Level 2.1 mg/dL (1.8-2.4) Total Bilirubin 0.8 mg/dL (0.2-1.0) Aspartate Amino Transf (AST/SGOT) 12 U/L (15-37) Alanine Aminotransferase (ALT/SGPT) 17 U/L (16-63) Alkaline Phosphatase 98 U/L (46-116) Total Protein 7.3 g/dL (6.4-8.2) Albumin 4.0 g/dL (3.4-5.0) Albumin/Globulin Ratio 1.2 (1.0-1.7) Test 02/10/19 14:02 02/10/19 15:23 02/10/19 16:21 02/10/19 17:19 Glucose (Fingerstick) 157 mg/dL (70-99) 143 mg/dL (70-99) 109 mg/dL (70-99) 92 mg/dL (70-99) Test 02/10/19 17:40 02/10/19 18:26 02/10/19 19:39 02/10/19 20:55 Sodium Level 137 mmol/L (136-145) Potassium Level 4.0 mmol/L (3.5-5.1) Chloride Level 107 mmol/L (98-107) Carbon Dioxide Level 17 mmol/L (21-32) Anion Gap 13 (6-14) Blood Urea Nitrogen 15 mg/dL (8-26) Creatinine 1.2 mg/dL (0.7-1.3) Estimated GFR (Cockcroft-Gault) 78.9 BUN/Creatinine Ratio 13 (6-20) Glucose Level 113 mg/dL (70-99) Calcium Level 8.1 mg/dL (8.5-10.1) Magnesium Level 1.9 mg/dL (1.8-2.4) Total Bilirubin 0.9 mg/dL (0.2-1.0) Aspartate Amino Transf (AST/SGOT) 10 U/L (15-37) Alanine Aminotransferase (ALT/SGPT) 14 U/L (16-63) Alkaline Phosphatase 83 U/L (46-116) Total Protein 7.0 g/dL (6.4-8.2) Albumin 3.5 g/dL (3.4-5.0) Albumin/Globulin Ratio 1.0 (1.0-1.7) Glucose (Fingerstick) 127 mg/dL (70-99) 135 mg/dL (70-99) 167 mg/dL (70-99) Test 02/11/19 04:55 02/11/19 08:33 White Blood Count 6.0 x10^3/uL (4.0-11.0) Red Blood Count 4.00 x10^6/uL (4.30-5.70) Hemoglobin 13.1 g/dL (13.0-17.5) Hematocrit 39.5 % (39.0-53.0) Mean Corpuscular Volume 99 fL (79-100) Mean Corpuscular Hemoglobin 33 pg (25-35) Mean Corpuscular Hemoglobin Concent 33 g/dL (31-37) Red Cell Distribution Width 12.1 % (11.5-14.5) Platelet Count 313 x10^3/uL (140-400) Neutrophils (%) (Auto) 64 % (31-73) Lymphocytes (%) (Auto) 23 % (24-48) Monocytes (%) (Auto) 11 % (0-9) Eosinophils (%) (Auto) 2 % (0-3) Basophils (%) (Auto) 0 % (0-3) Neutrophils # (Auto) 3.8 x10^3/uL (1.8-7.7) Lymphocytes # (Auto) 1.4 x10^3/uL (1.0-4.8) Monocytes # (Auto) 0.6 x10^3/uL (0.0-1.1) Eosinophils # (Auto) 0.1 x10^3/uL (0.0-0.7) Basophils # (Auto) 0.0 x10^3/uL (0.0-0.2) Sodium Level 136 mmol/L (136-145) Potassium Level 3.6 mmol/L (3.5-5.1) Chloride Level 104 mmol/L (98-107) Carbon Dioxide Level 18 mmol/L (21-32) Anion Gap 14 (6-14) Blood Urea Nitrogen 11 mg/dL (8-26) Creatinine 1.0 mg/dL (0.7-1.3) Estimated GFR (Cockcroft-Gault) 97.3 Glucose Level 226 mg/dL (70-99) Calcium Level 8.1 mg/dL (8.5-10.1) Glucose (Fingerstick) 195 mg/dL (70-99) Laboratory Tests Test 02/10/19 10:31 02/10/19 10:50 02/10/19 11:00 02/10/19 12:05 O2 Saturation 97 % (92-99) Arterial Blood pH 7.19 (7.35-7.45) Arterial Blood pCO2 at Patient Temp 17 mmHg (35-46) Arterial Blood pO2 at Patient Temp 128 mmHg (75-108) Arterial Blood HCO3 6 mmol/L (21-28) Arterial Blood Base Excess -20 mmol/L (-3-3) FiO2 21 Urine Collection Type Unknown Urine Color Yellow Urine Clarity Clear Urine pH 5.0 Urine Specific [place] >=1.030 Urine Protein 30 mg/dL (NEG-TRACE) Urine Glucose (UA) >=1000 mg/dL (NEG) Urine Ketones (Stick) >=80 mg/dL (NEG) Urine Blood Trace (NEG) Urine Nitrite Negative (NEG) Urine Bilirubin Negative (NEG) Urine Urobilinogen Dipstick 0.2 mg/dL (0.2 mg/dL) Urine Leukocyte Esterase Negative (NEG) Urine RBC Occ /HPF (0-2) Urine WBC Occ /HPF (0-4) Urine Squamous Epithelial Cells Occ /LPF Urine Bacteria 0 /HPF (0-FEW) Urine Hyaline Casts Few /HPF Urine Mucus Slight /LPF Glucose (Fingerstick) 265 mg/dL (70-99) 216 mg/dL (70-99) Lactic Acid Level 1.8 mmol/L (0.4-2.0) Test 02/10/19 13:09 02/10/19 13:40 02/10/19 14:02 02/10/19 15:23 Glucose (Fingerstick) 233 mg/dL (70-99) 157 mg/dL (70-99) 143 mg/dL (70-99) White Blood Count 7.7 x10^3/uL (4.0-11.0) Red Blood Count 4.42 x10^6/uL (4.30-5.70) Hemoglobin 14.6 g/dL (13.0-17.5) Hematocrit 46.3 % (39.0-53.0) Mean Corpuscular Volume 105 fL (79-100) Mean Corpuscular Hemoglobin 33 pg (25-35) Mean Corpuscular Hemoglobin Concent 32 g/dL (31-37) Red Cell Distribution Width 12.4 % (11.5-14.5) Platelet Count 298 x10^3/uL (140-400) Sodium Level 136 mmol/L (136-145) Potassium Level 4.6 mmol/L (3.5-5.1) Chloride Level 102 mmol/L (98-107) Carbon Dioxide Level 8 mmol/L (21-32) Anion Gap 26 (6-14) Blood Urea Nitrogen 18 mg/dL (8-26) Creatinine 1.3 mg/dL (0.7-1.3) Estimated GFR (Cockcroft-Gault) 71.9 BUN/Creatinine Ratio 14 (6-20) Glucose Level 233 mg/dL (70-99) Calcium Level 8.6 mg/dL (8.5-10.1) Magnesium Level 2.1 mg/dL (1.8-2.4) Total Bilirubin 0.8 mg/dL (0.2-1.0) Aspartate Amino Transf (AST/SGOT) 12 U/L (15-37) Alanine Aminotransferase (ALT/SGPT) 17 U/L (16-63) Alkaline Phosphatase 98 U/L (46-116) Total Protein 7.3 g/dL (6.4-8.2) Albumin 4.0 g/dL (3.4-5.0) Albumin/Globulin Ratio 1.2 (1.0-1.7) Test 02/10/19 16:21 02/10/19 17:19 02/10/19 17:40 02/10/19 18:26 Glucose (Fingerstick) 109 mg/dL (70-99) 92 mg/dL (70-99) 127 mg/dL (70-99) Sodium Level 137 mmol/L (136-145) Potassium Level 4.0 mmol/L (3.5-5.1) Chloride Level 107 mmol/L (98-107) Carbon Dioxide Level 17 mmol/L (21-32) Anion Gap 13 (6-14) Blood Urea Nitrogen 15 mg/dL (8-26) Creatinine 1.2 mg/dL (0.7-1.3) Estimated GFR (Cockcroft-Gault) 78.9 BUN/Creatinine Ratio 13 (6-20) Glucose Level 113 mg/dL (70-99) Calcium Level 8.1 mg/dL (8.5-10.1) Magnesium Level 1.9 mg/dL (1.8-2.4) Total Bilirubin 0.9 mg/dL (0.2-1.0) Aspartate Amino Transf (AST/SGOT) 10 U/L (15-37) Alanine Aminotransferase (ALT/SGPT) 14 U/L (16-63) Alkaline Phosphatase 83 U/L (46-116) Total Protein 7.0 g/dL (6.4-8.2) Albumin 3.5 g/dL (3.4-5.0) Albumin/Globulin Ratio 1.0 (1.0-1.7) Test 02/10/19 19:39 02/10/19 20:55 02/11/19 04:55 02/11/19 08:33 Glucose (Fingerstick) 135 mg/dL (70-99) 167 mg/dL (70-99) 195 mg/dL (70-99) White Blood Count 6.0 x10^3/uL (4.0-11.0) Red Blood Count 4.00 x10^6/uL (4.30-5.70) Hemoglobin 13.1 g/dL (13.0-17.5) Hematocrit 39.5 % (39.0-53.0) Mean Corpuscular Volume 99 fL (79-100) Mean Corpuscular Hemoglobin 33 pg (25-35) Mean Corpuscular Hemoglobin Concent 33 g/dL (31-37) Red Cell Distribution Width 12.1 % (11.5-14.5) Platelet Count 313 x10^3/uL (140-400) Neutrophils (%) (Auto) 64 % (31-73) Lymphocytes (%) (Auto) 23 % (24-48) Monocytes (%) (Auto) 11 % (0-9) Eosinophils (%) (Auto) 2 % (0-3) Basophils (%) (Auto) 0 % (0-3) Neutrophils # (Auto) 3.8 x10^3/uL (1.8-7.7) Lymphocytes # (Auto) 1.4 x10^3/uL (1.0-4.8) Monocytes # (Auto) 0.6 x10^3/uL (0.0-1.1) Eosinophils # (Auto) 0.1 x10^3/uL (0.0-0.7) Basophils # (Auto) 0.0 x10^3/uL (0.0-0.2) Sodium Level 136 mmol/L (136-145) Potassium Level 3.6 mmol/L (3.5-5.1) Chloride Level 104 mmol/L (98-107) Carbon Dioxide Level 18 mmol/L (21-32) Anion Gap 14 (6-14) Blood Urea Nitrogen 11 mg/dL (8-26) Creatinine 1.0 mg/dL (0.7-1.3) Estimated GFR (Cockcroft-Gault) 97.3 Glucose Level 226 mg/dL (70-99) Calcium Level 8.1 mg/dL (8.5-10.1) Brief Hospital Course Mr Hawkins is a 51-year-old male w/ PMHx DM2 insulin-dependent who presented to the ER for an evaluation of his hyperglycemia with shortness of breath, nausea, vomiting, and abdominal pain Glucoses were over 400 at home. Food was making it worse, describes his symptoms as irritating. While in the ER, he was noted to be in DKA with an anion gap metabolic acidosis. His gap was 27. Admitted to ICU on insulin drip and fluids. CXR and CT abdomen pelvis negative. He is c/o headache this morning a bit of nausea. Gap closed. He is somewhat anxious to leave the hospital. Denies SOB or CP today. Has outpatient f/u scheduled. Poor controlled DM. A/P: Acute DKA resolving High gap acidosis secondary to the above Severe dehydration Electrolyte disturbances as a consequence of DKA Intractable nausea and vomiting resolved after DKA was treated Headache Greater than 30 minutes spent on d/c Discharge Information Condition at Discharge: Improved Follow Up: Weeks (1) Disposition/Orders: D/C to Home Scheduled Insulin Aspart (Novolog Flexpen) 100 Unit/1 Ml Insuln.pen, 18 UNIT SQ TIDWMEALS for blood sugar control for 30 Days, #1 Prescribed by: LILLIANA ALVARADO MD on 02/11/19 1018 Insulin Glargine,Hum.rec.anlog (Lantus Solostar) 100 Unit/1 Ml Insuln.pen, 28 UNIT SQ QHS for DM2, #15 Ref 3 Prescribed by: LILLIANA ALVARADO MD on 02/11/19 1018 Scheduled PRN Acetaminophen (Acetaminophen) 500 Mg Tablet, 500 MG PO PRN Q6HRS PRN for MILD PAIN / TEMP for 14 Days, #30 Prescribed by: CRISTIANA WASHINGTON MD on 09/03/18 1402 Last Action: Continued on 02/10/19 1221 by MEERA QUIROZ [employer] Pen Needle, Diabetic (Insulin Pen Needle) 1 Each Dis.needle, EACH MC QID for Diabetes, #120, (DME) 4 times daily with meals and nightly for insulin pens Prescribed by: LILLIANA ALVARADO MD on 06/06/18 1407 LILLIANA ALVARADO MD Feb 11, 2019 10:28
--- NOTE | 2019-02-11 11:31 | NUR ---
Discharge Note: MELINA MACIAS [address] ICU Discharge instructions and discharge home medications reviewed with Patient and a copy given. All questions have been answered and understanding verbalized. The following instructions and handouts were given: DKA Discontinued lines and drains: dressings clean dry and intact. Patient discharged to home with self care via brother
== END 2019-02-11 11:38 | disposition home or self-care (01) | DRG 639 ==
LOC: ER 08:37 → 1 WEST ICU 10:30
PROVIDERS: ADMIT Internal Medicine; ATTEND Internal Medicine
DX: E11.10 Type 2 diabetes mellitus with ketoacidosis without coma (principal); E86.0 Dehydration; N18.9 Chronic kidney disease, unspecified; I12.9 Hypertensive chronic kidney disease with stage 1 through stage 4 chronic kidney disease, or unspecified chronic kidney disease; E11.22 Type 2 diabetes mellitus with diabetic chronic kidney disease; Z79.4 Long term (current) use of insulin; Z91.19 Patient's noncompliance with other medical treatment and regimen; Z83.3 Family history of diabetes mellitus; Z82.49 Family history of ischemic heart disease and other diseases of the circulatory system
CPT/HCPCS: 36415; 36600; 71045; 74177; 80048; 80053; 81001; 82010; 82805; 82962; 83605; 83690; 83735; 84484; 85025; 85027; 93005; 96361; 96365; 96376; J0780; J1815; J7030; J7042; Q9967; 99291-25; G0378

== ENCOUNTER 2019-08-08 17:09 | Inpatient (IN) | payer OTHER ==
[~2019-08-08] VITALS: Ht 175.3 cm; Wt 70.3 kg
[~2019-08-08 17:09] MED LIST changes: +INSU100I13 SQ
--- NOTE | 2019-08-08 17:25 | PHYS DOC ---
Past Medical History Past Medical History: Diabetes-Type II, Hypertension, Renal Disease Past Surgical History: Other Additional Past Surgical Histo: RIGHT KNEE, LEFT SHOULDER Smoking Status: Never Smoker Alcohol Use: Rarely Drug Use: None General Adult EDM: Chief Complaint: HYPERGLYCEMIA HPI: HPI: Patient is a 48 year old male who presents with nausea and vomiting for the last 2 days. He is diabetic and takes insulins of which he states he is Taking. Patient states that his glucometer at home read high. He States Anything He Is Eat or Drink Is Come Back up. He Denies Fever, Chest Pain, Shortness of Air, Cough, Headache, Vision Changes, Numbness or Tingling, Focal Weakness. He States He Has Generalized Body Aches. He Denies Abdominal Pain. He States That Today He Is Starting to Get a Bit Dizzy. Review of Systems: Review of Systems: GI: Denies abdominal pain. + nausea, vomiting, denies bloody stools or diarrhea. [] Musculoskeletal: Generalized body aches. Denies back pain or joint pain. [] Neurologic: Dizziness. Denies headache, focal weakness or sensory changes. [] Heart Score: Risk Factors: Risk Factors: DM, Current or recent (<one month) smoker, HTN, HLP, family history of CAD, obesity. Risk Scores: Score 0 - 3: 2.5% MACE over next 6 weeks - Discharge Home Score 4 - 6: 20.3% MACE over next 6 weeks - Admit for Clinical Observation Score 7 - 10: 72.7% MACE over next 6 weeks - Early Invasive Strategies Allergies: Allergies: Allergies Coded Allergies Type Severity Reaction Last Updated Verified No Known Drug Allergies 01/22/14 No Physical Exam: PE: Constitutional: Well developed, well nourished, no acute distress, non-toxic ap pearance. [] HENT: Normocephalic, atraumatic, bilateral external ears normal, oropharynx moist, no oral exudates, nose normal. [] Eyes: PERRLA, EOMI, conjunctiva normal, no discharge. [] Neck: Normal range of motion, no tenderness, supple, no stridor. [] Cardiovascular:Heart rate regular tachycardic rhythm, no murmur [] Lungs & Thorax: Bilateral breath sounds clear to auscultation [] Abdomen: Bowel sounds normal, soft, no tenderness, no masses, no pulsatile masses. [] Skin: Warm, dry, no erythema, no rash. [] Back: No tenderness, no CVA tenderness. [] Extremities: No tenderness, no cyanosis, no clubbing, ROM intact, no edema. [] Neurologic: Alert and oriented X 3, normal motor function, normal sensory function, no focal deficits noted. [] Psychologic: Affect normal, judgement normal, mood normal. [] EKG: EK and read by Dr Trinidad as Sinus Tachycardia and no STEMI[] Radiology/Procedures: Radiology/Procedures: [] Impression: [facility] [address] [place] [address] IMAGING REPORT Signed PATIENT: MELNIA MACIAS ACCOUNT: [id number] : 1970 LOCATION: ER AGE: 48 SEX: M EXAM STATUS: REG ER ORD. PHYSICIAN: JESSICA HANSEN APRN REASON: TACHYCARDIC PROCEDURE: PORTABLE CHEST 1V PORTABLE CHEST 1V History: Tachycardia Comparison: February 10, 2019 Findings: No consolidation or pleural effusion. Normal heart size. No pneumothorax. Chronic right clavicular fracture. Impression: 1. No acute cardiopulmonary process. Electronically signed by: Leobardo Beaver DO (08/08/2019 6:36 PM) [facility] DICTATED and SIGNED BY: LEOBARDO BEAVER DO DATE: 08/08/191835 Course & Med Decision Making: Course & Med Decision Making Pertinent Labs and Imaging studies reviewed. (See chart for details) Alert and oriented. Abdomen soft and nontender. No extremity swelling. Ambulatory with steady gait. PERRLA. Speaks in full clear sentences. Lungs are clear to auscultation all lobes. Bowel sounds normal. Denies any diarrhea or blood in his vomit or stool. Skin pink warm and dry. Afebrile. I have spoken to Dr Herndon and patient is admitted. [] Wily Disclaimer: Wily Disclaimer: This electronic medical record was generated, in whole or in part, using a voice recognition dictation system. Departure Departure Impression: Primary Impression: DKA (diabetic ketoacidoses) Qualified Codes: E13.10 - Other specified diabetes mellitus with ketoacidosis without coma Additional Impression: FAUSTO (acute kidney injury) Disposition: ADMITTED INPATIENT Admitting Physician: ARELY Condition: STABLE Referrals: UNKNOWN PCP NAME (PCP) JESSICA HANSEN BLEMISH REMOVER August 08, 2019 17:25
[2019-08-08] MEDS ORDERED: ONDANSETRON PF 4 MG/2 ML VIAL. IVP ONE (17:30)
[2019-08-08] MEDS ORDERED: IV NORMAL SALINE 1000ML BAG 1,000 ML IV ONE ×2 (17:30)
[2019-08-08 17:39] LABS: BASO % 1 % (0-3); EOS % 0 % (0-3); HEMATOCRIT 48.3 % (39.0-53.0); HEMOGLOBIN 16.1 g/dL (13.0-17.5); LYMPH # 1.1 x10^3/uL (1.0-4.8); LYMPH % 12 % (24-48); MEAN CORPUSCULAR HEMOGLOBIN 33 pg (25-35); MEAN CORPUSCULAR HGB CONC 33 g/dL (31-37); MEAN CORPUSCULAR VOLUME 98 fL (79-100); MONO # 0.6 x10^3/uL (0.0-1.1); MONO % 7 % (0-9); NEUT # 6.9 x10^3/uL (1.8-7.7); NEUT % 80 % (31-73); PLATELET COUNT 429 x10^3/uL (140-400); RED BLOOD COUNT 4.95 x10^6/uL (4.30-5.70); RED CELL DISTRIBUTION WIDTH 11.8 % (11.5-14.5); WHITE BLOOD COUNT 8.6 x10^3/uL (4.0-11.0)
[2019-08-08 17:56] LABS: CALCIUM 9.5 mg/dL (8.5-10.1); CREATININE 1.9 mg/dL (0.7-1.3); GFR 46.4; POTASSIUM 4.7 mmol/L (3.5-5.1)
[2019-08-08 18:03] LABS: ALBUMIN 4.7 g/dL (3.4-5.0); ALBUMIN/GLOBULIN RATIO 1.2 (1.0-1.7); TOTAL BILIRUBIN 1.3 mg/dL (0.2-1.0); TOTAL PROTEIN 8.6 g/dL (6.4-8.2)
--- NOTE | 2019-08-08 18:39 | RAD ---
PORTABLE CHEST 1V History: Tachycardia Comparison: February 10, 2019 Findings: No consolidation or pleural effusion. Normal heart size. No pneumothorax. Chronic right clavicular fracture. Impression: 1. No acute cardiopulmonary process. Electronically signed by: Leobardo Beaver DO (08/08/2019 6:36 PM) [facility]
[2019-08-08 18:41] LABS: INFLUENZA A PATIENT NEGATIVE (NEGATIVE); INFLUENZA B PATIENT NEGATIVE (NEGATIVE)
[2019-08-08] MEDS ORDERED: INSULIN REGULAR 100 UNIT/ML 3ML VIAL. IV ONE (18:45)
[2019-08-08 19:03] LABS: BILIRUBIN,URINE MODERATE (NEG); CLARITY,URINE CLEAR; COLOR,URINE YELLOW; NITRITE,URINE NEGATIVE (NEG); PROTEIN,URINE 30 mg/dL (NEG-TRACE)
[2019-08-08 19:09] LABS: BACTERIA,URINE 0 /HPF (0-FEW); RBC,URINE 0 /HPF (0-2); WBC,URINE 0 /HPF (0-4)
[2019-08-08] MEDS ORDERED: ONDANSETRON PF 4 MG/2 ML VIAL. IV PRN (19:30)
[2019-08-08] MEDS ORDERED: INSULIN,REGULAR 100 UNIT DRIP 100 ML IV ONE (19:30)
[2019-08-08 20:20] VITALS: BP 128/90
[2019-08-08 20:35] VITALS: BP 112/86
[2019-08-08 20:45] LABS: BASE EXCESS COOX -14 mmol/L (-3-3); HCO3 COOX 11 mmol/L (21-28); METHEMOGLOBIN 0.3 % (0.0-1.9); OXYHEMOGLOBIN 92.8 %; PCO2 COOX 25 mmHg (35-46); PO2 COOX 76 mmHg (75-108); SAT O2 COOX 93 % (92-99)
[2019-08-08] MEDS ORDERED: POTASSIUM CHLORIDE 10MEQ 100 ML IV PRN ×2 (20:45)
[2019-08-08] MEDS ORDERED: INSULIN REGULAR VIAL 100 UNIT in IV NORMAL SALINE 100ML 100 ML IV PRN (20:45)
[2019-08-08 20:50] VITALS: BP 112/88
[2019-08-08] MEDS: IV 1/2 NORMAL SALINE 1,000 ML IV SCH (20:55)
[2019-08-08 21:00] VITALS: BP 124/83
[2019-08-08] MEDS: IV DEXTROSE 5 %-0.45 % NACL 1,000 ML IV SCH (21:06)
--- NOTE | 2019-08-08 21:28 | PDOC1 ---
History and Physical Date of Admission Date of Admission DATE: 08/08/19 TIME: 21:25 Source Source: Chart review, Patient History of Present Illness History of Present Illness Mr. Hawkins is a 48 year old male who presents with nausea and vomiting for the last 2 days. Dm1, for 7 years, has been compliant with his insulin, just nausea and feeling worse, poor PO intake, nausea and He States Anything He Is Eat or Drink Is Come Back up. He Denies Fever, Chest Pain, Shortness of Air, Cough, Headache, Vision Changes, Numbness or Tingling, Focal Weakness. He States He Has Generalized Body Aches. He Denies Abdominal Pain. He States That Today He Is Starting to Get a Bit Dizzy. 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 Past Medical History Cardiovascular: No pertinent hx Pulmonary: No pertinent hx GI: No pertinent hx Heme/Onc: No pertinent hx Endocrine: Diabetes Past Surgical History Past Surgical History: Other Family History Family History: Hypertension Social History Smoke: No ALCOHOL: rare Drugs: None Current Problem List Problem List Problems Medical Problems: (1) FAUSTO (acute kidney injury) Status: Acute Current Medications Current Medications Current Medications Sodium Chloride 1,000 ml @ 1,000 mls/hr 1X ONCE IV Last administered on 08/08/19at 17:35; Start 08/08/19 at 17:30; Stop 08/08/19 at 18:29; Status DC Ondansetron HCl (Zofran) 4 mg 1X ONCE IVP Last administered on 08/08/19at 17:30; Start 08/08/19 at 17:30; Stop 08/08/19 at 17:31; Status DC Sodium Chloride 1,000 ml @ 1,000 mls/hr 1X ONCE IV Last administered on 08/08/19at 17:35; Start 08/08/19 at 17:30; Stop 08/08/19 at 18:29; Status DC Insulin Human Regular (HumuLIN R VIAL) 10 unit 1X ONCE IV Last administered on 08/08/19at 18:49; Start 08/08/19 at 18:45; Stop 08/08/19 at 18:46; Status DC Insulin Human Regular 100 ml @ 0 mls/hr 1X ONCE IV Last administered on 08/08/19at 19:47; Start 08/08/19 at 19:30; Stop 08/08/19 at 19:32; Status DC Ondansetron HCl (Zofran) 4 mg PRN Q8HRS PRN IV NAUSEA/VOMITING; Start 08/08/19 at 19:30; Stop 08/09/19 at 19:29 Insulin Human Regular 100 unit/ Sodium Chloride 101 ml @ 0 mls/hr CONT PRN PRN IV PER PROTOCOL; Start 08/08/19 at 20:45 Potassium Chloride/Water 100 ml @ 100 mls/hr PRN Q1HR PRN IV SEE COMMENTS; Start 08/08/19 at 20:45 Potassium Chloride/Water 100 ml @ 100 mls/hr PRN Q1HR PRN IV SEE COMMENTS; Start 08/08/19 at 20:45 Potassium Chloride/Water 100 ml @ 100 mls/hr PRN Q1HR PRN IV SEE COMMENTS; Start 08/08/19 at 20:45 Sodium Chloride 1,000 ml @ 250 mls/hr Q4H IV ; Start 08/08/19 at 20:55 Dextrose/Sodium Chloride 1,000 ml @ 250 mls/hr Q4H IV Last administered on 08/08/19at 21:06; Start 08/08/19 at 20:55 Active Scripts Active Lantus Solostar (Insulin Glargine,Hum.rec.anlog) 100 Unit/1 Ml Insuln.pen 28 Unit SQ QHS Novolog Flexpen (Insulin Aspart) 100 Unit/1 Ml Insuln.pen 18 Unit SQ TIDWMEALS 30 Days Acetaminophen 500 Mg Tablet 500 Mg PO PRN Q6HRS PRN 14 Days Insulin Pen Needle (Pen Needle, Diabetic) 1 Each Dis.needle Each MC QID 4 times daily with meals and nightly for insulin pens Allergies Allergies: Coded Allergies: No Known Drug Allergies (Unverified , 01/22/14) ROS Review of System 20 lbs weight loss, at least General: YES: Chills, Fatigue, Malaise; No: Night Sweats, Appetite, Other PSYCHOLOGICAL ROS: No: Anxiety, Behavioral Disorder, Concentration difficultie, Decreased libido, Depression, Disorientation, Hallucinations, Hostility, Irritablity, Memory difficulties, Mood Swings, Obsessive thoughts, Physical abuse, Sexual abuse, Sleep disturbances, Suicidal ideation, Other Eyes: No Blurry vision, No Decreased vision, No Double vision, No Dry eyes, No Excessive tearing, No Eye Pain, No Itchy Eyes, No Loss of vision, No Photophobia, No Scotomata, No Uses contacts, No Uses glasses, No Other HEENT: No: Heacaches, Visual Changes, Hearing change, Nasal congestion, Nasal discharge, Oral lesions, Sinus pain, Sore Throat, Epistaxis, Sneezing, Snoring, Tinnitus, Vertigo, Vocal changes, Other Respiratory: No: Cough, Hemoptysis, Orthopnea, Pleuritic Pain, Shortness of breath, SOB with excertion, Sputum Changes, Stridor, Tachypnea, Wheezing, Other Cardiovascular: No Chest Pain, No Palpitations, No Orthopnea, No Paroxysmal Noc. Dyspnea, No Edema, No Lt Headedness, No Other Gastrointestinal: Yes Nausea, Yes Vomiting, Yes Abdominal Pain Genitourinary: No Dysuria, No Frequency, No Incontinence, No Hematuria, No Retention, No Discharge, No Urgency, No Pain, No Flank Pain, No Other, No , No , No , No , No , No , No Musculoskeletal: No Gait Disturbance, No Joint Pain, No Joint Stiffness, No Joint Swelling, No Muscle Pain, No Muscular Weakness, No Pain In:, No Swelling In:, No Other Neurological: No Behavorial Changes, No Bowel/Bladder ControlChng, No Confusion, No Dizziness, No Gait Disturbance, No Headaches, No Impaired Coord/balance, No Memory Loss, No Numbness/Tingling, No Seizures, No Speech Problems, No Tremors, No Visual Changes, No Weakness, No Other Skin: No Dry Skin, No Eczema, No Hair Changes, No Lumps, No Mole Changes, No Mottling, No Nail Changes, No Pruritus, No Rash, No Skin Lesion Changes, No Other, No Acne Physical Exam HEENT: Atraumatic Lungs: Clear to auscultation Male Genitals Exam: normal prostate, epididymal tenderness Extremities: No cyanosis, No edema Skin: No breakdown, No significant lesion Neuro: Normal gait, Sensation intact Psych/Mental Status: Mental status NL, Mood NL Vitals Vitals Vital Signs Date Time Temp Pulse Resp B/P (MAP) Pulse Ox O2 Delivery O2 Flow Rate FiO2 08/08/19 19:45 98 18 127/82 (97) 100 Room Air 08/08/19 17:45 98.1 98.1 Labs Labs Laboratory Tests Test 5/22/20 17:19 08/08/19 17:30 08/08/19 17:37 08/08/19 18:38 Glucose (Fingerstick) 339 mg/dL (70-99) White Blood Count 8.6 x10^3/uL (4.0-11.0) Red Blood Count 4.95 x10^6/uL (4.30-5.70) Hemoglobin 16.1 g/dL (13.0-17.5) Hematocrit 48.3 % (39.0-53.0) Mean Corpuscular Volume 98 fL (79-100) Mean Corpuscular Hemoglobin 33 pg (25-35) Mean Corpuscular Hemoglobin Concent 33 g/dL (31-37) Red Cell Distribution Width 11.8 % (11.5-14.5) Platelet Count 429 x10^3/uL (140-400) Neutrophils (%) (Auto) 80 % (31-73) Lymphocytes (%) (Auto) 12 % (24-48) Monocytes (%) (Auto) 7 % (0-9) Eosinophils (%) (Auto) 0 % (0-3) Basophils (%) (Auto) 1 % (0-3) Neutrophils # (Auto) 6.9 x10^3/uL (1.8-7.7) Lymphocytes # (Auto) 1.1 x10^3/uL (1.0-4.8) Monocytes # (Auto) 0.6 x10^3/uL (0.0-1.1) Eosinophils # (Auto) 0.0 x10^3/uL (0.0-0.7) Basophils # (Auto) 0.0 x10^3/uL (0.0-0.2) Sodium Level 133 mmol/L (136-145) Potassium Level 4.7 mmol/L (3.5-5.1) Chloride Level 94 mmol/L (98-107) Carbon Dioxide Level 12 mmol/L (21-32) Anion Gap 27 (6-14) Blood Urea Nitrogen 34 mg/dL (8-26) Creatinine 1.9 mg/dL (0.7-1.3) Estimated GFR (Cockcroft-Gault) 46.4 BUN/Creatinine Ratio 18 (6-20) Glucose Level 376 mg/dL (70-99) Calcium Level 9.5 mg/dL (8.5-10.1) Total Bilirubin 1.3 mg/dL (0.2-1.0) Aspartate Amino Transf (AST/SGOT) 12 U/L (15-37) Alanine Aminotransferase (ALT/SGPT) 19 U/L (16-63) Alkaline Phosphatase 90 U/L (46-116) Troponin I Quantitative < 0.017 ng/mL (0.000-0.055) Total Protein 8.6 g/dL (6.4-8.2) Albumin 4.7 g/dL (3.4-5.0) Albumin/Globulin Ratio 1.2 (1.0-1.7) Lipase 74 U/L (73-393) Acetone Level Sm pos (NEG) Influenza Type A Antigen Negative (NEGATIVE) Influenza Type B Antigen Negative (NEGATIVE) O2 Saturation 93 % (92-99) Arterial Blood pH 7.26 (7.35-7.45) Arterial Blood pCO2 at Patient Temp 25 mmHg (35-46) Arterial Blood pO2 at Patient Temp 76 mmHg (75-108) Arterial Blood HCO3 11 mmol/L (21-28) Arterial Blood Base Excess -14 mmol/L (-3-3) Oxyhemoglobin 92.8 % Methemoglobin 0.3 % (0.0-1.9) Carbon Monoxide, Quantitative 0.3 % (0.0-1.9) FiO2 21 Test 08/08/19 18:50 08/08/19 19:21 08/08/19 20:29 Urine Collection Type Unknown Urine Color Yellow Urine Clarity Clear Urine pH 5.0 (<5.0-8.0) Urine Specific [place] >=1.030 (1.000-1.030) Urine Protein 30 mg/dL (NEG-TRACE) Urine Glucose (UA) >=1000 mg/dL (NEG) Urine Ketones (Stick) >=80 mg/dL (NEG) Urine Blood Negative (NEG) Urine Nitrite Negative (NEG) Urine Bilirubin Moderate (NEG) Urine Urobilinogen Dipstick 1.0 mg/dL (0.2 mg/dL) Urine Leukocyte Esterase Negative (NEG) Urine RBC 0 /HPF (0-2) Urine WBC 0 /HPF (0-4) Urine Bacteria 0 /HPF (0-FEW) Glucose (Fingerstick) 259 mg/dL (70-99) 231 mg/dL (70-99) Laboratory Tests Test 08/08/19 17:19 08/08/19 17:30 08/08/19 17:37 08/08/19 18:38 Glucose (Fingerstick) 339 mg/dL (70-99) White Blood Count 8.6 x10^3/uL (4.0-11.0) Red Blood Count 4.95 x10^6/uL (4.30-5.70) Hemoglobin 16.1 g/dL (13.0-17.5) Hematocrit 48.3 % (39.0-53.0) Mean Corpuscular Volume 98 fL (79-100) Mean Corpuscular Hemoglobin 33 pg (25-35) Mean Corpuscular Hemoglobin Concent 33 g/dL (31-37) Red Cell Distribution Width 11.8 % (11.5-14.5) Platelet Count 429 x10^3/uL (140-400) Neutrophils (%) (Auto) 80 % (31-73) Lymphocytes (%) (Auto) 12 % (24-48) Monocytes (%) (Auto) 7 % (0-9) Eosinophils (%) (Auto) 0 % (0-3) Basophils (%) (Auto) 1 % (0-3) Neutrophils # (Auto) 6.9 x10^3/uL (1.8-7.7) Lymphocytes # (Auto) 1.1 x10^3/uL (1.0-4.8) Monocytes # (Auto) 0.6 x10^3/uL (0.0-1.1) Eosinophils # (Auto) 0.0 x10^3/uL (0.0-0.7) Basophils # (Auto) 0.0 x10^3/uL (0.0-0.2) Sodium Level 133 mmol/L (136-145) Potassium Level 4.7 mmol/L (3.5-5.1) Chloride Level 94 mmol/L (98-107) Carbon Dioxide Level 12 mmol/L (21-32) Anion Gap 27 (6-14) Blood Urea Nitrogen 34 mg/dL (8-26) Creatinine 1.9 mg/dL (0.7-1.3) Estimated GFR (Cockcroft-Gault) 46.4 BUN/Creatinine Ratio 18 (6-20) Glucose Level 376 mg/dL (70-99) Calcium Level 9.5 mg/dL (8.5-10.1) Total Bilirubin 1.3 mg/dL (0.2-1.0) Aspartate Amino Transf (AST/SGOT) 12 U/L (15-37) Alanine Aminotransferase (ALT/SGPT) 19 U/L (16-63) Alkaline Phosphatase 90 U/L (46-116) Troponin I Quantitative < 0.017 ng/mL (0.000-0.055) Total Protein 8.6 g/dL (6.4-8.2) Albumin 4.7 g/dL (3.4-5.0) Albumin/Globulin Ratio 1.2 (1.0-1.7) Lipase 74 U/L (73-393) Acetone Level Sm pos (NEG) Influenza Type A Antigen Negative (NEGATIVE) Influenza Type B Antigen Negative (NEGATIVE) O2 Saturation 93 % (92-99) Arterial Blood pH 7.26 (7.35-7.45) Arterial Blood pCO2 at Patient Temp 25 mmHg (35-46) Arterial Blood pO2 at Patient Temp 76 mmHg (75-108) Arterial Blood HCO3 11 mmol/L (21-28) Arterial Blood Base Excess -14 mmol/L (-3-3) Oxyhemoglobin 92.8 % Methemoglobin 0.3 % (0.0-1.9) Carbon Monoxide, Quantitative 0.3 % (0.0-1.9) FiO2 21 Test 08/08/19 18:50 08/08/19 19:21 08/08/19 20:29 Urine Collection Type Unknown Urine Color Yellow Urine Clarity Clear Urine pH 5.0 (<5.0-8.0) Urine Specific [place] >=1.030 (1.000-1.030) Urine Protein 30 mg/dL (NEG-TRACE) Urine Glucose (UA) >=1000 mg/dL (NEG) Urine Ketones (Stick) >=80 mg/dL (NEG) Urine Blood Negative (NEG) Urine Nitrite Negative (NEG) Urine Bilirubin Moderate (NEG) Urine Urobilinogen Dipstick 1.0 mg/dL (0.2 mg/dL) Urine Leukocyte Esterase Negative (NEG) Urine RBC 0 /HPF (0-2) Urine WBC 0 /HPF (0-4) Urine Bacteria 0 /HPF (0-FEW) Glucose (Fingerstick) 259 mg/dL (70-99) 231 mg/dL (70-99) VTE Prophylaxis Ordered VTE Prophylaxis Devices: No VTE Pharmacological Prophylaxi: Yes Assessment/Plan Assessment/Plan nausea and vomiting viral enteritis Acute acidosis DKA, insulin gtt, protocol, d5 fluid 250 admit to ICU SUDHAKAR CONKLIN MD August 08, 2019 21:28
[2019-08-08 22:00] VITALS: BP 128/78
[2019-08-08 22:06] LABS: CALCIUM 8.3 mg/dL (8.5-10.1); CREATININE 1.5 mg/dL (0.7-1.3); PHOSPHORUS 2.4 mg/dL (2.6-4.7); POTASSIUM 4.3 mmol/L (3.5-5.1)
[2019-08-08] MEDS: POTASSIUM CHLORIDE 10MEQ 100 ML IV PRN ×2 (22:29→23:27)
[2019-08-08 23:00] VITALS: BP 114/74
[2019-08-08] MEDS ORDERED: INSU100I17 SQ (23:29)
[2019-08-08] MEDS ORDERED: INSU100I13 SQ (23:29)
--- NOTE | 2019-08-08 23:58 | NUR ---
Pt brought to CVICU room 269 at approx 2020 by ED nurse. Pt transferred to ICU bed with SBA. Pt VSS upon admission, pt afebrile. Pt denies any further nausea after PRN med given in ED. Pt requested something to drink, given ice chips. DKA protocol initiated per Dr. Herndon upon pt admission. Pt continues with DKA protocol, glucostabilizer, as last anion gap was 19. Labs scheduled to be redrawn at 0130. Pt has has had no complaints; is currently resting with eyes closed and call light within reach.
[2019-08-09] VITALS (19 sets, daily range): BP systolic 95–125; BP diastolic 60–83
[2019-08-09] MEDS: IV 1/2 NORMAL SALINE 1,000 ML IV SCH (00:55)
[2019-08-09] MEDS: IV DEXTROSE 5 %-0.45 % NACL 1,000 ML IV SCH (01:00)
--- NOTE | 2019-08-09 01:20 | NUR ---
Pt takes Duloxetine, gabapentin, lisinopril, novolog, lantus at home. Novolog and Lantus doses entered into system. Pt was unsure of current PO doses. Will pass on to oncoming shift.
[2019-08-09 02:38] LABS: CALCIUM 8.1 mg/dL (8.5-10.1); CREATININE 1.4 mg/dL (0.7-1.3); PHOSPHORUS 2.5 mg/dL (2.6-4.7); POTASSIUM 3.8 mmol/L (3.5-5.1)
--- NOTE | 2019-08-09 02:52 | NUR ---
Pt anion gap is now closed. Call placed to Dr. Herndon. Received orders for fluids to be NS at 100ml/hr, start diabetic diet, give lantus 48 units now and QHS, give 15 units short acting insulin with meals plus high intensity sliding scale. Orders entered into system. Pt notified. Will administer Lantus then turn off insulin drip one hour after administration per protocol. Pt currently resting with eyes closed and call light within reach.
[2019-08-09] MEDS ORDERED: IV DEXTROSE 5% 250 ML BAG. IV PRN (03:00)
[2019-08-09] MEDS: IV NORMAL SALINE 1000ML BAG 1,000 ML IV SCH ×3 (03:11→17:13)
[2019-08-09] MEDS ORDERED: INSULIN GLARGINE SYRINGE. SQ SCH (03:30)
[2019-08-09 07:27] LABS: BASO % 0 % (0-3); EOS # 0.1 x10^3/uL (0.0-0.7); EOS % 2 % (0-3); HEMATOCRIT 39.2 % (39.0-53.0); HEMOGLOBIN 13.3 g/dL (13.0-17.5); LYMPH # 1.4 x10^3/uL (1.0-4.8); LYMPH % 17 % (24-48); MEAN CORPUSCULAR HEMOGLOBIN 33 pg (25-35); MEAN CORPUSCULAR HGB CONC 34 g/dL (31-37); MEAN CORPUSCULAR VOLUME 97 fL (79-100); MONO % 13 % (0-9); NEUT # 5.4 x10^3/uL (1.8-7.7); NEUT % 68 % (31-73); PLATELET COUNT 331 x10^3/uL (140-400); RED BLOOD COUNT 4.06 x10^6/uL (4.30-5.70); RED CELL DISTRIBUTION WIDTH 11.8 % (11.5-14.5); WHITE BLOOD COUNT 7.9 x10^3/uL (4.0-11.0)
[2019-08-09 07:48] LABS: ALBUMIN 3.4 g/dL (3.4-5.0); ALBUMIN/GLOBULIN RATIO 1.2 (1.0-1.7); CALCIUM 8.1 mg/dL (8.5-10.1); CREATININE 1.2 mg/dL (0.7-1.3); GFR 78.9; POTASSIUM 3.6 mmol/L (3.5-5.1); TOTAL BILIRUBIN 1.3 mg/dL (0.2-1.0); TOTAL PROTEIN 6.3 g/dL (6.4-8.2)
[2019-08-09] MEDS: INSULIN LISPRO 300 UNITS/3 ML VIAL. SQ SCH ×6 (08:09→17:12)
[2019-08-09] MEDS ORDERED: ACETAMINOPHEN 325 MG TABLET. PO PRN (09:45)
[2019-08-09] MEDS ORDERED: POTASSIUM CHLORIDE 20 MEQ TABLET.ER. PO ONE (09:45)
--- NOTE | 2019-08-09 11:12 | EKG ---
[facility] [address] [place] [address] Test Date: 2019-08-08 Test Time: 17:52:33 Pat Name: MELINA MACIAS Department: Room: Gender: M [employer] Work[employer]: : 1970 Requested By: JESSICA HANSEN Order Number: [id number] Reading MD: Measurements Intervals [place] Rate: 107 P: 49 HI: 138 QRS: 45 QRSD: 74 T: 66 QT: 322 QTc: 429 Interpretive Statements SINUS TACHYCARDIA OTHERWISE NORMAL ECG RI6.02 No previous ECG available for comparison
--- NOTE | 2019-08-09 13:47 | PDOC3 ---
Discharge Summary Visit Information Date of Admission: August 08, 2019 Date of Discharge: August 09, 2019 Final Diagnosis nausea and vomiting viral enteritis Acute acidosis DKA, admit on insulin gtt, protocol done, Problems Medical Problems: (1) FAUSTO (acute kidney injury) Status: Acute Brief Hospital Course Allergies Allergies Coded Allergies Type Severity Reaction Last Updated Verified No Known Drug Allergies 01/22/14 No Vital Signs Vital Signs Date Time Temp Pulse Resp B/P (MAP) Pulse Ox O2 Delivery O2 Flow Rate FiO2 08/09/19 13:09 104 15 112/73 (86) 97 Room Air 08/09/19 12:00 97.6 97.6 Lab Results Laboratory Tests Test 08/08/19 17:19 08/08/19 17:30 08/08/19 17:37 08/08/19 18:38 Glucose (Fingerstick) 339 mg/dL (70-99) White Blood Count 8.6 x10^3/uL (4.0-11.0) Red Blood Count 4.95 x10^6/uL (4.30-5.70) Hemoglobin 16.1 g/dL (13.0-17.5) Hematocrit 48.3 % (39.0-53.0) Mean Corpuscular Volume 98 fL (79-100) Mean Corpuscular Hemoglobin 33 pg (25-35) Mean Corpuscular Hemoglobin Concent 33 g/dL (31-37) Red Cell Distribution Width 11.8 % (11.5-14.5) Platelet Count 429 x10^3/uL (140-400) Neutrophils (%) (Auto) 80 % (31-73) Lymphocytes (%) (Auto) 12 % (24-48) Monocytes (%) (Auto) 7 % (0-9) Eosinophils (%) (Auto) 0 % (0-3) Basophils (%) (Auto) 1 % (0-3) Neutrophils # (Auto) 6.9 x10^3/uL (1.8-7.7) Lymphocytes # (Auto) 1.1 x10^3/uL (1.0-4.8) Monocytes # (Auto) 0.6 x10^3/uL (0.0-1.1) Eosinophils # (Auto) 0.0 x10^3/uL (0.0-0.7) Basophils # (Auto) 0.0 x10^3/uL (0.0-0.2) Sodium Level 133 mmol/L (136-145) Potassium Level 4.7 mmol/L (3.5-5.1) Chloride Level 94 mmol/L (98-107) Carbon Dioxide Level 12 mmol/L (21-32) Anion Gap 27 (6-14) Blood Urea Nitrogen 34 mg/dL (8-26) Creatinine 1.9 mg/dL (0.7-1.3) Estimated GFR (Cockcroft-Gault) 46.4 BUN/Creatinine Ratio 18 (6-20) Glucose Level 376 mg/dL (70-99) Calcium Level 9.5 mg/dL (8.5-10.1) Total Bilirubin 1.3 mg/dL (0.2-1.0) Aspartate Amino Transf (AST/SGOT) 12 U/L (15-37) Alanine Aminotransferase (ALT/SGPT) 19 U/L (16-63) Alkaline Phosphatase 90 U/L (46-116) Troponin I Quantitative < 0.017 ng/mL (0.000-0.055) Total Protein 8.6 g/dL (6.4-8.2) Albumin 4.7 g/dL (3.4-5.0) Albumin/Globulin Ratio 1.2 (1.0-1.7) Lipase 74 U/L (73-393) Acetone Level Sm pos (NEG) Influenza Type A Antigen Negative (NEGATIVE) Influenza Type B Antigen Negative (NEGATIVE) O2 Saturation 93 % (92-99) Arterial Blood pH 7.26 (7.35-7.45) Arterial Blood pCO2 at Patient Temp 25 mmHg (35-46) Arterial Blood pO2 at Patient Temp 76 mmHg (75-108) Arterial Blood HCO3 11 mmol/L (21-28) Arterial Blood Base Excess -14 mmol/L (-3-3) Oxyhemoglobin 92.8 % Methemoglobin 0.3 % (0.0-1.9) Carbon Monoxide, Quantitative 0.3 % (0.0-1.9) FiO2 21 Test 08/08/19 18:50 08/08/19 19:21 08/08/19 20:29 08/08/19 21:28 Urine Collection Type Unknown Urine Color Yellow Urine Clarity Clear Urine pH 5.0 (<5.0-8.0) Urine Specific Marlette >=1.030 (1.000-1.030) Urine Protein 30 mg/dL (NEG-TRACE) Urine Glucose (UA) >=1000 mg/dL (NEG) Urine Ketones (Stick) >=80 mg/dL (NEG) Urine Blood Negative (NEG) Urine Nitrite Negative (NEG) Urine Bilirubin Moderate (NEG) Urine Urobilinogen Dipstick 1.0 mg/dL (0.2 mg/dL) Urine Leukocyte Esterase Negative (NEG) Urine RBC 0 /HPF (0-2) Urine WBC 0 /HPF (0-4) Urine Bacteria 0 /HPF (0-FEW) Glucose (Fingerstick) 259 mg/dL (70-99) 231 mg/dL (70-99) 224 mg/dL (70-99) Test 08/08/19 21:30 08/08/19 22:32 08/08/19 23:43 08/09/19 00:33 Sodium Level 137 mmol/L (136-145) Potassium Level 4.3 mmol/L (3.5-5.1) Chloride Level 102 mmol/L (98-107) Carbon Dioxide Level 16 mmol/L (21-32) Anion Gap 19 (6-14) Blood Urea Nitrogen 29 mg/dL (8-26) Creatinine 1.5 mg/dL (0.7-1.3) Estimated GFR (Cockcroft-Gault) 61.0 Glucose Level 235 mg/dL (70-99) Calcium Level 8.3 mg/dL (8.5-10.1) Phosphorus Level 2.4 mg/dL (2.6-4.7) Glucose (Fingerstick) 230 mg/dL (70-99) 151 mg/dL (70-99) 145 mg/dL (70-99) Test 08/09/19 02:00 08/09/19 02:09 08/09/19 03:15 08/09/19 04:33 Sodium Level 134 mmol/L (136-145) Potassium Level 3.8 mmol/L (3.5-5.1) Chloride Level 103 mmol/L (98-107) Carbon Dioxide Level 21 mmol/L (21-32) Anion Gap 10 (6-14) Blood Urea Nitrogen 26 mg/dL (8-26) Creatinine 1.4 mg/dL (0.7-1.3) Estimated GFR (Cockcroft-Gault) 66.0 Glucose Level 148 mg/dL (70-99) Calcium Level 8.1 mg/dL (8.5-10.1) Phosphorus Level 2.5 mg/dL (2.6-4.7) Magnesium Level 2.0 mg/dL (1.8-2.4) Glucose (Fingerstick) 134 mg/dL (70-99) 134 mg/dL (70-99) 120 mg/dL (70-99) Test 08/09/19 06:45 08/09/19 06:50 08/09/19 08:02 08/09/19 12:22 Glucose (Fingerstick) 121 mg/dL (70-99) 159 mg/dL (70-99) 49 mg/dL (70-99) White Blood Count 7.9 x10^3/uL (4.0-11.0) Red Blood Count 4.06 x10^6/uL (4.30-5.70) Hemoglobin 13.3 g/dL (13.0-17.5) Hematocrit 39.2 % (39.0-53.0) Mean Corpuscular Volume 97 fL (79-100) Mean Corpuscular Hemoglobin 33 pg (25-35) Mean Corpuscular Hemoglobin Concent 34 g/dL (31-37) Red Cell Distribution Width 11.8 % (11.5-14.5) Platelet Count 331 x10^3/uL (140-400) Neutrophils (%) (Auto) 68 % (31-73) Lymphocytes (%) (Auto) 17 % (24-48) Monocytes (%) (Auto) 13 % (0-9) Eosinophils (%) (Auto) 2 % (0-3) Basophils (%) (Auto) 0 % (0-3) Neutrophils # (Auto) 5.4 x10^3/uL (1.8-7.7) Lymphocytes # (Auto) 1.4 x10^3/uL (1.0-4.8) Monocytes # (Auto) 1.0 x10^3/uL (0.0-1.1) Eosinophils # (Auto) 0.1 x10^3/uL (0.0-0.7) Basophils # (Auto) 0.0 x10^3/uL (0.0-0.2) Sodium Level 137 mmol/L (136-145) Potassium Level 3.6 mmol/L (3.5-5.1) Chloride Level 104 mmol/L (98-107) Carbon Dioxide Level 18 mmol/L (21-32) Anion Gap 15 (6-14) Blood Urea Nitrogen 25 mg/dL (8-26) Creatinine 1.2 mg/dL (0.7-1.3) Estimated GFR (Cockcroft-Gault) 78.9 BUN/Creatinine Ratio 21 (6-20) Glucose Level 125 mg/dL (70-99) Calcium Level 8.1 mg/dL (8.5-10.1) Total Bilirubin 1.3 mg/dL (0.2-1.0) Aspartate Amino Transf (AST/SGOT) 11 U/L (15-37) Alanine Aminotransferase (ALT/SGPT) 15 U/L (16-63) Alkaline Phosphatase 66 U/L (46-116) Total Protein 6.3 g/dL (6.4-8.2) Albumin 3.4 g/dL (3.4-5.0) Albumin/Globulin Ratio 1.2 (1.0-1.7) Test 08/09/19 12:24 08/09/19 12:40 Glucose (Fingerstick) 47 mg/dL (70-99) 85 mg/dL (70-99) Laboratory Tests Test 08/08/19 17:19 08/08/19 17:30 08/08/19 17:37 08/08/19 18:38 Glucose (Fingerstick) 339 mg/dL (70-99) White Blood Count 8.6 x10^3/uL (4.0-11.0) Red Blood Count 4.95 x10^6/uL (4.30-5.70) Hemoglobin 16.1 g/dL (13.0-17.5) Hematocrit 48.3 % (39.0-53.0) Mean Corpuscular Volume 98 fL (79-100) Mean Corpuscular Hemoglobin 33 pg (25-35) Mean Corpuscular Hemoglobin Concent 33 g/dL (31-37) Red Cell Distribution Width 11.8 % (11.5-14.5) Platelet Count 429 x10^3/uL (140-400) Neutrophils (%) (Auto) 80 % (31-73) Lymphocytes (%) (Auto) 12 % (24-48) Monocytes (%) (Auto) 7 % (0-9) Eosinophils (%) (Auto) 0 % (0-3) Basophils (%) (Auto) 1 % (0-3) Neutrophils # (Auto) 6.9 x10^3/uL (1.8-7.7) Lymphocytes # (Auto) 1.1 x10^3/uL (1.0-4.8) Monocytes # (Auto) 0.6 x10^3/uL (0.0-1.1) Eosinophils # (Auto) 0.0 x10^3/uL (0.0-0.7) Basophils # (Auto) 0.0 x10^3/uL (0.0-0.2) Sodium Level 133 mmol/L (136-145) Potassium Level 4.7 mmol/L (3.5-5.1) Chloride Level 94 mmol/L (98-107) Carbon Dioxide Level 12 mmol/L (21-32) Anion Gap 27 (6-14) Blood Urea Nitrogen 34 mg/dL (8-26) Creatinine 1.9 mg/dL (0.7-1.3) Estimated GFR (Cockcroft-Gault) 46.4 BUN/Creatinine Ratio 18 (6-20) Glucose Level 376 mg/dL (70-99) Calcium Level 9.5 mg/dL (8.5-10.1) Total Bilirubin 1.3 mg/dL (0.2-1.0) Aspartate Amino Transf (AST/SGOT) 12 U/L (15-37) Alanine Aminotransferase (ALT/SGPT) 19 U/L (16-63) Alkaline Phosphatase 90 U/L (46-116) Troponin I Quantitative < 0.017 ng/mL (0.000-0.055) Total Protein 8.6 g/dL (6.4-8.2) Albumin 4.7 g/dL (3.4-5.0) Albumin/Globulin Ratio 1.2 (1.0-1.7) Lipase 74 U/L (73-393) Acetone Level Sm pos (NEG) Influenza Type A Antigen Negative (NEGATIVE) Influenza Type B Antigen Negative (NEGATIVE) O2 Saturation 93 % (92-99) Arterial Blood pH 7.26 (7.35-7.45) Arterial Blood pCO2 at Patient Temp 25 mmHg (35-46) Arterial Blood pO2 at Patient Temp 76 mmHg (75-108) Arterial Blood HCO3 11 mmol/L (21-28) Arterial Blood Base Excess -14 mmol/L (-3-3) Oxyhemoglobin 92.8 % Methemoglobin 0.3 % (0.0-1.9) Carbon Monoxide, Quantitative 0.3 % (0.0-1.9) FiO2 21 Test 08/08/19 18:50 08/08/19 19:21 08/08/19 20:29 08/08/19 21:28 Urine Collection Type Unknown Urine Color Yellow Urine Clarity Clear Urine pH 5.0 (<5.0-8.0) Urine Specific Marlette >=1.030 (1.000-1.030) Urine Protein 30 mg/dL (NEG-TRACE) Urine Glucose (UA) >=1000 mg/dL (NEG) Urine Ketones (Stick) >=80 mg/dL (NEG) Urine Blood Negative (NEG) Urine Nitrite Negative (NEG) Urine Bilirubin Moderate (NEG) Urine Urobilinogen Dipstick 1.0 mg/dL (0.2 mg/dL) Urine Leukocyte Esterase Negative (NEG) Urine RBC 0 /HPF (0-2) Urine WBC 0 /HPF (0-4) Urine Bacteria 0 /HPF (0-FEW) Glucose (Fingerstick) 259 mg/dL (70-99) 231 mg/dL (70-99) 224 mg/dL (70-99) Test 08/08/19 21:30 08/08/19 22:32 08/08/19 23:43 08/09/19 00:33 Sodium Level 137 mmol/L (136-145) Potassium Level 4.3 mmol/L (3.5-5.1) Chloride Level 102 mmol/L (98-107) Carbon Dioxide Level 16 mmol/L (21-32) Anion Gap 19 (6-14) Blood Urea Nitrogen 29 mg/dL (8-26) Creatinine 1.5 mg/dL (0.7-1.3) Estimated GFR (Cockcroft-Gault) 61.0 Glucose Level 235 mg/dL (70-99) Calcium Level 8.3 mg/dL (8.5-10.1) Phosphorus Level 2.4 mg/dL (2.6-4.7) Glucose (Fingerstick) 230 mg/dL (70-99) 151 mg/dL (70-99) 145 mg/dL (70-99) Test 08/09/19 02:00 08/09/19 02:09 08/09/19 03:15 08/09/19 04:33 Sodium Level 134 mmol/L (136-145) Potassium Level 3.8 mmol/L (3.5-5.1) Chloride Level 103 mmol/L (98-107) Carbon Dioxide Level 21 mmol/L (21-32) Anion Gap 10 (6-14) Blood Urea Nitrogen 26 mg/dL (8-26) Creatinine 1.4 mg/dL (0.7-1.3) Estimated GFR (Cockcroft-Gault) 66.0 Glucose Level 148 mg/dL (70-99) Calcium Level 8.1 mg/dL (8.5-10.1) Phosphorus Level 2.5 mg/dL (2.6-4.7) Magnesium Level 2.0 mg/dL (1.8-2.4) Glucose (Fingerstick) 134 mg/dL (70-99) 134 mg/dL (70-99) 120 mg/dL (70-99) Test 08/09/19 06:45 08/09/19 06:50 08/09/19 08:02 08/09/19 12:22 Glucose (Fingerstick) 121 mg/dL (70-99) 159 mg/dL (70-99) 49 mg/dL (70-99) White Blood Count 7.9 x10^3/uL (4.0-11.0) Red Blood Count 4.06 x10^6/uL (4.30-5.70) Hemoglobin 13.3 g/dL (13.0-17.5) Hematocrit 39.2 % (39.0-53.0) Mean Corpuscular Volume 97 fL (79-100) Mean Corpuscular Hemoglobin 33 pg (25-35) Mean Corpuscular Hemoglobin Concent 34 g/dL (31-37) Red Cell Distribution Width 11.8 % (11.5-14.5) Platelet Count 331 x10^3/uL (140-400) Neutrophils (%) (Auto) 68 % (31-73) Lymphocytes (%) (Auto) 17 % (24-48) Monocytes (%) (Auto) 13 % (0-9) Eosinophils (%) (Auto) 2 % (0-3) Basophils (%) (Auto) 0 % (0-3) Neutrophils # (Auto) 5.4 x10^3/uL (1.8-7.7) Lymphocytes # (Auto) 1.4 x10^3/uL (1.0-4.8) Monocytes # (Auto) 1.0 x10^3/uL (0.0-1.1) Eosinophils # (Auto) 0.1 x10^3/uL (0.0-0.7) Basophils # (Auto) 0.0 x10^3/uL (0.0-0.2) Sodium Level 137 mmol/L (136-145) Potassium Level 3.6 mmol/L (3.5-5.1) Chloride Level 104 mmol/L (98-107) Carbon Dioxide Level 18 mmol/L (21-32) Anion Gap 15 (6-14) Blood Urea Nitrogen 25 mg/dL (8-26) Creatinine 1.2 mg/dL (0.7-1.3) Estimated GFR (Cockcroft-Gault) 78.9 BUN/Creatinine Ratio 21 (6-20) Glucose Level 125 mg/dL (70-99) Calcium Level 8.1 mg/dL (8.5-10.1) Total Bilirubin 1.3 mg/dL (0.2-1.0) Aspartate Amino Transf (AST/SGOT) 11 U/L (15-37) Alanine Aminotransferase (ALT/SGPT) 15 U/L (16-63) Alkaline Phosphatase 66 U/L (46-116) Total Protein 6.3 g/dL (6.4-8.2) Albumin 3.4 g/dL (3.4-5.0) Albumin/Globulin Ratio 1.2 (1.0-1.7) Test 08/09/19 12:24 08/09/19 12:40 Glucose (Fingerstick) 47 mg/dL (70-99) 85 mg/dL (70-99) Brief Hospital Course Mr. Hawkins is a 48 old male, admit with nausea and vomiting, Discharge Information Condition at Discharge: Improved Follow Up: Weeks Disposition/Orders: D/C to Home Scheduled Insulin Aspart (Novolog Flexpen) 100 Unit/1 Ml Insuln.pen, 15 UNIT SQ TIDWMEALS for diabetes, (Reported) Entered as Reported by: CRISTAL RUTHERFORD RN on 08/08/192328 Last Action: New Order on 08/08/192328 by CRISTAL RUTHERFORD RN Insulin Glargine,Hum.rec.anlog (Lantus Solostar) 100 Unit/1 Ml Insuln.pen, 48 UNIT SQ QHS for diabetes, #15 Ref 3 (Reported) Entered as Reported by: CRISTAL RUTHERFORD RN on 08/08/192328 Last Action: New Order on 08/08/192328 by CRISTAL RUTHERFORD RN Scheduled PRN Acetaminophen (Acetaminophen) 500 Mg Tablet, 500 MG PO PRN Q6HRS PRN for MILD PAIN / TEMP for 14 Days, #30 Prescribed by: CRISTIANA WASHINGTON MD on 09/03/18 1402 Durable Medical Equipment Pen Needle, Diabetic (Insulin Pen Needle) 1 Each Dis.needle, EACH [facility] QID for Diabetes, #120, (DME) 4 times daily with meals and nightly for insulin pens Prescribed by: LILLIANA ALVARADO MD on 06/06/18 1407 Patient Instructions Patient Instructions > 30 min SUDHAKAR CONKLIN MD August 09, 2019 13:47
--- NOTE | 2019-08-09 19:19 | NUR ---
Discharge Note: [facility] Discharge instructions and discharge home medications reviewed with Patient and a copy given. All questions have been answered and understanding verbalized. The following instructions and handouts were given: Patient given education regarding DKA and FAUSTO. Discontinued lines and drains: Iv removed per protocol. Patient discharged home, picked up by girlfriend.
[2019-08-10 01:09] LABS: HEMOGLOBIN A1C 10.2 % (4.8-5.6)
[2019-08-10] MEDS ORDERED: POTASSIUM CHLORIDE 20 MEQ TABLET.ER. PO SCH (08:00)
== END 2019-08-09 19:15 | disposition home or self-care (01) | DRG 682 ==
LOC: ER 17:09 → CVICU 19:08 → ER 20:12
PROVIDERS: ADMIT Internal Medicine; ATTEND Internal Medicine
DX: N17.9 Acute kidney failure, unspecified (principal); E10.10 Type 1 diabetes mellitus with ketoacidosis without coma; A08.4 Viral intestinal infection, unspecified; I10 Essential (primary) hypertension; Z79.4 Long term (current) use of insulin; Z82.49 Family history of ischemic heart disease and other diseases of the circulatory system
CPT/HCPCS: 36415; 36600; 71045; 80048; 80053; 81001; 82010; 82805; 82962; 83036; 83690; 83735; 84100; 84484; 85025; 87804; 93005; J1815; J2405; J3480; J7030; J7042; G0378